=== PATIENT | female | born 1945 | race Caucasian/White ===

== ENCOUNTER → 2017-06-08 11:21 | Outpatient (CLI) | payer MEDICARE, SELFPAY ==
[2017-06-08 13:48] LABS: Absolute Lymphocyte Count 2.65 X10^3/ul (0.83-4.51); Absolute Neutrophil Count 6.8 X10^3/uL (2.0-7.7); Basophil# 0.02 X10^3/uL; Basophil% 0.2 % (0-1); Eosinophil# 0.34 X10^3/uL; Eosinophils% 3.1 % (0-5); Hemoglobin 14.4 g/dl (12.0-15.0); Lymphocyte # 2.65 X10^3/ul (4.0); Lymphocyte % 24.4 % (19-41); Mean Corpuscular Hgb 30.4 pg (27.0-32.0); Mean Corpuscular Volume 95.1 fL (81-99); Mean Platelet Vol. 9.1 fl (6.2-12.0); Monocyte# 0.99 X10^3/uL; Monocyte% 9.1 % (0-10); Neutrophil # 6.84 X10^3/uL (2.7-7.7); POSITIVE COUNT NO; POSITIVE DIFFERENTIAL NO; POSITIVE MORPHOLOGY NO; Platelet Count 232 K/mm3 (150-450); RBC Distribution Width CV 14.7 % (11.6-14.6); Red Blood Count 4.73 M/mm3 (4.2-5.4); White Blood Count 10.9 K/mm3 (4.4-11.0)
[2017-06-08 14:19] LABS: ALB/GLOB Ratio 0.8 RATIO (0.9-2.4); AST(SGOT) 22 U/L (15-37); Alanine Aminotransfer ALT/SGPT 34 U/L (13-56); Albumin, Serum 3.1 g/dL (3.2-5.0); Alkaline Phosphatase 161 U/L (45-117); Anion Gap 10 (5-15); BUN 18 mg/dL (7-18); BUN/Creat Ratio 24.1 RATIO (10-20); Calcium,Total 9.3 mg/dL (8.5-10.1); Chloride 104 mmol/L (98-107); Creatinine, Serum 0.75 mg/dL (0.55-1.02); EST Glomerular Filtration Rate 81 mL/min (>60); Est Glom Filt Rate - Afr Amer 98 mL/min (>60); Glucose 197 mg/dL (74-106); Potassium 4.1 mmol/L (3.5-5.1); Protein, Total 7.1 g/dL (6.4-8.2); Sodium Level 137 mmol/L (136-145)
== END ==
PROVIDERS: Family Provider Family Medicine; PCP Family Medicine; Visit Provider Internal Medicine Rheumatology
DX: M05.79 Rheumatoid arthritis with rheumatoid factor of multiple sites without organ or systems involvement (principal); Z79.899 Other long term (current) drug therapy; M79.7 Fibromyalgia; M25.511 Pain in right shoulder; M15.9 Polyosteoarthritis, unspecified; K76.0 Fatty (change of) liver, not elsewhere classified; M17.0 Bilateral primary osteoarthritis of knee; E03.9 Hypothyroidism, unspecified; E11.9 Type 2 diabetes mellitus without complications; G47.33 Obstructive sleep apnea (adult) (pediatric); I27.20 Pulmonary hypertension, unspecified
CPT/HCPCS: 36415; 80053; 85025

== ENCOUNTER → 2017-07-04 14:21 | Outpatient (CLI) | payer MEDICARE, SELFPAY ==
[2017-07-04 16:18] LABS: Absolute Lymphocyte Count 3.41 X10^3/ul (0.83-4.51); Absolute Neutrophil Count 7.2 X10^3/uL (2.0-7.7); Basophil# 0.03 X10^3/uL; Basophil% 0.3 % (0-1); Eosinophil# 0.23 X10^3/uL; Eosinophils% 1.9 % (0-5); Hematocrit 48.5 % (37-47); Hemoglobin 15.6 g/dl (12.0-15.0); Lymphocyte # 3.41 X10^3/ul (4.0); Lymphocyte % 28.7 % (19-41); Mean Corp Hgb Conc 32.2 g/gl (32-36); Mean Corpuscular Hgb 30.7 pg (27.0-32.0); Mean Corpuscular Volume 95.5 fL (81-99); Mean Platelet Vol. 9.5 fl (6.2-12.0); Monocyte% 8.4 % (0-10); Neutrophil % 60.5 % (47-70); Platelet Count 270 K/mm3 (150-450); RBC Distribution Width CV 14.8 % (11.6-14.6); RBC Distribution Width SD 50.8 fl (35.1-43.9); Red Blood Count 5.08 M/mm3 (4.2-5.4); White Blood Count 11.9 K/mm3 (4.4-11.0)
[2017-07-04 16:19] LABS: POSITIVE COUNT NO; POSITIVE DIFFERENTIAL NO; POSITIVE MORPHOLOGY NO
[2017-07-04 16:39] LABS: ALB/GLOB Ratio 0.8 RATIO (0.9-2.4); AST(SGOT) 39 U/L (15-37); Alanine Aminotransfer ALT/SGPT 51 U/L (13-56); Albumin, Serum 3.3 g/dL (3.2-5.0); Alkaline Phosphatase 186 U/L (45-117); Anion Gap 9 (5-15); BUN 18 mg/dL (7-18); BUN/Creat Ratio 22.7 RATIO (10-20); Calcium,Total 9.6 mg/dL (8.5-10.1); Chloride 107 mmol/L (98-107); Creatinine, Serum 0.79 mg/dL (0.55-1.02); EST Glomerular Filtration Rate 75 mL/min (>60); Est Glom Filt Rate - Afr Amer 91 mL/min (>60); Globulin 4.1 g/dL (2.2-4.2); Glucose 116 mg/dL (74-106); Potassium 4.1 mmol/L (3.5-5.1); Protein, Total 7.4 g/dL (6.4-8.2); Sodium Level 142 mmol/L (136-145)
== END ==
PROVIDERS: Family Provider Family Medicine; PCP Family Medicine; Visit Provider Internal Medicine Rheumatology
DX: M05.79 Rheumatoid arthritis with rheumatoid factor of multiple sites without organ or systems involvement (principal); Z79.899 Other long term (current) drug therapy; M79.7 Fibromyalgia; M15.9 Polyosteoarthritis, unspecified; K76.0 Fatty (change of) liver, not elsewhere classified; M17.0 Bilateral primary osteoarthritis of knee; E03.9 Hypothyroidism, unspecified; E11.9 Type 2 diabetes mellitus without complications; G47.33 Obstructive sleep apnea (adult) (pediatric); I27.20 Pulmonary hypertension, unspecified
CPT/HCPCS: 36415; 80053; 85025

== ENCOUNTER → 2017-07-18 11:11 | Outpatient (CLI) | payer MEDICARE, SELFPAY ==
--- NOTE | 2017-07-18 11:23 | RAD_ITS ---
STUDY: X-RAY - LUMBAR SPINE REASON FOR EXAM: Female, 71 years old. Continued back pain weeks after fall in bathtub TECHNIQUE: 4 view(s) of the lumbar spine were obtained. COMPARISON: None FINDINGS: Normal lumbar lordosis. There is a 19 degree dextroscoliosis centered at L3-4. There is borderline to mild retrolisthesis of L1 on L2 and L3 on L4. Grade 1 spondylolisthesis of L5 on S1. There is multilevel endplate spondylosis of the lumbar vertebrae. There is multi-level degenerative disc disease with multi-level disc space narrowing. There is moderate anterior wedging compression deformity of the T12 vertebra. Incidental note of hypoplastic T12 ribs. There are multilevel degenerative arthroses of the lumbar facet articulations. There is atherosclerotic calcification of the abdominal aorta without a demonstrated aneurysm. Surgical clips of prior cholecystectomy project in the right upper quadrant of the abdomen. RAD/L/S Spine Min 4 Views IMPRESSION: 1. Moderate anterior wedging compression deformity of the T12 vertebra. 2. Degenerative changes of the spine, as detailed above. Electronically Signed: Ge Ayon MD at 16:33 EDT , Service support ,
== END ==
PROVIDERS: Family Provider Family Medicine; PCP Family Medicine; Visit Provider Family Medicine
DX: M54.16 Radiculopathy, lumbar region (principal)
CPT/HCPCS: 72110

== ENCOUNTER → 2017-08-14 10:53 | Outpatient (CLI) | payer MEDICARE, SELFPAY | PROVIDERS: Family Provider Family Medicine; PCP Family Medicine; Visit Provider Internal Medicine Rheumatology | DX: M05.79 Rheumatoid arthritis with rheumatoid factor of multiple sites without organ or systems involvement (principal); Z79.899 Other long term (current) drug therapy; M79.7 Fibromyalgia; M15.9 Polyosteoarthritis, unspecified | CPT/HCPCS: 36415 ==

== ENCOUNTER → 2017-10-30 10:11 | Outpatient (CLI) | payer MEDICARE, SELFPAY ==
[2017-10-30 12:04] LABS: Absolute Lymphocyte Count 3.35 X10^3/ul (0.83-4.51); Absolute Neutrophil Count 6.1 X10^3/uL (2.0-7.7); Basophil# 0.03 X10^3/uL; Basophil% 0.3 % (0-1); Eosinophil# 0.34 X10^3/uL; Eosinophils% 3.1 % (0-5); Lymphocyte # 3.35 X10^3/ul (4.0); Mean Corp Hgb Conc 31.3 g/gl (32-36); Mean Corpuscular Hgb 30.6 pg (27.0-32.0); Mean Platelet Vol. 8.8 fl (6.2-12.0); Monocyte% 9.3 % (0-10); Neutrophil # 6.08 X10^3/uL (2.7-7.7); Neutrophil % 56.2 % (47-70); Platelet Count 301 K/mm3 (150-450); RBC Distribution Width CV 15.5 % (11.6-14.6); RBC Distribution Width SD 54.8 fl (35.1-43.9); White Blood Count 10.8 K/mm3 (4.4-11.0)
[2017-10-30 12:22] LABS: POSITIVE COUNT NO; POSITIVE DIFFERENTIAL NO; POSITIVE MORPHOLOGY NO
[2017-10-30 12:24] LABS: ALB/GLOB Ratio 0.8 RATIO (0.9-2.4); AST(SGOT) 25 U/L (15-37); Alanine Aminotransfer ALT/SGPT 31 U/L (13-56); Albumin, Serum 3.1 g/dL (3.2-5.0); Alkaline Phosphatase 160 U/L (45-117); Anion Gap 9 (5-15); BUN 17 mg/dL (7-18); BUN/Creat Ratio 18.7 RATIO (10-20); Calcium,Total 9.2 mg/dL (8.5-10.1); Chloride 106 mmol/L (98-107); Creatinine, Serum 0.91 mg/dL (0.55-1.02); EST Glomerular Filtration Rate 64 mL/min (>60); Est Glom Filt Rate - Afr Amer 78 mL/min (>60); Globulin 4.1 g/dL (2.2-4.2); Glucose 179 mg/dL (74-106); Potassium 4.4 mmol/L (3.5-5.1); Protein, Total 7.2 g/dL (6.4-8.2); Sodium Level 143 mmol/L (136-145)
== END ==
PROVIDERS: Family Provider Family Medicine; PCP Family Medicine; Visit Provider Internal Medicine Rheumatology
DX: M05.79 Rheumatoid arthritis with rheumatoid factor of multiple sites without organ or systems involvement (principal); Z79.899 Other long term (current) drug therapy; M79.7 Fibromyalgia; M15.9 Polyosteoarthritis, unspecified; K76.0 Fatty (change of) liver, not elsewhere classified; M17.0 Bilateral primary osteoarthritis of knee; E03.9 Hypothyroidism, unspecified; E11.9 Type 2 diabetes mellitus without complications; G47.33 Obstructive sleep apnea (adult) (pediatric); I27.20 Pulmonary hypertension, unspecified
CPT/HCPCS: 36415; 80053; 85025

== ENCOUNTER → 2017-11-15 16:15 | Outpatient (CLI) | payer MEDICARE, SELFPAY ==
[2017-11-15 17:57] LABS: Absolute Lymphocyte Count 3.04 X10^3/ul (0.83-4.51); Absolute Neutrophil Count 5.7 X10^3/uL (2.0-7.7); Basophil# 0.01 X10^3/uL; Basophil% 0.1 % (0-1); Eosinophil# 0.33 X10^3/uL; Eosinophils% 3.3 % (0-5); Hematocrit 49.2 % (37-47); Hemoglobin 15.8 g/dl (12.0-15.0); Lymphocyte # 3.04 X10^3/ul (4.0); Lymphocyte % 30.5 % (19-41); Mean Corp Hgb Conc 32.1 g/gl (32-36); Mean Corpuscular Hgb 31.2 pg (27.0-32.0); Mean Corpuscular Volume 97.2 fL (81-99); Mean Platelet Vol. 9.5 fl (6.2-12.0); Monocyte# 0.87 X10^3/uL; Monocyte% 8.7 % (0-10); Neutrophil # 5.71 X10^3/uL (2.7-7.7); Neutrophil % 57.4 % (47-70); Platelet Count 203 K/mm3 (150-450); RBC Distribution Width CV 15.1 % (11.6-14.6); RBC Distribution Width SD 53.3 fl (35.1-43.9); Red Blood Count 5.06 M/mm3 (4.2-5.4)
[2017-11-15 17:58] LABS: POSITIVE COUNT NO; POSITIVE DIFFERENTIAL NO; POSITIVE MORPHOLOGY NO
[2017-11-15 18:25] LABS: ALB/GLOB Ratio 0.8 RATIO (0.9-2.4); AST(SGOT) 22 U/L (15-37); Alanine Aminotransfer ALT/SGPT 36 U/L (13-56); Albumin, Serum 3.4 g/dL (3.2-5.0); Alkaline Phosphatase 186 U/L (45-117); Anion Gap 9 (5-15); BUN 14 mg/dL (7-18); BUN/Creat Ratio 17.2 RATIO (10-20); CRP 4.03 mg/L (0.0-3.0); Calcium,Total 9.3 mg/dL (8.5-10.1); Chloride 108 mmol/L (98-107); Creatinine, Serum 0.82 mg/dL (0.55-1.02); EST Glomerular Filtration Rate 73 mL/min (>60); Est Glom Filt Rate - Afr Amer 88 mL/min (>60); Glucose 122 mg/dL (74-106); Lipase 140 U/L (73-393); Potassium 3.8 mmol/L (3.5-5.1); Protein, Total 7.4 g/dL (6.4-8.2); Sodium Level 144 mmol/L (136-145)
== END ==
PROVIDERS: Family Provider Family Medicine; PCP Family Medicine; Visit Provider Family Medicine
DX: E11.42 Type 2 diabetes mellitus with diabetic polyneuropathy (principal); R10.13 Epigastric pain; R11.2 Nausea with vomiting, unspecified
CPT/HCPCS: 36415; 80053; 83690; 85025; 86140

== ENCOUNTER → 2017-12-03 17:38 | Outpatient (CLI) | payer MEDICARE, SELFPAY ==
--- NOTE | 2017-12-03 17:43 | CT_ITS ---
STUDY: CT ABDOMEN AND PELVIS WITH CONTRAST REASON FOR EXAM: Female, 72 years old. Abdominal pain, weight loss, nausea RADIATION DOSAGE (If Supplied By Facility): CTDIvol = ( 23.67 ) mGy, DLP = ( 1778.56 ) mGycm TECHNIQUE: Transaxial 3.75 mm images were obtained from the dome of the diaphragm to the symphysis pubis with oral contrast. 100 ml of Isovue 300 contrast was administered. Sagittal and coronal images were reconstructed. There is obesity, the entirety of soft tissue is not imaged. Individualized dose optimization techniques were used for this CT. COMPARISON: None. FINDINGS: Linear changes in the left greater than right base, atelectatic changes and nonspecific compression of parenchyma. There is mitral valve calcification. There is decreased attenuation of the enlarged liver consistent with steatosis. There are surgical clips in the gallbladder fossa consistent with a prior cholecystectomy. Normal spleen. Normal pancreas. Normal bilateral adrenal glands. Normal right kidney. Normal left kidney. There is no obstructive uropathy, obstructive renal or ureteral calculi. Normal visualized stomach. Normal small intestine. Normal colon. There is non-visualization of the appendix. There is atherosclerosis of the abdominal aorta, greater branches and pelvic arteries without aneurysm or leak. Normal inferior vena cava. Normal retroperitoneum. Normal urinary bladder. There is absence of the uterus consistent with a prior hysterectomy. Right adnexal low-attenuation 1.5 x 1.4 x 1.6 cm measuring water density most consistent with a small cyst. Bilateral continue present subcutaneous skin thickening with fat infiltration, partial calcification right greater than left possible related to injections.. There are diffuse degenerative changes of the visualized lumbar spine. Grade 1 anterolisthesis L5 on S1. Depression of the inferior endplate T12. No acute cortical disruption. CT/Abdomen/Pelvis WITH Contrast IMPRESSION: There is no acute abdomen and pelvic pathology. No evidence of masses or lymphadenopathy. Hepatic steatosis, hepatomegaly, arteriosclerosis, cholecystectomy, hysterectomy, right ovarian cyst and degenerative changes. Continues and subcutaneous anterior abdominal wall fat infiltration possibly related to injections. Electronically Signed: Aminata Mas MD at 6:36 EDT , Service support ,
== END ==
PROVIDERS: Family Provider Family Medicine; PCP Family Medicine; Visit Provider Family Medicine
DX: R10.9 Unspecified abdominal pain (principal); R63.4 Abnormal weight loss; R11.10 Vomiting, unspecified
CPT/HCPCS: 74177; Q9967

== ENCOUNTER → 2017-12-06 09:45 | Outpatient (CLI) | payer MEDICARE, SELFPAY ==
--- NOTE | 2017-12-06 09:47 | NM_ITS ---
CLINICAL: 72-year-old diabetic female with history of chronic nausea. SEMI-SOLID PHASE 99m Tc SULFUR COLLOID GASTRIC EMPTYING STUDY COMPARISON: CT of the abdomen and pelvis report 12/03/2017 FINDINGS: The patient was administered 1.0 mCi of 99m Tc sulfur colloid mixed with oatmeal and consumed per os. Image acquisitions in the anterior-posterior projections for a total of 60 minutes. There is prompt visualization of the stomach. There is no gastroesophageal reflux identified. The T1/2 linear fit was calculated to be 25.97 minutes, (Normal: 12-56 minutes). NM/Gastric Emptying Study IMPRESSION: 1. NORMAL 99m Tc sulfur colloid semi-solid phase (oatmeal) gastric emptying imaging examination. A. There is normal and preserved semi-solid phase gastric emptying compared to normal controls with maintained first order kinetics throughout all components of the examination. (Leslie et al, J Nucl Med Tech 38: 186, 2010). Electronically Signed: Ravi Qureshi DO at 23:03 EDT Tel , Service support ,
== END ==
PROVIDERS: Family Provider Family Medicine; PCP Family Medicine; Visit Provider Internal Medicine Gastroenterology
DX: R11.0 Nausea (principal)
CPT/HCPCS: 78264; 88305; A9541

== ENCOUNTER → 2017-12-07 11:50 | Outpatient (CLI) | payer MEDICARE, SELFPAY | PROVIDERS: Family Provider Family Medicine; PCP Family Medicine; Visit Provider Internal Medicine Gastroenterology | DX: K21.9 Gastro-esophageal reflux disease without esophagitis (principal); R11.0 Nausea ==

== ENCOUNTER → 2017-12-07 12:57 | Outpatient (CLI) | payer MEDICARE, SELFPAY ==
--- NOTE | 2017-12-07 | IMM_PTH ---
PATIENT: CAMRON SNOW LOC: [facility] U#:[id number] AGE/SX: 79/F ROOM: RE12/07/[address]: Dr. Gio Cordero MD : 1945 BED: DIS: SPEC #: [id number] RECD: 12/11/17 10:41 STATUS: JEANA REQ #: [id number] ROSAURA: 12/07/17 00:[address]: Gio Cordero DEPT: IMMUNOHISTOCHEMISTRY RECD BY: Samara Thurston ENTERED: 12/11/17 10:41 SP TYPE: IMMUNO OTHR DR: Dr. Diallo Dejesus DO Tissues: Stomach, NOS Procedures: H Pylori (initial) PHYSICIAN & INSTITUTION [place] [id number] SPECIMEN INFORMATION: Tissue Source: Gastric antrum/body, biopsy Clinical Info: Nausea, GERD Specimen Number: [id number] CPT code: 07186 METHODOLOGY: Deparaffinized sections of prefer/formalin-fixed tissue or PAP/DQ stained slides are incubated with monoclonal/polyclonal antibodies/oligonucleotide probes. Localization is made via biotin free immunoperoxidase method. Appropriate controls are performed and reacted as expected. Results on target cell population are indicated in the following table: RESULTS: ANTIBODY / CLONE RESULT H Pylori (polyclonal) negative These tests were developed and their performance characteristics determined by [facility]. They may not have been cleared or approved by the U.S. Food and Drug Administration. The FDA has determined that such clearance or approval is not necessary. INTERPRETATION: Gastric antrum/body, biopsy: Negative for Helicobacter pylori organisms. AM:az 12/12/17
--- NOTE | 2017-12-07 10:08 | GASB_PTH ---
PATIENT: CAMRON SNOW LOC: [facility] U#:[id number] AGE/SX: 79/F ROOM: RE12/07/[address]: Dr. Gio Cordero MD : 1945 BED: DIS: SPEC #: [id number] RECD: 12/07/17 15:31 STATUS: JEANA REQ #: [id number] ROSAURA: 12/07/17 10:[address]: Gio Cordero DEPT: SURGICAL PATHOLOGY RECD BY: Regis Jung ENTERED: 12/10/17 08:52 SP TYPE: Gastric Bx OTHR DR: Dr. Diallo Dejesus, [facility] Tissues: Gastric mucous membrane Procedures: Surgery Specimen Level IV Comments: @ Originally on account #[id number] Req #[id number] HEADER OPERATION: EGD with biopsy PRE-OP DIAGNOSIS: Nausea, GERD TISSUE SUBMITTED: Biopsy gastric antrum/body, rule out gastritis MICROSCOPIC DIAGNOSIS Gastric antrum/body, biopsy: Chronic gastritis. AM:az 12/11/17 COMMENT The results of immunohistochemistry for Helicobacter pylori will be reported separately ([id number]). MICROSCOPIC DESCRIPTION Slides are reviewed. GROSS DESCRIPTION Received in fixative is one container labeled with the patient's name and designated biopsy gastric antrum/body. The specimen consists of multiple irregular fragments of light man soft tissue that in aggregate measure 0.8 x 0.3 x 0.1 cm. The specimen is totally submitted in one cassette. / SJ:az 12/10/17 TC:3 CPT: 43088
== END ==
PROVIDERS: Family Provider Family Medicine; PCP Family Medicine; Visit Provider Internal Medicine Gastroenterology
DX: K29.50 Unspecified chronic gastritis without bleeding (principal); K21.9 Gastro-esophageal reflux disease without esophagitis
CPT/HCPCS: 88305; 88342

== ENCOUNTER 2017-12-21 15:00 | Outpatient (RCR) | payer MEDICARE, SELFPAY ==
--- NOTE | 2017-07-17 18:45 | HP.PTEVAL_ITS ---
Patient's Visit Information CAMRON SNOW is a 71 year old F referred to Physical Therapy by Clarke Parada MD with a diagnosis of R TSA 02/02 and LBP. Date of Evaluation: 07/17/17 Physical Therapist: Pio Ogden DPT, OC - Visit Plan Frequency: 3x /Week Duration: 4-6 Weeks Plan: 3x/week for 3-6. Pt needs TLC and likes to talk, keep her working. Gentle LB ROM progress to HEP. Core postural and LE strength and progress to HEp. R shoulder strength and progress to HEp. Gradual walking progression and balance - Subjective Subjective: 01/22/2017 had reverse TSA. This was after difficulty with lots of pain and difficulty moving it. Shoulder is soooo much better. Woke up in hospital without much pain. Went into rehab after surgery for 5 weeks. Then had home health 3x/week. Was doing great. Got stress fracture in late March and was in sling for another month and started therapy over again pt thinks due to overaggressive home PT. Saw doctor 2 weeks ago and is doing well but is very weak. Could not cut an onion the other night. Needs TSA on L shoulder first btu will take a year for R shoulder to heal. Not to agitate L shoulder in the meantime. Can't do much with left due to pain. R one is painfree but weak. Is right handed No regular exercises since home health. Sleep is OK with shoulder and is able to lie on right shoulder again. Has h/o bad OA. Retired from [employer]. Activities: read books and watch TV(doctor's orders.). Would like to garden. Would love to walk but Dr. Hansen her foot doctor says she cannot. Uses cane to walk as she feels unstable. Fell 3-4 weeks ago as she was walking to bathroom and turning to close door. Hurt back. Could not get up. Back has been painful since. Laid there 12 hours. Squad helped her up. Has had R butt adn leg pain at first and now left leg hurts too. Put heat on back that night. and was having a hard time sleeping. Was hard to stand more than 5 minutes then needs to sit and got very weak. Has [address] apartment and needs to wear brace on L leg. Son lives downstairs. Pain now right across bottom of back. Has h/o L23 HNP and other bulges from MRI 15 years ago. Biggest problem now is back pain:Will have x rays tomorrow. Feels weak due to pain. Son cleans house and she cannot cook, can't do laundry. - Pain LBP Pain Intensity (Out of 10): 6 Pain Intensity Range: 6 Comment: ache consatantly - Objective Wh walker: Better posture and step length, more confidence and safer. She will get a script from family doctor and get wh walker. Steps are needing rail and up with left only, right hurts too much and is weak functionally. cane: Mod i but short B step length and especially L, veery tired and limited distance by back pain 250 feet. unable without AD fucntionally. Trasnfer to and frfo chair I with UE. R shoulder AROM 145 flexion and abd. 70 ext rotation and PSIS IR. L shoulder is more limited and painful as she needs a TSA on that side also. Shoulder strength is 3+/5 in rotations on R and flexion/ abduction, L shoulder hurts to test. C/S aROM WFL. L/S AROM mod limited in ext and slow but tolerable flexion more due to feeling unsteady then complaints of pain. LE Strength 3+/5 without myotomal abnormalities. Sensation wNL to severino slight touch in LE. Pt shows hunched over posture and forward head. Overall she is very weak and depressed about her condition. She persevorates on her medical problems but seems willing to work her way out of them with approp education. - Balance Scores Functional Gait Assessment Score: 14 % Disability: 53.3400 CATSIB Score (Max score 120 seconds): 60 - Goals Goal 1:: Walk with good step length one lap at [facility] without need for AD or LBP Goal Time Frame: 4-6 Weeks Goal 2:: LBP diminished to 0-2/10 at all times and manageable with ex. Goal Time Frame: 4-6 Weeks Goal 3:: I approp Home general and shoulder strength without increased pain. Goal 4:: Up and down one flight of steps with one rail without complaints of fatigue or LBP Goal Time Frame: 4-6 Weeks - Rehabilitation Potential Physical Therapy Diagnosis: Limited mobility due to recent fall and LBP Rehabilitation Potential: Fair - Anticipated Interventions Patient/Client Instruction: Educate patient on: Condition, Risk Factors For the Purpose of:: To decrease pain, To improve muscle performance and motor function Therapeutic Exercise to Include: Strength training, Endurance training, Flexibilty training, Gait and locomotor training For the Purpose of:: To decrease pain, To increase ROM, To improve muscle performance and motor function, To increase tolerance to activity/condition/ position, To improve gait and locomotor functions Thank you for the opportunity to evaluate your patient. For Medicare and Medicare HMO plans, please review the plan of care and approve it. It will need to be FAXED BACK to us at [phone] for Medicare purposes. Please let me know if there are questions or concerns regarding this plan of care. Physician Signature: Date:
--- NOTE | 2017-09-03 13:33 | HP.PTREVAL_ITS ---
Clarke Parada MD, It has been my pleasure to treat CAMRON SNOW over the last 10 visits for R TSA 02/02 and LBP. Please see the progress note below for an update on the physical therapy plan of care! Subjective: Not feeling better. Getting frustrated. Dr. Mason changed meds from Humira to soemthing else. Has taken that 2x(weekly) and saw some improvement starting a few days ago. Pain is none in R shoulder, L shoulder occasional pain. Most pain is in knees and legs and L ankle which were swollen and hurt alot. 2/10 on good days and worse wehn transferring. Found a sleeping pill that works. Not doing anything becasue it is no fun when you can't get around well. Can't cook or enjoy garden b/c is hard to get around. Objective/Function: Pt ambulates with wh walker I into PT. Pt ambulates one full lap with one rest without AD with short R step length slowly but steady. Trasnferred out of chair without UE well but not believe that she could do it prior to today. Many complaints of pain but not bad today. Says her son thinks she is depressed and will talk with Dr. Lozano about that this week. She does sound to be down in the dumps about her pain. Has had some improvements over the last few weeks with her med change from Dr. Santillan. Overall, neexs to be more consistent with PT. still refuses water therapy. Goals still approp, questionable prognosis. Plan Plan: 2-3x/week for 10 visits to work on a more functional ex program. Walk without walker, steps, static and dynamic balance ex. May do some chair ex but progress these to HEP. Hope that new meds continue to improve pain and patient should consider talking with vivien about anti depressant as she is more down than I have seen in 12 years af treating this patient. Goals Goal 1:: Walk with good step length one [facility] at [facility] without need for AD or LBP Goal Time Frame: 4-6 Weeks Goal Progress: one rest. very tired. Goal 2:: LBP diminished to 0-2/10 at all times and manageable with ex. Goal Time Frame: 4-6 Weeks Goal Progress: will see Ricci Goal 3:: I approp Home general and shoulder strength without increased pain. Goal Progress: Not Progressing Goal 4:: Up and down one flight of steps with one rail without complaints of fatigue or LBP Goal Time Frame: 4-6 Weeks Goal Progress: not tested. Anticipated Interventions Patient/Client Instruction: Educate patient on: Condition, Risk Factors For the Purpose of:: To decrease pain, To improve muscle performance and motor function Therapeutic Exercise to Include: Strength training, Endurance training, Flexibilty training, Gait and locomotor training For the Purpose of:: To decrease pain, To increase ROM, To improve muscle performance and motor function, To increase tolerance to activity/condition/ position, To improve gait and locomotor functions Please do not hesitate to contact me at [phone] by phone or Fax: if you have questions or concerns regarding this new plan of care! Sincerely, DENNY SageT, OC
--- NOTE | 2017-10-15 15:08 | HP.PTREVAL_ITS ---
Clarke Parada MD, It has been my pleasure to treat CAMRON SNOW over the last 18 visits for R TSA 02/02 and LBP. Please see the progress note below for an update on the physical therapy plan of care! Subjective: Weekend was not bad. It stayed pretty good Sunday and went to a movie with a friend Sunday and tried to minimize work activitiy. A Little worse yesterday but sugar was doing crazy things as she didnt' eat as much as she should. Pain was not as bad over the weekend. r shoulder tweaked a little this am, but not bad. L shoulder not bad. Did a ltitle pulling ex at home but taking it slow. Objective/Function: Tolerating ex well today. L/S AROM is not painful today adn decent. R shoulder aROM full and without pain except IR to PSIS. Strength at 4-/5 without pain. L shouldr not tested. Pt has had 3 good days after ES Sunday and educating her on not overdoing things at home. Changed G- coding to LEFS today as shoulders have been doing well and we are working more on LB pain and legs ability to get her around. Plan Plan: Finish out this plan of care(3 more visits then full recheck and plan of care update. Goals Goal 1:: Walk with good step length one lap at [facility] without need for AD or LBP Goal Time Frame: 4-6 Weeks Goal Progress: Progressing Goal 2:: LBP diminished to 0-2/10 at all times and manageable with ex. Goal Time Frame: 4-6 Weeks Goal Progress: SLOW PROGRESSION Goal 3:: I approp Home general and shoulder strength without increased pain. Goal Progress: Not Progressing Goal 4:: Up and down one flight of steps with one rail without complaints of fatigue or LBP Goal Time Frame: 4-6 Weeks Goal Progress: not tested. Anticipated Interventions Patient/Client Instruction: Educate patient on: Condition, Risk Factors For the Purpose of:: To decrease pain, To improve muscle performance and motor function Therapeutic Exercise to Include: Strength training, Endurance training, Flexibilty training, Gait and locomotor training Comment: flexion bias ex adn NS positioning. For the Purpose of:: To decrease pain, To increase ROM, To improve muscle performance and motor function, To increase tolerance to activity/condition/ position, To improve gait and locomotor functions TENS: Yes IF ES: Yes Thermo therapy (hot pack): Yes For the Purpose of:: To decrease pain Please do not hesitate to contact me at [phone] by phone or Fax: if you have questions or concerns regarding this new plan of care! Sincerely, Pio Ogden, DENNYT, OC
--- NOTE | 2017-10-31 14:53 | HP.PTREVAL ---
Clarke Parada MD, It has been my pleasure to treat CAMRON SNOW over the last 21 visits for R TSA 02/02 and LBP. Please see the progress note below for an update on the physical therapy plan of care! Subjective: Walking with cane a little more but L ankle is worse. No obvious injury. No real back pain in a while. Shoulders have felt OK, doesn;t move R one much. Very tired. Sleeping OK as she can. Bored and miserable but not painful. activity [place] she is doing well but can't work outside in flower bed. Objective/Function: Walks with L antalgia despite brace on L ankle, No AD used today in PT. Shoulder L AROM WFL and without pain, strength rotations at 4/5 adn elevation at 4/5 without pain. LB AROM min limited in ext and SB with no pain. Strength in LE 4-/5 but functionally R LE on steps much weaker than L and needs two hands to ascend with R. OVERALL SHOULDER DOING WELL AND D/C. l ANKLE HURTS TODAY AND RECOMMENDED SHE GET IT CHECKED WITH HER FOOT DR Peraza. bACK MUCH BETTER FOR LAST TWO WEEKS INEXPLICABLY. WEHAVE ASKED HER TO REST AND SHE HAS BEEN DOING EX INTERMITTENTLY AND SHE THINKS ES HAS REALLY HELPED. Changed to [facility] today based on newer script adn d/c of shoulder chart. Plan Plan: 1X/WEEK FOR 4 WEEKS TO PROGRESS LE STRENGTH TO WB AND GET MORE AGGRESSIVE WITH HEP BODY TOLERATES. MAY CONTINUE ESAS NEEDED(PT HAS HER OWN UNIT AND WILL BRING IT TO USE AND EDUCATE HER INSTEAD OF OURS) Goals Goal 1:: Walk with good step length [facility] without need for AD or LBP Goal Time Frame: 4-6 Weeks Goal Progress: needs cane. Goal 2:: LBP diminished to 0-2/10 at all times and manageable with ex. Goal Time Frame: 4-6 Weeks Goal Progress: Goal Met Goal 3:: I approp Home general and shoulder strength without increased pain. Goal Progress: Goal Met Goal 4:: Up and down one flight of steps with one rail without complaints of fatigue or LBP Goal Time Frame: 4-6 Weeks Goal Progress: L not R Goal 5:: I approp standing ex for strength and balance to minimize future problems without increasing back pain. Goal Time Frame: 2-4 Weeks Goal Progress: NEW GOAL Anticipated Interventions Patient/Client Instruction: Educate patient on: Condition, Risk Factors For the Purpose of:: To decrease pain, To improve muscle performance and motor function Therapeutic Exercise to Include: Strength training, Endurance training, Flexibilty training, Gait and locomotor training Comment: flexion bias ex adn NS positioning. For the Purpose of:: To decrease pain, To increase ROM, To improve muscle performance and motor function, To increase tolerance to activity/condition/position, To improve gait and locomotor functions TENS: Yes IF ES: Yes Thermo therapy (hot pack): Yes For the Purpose of:: To decrease pain Please do not hesitate to contact me at [phone] by phone or if you have questions or concerns regarding this new plan of care! Sincerely, Pio Ogden, DENNYT, OC
--- NOTE | 2017-11-30 16:14 | HP.PTREVAL_ITS ---
Diallo Dejesus, DO, It has been my pleasure to treat CAMRON SNOW over the last 24 visits for R TSA 02/02 and LBP. Please see the progress note below for an update on the physical therapy plan of care! Subjective: Thought she was progressing well. 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 Today R shoulder hurts and foot hurts . R shoulder has hurt a little from cutting corn 2 weeks ago. Back is doing really well. Controlled well with intermittent TENS. L shoulder has been pretty good. Objective/Function: L shoulder ROM elevation 90 and this is normal for patient. R shoulder ROM is full in elevation but slow and painful OH. External rotation is full and painfree and IR is to PSIS adn painful. Tender to touch over acromion and supraspinatus. Strength is 3+ EX rot and pain and 4- IR adn 4 - elevation with pain. LB AROM is full and painfree today. Walks without AD 1/ 2 lap I on firm surface but L antalgia and very little ankle movment L. OVERALL DOING WELL WITH LB. r SHOULDER HAS HAD A RELAPSE DUE TO CUTTING CORN AND KITCHEN PREP LAST COUPLE DAYS. FOOT l IS BIGGEST PROBLEM. Plan Plan: F/U 2-3 WEEKS TO CHECK r SHOULLDER AND BACK AND LIKELY D/C. RECOMMENDED SHE RETURN TO FOOT DOCTOR FOR NEXT STEP OR PT PRESCRIPTION ON FOOT. Goals Goal 1:: Walk with good step length one lap at [facility] without need for AD or LBP Goal Time Frame: 4-6 Weeks Goal Progress: Progressing Goal 2:: LBP diminished to 0-2/10 at all times and manageable with ex. Goal Time Frame: 4-6 Weeks Goal Progress: Goal Met Goal 3:: I approp Home general and shoulder strength without increased pain. Goal Progress: Goal Met Goal 4:: Up and down one flight of steps with one rail without complaints of fatigue or LBP Goal Time Frame: 4-6 Weeks Goal Progress: Not Progressing Goal 5:: I approp standing ex for strength and balance to minimize future problems without increasing back pain. Goal Time Frame: 2-4 Weeks Goal Progress: Goal Met Goal 6:: maintain no LBP and progress back to no R s[place]oulder pain with home management. Goal Time Frame: 4-6 Weeks Goal Progress: NEW GOAL Anticipated Interventions Patient/Client Instruction: Educate patient on: Condition, Risk Factors For the Purpose of:: To decrease pain, To improve muscle performance and motor function Therapeutic Exercise to Include: Strength training, Endurance training, Flexibilty training, Gait and locomotor training Comment: flexion bias ex adn NS positioning. For the Purpose of:: To decrease pain, To increase ROM, To improve muscle performance and motor function, To increase tolerance to activity/condition/ position, To improve gait and locomotor functions TENS: Yes IF ES: Yes Thermo therapy (hot pack): Yes For the Purpose of:: To decrease pain Please do not hesitate to contact me at [phone] by phone or Fax: if you have questions or concerns regarding this new plan of care! Sincerely, Pio Ogden DPT, OC
--- NOTE | 2017-12-21 16:28 | HP.PTDCSUM ---
HP - PT D/C Summary It has been my pleasure to treat CAMRON SNOW under orders from Diallo Dejesus DO, for the diagnosis of R TSA 02/02 and LBP for a total of 25 visit(s). Discharge Date: 12/21/17 Please see the following information for a summary of their discharge status. - Subjective Subjective: Saw Anjelica since she has had many tests. Found nothing on these tests. NO MORE TESTS. No changes in the last three weeks. Tried resetting sleep schedule as she is not sleeping well but that did not help. R shoulder is painful at night lying flat and moving it. Comfortable at rest. Settled back down. Will see Dr. Parada. L shoulder is not healthy. Pain on daily basis is 2/10 but activity is limited. LBP: Not too bad, daily pain 0-3/10. Using TENS at home a couple times. Back is generally weak and walking makes it worse. Needs to be stronger, doing exercises at home. - Pain LBP Pain Intensity (Out of 10): 0 Right Shoulder Pain Intensity (Out of 10): 2 Left Shoulder Pain Intensity (Out of 10): 2 BILAT KNEES Pain Intensity (Out of 10): 0 R quad Pain Intensity (Out of 10): 0 L ankle Pain Intensity (Out of 10): 2 - Overall Improvement % Improvement: 50 - Objective Objective/Function: Good back ROM without pain today. Walks with cane I and safe but slow. Not painful. R foot is collapsing into pronation but does not wish to wear brace. L shoulder ROM elevation is to 80 degrees adn painful with elevation. R shoulder AROM is WFL adn slightly achy 3/10. OVERALL PATIENT IS GETTING AROUND GOOD I HAVE SEEN HER IN THE LAST NUMBER OF MONTHS, LACHELLE COMPLAINTS AND NOW WANTS TO WALK BETTER ADN LESS PAINFUL DESPITE NOT WANTING TO GET IN WATER FOR THERAPY, HAVE INJECTIONS, SURGERY, PAIN MEDS. SHE IS WORN OTU FROM SLEEP CHANGES NOW AND I RECOMMENDED SHE GET THAT TAKEN CARE OF BEFORE WE TAKE THE NEXT STEP OF RE-ATTEMPTING GYM EX TO TOLERANCE. - Goals Goal 1:: Walk with good step length one lap at [facility] without need for AD or LBP Goal Progress: Goal Met Goal 2:: LBP diminished to 0-2/10 at all times and manageable with ex. Goal Progress: 0-3/10 Goal 3:: I approp Home general and shoulder strength without increased pain. Goal Progress: initial ex. Goal 4:: Up and down one flight of steps with one rail without complaints of fatigue or LBP Goal Progress: Not Progressing Goal 5:: I approp standing ex for strength and balance to minimize future problems without increasing back pain. Goal Progress: initial program Goal 6:: maintain no LBP and progress back to no R sjhoulder pain with home management. Goal Progress: back to doing well - Plan Plan: D/C CURRENT CHART FOR SHOULDER, WILL RE-EVAL BACK PER NEW ANJELICA ORDER AT NEXT F/U IN TWO WEEKS. PT TOP BRING TENS TO TEACH SET UP. - D/C Information Discharge Comments: pT DOING WELL AND WILL dc SHOULDER CHARTS. hAS NEW SCRIPT FOR RADICULOPATHY WHICH WE WILL RE-EVALUATE at next session per new script. If there are questions or concerns regarding this patient's physical therapy, please feel free to call me at [phone]. Thank you for the referral of this patient. Sincerely, Pio Ogden, DPT, OC
== END 2017-12-21 19:00 | disposition home or self-care (01) ==
LOC: PT 15:00
PROVIDERS: Family Provider Family Medicine; PCP Family Medicine; Visit Provider Family Medicine
DX: Z96.619 Presence of unspecified artificial shoulder joint (principal)
CPT/HCPCS: 97014; 97110; 97116; 97163; 97164; 97530; G0283

== ENCOUNTER 2018-04-03 15:00 | Outpatient (RCR) | payer MEDICARE, SELFPAY ==
--- NOTE | 2018-01-04 15:23 | HP.PTEVAL_ITS ---
Patient's Visit Information CAMRON SNOW is a 72 year old F referred to Physical Therapy by Diallo Dejesus DO with a diagnosis of LB radiculopathy.. Date of Evaluation: 01/04/18 Physical Therapist: Pio Ogden DPT, OC - Visit Plan Frequency: 2x /Week Duration: 4-6 Weeks Plan: 2x/week for 4-6 weeks. Teach and progress adn monitor tolerance to gym based strength program for LE, core, R UE)adn L to tolerance). Progress to I as able with list when assured tolerance. - Subjective Subjective: Patient has long history of chronic pain and comorbidities detailed in her last chart for her R shoulder surgery discharged a couple weeks ago. She has a R rev TSA, L arthritic shoulder, L foot and ankle problem in her history and chronic LBP. We have been treating her for her LBP and shoulder recently. The shoulder has progressed nicely buit the LBP has been limiting and intermittently up and down. she has been doctoring for a number of different comorbidities lately including with a psychologist and other doctors but has continued with a shoulder HEP adn gentle L/S strengthening adn ROM program at home. She wishes to get more aggressive if possible. She did not tolerate gym based strength in the past but is feeling much better recently. She does not wish to get in the pool which has been recommended many times for her. L ankle hurts all the time. Doesn't want to wear brace but has strapped brace. Not sure if she walked too much one day. L shoulder hurts not much at all but cannot lift it and knows this.. R shouldr is fine, sometimes acromion hurts 1- 2/10 with movement lifting blankets at night. LB is pretty good lately, 1-2/10 every day and hurts much of time if stands too long. Sleep is not great due to nightmares. Also not a good sleeper 5 nights a week. Gave up on walks and ga rdening due to foot and back pain. Hard to bend over. Lost balance bending over last year. - Pain LBP Pain Intensity (Out of 10): 1 Pain Intensity Range: 0, 4 - Objective Walks with cane in R UE mod I. Trasnfers with great effort and using UE I. Getting on and off machines is challenging due to core weakness adn poor control of trunk position. L/S AAROM ext mod limted and feels like falling BW, SB B mod limited, flexion min limited. reflexes 1/3 patella and achilles B. Sensation LE WNL to gross light touch. Strength trunk is poor at 2+. Strength LE ankles L not tested due to pain, R 3+, knees ext 3+ and flexion 3+ B, some pain in L knee. Hips 3/5 without pain except some LB discomfort with L hip flexion. Overall seems happy and motivated to try some exercises although tolerance will be questionable. - Balance Scores Functional Gait Assessment Score: 20 % Disability: 33.3400 - Goals Goal 1:: Pt I in appropriate HEP of machine based LE adn core adn R UE(L to tolerance ) strength on machines and CV on Nustep . Goal Time Frame: 4-6 Weeks Goal 2:: Pain in LB remain at 0-2/10 at all times without increasing other sympt oms. Goal Time Frame: 4-6 Weeks Goal 3:: Patient able to stand at counter and cook for 30 minutes without increased pain in LB. Goal Time Frame: 4-6 Weeks - Rehabilitation Potential Physical Therapy Diagnosis: LBP radiculopathy at times. Rehabilitation Potential: Questionable - Anticipated Interventions Patient/Client Instruction: Educate patient on: Condition For the Purpose of:: To decrease pain, To improve muscle performance and motor function Therapeutic Exercise to Include: Strength training, Active ROM For the Purpose of:: To decrease pain, To improve muscle performance and motor function, To increase tolerance to activity/condition/position TENS: Yes Thermo therapy (hot pack): Yes For the Purpose of:: To decrease pain Thank you for the opportunity to evaluate your patient. For Medicare and Medicare HMO plans, please review the plan of care and approve it. It will need to be FAXED BACK to us at [phone] for Medicare purposes. Please let me know if there are questions or concerns regarding this plan of care. Physician Signature: Date:
--- NOTE | 2018-02-06 17:21 | HP.PTREVAL_ITS ---
Diallo Dejesus, DO, It has been my pleasure to treat CAMRON SNOW over the last 9 visits for LB radiculopathy.. Please see the progress note below for an update on the physical therapy plan of care! Subjective: Feeling pretty good. Down in the dumps b/c I am home alone alld ay. Doing well with exercises adn more machines. Sees Filipe Feb 21. Back has been good. One less pain pill per day lately. Objective/Function: Walks without much weight through L ankle as it hurts, squats avoiding weight L ankle. Back pain and shoulders significantly better. Balance is good with ambulating except for gait deviations. PT DOING MUCH BETTER THAN MONTHS AGO. BETTER SPIRITS AND LESS PAIN, L ANKLE IS STILL LIMITING FACTOR. MIGHT BENEFIT FROM PT IF DR. MCCABE ORDERS AFTER CONSULT. L ankle has decent ROM except for pulling in gastroc with PROM DF. Strength is 4-/5, pain is mostly with WB vs. ROM or use of ankle. Back ROM WFL. R shoulder movess wella dn L shoulder is limited as is normal. 130 AROM R shoulder elevation. IR still mildly expectedly limited. Plan Plan: Recommend 1x/week for 3 visits to learn exs for HEP(heel raises if able, ball squeeze, chair squat, band abduction, sink march, sink abd, continue rows) Please ensure safety and give pics. Pt then to do those 3x/week I at home for a month and will f/u with EG at that time. Goals Goal 1:: Pt I in appropriate HEP of machine based LE adn core adn R UE(L to galileo erance ) strength on machines and CV on Nustep . Goal Time Frame: 4-6 Weeks Goal Progress: wants home now Goal 2:: Pain in LB remain at 0-2/10 at all times without increasing other symptoms. Goal Time Frame: 4-6 Weeks Goal Progress: Goal Met Goal 3:: Patient able to stand at counter and cook for 30 minutes without increased pain in LB. Goal Time Frame: 4-6 Weeks Goal Progress: Progressing Goal 4:: Patient I in appropriate HEP for gneeral ex adn LB /shoulder fitness and do 3x/week for 4 weeks I Goal Time Frame: 4-6 Weeks Goal Progress: NEW GOAL Anticipated Interventions Patient/Client Instruction: Educate patient on: Condition For the Purpose of:: To decrease pain, To improve muscle performance and motor function Therapeutic Exercise to Include: Strength training, Active ROM For the Purpose of:: To decrease pain, To improve muscle performance and motor function, To increase tolerance to activity/condition/position TENS: Yes Thermo therapy (hot pack): Yes For the Purpose of:: To decrease pain Please do not hesitate to contact me at [phone] by phone or if you have questions or concerns regarding this new plan of care! Sincerely, Pio Ogden, DPT, OC
--- NOTE | 2018-04-03 15:50 | HP.PTDCSUM ---
HP - PT D/C Summary It has been my pleasure to treat CAMRON SNOW under orders from Diallo Dejesus DO, for the diagnosis of LB radiculopathy. for a total of 13 visit(s). Discharge Date: 04/03/18 Please see the following information for a summary of their discharge status. - Subjective Subjective: Not happy with foot and doctoring with Filipe. Saw dr. Parada for f/u and released from shoulder. Said shoulder looks good. No more pain in shoulder. Happy with movement. L shoulder still hurts but doesn't want it done now. Low back is pretty good. Has used TENS and it helps. HEP going well, doing legs stadning at sink and sitting. Has nightmares. Might be from medications. Psychiatrist knows. - Pain LBP Pain Intensity (Out of 10): 0 right shouler Pain Intensity (Out of 10): 0 LEFT ANKLE Pain Intensity (Out of 10): 3 - Objective Objective/Function: LB AROM WFL, mod limited in extension but painfree in all directions today. R shoulder AROM is full and painfree to 140 flexion and abd and 65 ext rotation without pain. Walking is with cane and slow but I, L ankle discomfort and instability are the main problem and make her apinful and unsteady feeling. I with gait on firm flat surface and climbs steps preferring R and needing rails mod I. - Goals Goal 1:: Pt I in appropriate HEP of machine based LE adn core adn R UE(L to tolerance ) strength on machines and CV on Nustep . Goal Progress: N/A anymore. Goal 2:: Pain in LB remain at 0-2/10 at all times without increasing other symptoms. Goal Progress: Goal Met Goal 3:: Patient able to stand at counter and cook for 30 minutes without increased pain in LB. Goal Progress: Progressing Goal 4:: Patient I in appropriate HEP for gneeral ex adn LB /shoulder fitness and do 3x/week for 4 weeks I Goal Progress: Goal Met - Plan Plan: D/c back and shoulder therapy to HEP. Will schedule ankle EVAL per script from Dr. Dent. - D/C Information Discharge Comments: Pt to [place] via HEP and contact doctor if problems. If there are questions or concerns regarding this patient's physical therapy, please feel free to call me at [phone]. Thank you for the referral of this patient. Sincerely, Pio Ogden, DPT, OCS, CSCS
== END 2018-04-03 19:00 | disposition home or self-care (01) ==
LOC: PT 15:00
PROVIDERS: Family Provider Family Medicine; PCP Family Medicine; Referring Provider Family Medicine; Visit Provider Family Medicine
DX: M54.16 Radiculopathy, lumbar region (principal); R29.898 Other symptoms and signs involving the musculoskeletal system
CPT/HCPCS: 97110; 97164; 97530

== ENCOUNTER → 2018-05-16 11:41 | Outpatient (CLI) | payer MEDICARE, SELFPAY ==
--- NOTE | 2018-05-16 11:44 | BI_ITS ---
MAMMOGRAPHY - BILATERAL SCREENING REASON FOR EXAM: Female, 72 years old. Routine annual screening examination. PERTINENT HISTORY: Aunt with breast cancer. TECHNIQUE: Digital bilateral breast arturo (3D mammographic acquisition) in the CC and MLO projections. 2-D mediolateral oblique (MLO) and craniocaudad (CC) views of both breasts were obtained. CAD: Full Field Digital Mammography with Computer Added Detection was performed. COMPARISON: Comparison is made with prior examination dated March 24, 2014. FINDINGS: Breast Composition: The breasts are almost entirely fatty. There are no dominant masses or suspicious calcifications. No other significant abnormalities are identified. There has been no significant change since the prior study. BI/SCREENING MAMM (CAD), BILAT IMPRESSION: Stable bilateral screening mammogram. Yearly follow-up mammogram recommended. (A) ASSESSMENT CATEGORY: BIRADS Category 1: Negative. A letter regarding these results will be sent to the patient by the facility within 30 days. Approximately 10% of breast cancers are not detected by mammography. A normal mammogram should not delay biopsy of a clinically suspicious abnormality. [id number] Electronically Signed: Larry Godinez, at 14:39 EST , Service support ,
== END ==
PROVIDERS: Family Provider Family Medicine; PCP Family Medicine; Referring Provider Family Medicine; Visit Provider Family Medicine
DX: Z12.31 Encounter for screening mammogram for malignant neoplasm of breast (principal)
CPT/HCPCS: 77063; 77067

== ENCOUNTER → 2018-05-20 11:11 | Outpatient (CLI) | payer MEDICARE, SELFPAY ==
[2018-05-20 12:32] LABS: Absolute Neutrophil Count 5.7 X10^3/uL (2.0-7.7); Basophil# 0.03 X10^3/uL; Basophil% 0.3 % (0-1); Eosinophil# 0.26 X10^3/uL; Eosinophils% 2.2 % (0-5); Hematocrit 51.7 % (37-47); Hemoglobin 16.5 g/dl (12.0-15.0); Lymphocyte % 38.9 % (19-41); Mean Corp Hgb Conc 31.9 g/gl (32-36); Mean Corpuscular Hgb 31.5 pg (27.0-32.0); Mean Corpuscular Volume 98.9 fL (81-99); Mean Platelet Vol. 9.3 fl (6.2-12.0); Monocyte# 1.16 X10^3/uL; Monocyte% 9.8 % (0-10); Neutrophil # 5.74 X10^3/uL (2.7-7.7); Neutrophil % 48.5 % (47-70); Platelet Count 250 K/mm3 (150-450); RBC Distribution Width CV 14.6 % (11.6-14.6); RBC Distribution Width SD 52.4 fl (35.1-43.9); Red Blood Count 5.23 M/mm3 (4.2-5.4); White Blood Count 11.8 K/mm3 (4.4-11.0)
[2018-05-20 12:39] LABS: POSITIVE COUNT NO; POSITIVE DIFFERENTIAL NO; POSITIVE MORPHOLOGY NO
[2018-05-20 13:00] LABS: ALB/GLOB Ratio 0.8 RATIO (0.9-2.4); AST(SGOT) 23 U/L (15-37); Alanine Aminotransfer ALT/SGPT 31 U/L (13-56); Albumin, Serum 3.4 g/dL (3.2-5.0); Alkaline Phosphatase 159 U/L (45-117); Anion Gap 5 (5-15); BUN 26 mg/dL (7-18); BUN/Creat Ratio 25.7 RATIO (10-20); Calcium,Total 9.7 mg/dL (8.5-10.1); Chloride 106 mmol/L (98-107); Creatinine, Serum 1.01 mg/dL (0.55-1.02); EST Glomerular Filtration Rate 57 mL/min (>60); Est Glom Filt Rate - Afr Amer 69 mL/min (>60); Globulin 4.1 g/dL (2.2-4.2); Glucose 69 mg/dL (74-106); Potassium 4.7 mmol/L (3.5-5.1); Protein, Total 7.5 g/dL (6.4-8.2); Sodium Level 142 mmol/L (136-145)
== END ==
PROVIDERS: Family Provider Family Medicine; PCP Family Medicine; Referring Provider Internal Medicine Rheumatology; Visit Provider Internal Medicine Rheumatology
DX: M05.70 Rheumatoid arthritis with rheumatoid factor of unspecified site without organ or systems involvement (principal); M79.7 Fibromyalgia; K76.0 Fatty (change of) liver, not elsewhere classified; M17.0 Bilateral primary osteoarthritis of knee; Z79.899 Other long term (current) drug therapy
CPT/HCPCS: 36415; 80053; 85025

== ENCOUNTER 2018-06-10 14:00 | Outpatient (RCR) | payer MEDICARE, SELFPAY ==
--- NOTE | 2018-04-10 17:08 | HP.PTEVAL_ITS ---
Patient's Visit Information CAMRON SNOW is a 72 year old F referred to Physical Therapy by Thong Dent DPM with a diagnosis of L ankle OA/instability.. Date of Evaluation: 04/10/18 Physical Therapist: Pio Ogden DPT, OCS, CSCS - Visit Plan Frequency: 1-2x /Week Duration: 4 Weeks Plan: 1-2x/week for 4 weeks for ... 1. ROM progressing to gastroc and soleus stretching and PF with OP of L ankle, ankle traction and mobs. 2. strength TB to patients abilities with L ankle. 3. Gait training as pain allows. 4. ES and MH and teach home TENS to ankle. Pt needs more ROM to ankle as the brace has limited her for so long. - Subjective Findings: L ankle has hurt for long time. Has had multiple doctors and recently sought the services of Dr. Dent. He is making her a new brace. She has OA in foot adn a collapsing arch and unstable. Hurts to walk > 300 feet. Uses cane all the time due to unsteady. Pain is in the outside inside 2-5/10. Has TENS unit but has not tried it on ankle. Lives in [address] story place with multiple steps adn does not leave that often. Son lives downstairs and shops for her. Ankle does not affect sleep. If ankle was good she woudl be out adn about more, it really holds her back. Can't be out in yard. Has had a collection of braces whcih did not help or she could not keep them on. Takes gabapentin daily for ankle.(Anjelica) - Pain L ankle pain Pain Intensity (Out of 10): 5 Pain Intensity Range: 2, 5 - Objective Walks with cane I with a L antalgia and minmal L ankle ROM, has brace on L ankle that she needs help donning adn doffing when she is not on her own couch.Has collapsed L arch and laeral structures appear compressed. Metatarsals are m oving well as is big toe. Ankle AROM is 0 DF, 34 PF with pain at end, 20 inv adn 10 eversiona gain with pain at these end ranges. Pt tends to shortcut ROM actively and it is painful to push passively past these limited motions.. Strength is 3/5 L ankle with pain in all directions. 4/5 R ankle. Patient is tender to palpation adn general grabbing of the entire L foot most particularly with stretching gastroc which is max tight adn hands to L heel. Stand without AD I but tends to point L hip and toe out laterally. Sensation seems slightly diminishe in B ankles and feet possibly DN. - Goals Goal 1:: Full ankle AROM and PROM without increasing pain or tenderness. Goal Time Frame: 4-6 Weeks Goal 2:: I approp HEP for strength of ankle and stretching Goal Time Frame: 4-6 Weeks Goal 3:: Pt feel ankle is 75% improved between her therapy and brace. Goal Time Frame: 4-6 Weeks Goal 4:: Pt able to get out of house daily and walk Goal Time Frame: 4-6 Weeks - Rehabilitation Potential Physical Therapy Diagnosis: L ankle instability Rehabilitation Potential: Fair - Anticipated Interventions Patient/Client Instruction: Educate patient on: Condition, Plan of Care For the Purpose of:: To decrease pain, To increase ROM, To improve ability of physical actions for home/community/work/leisure Therapeutic Exercise to Include: Strength training, Flexibilty training, Passive ROM, Active ROM For the Purpose of:: To decrease pain, To increase ROM, To improve muscle performance and motor function, To improve ability of physical actions for home/community/work/leisure Manual Therapy Techniques to Include: Mobilization, Passive ROM For the Purpose of:: To increase ROM TENS: Yes IF ES: Yes Thermo therapy (hot pack): Yes For the Purpose of:: To decrease pain, To increase ROM Thank you for the opportunity to evaluate your patient. For Medicare and Medicare HMO plans, please review the plan of care and approve it. It will need to be FAXED BACK to us at [phone] for Medicare purposes. For Medicare only, by signing this I certify the plan of care. Please let me know if there are questions or concerns regarding this plan of care. Physician Signature: _Date:
--- NOTE | 2018-05-10 15:28 | HP.PTREVAL ---
Thong Dent, ALLEN, It has been my pleasure to treat CAMRON SNOW over the last 3 visits for L ankle OA/instability.. Please see the progress note below for an update on the physical therapy plan of care! Subjective: hURT AFTER LAST SESSION BUT FELT GOOD WALKING OUT. GOT NEW BRACE but cannot get shoe on with it. Doctor wanted her to get other shoes but she has not yet. Objective/Function: New brace is aFO like with padding and good arch support and upper straps. Hard for her with many comorbidities to get on and needs bigger shoe with more lucid opening to get on I. Goals still approp but patient not confident in brace or shoe or exercises. still does nto want water therapy, hesitant to commit to brace, understands she needs surgery but does nto want it. questionable prognosis but appropriate to continue toward goals/ex Plan Plan: f/u two weeks as patient has not worn brace yet. She is to wear it and report back on benefits, then decide on future of therapy. Goals Goal 1:: Full ankle AROM and PROM without increasing pain or tenderness. Goal Time Frame: 4-6 Weeks Goal Progress: Progressing Goal 2:: I approp HEP for strength of ankle and stretching Goal Time Frame: 4-6 Weeks Goal Progress: not yet.approp Goal 3:: Pt feel ankle is 75% improved between her therapy and brace. Goal Time Frame: 4-6 Weeks Goal Progress: Not Progressing Goal 4:: Pt able to get out of house daily and walk Goal Time Frame: 4-6 Weeks Goal Progress: Not Progressing Anticipated Interventions Patient/Client Instruction: Educate patient on: Condition, Plan of Care For the Purpose of:: To decrease pain, To increase ROM, To improve ability of physical actions for home/community/work/leisure Therapeutic Exercise to Include: Strength training, Flexibilty training, Passive ROM, Active ROM For the Purpose of:: To decrease pain, To increase ROM, To improve muscle performance and motor function, To improve ability of physical actions for home/community/work/leisure Manual Therapy Techniques to Include: Mobilization, Passive ROM For the Purpose of:: To increase ROM TENS: Yes IF ES: Yes Thermo therapy (hot pack): Yes For the Purpose of:: To decrease pain, To increase ROM Please do not hesitate to contact me at [phone] by phone or if you have questions or concerns regarding this new plan of care! Sincerely, Pio Ogden, DPT, OCS, CSCS
--- NOTE | 2018-05-24 14:28 | HP.PTREVAL ---
Thong Dent, ALLEN, It has been my pleasure to treat CAMRON SNOW over the last 4 visits for L ankle OA/instability.. Please see the progress note below for an update on the physical therapy plan of care! Subjective: Hurt more than usual 3/10 every step. Got shoes to wear with brace. Wearing 3 hours a day now and has been weaning. Not helping. Doesn't feel stable in brace. Feels pitched FW with this brace adn needs cane(could walk without it prior). Back hurts a little more. Objective/Function: Brace fits well adn easy on and off. Does keep her in some DF which pitches her forward with weight through foot which is odd for her and puts some lordosis in her back. She should get used to this as she weans onto brace. Walks up tall and toes forward but no right step, only steps with L and uses cane. NOT MUCH PROGRESS WITH BRACE BUT ONLY ABLE TO USE IT FREQUENTLY FOR THE LAST WEEK DUE TO JUST GETTING SHOES. Plan Plan: 3x/week for 2-4 weeks. Please do PROM and mobs to ankle and foot adn STM each visit, get back to tB strength each session and finsih with IF ES adn MH. Goals still appropriate with questionable to poor prognosis but themore frequent PT may be helpful Goals Goal 1:: Full ankle AROM and PROM without increasing pain or tenderness. Goal Time Frame: 4-6 Weeks Goal Progress: Progressing Goal 2:: I approp HEP for strength of ankle and stretching Goal Time Frame: 4-6 Weeks Goal Progress: Not Progressing Goal 3:: Pt feel ankle is 75% improved between her therapy and brace. Goal Time Frame: 4-6 Weeks Goal Progress: Not Progressing Goal 4:: Pt able to get out of house daily and walk Goal Time Frame: 4-6 Weeks Goal Progress: Not Progressing Anticipated Interventions Patient/Client Instruction: Educate patient on: Condition, Plan of Care For the Purpose of:: To decrease pain, To increase ROM, To improve ability of physical actions for home/community/work/leisure Therapeutic Exercise to Include: Strength training, Flexibilty training, Passive ROM, Active ROM For the Purpose of:: To decrease pain, To increase ROM, To improve muscle performance and motor function, To improve ability of physical actions for home/community/work/leisure Manual Therapy Techniques to Include: Mobilization, Passive ROM For the Purpose of:: To increase ROM TENS: Yes IF ES: Yes Thermo therapy (hot pack): Yes For the Purpose of:: To decrease pain, To increase ROM Please do not hesitate to contact me at [phone] by phone or if you have questions or concerns regarding this new plan of care! Sincerely, Pio Ogden, DPT, OCS, CSCS
--- NOTE | 2018-06-10 14:51 | HP.PTDCSUM_ITS ---
HP - PT D/C Summary It has been my pleasure to treat CAMRON SNOW under orders from Thong Dent DPM, for the diagnosis of L ankle OA/instability. for a total of 8 visit(s). Discharge Date: 06/10/18 Please see the following information for a summary of their discharge status. - Subjective Subjective: Sunday was better in the evening 1-2. Sunday was not bad without brace on, (didn't wear it). Sunday wore brace a little bit and it sarted hurting so she took it off. Today bad pain 6/10 since putting on brace at home. Walked prior to brace this morning without much pain. Frustrated today and talking about quitting PT. Pt adamant upon arrival that this is not helping, the brace makes her worse adn relief from PT is temporary. Will be contacting doctor regarding her bill, her brace, and other steps. - Pain L ankle pain Pain Intensity (Out of 10): 0 - Overall Improvement % Improvement: 0 - Objective Objective/Function: Pt ambulates with no L step today, 5/10 pain with brace on and 2/10 without brace. No major changes other than comfort in her gait pattern. R ankle DF 6 degrees DF, 24 PF with pain laterally, 18 inversion and 8 eversion with pain with OP. Strength is 3+ L ankle and pain with overcontraction, isometrics are comfortable in neutral position. - Goals Goal 1:: Full ankle AROM and PROM without increasing pain or tenderness. Goal Progress: Not Progressing Goal 2:: I approp HEP for strength of ankle and stretching Goal Progress: Not Progressing Goal 3:: Pt feel ankle is 75% improved between her therapy and brace. Goal Progress: Not Progressing Goal 4:: Pt able to get out of house daily and walk Goal Progress: Not Progressing - Plan Plan: Pt wishes to contact doctor regarding brace and other options. I have informed her of my conversation with doctor office regarding limited options outside of surgery. She has billing questions and brace questions and would co nsider injection if offered. Adamant that current route of brace and therapy not helpful. - D/C Information Discharge Comments: Pt opting for D/C and will contact doctor regarding lack of progress adn any further options. If there are questions or concerns regarding this patient's physical therapy, please feel free to call me at [phone]. Thank you for the referral of this patient. Sincerely, Pio Ogden, DPT, OCS, CSCS
== END 2018-06-10 19:00 | disposition home or self-care (01) ==
LOC: PT 14:00
PROVIDERS: Family Provider Family Medicine; PCP Family Medicine; Referring Provider Podiatrist; Visit Provider Podiatrist
DX: M19.172 Post-traumatic osteoarthritis, left ankle and foot (principal); M25.372 Other instability, left ankle
CPT/HCPCS: 97110; 97140; 97162; 97530

== ENCOUNTER → 2018-08-16 | Outpatient (CLI) | payer MEDICARE, SELFPAY ==
[2018-08-16 16:02] LABS: Absolute Lymphocyte Count 2.59 X10^3/ul (0.83-4.51); Absolute Neutrophil Count 3.9 X10^3/uL (2.0-7.7); Basophil# 0.03 X10^3/uL; Basophil% 0.4 % (0-1); Eosinophil# 0.35 X10^3/uL; Eosinophils% 4.6 % (0-5); Hematocrit 49.9 % (37-47); Hemoglobin 15.9 g/dl (12.0-15.0); Lymphocyte # 2.59 X10^3/ul (4.0); Lymphocyte % 34.4 % (19-41); Mean Corp Hgb Conc 31.9 g/gl (32-36); Mean Corpuscular Hgb 31.5 pg (27.0-32.0); Mean Corpuscular Volume 98.8 fL (81-99); Mean Platelet Vol. 9.3 fl (6.2-12.0); Monocyte# 0.61 X10^3/uL; Monocyte% 8.1 % (0-10); Neutrophil # 3.94 X10^3/uL (2.7-7.7); Neutrophil % 52.4 % (47-70); Platelet Count 157 K/mm3 (150-450); RBC Distribution Width CV 15.2 % (11.6-14.6); RBC Distribution Width SD 54.5 fl (35.1-43.9); Red Blood Count 5.05 M/mm3 (4.2-5.4); White Blood Count 7.5 K/mm3 (4.4-11.0)
[2018-08-16 16:10] LABS: POSITIVE COUNT NO; POSITIVE DIFFERENTIAL NO; POSITIVE MORPHOLOGY NO
[2018-08-16 16:26] LABS: AST(SGOT) 26 U/L (15-37); Alanine Aminotransfer ALT/SGPT 46 U/L (13-56); Albumin, Serum 3.2 g/dL (3.2-5.0); Alkaline Phosphatase 150 U/L (45-117); Anion Gap 6 (5-15); BUN 20 mg/dL (7-18); BUN/Creat Ratio 24.2 RATIO (10-20); Chloride 108 mmol/L (98-107); Creatinine, Serum 0.83 mg/dL (0.55-1.02); EST Glomerular Filtration Rate 72 mL/min (>60); Est Glom Filt Rate - Afr Amer 87 mL/min (>60); Globulin 3.3 g/dL (2.2-4.2); Glucose 196 mg/dL (74-106); Potassium 4.3 mmol/L (3.5-5.1); Protein, Total 6.5 g/dL (6.4-8.2); Sodium Level 144 mmol/L (136-145)
== END | disposition home or self-care (01) ==
PROVIDERS: Family Provider Family Medicine; PCP Family Medicine; Referring Provider Internal Medicine Rheumatology; Visit Provider Internal Medicine Rheumatology
DX: M05.70 Rheumatoid arthritis with rheumatoid factor of unspecified site without organ or systems involvement (principal); Z79.899 Other long term (current) drug therapy; M79.7 Fibromyalgia; M15.9 Polyosteoarthritis, unspecified; K76.0 Fatty (change of) liver, not elsewhere classified; M17.0 Bilateral primary osteoarthritis of knee; E03.9 Hypothyroidism, unspecified; E11.9 Type 2 diabetes mellitus without complications; G47.33 Obstructive sleep apnea (adult) (pediatric); I27.29 Other secondary pulmonary hypertension
CPT/HCPCS: 36415; 80053; 85025

== ENCOUNTER → 2018-10-08 | Outpatient (CLI) | payer MEDICARE, SELFPAY ==
--- NOTE | 2018-10-08 15:03 | RAD_ITS ---
STUDY: X-RAY CHEST REASON FOR EXAM: Female, 73 years old. Chronic cough TECHNIQUE: PA and lateral views of the chest. COMPARISON: 01/31/2017 FINDINGS: There are interstitial fibrotic changes of the lungs. There is no demonstrated pleural abnormality. Normal size heart. Normal mediastinum and iza. Normal visualized pulmonary arteries. There is atherosclerotic calcification of the aortic arch with tortuosity. There are diffuse degenerative changes of the visualized thoracic spine. Replaced right glenohumeral joint free of complication. There is no demonstrated abnormality of the visualized soft tissue structures of the upper abdomen. RAD/Chest PA and Lateral IMPRESSION: No acute pulmonary process Electronically Signed: Ge Del Cid MD at 15:20 EDT , Service support ,
[2018-10-08 18:19] LABS: Cholesterol 198 mg/dL (200); High Density Lipoprotein 50 mg/dL; T4 Free Direct 1.05 ng/dL (0.76-1.46); Thyroid Stim Hormone (TSH) 1.68 uIU/mL (0.358-3.74); Triglycerides 237 mg/dL; Very Low Density Lipoprotein 47 mg/dL (5-40)
== END | disposition home or self-care (01) ==
PROVIDERS: Family Provider Family Medicine; PCP Family Medicine; Referring Provider Family Medicine; Visit Provider Family Medicine
DX: R05 Cough (principal); E11.42 Type 2 diabetes mellitus with diabetic polyneuropathy; E03.9 Hypothyroidism, unspecified
CPT/HCPCS: 36415; 71046; 80061; 84439; 84443

== ENCOUNTER → 2018-10-09 | Outpatient (CLI) | payer MEDICARE, SELFPAY ==
[2018-10-09 13:24] LABS: Microalbumin,Random Urine 40.9 mg/L (NO RANGE EST.); Microalbumin:Creatinine Ratio 27.6 mg/g CRE (<30 mg/g CRE)
== END | disposition home or self-care (01) ==
LOC: LAB.FUTURE 11:39
PROVIDERS: Family Provider Family Medicine; PCP Family Medicine; Visit Provider Family Medicine
DX: E11.42 Type 2 diabetes mellitus with diabetic polyneuropathy (principal); E03.9 Hypothyroidism, unspecified
CPT/HCPCS: 82043; 82570

== ENCOUNTER 2018-11-14 11:00 | Outpatient (RCR) | payer MEDICARE, SELFPAY ==
--- NOTE | 2018-08-29 17:29 | HP.PTEVAL_ITS ---
Patient's Visit Information CAMRON SNOW is a 72 year old F referred to Physical Therapy by Thong Dent DPM with a diagnosis of weakness.. Date of Evaluation: 08/29/18 Physical Therapist: Pio Ogden DPT, OCS, CSCS - Visit Plan Frequency: 2x /Week Duration: 4-6 Weeks Plan: 2x/week for 4-6 weeks for. 1. LE, postural machine based exercises toward I with membership as able. 2. Gait with wh walker increasing distances. 3. steps for safety and conditioning. - Subjective Findings: Getting weaker and weaker adn walking less and less. When I go to do something somewhere I wear out too quick. Went to library with someone the other night and it was hard to get down steps to her car without extreme fatigue. Then hard to walk into library and down the prasad way. Limited by fatigue adn SOB. Got scared of falling. Pain is minimal and not bothering her. The lack of strength is her issue. Fell one time in bathroom and doinked head a couple weeks ago. It was at night in the bathroom, not sure why she fell. Had to call squad to get up again. Spends day alone at home most of day. No exercises. - Objective Patient ambulates into PT with cane, abored, slow and no right step length, brace on L foot/ankle. No pain c/o and this is the first time in PT where pain is not a major issue lately. L ankle strength 3+/5, R ankle 4-, hips 3+ and knees 4-/5, slight pain with DF L ankle. Pt ambulates labored 200 feet to table, Walks with wh walker much better step lengths, faster adn safer with more confidence. Trasnfer to and fro chair Mod I with UE. Sensation LE WNL to gross light touch. UE AROM WFL to 135 degrees B. strength UE 3+/5. Pt SOB after cane walk but not 200 foot wh walker ambulation. - Goals Goal 1:: I approp gym based strength to tolerance for LE, core adn posture and increased walking disstance and work to I with membership. Goal Time Frame: 4-6 Weeks Goal 2:: Pt feel 50% better activitiy level without increased pain. Goal Time Frame: 4-6 Weeks Goal 3:: Trip to [facility] without feeling worn out. Goal Time Frame: 4-6 Weeks - Rehabilitation Potential Physical Therapy Diagnosis: Pt weak and inactive and poorly managed activity Rehabilitation Potential: Fair - Anticipated Interventions Patient/Client Instruction: Educate patient on: Condition, Plan of Care For the Purpose of:: To increase tolerance to activity/condition/position, To improve safety Therapeutic Exercise to Include: Strength training, Balance training, Gait and locomotor training For the Purpose of:: To increase tolerance to activity/condition/position, To improve ability of physical actions for home/community/work/leisure Thank you for the opportunity to evaluate your patient. For Medicare and Medicare HMO plans, please review the plan of care and approve it. It will need to be FAXED BACK to us at [phone] for Medicare purposes. For Medicare only, by signing this I certify the plan of care. Please let me know if there are questions or concerns regarding this plan of care. Physician Signature: Date:
--- NOTE | 2018-11-05 11:59 | HP.PTEVAL2 ---
Patient's Visit Information CAMRON SNOW is a 73 year old F referred to Physical Therapy by Thong Dent DPM with a diagnosis of Intervertebral disc degeneration. Date of Evaluation: 11/05/18 Physical Therapist: Pio Ogden DPT, OCS, CSCS - Visit Plan Frequency: 2x /Week Duration: 4-6 Weeks Plan: 2-3x/week for 4-6 weeks as helpful. Pt to cancel until after MRI results and next step if treatment not helping. Treat with IF ES and MH to LB in sitting, gentle joint mobs grade 1 to lumbar, gradual ROM to LB progressing to core strength as tolerated. Will progress when tolerated to I gym program as planned in previous chart from Dr. Dent as able. - Subjective Findings: Still looking into stair lift at home. Talking with son about it as it is not as expensive as she thought. Shortly after third fall around 10/02, she started getting more painful a couple weeks later. Pain was and is LBP at base of spine and it hurts. She blames this on her third fall(after cooking for friends over two days and was just very tired after an event standing in iving room under ceiling fan and reaching up and legs gave out)(did not have walker at that time). She landed face down on floor in front of her. Was able to crawl to chair. Was in bed for a number of days with pain. Has hurt ever since. R butt cheek hurts also now for the last 5 days. Is improving over first ten days but not great. Taking pain pills. Has been walking a little lately but activitiy is minimal. 1-09/25 and worse with walking and mvomement. Getting to Lying in bed hurts big time. Lying is OK. Sitting is most comfortable. Did not shower for 2-3 days as hard to climb in tub, can do that now carefully. Sleeping OK but getting up hurts. Dressing self, going to bathroom I. Using TENS unit but it does not help. Using walker all the time to get around as it feels better. x ray at doctors office showed a lot of old damage. No spacing in between. Spine is not straight. Doctor told her she needs to go through process to treat this. Has seen Dr. Wynne for pain management shots in the past. The process would include pain managemnt which she has already had. PT is part of that process. After that may need to see a back surgeon. Will see [facility] Dr. Toan huizar if this does not help. Will need an MRI. Did not prescribe anything for pain. MRI scheduled for this Sunday. F/u with [facility] next week. - Objective Objective: Walks with wh walker slowly with short steps but equal B, brace on L ankle. C/O LBP4/10 with ambulation. Trasnfers out of chair and into chair I with UE. No tenderness in soft tissue in LB but shear force seems to be problematic to lower L/S. AROM L/S ext mild pain, flexion mild limted and up from flexion very painful. B SB min painful and min limited.. 1/3 patella and achilles reflexes. No sensation deficits in LE to gross light touch. Strength LE 4-/5 without myotomal abnormalities. + Lumbar compression. subjectively painful to lie down adn ist up but can do it. - Goals Goal 1:: Patient feel LBP 2/10 at worst and 75% improved. Goal Time Frame: 4-6 Weeks Goal 2:: patient able to lie down adn sit up without severe back pain Goal Time Frame: 4-6 Weeks Goal 3:: pt I in appropriate HEP to minimize future problems. Goal Time Frame: 4-6 Weeks - Rehabilitation Potential Physical Therapy Diagnosis: LB degeneration and acute flare up. Rehabilitation Potential: Fair - Anticipated Interventions Patient/Client Instruction: Educate patient on: Condition, Plan of Care For the Purpose of:: To decrease pain, To increase tolerance to activity/condition/position Therapeutic Exercise to Include: Strength training, Flexibilty training, Passive ROM, Active ROM, Dynamic Lumbar Stabilization For the Purpose of:: To decrease pain, To improve muscle performance and motor function, To increase tolerance to activity/condition/position Manual Therapy Techniques to Include: Mobilization Comment: grade 1 lumbar For the Purpose of:: To decrease pain, To increase ROM IF ES: Yes Thermo therapy (hot pack): Yes For the Purpose of:: To decrease pain Thank you for the opportunity to evaluate your patient. For Medicare and Medicare HMO plans, please review the plan of care and approve it. It will need to be FAXED BACK to us at [phone] for Medicare purposes. For Medicare only, by signing this I certify the plan of care. Please let me know if there are questions or concerns regarding this plan of care. Physician Signature: Date:
--- NOTE | 2018-11-05 12:29 | HP.PTDCSUM_ITS ---
HP - PT D/C Summary It has been my pleasure to treat CAMRON SNOW under orders from Tohng Dent DPM, for the diagnosis of weakness. for a total of 8 visit(s). Discharge Date: 11/05/18 Please see the following information for a summary of their discharge status. - Subjective Subjective: pT IN FOR BACK PAIN unable to continue with foot therapy due to LBP. - Pain L shoulder Pain Intensity (Out of 10): 6 left ankle Pain Intensity (Out of 10): 2 knee pain Pain Intensity (Out of 10): 5 lbp Pain Intensity (Out of 10): 1 - Overall Improvement % Improvement: 10 - Objective Objective/Function: L step still short and unwilling to put it out front even for balance due to pain and feelign unstable. She is using cane and getting around fairly quickly today but only R step. Pt is down today due to GI issues and doesn't want to go to more doctors. Ankle strength and ROM is no different than evaluation. Trasnfers out of and into chair easily with UE usage. Pt not ready and not confident to do machines on her own but still seems motivated and sees benefits. Appropriate to cotninue to work toward a gym based chcf ex program for strength that pt can be I with. Fair prognosis on this but motivation waxes and wanes as this has been a goa for a long time. - Goals Goal 1:: I approp gym based strength to tolerance for LE, core adn posture and increased walking disstance and work to I with membership. Goal Progress: not yet, appropriate Goal 2:: Pt feel 50% better activitiy level without increased pain. Goal Progress: slow Goal 3:: Trip to library without feeling worn out. Goal Progress: Not Progressing - Plan Plan: Will discharge this current chart in favor of her LBP chart from other doctor . Once LBP doing better, we will cotninue toward the main goals int his chart of getting more active adn on an I gym based workout as appropriate. - D/C Information Discharge Comments: Pt unable to cotninue with this current therapy due to LBP flare up. Will discharge this chart but cotninue toward these goals under LBP chart. If there are questions or concerns regarding this patient's physical therapy, please feel free to call me at [phone]. Thank you for the referral of this patient. Sincerely, Pio Ogden, DPT, OCS, CSCS
--- NOTE | 2018-11-14 11:18 | HP.PTRE(2) ---
Thong Dent, ALLEN, It has been my pleasure to treat CAMRON SNOW over the last 4 visits for Intervertebral disc degeneration. Please see the progress note below for an update on the physical therapy plan of care! Subjective: Pt did nto tolerate last treatment well. Sore an hour aftewards adn since 6/10 LB. Frustrated and not improving with PT Objective/Function/Assessment: Walks with walker slowly but consistently with other sessions. pulls weight for row without back complaints but worried about shoulder. OVERALL PT IS INCONSISTENT WITH PAIN AND NOT IMPROVING TO HER SATISFACTION. Plan Plan: Pt frustrated and will hav eMRI tomorrow and f/u doctor next week. Hold therapy due to inconsistent nature of outcome and she is to call after that doctor visit. Water therapy most appropriate but patient has been fighting this with me for years. Goals - Goals Goal 1:: Patient feel LBP 2/10 at worst and 75% improved. Goal Time Frame: 4-6 Weeks Goal 2:: patient able to lie down adn sit up without severe back pain Goal Time Frame: 4-6 Weeks Goal 3:: pt I in appropriate HEP to minimize future problems. Goal Time Frame: 4-6 Weeks Anticipated Interventions Patient/Client Instruction: Educate patient on: Condition, Plan of Care For the Purpose of:: To decrease pain, To increase tolerance to activity/condition/position Therapeutic Exercise to Include: Strength training, Flexibilty training, Passive ROM, Active ROM, Dynamic Lumbar Stabilization For the Purpose of:: To decrease pain, To improve muscle performance and motor function, To increase tolerance to activity/condition/position Manual Therapy Techniques to Include: Mobilization Comment: grade 1 lumbar For the Purpose of:: To decrease pain, To increase ROM IF ES: Yes Thermo therapy (hot pack): Yes For the Purpose of:: To decrease pain Please do not hesitate to contact me at [phone] by phone or if you have questions or concerns regarding this new plan of care! Sincerely, Pio Ogden, DPT, OCS, CSCS
== END 2018-11-14 19:00 | disposition home or self-care (01) ==
LOC: PT 11:00
PROVIDERS: Family Provider Family Medicine; PCP Family Medicine; Referring Provider Podiatrist; Visit Provider Podiatrist
DX: R29.898 Other symptoms and signs involving the musculoskeletal system (principal)
CPT/HCPCS: 97110; 97162; 97530

== ENCOUNTER → 2018-11-14 | Outpatient (CLI) | payer MEDICARE, SELFPAY ==
[2018-11-14 14:09] LABS: Absolute Lymphocyte Count 2.78 X10^3/uL (0.83-4.51); Absolute Neutrophil Count 3.9 X10^3/uL (2.0-7.7); Basophil# 0.03 X10^3/uL; Basophil% 0.4 % (0-1); Eosinophil# 0.31 X10^3/uL; Hemoglobin 16.6 g/dL (12.0-15.0); Lymphocyte # 2.78 X10^3/ul (4.0); Lymphocyte % 36.2 % (19-41); Mean Corp Hgb Conc 32.5 g/dL (32-36); Mean Corpuscular Hgb 32.6 pg (27.0-32.0); Mean Corpuscular Volume 100.2 fL (81-99); Mean Platelet Vol. 8.9 fl (6.2-12.0); Monocyte# 0.69 X10^3/uL; NRBC Flagged by Analyzer 0 % (0-5); Neutrophil # 3.85 X10^3/uL (2.7-7.7); Platelet Count 152 K/mm3 (150-450); RBC Distribution Width CV 13.8 % (11.6-14.6); RBC Distribution Width SD 51.1 fl (35.1-43.9); Red Blood Count 5.09 M/mm3 (4.2-5.4); White Blood Count 7.7 K/mm3 (4.4-11.0)
[2018-11-14 14:29] LABS: ALB/GLOB Ratio 1.1 RATIO (0.9-2.4); AST(SGOT) 25 U/L (15-37); Alanine Aminotransfer ALT/SGPT 37 U/L (13-56); Albumin, Serum 3.5 g/dL (3.2-5.0); Alkaline Phosphatase 160 U/L (45-117); Anion Gap 7 (5-15); BUN 12 mg/dL (7-18); BUN/Creat Ratio 14.2 RATIO (10-20); Calcium,Total 9.1 mg/dL (8.5-10.1); Chloride 108 mmol/L (98-107); Creatinine, Serum 0.85 mg/dL (0.55-1.02); EST Glomerular Filtration Rate 70 mL/min (>60); Est Glom Filt Rate - Afr Amer 84 mL/min (>60); Globulin 3.2 g/dL (2.2-4.2); Glucose 101 mg/dL (74-106); Potassium 4.4 mmol/L (3.5-5.1); Protein, Total 6.7 g/dL (6.4-8.2); Sodium Level 145 mmol/L (136-145)
== END | disposition home or self-care (01) ==
PROVIDERS: Family Provider Family Medicine; PCP Family Medicine; Referring Provider Internal Medicine Rheumatology; Visit Provider Internal Medicine Rheumatology
DX: M05.70 Rheumatoid arthritis with rheumatoid factor of unspecified site without organ or systems involvement (principal); Z79.899 Other long term (current) drug therapy; M79.7 Fibromyalgia; M15.9 Polyosteoarthritis, unspecified; M17.0 Bilateral primary osteoarthritis of knee; K76.0 Fatty (change of) liver, not elsewhere classified; E03.9 Hypothyroidism, unspecified; E11.9 Type 2 diabetes mellitus without complications; G47.33 Obstructive sleep apnea (adult) (pediatric); I27.29 Other secondary pulmonary hypertension
CPT/HCPCS: 36415; 80053; 85025

== ENCOUNTER → 2019-03-17 12:49 | Outpatient (CLI) | payer MEDICARE, SELFPAY ==
[2019-03-17 13:56] LABS: Absolute Lymphocyte Count 2.79 X10^3/uL (0.83-4.51); Absolute Neutrophil Count 3.8 X10^3/uL (2.0-7.7); Basophil# 0.04 X10^3/uL; Basophil% 0.5 % (0-1); Eosinophil# 0.28 X10^3/uL; Eosinophils% 3.7 % (0-5); Hemoglobin 15.5 g/dL (12.0-15.0); Lymphocyte # 2.79 X10^3/ul (4.0); Lymphocyte % 36.6 % (19-41); Mean Corp Hgb Conc 31.6 g/dL (32-36); Mean Corpuscular Hgb 30.9 pg (27.0-32.0); Mean Corpuscular Volume 97.8 fL (81-99); Mean Platelet Vol. 8.9 fl (6.2-12.0); Monocyte# 0.69 X10^3/uL; NRBC Flagged by Analyzer 0 % (0-5); Neutrophil # 3.81 X10^3/uL (2.7-7.7); Neutrophil % 49.9 % (47-70); Platelet Count 184 K/mm3 (150-450); RBC Distribution Width CV 13.7 % (11.6-14.6); RBC Distribution Width SD 49.4 fl (35.1-43.9); Red Blood Count 5.01 M/mm3 (4.2-5.4); White Blood Count 7.6 K/mm3 (4.4-11.0)
[2019-03-17 14:44] LABS: ALB/GLOB Ratio 1.1 RATIO (0.9-2.4); AST(SGOT) 45 U/L (15-37); Alanine Aminotransfer ALT/SGPT 76 U/L (13-56); Albumin, Serum 3.3 g/dL (3.2-5.0); Alkaline Phosphatase 238 U/L (45-117); Anion Gap 4 (5-15); BUN 19 mg/dL (7-18); BUN/Creat Ratio 23.2 RATIO (10-20); Calcium,Total 9.1 mg/dL (8.5-10.1); Chloride 108 mmol/L (98-107); Creatinine, Serum 0.82 mg/dL (0.55-1.02); EST Glomerular Filtration Rate 72 mL/min (>60); Est Glom Filt Rate - Afr Amer 87 mL/min (>60); Glucose 86 mg/dL (74-106); Potassium 4.4 mmol/L (3.5-5.1); Protein, Total 6.3 g/dL (6.4-8.2); Sodium Level 143 mmol/L (136-145)
== END ==
PROVIDERS: Family Provider Family Medicine; PCP Family Medicine; Referring Provider Internal Medicine Rheumatology; Visit Provider Internal Medicine Rheumatology
DX: M05.70 Rheumatoid arthritis with rheumatoid factor of unspecified site without organ or systems involvement (principal); Z79.899 Other long term (current) drug therapy; M79.7 Fibromyalgia; K76.0 Fatty (change of) liver, not elsewhere classified; M17.0 Bilateral primary osteoarthritis of knee; E03.9 Hypothyroidism, unspecified; E11.9 Type 2 diabetes mellitus without complications; G47.33 Obstructive sleep apnea (adult) (pediatric); I27.29 Other secondary pulmonary hypertension
CPT/HCPCS: 36415; 80053; 85025

== ENCOUNTER → 2019-05-01 15:34 | Outpatient (CLI) | payer MEDICARE, SELFPAY ==
[2019-03-20 13:57] VITALS: BMI 41.1
--- NOTE | 2019-05-01 15:43 | BD_ITS ---
STUDY: DUAL ENERGY X-RAY ABSORPTIOMETRY / DXA REASON FOR EXAM: Female, 73 years old. Age of emanuel- 32. Pat is 252.3# and 64 and amp; quot; a loss of 4 and amp; quot; per patient. Type II diabetic takes Metformin and Humi davina R. Takes levothyroxin and Basix. Takes 600mg of calcium and a multi-vit. Hx of a left foot and left ankle fx and fx'' s in back per patient. Does not exercise. TECHNIQUE: Bone Mineral Density (BMD) measurements of lumbar spine and bilateral hips were obtained. COMPARISON: Comparison is made with prior study dated September 21, 2016. FINDINGS: Lumbar Spine (L1-L4): g/cm2 (1.372) / T-score (1.7) / Z-score (3.5) Findings are suggestive of normal bone density with a low fracture risk. Left Femur Total: g/cm2 (0.909) / T-score (-0.8) / Z-score (1.0) Left Femoral Neck: g/cm2 (0.828) / T-score (-1.5) / Z-score (0.4) Right Femur Total: g/cm2 (0.946) / T-score (-0.5) / Z-score (1.3) Right Femoral Neck: g/cm2 (0.813) / T-score (-1.6) / Z-score (0.3) The T-Scores on the most recent prior examination were: Lumbar Spine (L1-L4): There has been worsening of bone density since the previous examination. Left Femur Total: which represents a worsening of 6.9%. Right Femur Total: which represents a worsening of 2.6%. BD/Dexa Bone Density Study IMPRESSION: The patient is considered osteopenic as outlined below according to World [place] Organization (WHO) criteria with a moderate fracture risk. There has been worsening of bone density since the previous examination. Reference Information: The T-score is the number of standard deviations above or below the standard which is normal for young adults at their peak bone mineral density. The World Health Organization (WHO) interprets the T-scores as follows: Above -1 Normal bone density Between -1 and -2.5 Osteopenia Equal to / or below -2.5 Osteoporosis As a practical clinical guideline, osteopenia may be graded as follows: Mild -1 through -1.5 Moderate -1.6 through -2.0 Severe -2.1 through -2.4 The Z-score is the number of standard deviations above or below age-matched controls. A Z-score of less than -1.5 would be considered abnormal. References: 1. NIH Osteoporosis and Related Bone Diseases http://www.osteo.org 2. International Society for Clinical Densitometry http://www.iscd.org 3. National Osteoporosis Foundation http://www.nof.org Electronically Signed: Larry Godinez, at 9:22 EST , Service support ,
== END ==
PROVIDERS: PCP Family Medicine; Referring Provider Family Medicine; Visit Provider Family Medicine
DX: M81.0 Age-related osteoporosis without current pathological fracture (principal)
CPT/HCPCS: 77080

== ENCOUNTER → 2019-06-04 14:12 | Outpatient (CLI) | payer MEDICARE, SELFPAY ==
[2019-03-20 13:57] VITALS: BMI 41.1
[2019-06-04 15:46] LABS: Absolute Lymphocyte Count 2.09 X10^3/uL (0.83-4.51); Basophil# 0.03 X10^3/uL; Basophil% 0.3 % (0-1); Eosinophil# 0.28 X10^3/uL; Hematocrit 47.5 % (37-47); Hemoglobin 15.3 g/dL (12.0-15.0); Lymphocyte # 2.09 X10^3/ul (4.0); Lymphocyte % 22.6 % (19-41); Mean Corp Hgb Conc 32.2 g/dL (32-36); Mean Corpuscular Hgb 31.1 pg (27.0-32.0); Mean Corpuscular Volume 96.5 fL (81-99); Mean Platelet Vol. 8.6 fl (6.2-12.0); Monocyte# 0.76 X10^3/uL; Monocyte% 8.2 % (0-10); NRBC Flagged by Analyzer 0 % (0-5); Neutrophil # 6.04 X10^3/uL (2.7-7.7); Neutrophil % 65.4 % (47-70); Platelet Count 211 K/mm3 (150-450); RBC Distribution Width CV 13.3 % (11.6-14.6); RBC Distribution Width SD 47.1 fl (35.1-43.9); Red Blood Count 4.92 M/mm3 (4.2-5.4); White Blood Count 9.3 K/mm3 (4.4-11.0)
[2019-06-04 16:57] LABS: ALB/GLOB Ratio 0.7 RATIO (0.9-2.4); AST(SGOT) 15 U/L (15-37); Alanine Aminotransfer ALT/SGPT 24 U/L (13-56); Albumin, Serum 2.8 g/dL (3.2-5.0); Alkaline Phosphatase 220 U/L (45-117); Anion Gap 6 (5-15); BUN 16 mg/dL (7-18); BUN/Creat Ratio 20.5 RATIO (10-20); Calcium,Total 8.8 mg/dL (8.5-10.1); Chloride 107 mmol/L (98-107); Creatinine, Serum 0.78 mg/dL (0.55-1.02); EST Glomerular Filtration Rate 76 mL/min (>60); Est Glom Filt Rate - Afr Amer 92 mL/min (>60); Globulin 4.1 g/dL (2.2-4.2); Glucose 149 mg/dL (74-106); Potassium 4.1 mmol/L (3.5-5.1); Protein, Total 6.9 g/dL (6.4-8.2); Sodium Level 141 mmol/L (136-145); Uric Acid 6.2 mg/dL (2.6-6.0)
== END ==
PROVIDERS: PCP Family Medicine; Referring Provider Internal Medicine Rheumatology; Visit Provider Internal Medicine Rheumatology
DX: M05.70 Rheumatoid arthritis with rheumatoid factor of unspecified site without organ or systems involvement (principal); Z79.899 Other long term (current) drug therapy; M79.7 Fibromyalgia; M15.9 Polyosteoarthritis, unspecified; K76.0 Fatty (change of) liver, not elsewhere classified; M17.0 Bilateral primary osteoarthritis of knee; E03.9 Hypothyroidism, unspecified; E11.9 Type 2 diabetes mellitus without complications; G47.33 Obstructive sleep apnea (adult) (pediatric); I27.29 Other secondary pulmonary hypertension
CPT/HCPCS: 36415; 80053; 84550; 85025

== ENCOUNTER → 2019-09-02 14:56 | Outpatient (CLI) | payer MEDICARE, SELFPAY ==
[2019-03-20 13:57] VITALS: BMI 41.1
[2019-09-02 17:45] LABS: Absolute Lymphocyte Count 1.25 X10^3/uL (0.83-4.51); Absolute Neutrophil Count 9.8 X10^3/uL (2.0-7.7); Basophil# 0.02 X10^3/uL; Basophil% 0.2 % (0-1); Eosinophil# 0.05 X10^3/uL; Eosinophils% 0.4 % (0-5); Hematocrit 50.6 % (37-47); Hemoglobin 15.9 g/dL (12.0-15.0); Lymphocyte # 1.25 X10^3/ul (4.0); Lymphocyte % 10.9 % (19-41); Mean Corp Hgb Conc 31.4 g/dL (32-36); Mean Corpuscular Hgb 30.3 pg (27.0-32.0); Mean Corpuscular Volume 96.4 fL (81-99); Mean Platelet Vol. 9.1 fl (6.2-12.0); Monocyte# 0.39 X10^3/uL; Monocyte% 3.4 % (0-10); NRBC Flagged by Analyzer 0 % (0-5); Neutrophil # 9.75 X10^3/uL (2.7-7.7); Neutrophil % 84.6 % (47-70); Platelet Count 214 K/mm3 (150-450); RBC Distribution Width CV 14.8 % (11.6-14.6); RBC Distribution Width SD 52.7 fl (35.1-43.9); Red Blood Count 5.25 M/mm3 (4.2-5.4); White Blood Count 11.5 K/mm3 (4.4-11.0)
[2019-09-02 18:05] LABS: ALB/GLOB Ratio 0.8 RATIO (0.9-2.4); AST(SGOT) 20 U/L (15-37); Alanine Aminotransfer ALT/SGPT 56 U/L (13-56); Alkaline Phosphatase 221 U/L (45-117); Anion Gap 6 (5-15); BUN 19 mg/dL (7-18); BUN/Creat Ratio 19.7 RATIO (10-20); Calcium,Total 8.9 mg/dL (8.5-10.1); Chloride 105 mmol/L (98-107); Creatinine, Serum 0.97 mg/dL (0.55-1.02); EST Glomerular Filtration Rate 60 mL/min (>60); Est Glom Filt Rate - Afr Amer 72 mL/min (>60); Globulin 3.6 g/dL (2.2-4.2); Glucose 175 mg/dL (74-106); Potassium 4.2 mmol/L (3.5-5.1); Protein, Total 6.6 g/dL (6.4-8.2); Sodium Level 141 mmol/L (136-145); Uric Acid 6.9 mg/dL (2.6-6.0)
== END ==
PROVIDERS: PCP Family Medicine; Referring Provider Internal Medicine Rheumatology; Visit Provider Internal Medicine Rheumatology
DX: M05.70 Rheumatoid arthritis with rheumatoid factor of unspecified site without organ or systems involvement (principal); Z79.899 Other long term (current) drug therapy; M79.7 Fibromyalgia; M15.9 Polyosteoarthritis, unspecified; K76.0 Fatty (change of) liver, not elsewhere classified; M17.0 Bilateral primary osteoarthritis of knee; E03.9 Hypothyroidism, unspecified; E11.9 Type 2 diabetes mellitus without complications; G47.33 Obstructive sleep apnea (adult) (pediatric); I27.29 Other secondary pulmonary hypertension
CPT/HCPCS: 36415; 80053; 84550; 85025

== ENCOUNTER 2020-01-04 18:52 | Observation (INO) | payer MEDICARE, SELFPAY ==
[2019-03-20 13:57] VITALS: BMI 41.1
[2020-01-04 18:53] VITALS: BP 157/83; PULSE 92; RESP 18; TEMP 37.1; O2SAT 94; BMI 39.8
--- NOTE | 2020-01-04 19:44 | ED.VIS.GEN ---
History of Present Illness Chief Complaint: Back Narrative: This patient is a 74-year-old female who presents with lower back pain. She has a history of chronic lower back pain. She had a compression fracture couple of years ago. She is on hydrocodone and tramadol. Her pain has been progressive and is now uncontrolled. She has been referred for an outpatient MRI but this has not yet been performed. She has a progressed to the point where since yesterday she is unable to ambulate. She is unable to get to the bathroom or prepare meals. Patient and family are concerned because the son is not always available because he needs to work. Her primary care physician saw her today and also had the same concerns about her ability to care for self at home. No urinary retention. No fecal incontinence. No fevers. No abdominal pain. She does have some radiation of pain into the thighs. No weakness. Past Medical History - Allergies and Home Meds Allergies/Adverse Reactions: Allergies cyclobenzaprine Allergy (Verified 01/04/20 18:58) Unknown doxepin Allergy (Verified 01/04/20 18:58) Unknown hydromorphone HCl [From Dilaudid] Allergy (Verified 01/04/20 18:58) Unknown prednisone Allergy (Verified 01/04/20 18:58) Unknown pregabalin [From Lyrica] Allergy (Verified 01/04/20 18:58) Unknown acetaminophen [From Percocet] Adverse Reaction (Verified 01/04/20 18:58) HALLUCINATION hydrocodone bitartrate [From Vicodin] Adverse Reaction (Verified 01/04/20 18:58) HALLUCINATIONS oxycodone HCl [From Percocet] Adverse Reaction (Verified 01/04/20 18:58) HALLUCINATION Primary Care Physician: Diallo Dejesus DO [Primary Care Provider] - Past Medical History: - - Diabetes, hypertension, hyperlipidemia Surgical History: hysterectomy, total knee arthroplasty - Bilateral., - - Right ankle surgery, Left leg ORIF, carpal tunnel surgery, trigger finger. Smoking Status: Smoker, status unknown - Family History Maternal Family History: Reports: No pertinent history Paternal Family History: Reports: No pertinent history Review of Systems All systems negative except as indicated General: Denies: Fever Cardiovascular: Denies: Chest pain Respiratory: Denies: Dyspnea Gastrointestinal: Denies: Abdominal pain, Vomiting, Diarrhea Musculoskeletal: Reports: Back pain, Extremity Pain Skin: Denies: Rash Neurological: Denies: Headache Physical Exam Vital Signs/Narrative: Vital Signs Temp Pulse Resp BP Pulse Ox 01/04/20 18:53 98.7 F 92 18 157/83 H 94 Inital Vital Signs reviewed: Yes General: Well nourished Head: Normocephalic Eyes: EOMI ENT: Moist mucous membranes Neck: Supple Cardiovascular: Regular rate Respiratory: No distress Abdomen: Soft, Nontender Extremities: - - Normal strength with plantarflexion, dorsiflexion, EHL, negative straight leg raise Skin: Normal color Neurological: Alert Psychological: Normal affect Diagnostic/Tx/Re-eval 01/04/20 22:50 Chest 1 View (Portable) [RAD] Stat Laboratory Results 01/04/20 01/04/20 01/04/20 20:05 20:05 22:30 WBC 15.8 H RBC 4.83 Hgb 15.4 H Hct 48.1 H MCV 99.6 H MCH 31.9 MCHC 32.0 RDW Std Deviation 51.5 H RDW Coeff of Susi 13.9 Plt Count 278 MPV 8.3 Immature Gran % (Auto) 0.400 Neut % (Auto) 52.9 Lymph % (Auto) 36.2 [place] % (Auto) 9.0 Eos % (Auto) 1.1 Baso % (Auto) 0.4 Absolute Neuts (auto) 8.3 H Absolute Lymphs (auto) 5.71 H Nucleated RBC % 0 Differential Comment SCANNED Reactive Lymphocytes 1+ Platelet Estimate ADEQUATE RBC Morphology NORM C+C Sodium 139 Potassium 3.4 L Chloride 101 Carbon Dioxide 34.0 H Anion Gap 4 L BUN 11 Creatinine 0.70 Estim Creat Clear Calc 46.54 Est GFR (MDRD) Af Amer 105 Est GFR (MDRD) Non-Af 86 BUN/Creatinine Ratio 15.7 Glucose 52 L Calcium 9.2 Urine Color Yellow Urine Clarity Sl. Cloudy Urine pH 7.0 Ur Specific [place] 1.005 Urine Protein 15 H Urine Glucose (UA) Normal Urine Ketones Negative Urine Occult Blood Negative Urine Nitrite Positive H Urine Bilirubin Negative Urine Urobilinogen 1 H Ur Leukocyte Esterase 25 H Urine RBC 0 SEEN Urine WBC 0-5 SEEN Ur Squamous Epith Cells 0-5 SEEN Amorphous Sediment 1+ PHOS Urine Bacteria 3+ Urine Mucus 0 SEEN - Medical Decision Making Patient and family's main concern is their ability to care for self at home. She will be agreeable to nursing facility placement or higher level of care if this was needed versus additional home resources such as home health. Screening laboratory studies were obtained which were notable for white count of 15.8. Therefore we did add on a urinalysis. This is nitrite positive but does not show pyuria. We will just add on a culture. When patient fell asleep she desaturated down to 88%. This could be related to sleep apnea she is not short of breath. I did add on a chest x-ray which on my review shows no acute process. Patient will be discussed with the hospitalist and admitted. She will likely need PT/OT/case management and possibly further imaging such as MRI. ED Disposition - Plan for ED Patient: Disposition: Acute Care Hospital [facility] Diagnosis: Back pain, Decreased ambulation status Referrals: Diallo Dejesus DO [Primary Care Provider] -
[2020-01-04] MEDS: traMADol 50 MG Tablet PO (20:20)
[2020-01-04 20:22] LABS: Absolute Lymphocyte Count 5.71 X10^3/uL (0.83-4.51); Absolute Neutrophil Count 8.3 X10^3/uL (2.0-7.7); Basophil# 0.06 X10^3/uL; Basophil% 0.4 % (0-1); Eosinophil# 0.18 X10^3/uL; Eosinophils% 1.1 % (0-5); Hematocrit 48.1 % (37-47); Hemoglobin 15.4 g/dL (12.0-15.0); Lymphocyte # 5.71 X10^3/ul (4.0); Lymphocyte % 36.2 % (19-41); Mean Corpuscular Hgb 31.9 pg (27.0-32.0); Mean Corpuscular Volume 99.6 fL (81-99); Mean Platelet Vol. 8.3 fl (6.2-12.0); Monocyte# 1.42 X10^3/uL; NRBC Flagged by Analyzer 0 % (0-5); Neutrophil # 8.33 X10^3/uL (2.7-7.7); Neutrophil % 52.9 % (47-70); POSITIVE DIFFERENTIAL YES; Platelet Count 278 K/mm3 (150-450); RBC Distribution Width CV 13.9 % (11.6-14.6); RBC Distribution Width SD 51.5 fl (35.1-43.9); Red Blood Count 4.83 M/mm3 (4.2-5.4); White Blood Count 15.8 K/mm3 (4.4-11.0)
[2020-01-04 20:26] LABS: Differential Indicated SCAN CRITERIA MET
[2020-01-04 20:33] LABS: Anion Gap 4 (5-15); BUN 11 mg/dL (7-18); BUN/Creat Ratio 15.7 RATIO (10-20); Calcium,Total 9.2 mg/dL (8.5-10.1); Chloride 101 mmol/L (98-107); EST Glomerular Filtration Rate 86 mL/min (>60); Est Glom Filt Rate - Afr Amer 105 mL/min (>60); Estimated Creatinine Clearance 46.54 ml/min; Glucose 52 mg/dL (74-106); Potassium 3.4 mmol/L (3.5-5.1); Sodium Level 139 mmol/L (136-145)
[2020-01-04 21:48] LABS: Differential Comment SCANNED; Platelet Estimate ADEQUATE (ADEQ); Reactive Lymphocyte 1+; Red Cell Morphology NORM C+C NORMAL (NORM C&C)
[2020-01-04 22:15] VITALS: BP 120/63; PULSE 94; RESP 16; TEMP 37.1; O2SAT 95
--- NOTE | 2020-01-04 22:29 | EKG12_ITS ---
Test Reason : BACK Blood Pressure : / mmHG Vent. Rate : 084 BPM Atrial Rate : 084 BPM P-R Int : 132 ms QRS Dur : 094 ms QT Int : 372 ms P-R-T Axes : 047 -35 039 degrees QTc Int : 439 ms Normal sinus rhythm Left axis deviation Incomplete right bundle branch block Abnormal ECG Confirmed by KARINA HAN, STEVO ([id number]), multimedia editor SOLO ROQUE ([id number]) on 01/15/2020 9:36:06 A M Referred By: SOFIA Confirmed By:CARLOS COLLINS MD
[2020-01-04 22:39] LABS: Mucous, Urine 0 SEEN /hpf (<or=2+); Red Blood Cells-Urine 0 SEEN /hpf (0-5)
[2020-01-04 22:41] LABS: Color, Urine Yellow (Yellow); Glucose, Dipstick Normal (Normal); Ketone-Dipstick Negative (Negative); Leukocyte Esterase-Dipstick 25 /ul (Negative); Nitrite-Dipstick Positive (Negative); Occult Blood-Urine Negative /ul (Negative); Protein-Dipstick 15 mg/dl (Negative); Specific Gravity, Urine 1.005 (1.002-1.030); Urine Bilirubin Dipstick Negative (Negative); Urine Clarity Sl. Cloudy (Clear); Urine Urobilinogen 1 mg/dl (Normal)
--- NOTE | 2020-01-04 22:50 | RAD_ITS ---
STUDY: X-RAY CHEST REASON FOR EXAM: Female, 74 years old. BACK PAIN GETTING WORSE SINCE SUNDAY, RADIATING BOTH LEGS -- HX OF BACK FX x2 YRS AGO, HX OF HTN TECHNIQUE: Single AP portable view of the chest. COMPARISON: October 08, 2018 chest x-ray FINDINGS: There is chronic appearing atelectasis and/or scarring in the left lung base. Overall the lungs appear fairly stable. There is no demonstrated pleural abnormality. There is borderline cardiomegaly. Normal mediastinum and iza. Normal visualized pulmonary arteries. Normal visualized aortic arch and descending thoracic aorta. There are diffuse degenerative changes of the visualized thoracic spine. There is a right shoulder arthroplasty. There is no demonstrated abnormality of the visualized soft tissue structures of the upper abdomen. RAD/Chest 1 View (Portable) IMPRESSION: Stable chest. Right shoulder arthroplasty. Stable left lower lobe atelectasis and/or scarring. Borderline cardiac enlargement. No visualized acute focal infiltrate. Electronically Signed: Crystal Hernández MD at 23:30 EDT Tel , Service support ,
[2020-01-04 22:52] LABS: Amorphous Sediment 1+ PHOS; Bacteria 3+ /hpf (None Seen); Squamous Epithelial Cells - UA 0-5 SEEN /hpf (5-10); White Blood Cells 0-5 SEEN /hpf (0-5)
--- NOTE | 2020-01-04 22:53 | ED.RN ---
pt placed on 2lnc, on room air once asleep her pulse ox drops into the mid 80S
--- NOTE | 2020-01-04 23:52 | PCM.HP.STD ---
Problem List (1) Back pain Status: Chronic Qualifiers: Back pain location: low back pain Chronicity: chronic Back pain laterality: bilateral (2) Decreased ambulation status Status: Acute (3) Neuropathic pain Status: Chronic (4) Edema Status: Chronic (5) Vitamin B12 deficiency Status: Chronic (6) Sjogrens syndrome Status: Chronic (7) Gout Status: Chronic (8) Hyperlipidemia Status: Chronic (9) Hypertension Status: Chronic (10) Diabetes mellitus Status: Chronic Qualifiers: Diabetes mellitus type: type 2 Diabetes mellitus manager intermediate insulin use: with assisted use Diabetes mellitus complication status: with neurologic complications Diabetes mellitus complication detail: with polyneuropathy Qualified Code(s): E11.42 - Type 2 diabetes mellitus with diabetic polyneuropathy; Z79.4 - intermodal truck driver (current) use of insulin (11) Sleep apnea Status: Chronic (12) Insomnia Status: Chronic (13) Restless legs syndrome Status: Chronic (14) Hypokalemia Status: Chronic (15) GERD (gastroesophageal reflux disease) Status: Chronic (16) Hypothyroidism Status: Chronic (17) Osteoarthritis, shoulder Status: Chronic History of Present Illness Date of Admission: 01/04/20 Chief Complaint: weakness and back pain The patient is a 74 year old F presents with progressive weakness. Patient has had a chronic issue with back pain. She states the back pain is across her back and occasionally goes down to her legs down to her knees. Patient states at home, she lives in apartments, and has to go up 26 steps. When she goes up those stairs, for a day or 2 afterwards, she is wiped out and confined to her bed. Situation is she found herself in today or just was just too weak and too much pain to be able to be functional at home. Patient's son was concerned and brought the patient into the hospital. Work-up in the emergency room was unremarkable. Patient does not feel that she can be cared for at home and her son does not feel that he can care for her. Patient expresses apprehension about going to a penitentiary facility because of COVID. [] Past Medical History Past Medical History (Chronic Problems): Chronic Problems (Last Reviewed 03/21/19 @ 07:[address] Singh Floyd MD) Back pain (Chronic) Neuropathic pain (Chronic) Edema (Chronic) Vitamin B12 deficiency (Chronic) Sjogrens syndrome (Chronic) Gout (Chronic) Hyperlipidemia (Chronic) Hypertension (Chronic) Diabetes mellitus (Chronic) Sleep apnea (Chronic) Insomnia (Chronic) Restless legs syndrome (Chronic) Hypokalemia (Chronic) GERD (gastroesophageal reflux disease) (Chronic) Hypothyroidism (Chronic) Osteoarthritis, shoulder (Chronic) Medical History: Medical History (Last Reviewed 01/04/20 @ 23:[address] Pio York, DO) Acquired hypothyroidism E03.9 Anemia D64.9 Benign essential hypertension I10 Depression F32.9 Diabetes mellitus with diabetic polyneuropathy, with long-term current use of insulin E11.42, Z79.4 Fibromyalgia M79.7 IBS (irritable bowel syndrome) K58.9 Rheumatoid arthritis M06.9 Allergies cyclobenzaprine Allergy (Verified 01/04/20 18:58) Unknown doxepin Allergy (Verified 01/04/20 18:58) Unknown hydromorphone HCl [From Dilaudid] Allergy (Verified 01/04/20 18:58) Unknown prednisone Allergy (Verified 01/04/20 18:58) Unknown pregabalin [From Lyrica] Allergy (Verified 01/04/20 18:58) Unknown acetaminophen [From Percocet] Adverse Reaction (Verified 01/04/20 18:58) HALLUCINATION hydrocodone bitartrate [From Vicodin] Adverse Reaction (Verified 01/04/20 18:58) HALLUCINATIONS oxycodone HCl [From Percocet] Adverse Reaction (Verified 01/04/20 18:58) HALLUCINATION Home Medications: Ambulatory Orders Medication Instructions Recorded Ascorbic Acid [Vitamin C] 500 mg PO DAILY@0800 11/20/14 Atorvastatin Calcium [Lipitor] 40 mg PO DAILY 11/20/14 Calcium Carbonate [Calcium] 600 mg PO DAILY 11/20/14 Cyanocobalamin (Vitamin B-12) 1,000 mcg SC QMONTH 11/20/14 Gabapentin [Neurontin] 600 mg PO TID 11/20/14 Irbesartan [Avapro] 150 mg PO QHS 11/20/14 Levothyroxine [Synthroid] 100 mcg PO DAILY 11/20/14 Metformin HCl [Glucophage Xr] 750 mg PO DAILY 11/20/14 Multivit-Min/FA/Lycopen/Lutein 1 each PO DAILY 11/20/14 [Centrum Silver Tablet] Omeprazole [Prilosec] 20 mg PO QHS 11/20/14 Vitamin D3 50,000 mcg PO MO 11/20/14 Vitamin E Acid Succinate [Vitamin 400 unit PO DAILY 11/20/14 E] traMADol [Ultram] 50 mg PO Q6H PRN PRN 11/20/14 Ergocalciferol [Vitamin D] 50,000 unit PO Q7D capsule 02/15/17 Furosemide [Lasix] 20 mg PO DAILY #30 02/15/17 Vitamin E 400 units PO DAILY@1200 capsule 02/15/17 Calcium Carbonate [Calcium] 500 mg PO 01/04/20 Diphenoxylate HCl/Atropine 1 ea PO 01/04/20 [Diphenoxylate-Atrop 2.5-0.025] Hydrocodone/Acetaminophen 1 tab PO 4X/DAY PRN PRN 01/04/20 [Hydrocodone-Acetamin 10-325 mg] Insulin Regular, Human [Humulin R] 100 unit 01/04/20 Ketorolac Tromethamine [Acular LS] 1 drp RIGHT EYE 4X/DAY 01/04/20 Melatonin 1 mg PO QHS 01/04/20 Potassium Chloride [K-Dur] 10 meq PO DAILY 01/04/20 Potassium Gluconate 595 mg PO DAILY 01/04/20 Ropinirole HCl 2 mg PO QHS 01/04/20 Sarilumab [Kevzara] 200 mg SQ 01/04/20 Turmeric Root Extract [Turmeric] 500 mg PO 01/04/20 Vit C/E/Zn/Coppr/Lutein/Zeaxan 1 ea PO BID 01/04/20 [Preservision Areds 2 Softgel] Zolpidem Tartrate [Zolpidem 12.5 mg PO QHS 01/04/20 Tartrate ER] Surgical History: Surgical History (Last Reviewed 01/04/20 @ 23:[address] Pio York, DO) History of ankle surgery Z98.890 History of bilateral knee replacement Z96.653 History of carpal tunnel surgery Z98.890 History of cystoscopy Z98.890 History of total hysterectomy Z90.710 Surgical History: hysterectomy, total knee arthroplasty - Bilateral., - - Right ankle surgery, Left leg ORIF, carpal tunnel surgery, trigger finger. Psychiatric History: Depression EPIC APPLICATION COORDINATOR History: No pertinent EPIC APPLICATION COORDINATOR history Smoking Status: Smoker, status unknown - *Family History Maternal History Items: No pertinent history Paternal History Items: No pertinent history Review of Systems Constitutional: Denies: Anorexia, Chills, Fever, Night Sweats Eyes: Denies: Blurred vision, Double vision HEENT: Denies: Head Aches, Sinus Congestion, Sinus Drainage Cardiovascular: Denies: Chest Pain, Palpitations Respiratory: Denies: Cough, Shortness of breath at rest, Sputum production Gastrointestinal: Denies: Abdominal Pain, Nausea, Vomiting Genitourinary: Denies: Dysuria Musculoskeletal: Reports: Back Pain Skin: Denies: Rash, Wounds Neurological: Denies: Numbness, Tingling, Focal weakness Psychiatric: Denies: Anxiety, Depression Hematologic/ Lymphatic: Denies: Easy Bruising, Easy Bleeding, Hx of blood clot Comment: All review of systems were negative except as mentioned above in the history of present illness and the other review of systems. VTE Information - Inpt Only VTE Present on Admission: No VTE Mechan Device Prophylaxis: None VTE Pharm Prophylaxis ordered?: No Reason prophylaxis not ordered:: Treatment Not Indicated Patient Problems: Active and Suspected Problems (Last Reviewed 03/21/19 @ 07:[address] Singh Floyd MD) Decreased ambulation status (Acute) - Physical Exam Vitals/I&O's: Vital Signs Temp Pulse Resp BP Pulse Ox 37.1 C 94 16 120/63 95 01/04/20 22:15 01/04/20 22:15 01/04/20 22:15 01/04/20 22:15 01/04/20 22:15 Oxygen Delivery Method Room Air Weight: 115.4 kg Body Mass Index (BMI) 39.8 General: Alert, No apparent distress HEENT: Atraumatic, Normocephalic Oral: Moist Mucosa, No Gingival or Mucosal Lesions/ Ulcerations Neck: No Nodes, Thyroid Normal Size and Texture Lungs: Clear to auscultation, Normal air movement, No rhonchi, No wheeze Cardiovascular: Regular rate, Regular Rhythm, Normal S1, Normal S2, No murmurs Abdomen: Bowel Sounds Present, Soft, Non Tender, Non-Distended, No Hepato-splenomegaly, Obese Extremities: No edema, No Calf Tenderness Skin: No rashes, No breakdown Neurological: - - Muscle strength 5-5 in the lower extremities. No clonus. Psych/Mental Status: Normal Affect, Appropriate Laboratory Results 01/04/20 20:05: WBC 15.8 H, RBC 4.83, Hgb 15.4 H, Hct 48.1 H, MCV 99.6 H, MCH 31.9, MCHC 32.0, RDW Std Deviation 51.5 H, RDW Coeff of Susi 13.9, Plt Count 278, MPV 8.3, Immature Gran % (Auto) 0.400, Neut % (Auto) 52.9, Lymph % (Auto) 36.2, [place] % (Auto) 9.0, Eos % (Auto) 1.1, Baso % (Auto) 0.4, Absolute Neuts (auto) 8.3 H, Absolute Lymphs (auto) 5.71 H, Nucleated RBC % 0, Differential Comment SCANNED, Reactive Lymphocytes 1+, Platelet Estimate ADEQUATE, RBC Morphology NORM C+C 01/04/20 20:05: Sodium 139, Potassium 3.4 L, Chloride 101, Carbon Dioxide 34.0 H, Anion Gap 4 L, BUN 11, Creatinine 0.70, Estim Creat Clear Calc 46.54, Est GFR (MDRD) Af Amer 105, Est GFR (MDRD) Non-Af 86, BUN/Creatinine Ratio 15.7, Glucose 52 L, Calcium 9.2 01/04/20 22:30: Urine Color Yellow, Urine Clarity Sl. Cloudy, Urine pH 7.0, Ur Specific [place] 1.005, Urine Protein 15 H, Urine Glucose (UA) Normal, Urine Ketones Negative, Urine Occult Blood Negative, Urine Nitrite Positive H, Urine Bilirubin Negative, Urine Urobilinogen 1 H, Ur Leukocyte Esterase 25 H, Urine RBC 0 SEEN, Urine WBC 0-5 SEEN, Ur Squamous Epith Cells 0-5 SEEN, Amorphous Sediment 1+ PHOS, Urine Bacteria 3+, Urine Mucus 0 SEEN Assessment/Plan All Active Problems (Last Reviewed 03/21/19 @ 07:[address] Singh Floyd MD) Decreased ambulation status (Acute) 1. Debility: Patient states that she is unable to care for herself and is essentially been bedbound for the past day or 2. She states that this is due to her chronic back pain. Will have physical and occupational therapy evaluate her and have case management assess for potential penitentiary facility placement. 2. Back pain: Chronic. No strength loss and her strength appears to be very well intact. Patient states that she was to call for an appointment on Sunday for a MRI. Being that her symptoms have been unchanged over extensive period of time, I told her that we would not be doing an MRI and the MRI would need to be done as outpatient since she does not have any red flag findings. Supportive management 3. Diabetes mellitus type 2: Continue with metformin. Sliding scale insulin. 4. Hypokalemia: Replace 5. VTE prophylaxis: Not indicated as patient is observation status at this time. Patient expressed concern about going to penitentiary facility because of COVID-19. Patient seen and examined independently. Data reviewed. I agree with the above note by the physician personal injury legal assistant. Informed patient that she is coming to the hospital that is actually caring for COVID-19 patient's and that some of the providers, including myself, have dealt with a COVID-19 just today. I told her that we are taking all necessary precautions to mitigate the spread of COVID-19 and that she would be going to floor where there is no COVID-19. OBSV E&M: 88124 Initial observation care L2
[2020-01-05 00:34] VITALS: BMI 46.7
[2020-01-05 00:38] VITALS: BP 161/84; PULSE 82; RESP 18; TEMP 36.9; O2SAT 97
[2020-01-05 00:50] VITALS: BMI 46.8
[2020-01-05 01:51] LABS: Bedside Glucose 139 mg/dL (70-110)
[2020-01-05] MEDS: Pramipexole Di-HCl 1 MG Tablet PO (01:54)
[2020-01-05] MEDS: Levothyroxine 100 MCG Tablet PO (05:00)
[2020-01-05] MEDS: HYDROcodone Bitartrate/Apap 5/325 Tablet PO ×2 (05:00→10:48)
[2020-01-05] MEDS: Gabapentin 600 MG Tablet PO ×3 (05:01→20:33)
[2020-01-05 06:34] VITALS: BP 160/79; PULSE 105; RESP 18; TEMP 36.9; O2SAT 94
[2020-01-05 07:50] LABS: Bedside Glucose 135 mg/dL (70-110)
[2020-01-05] MEDS: Diphenoxylate/Atrop 1 Tablet PO ×2 (08:29→20:31)
[2020-01-05] MEDS: Ascorbic Acid 500 MG Tablet PO (08:30)
[2020-01-05] MEDS: Multivitamins,Ther W-Minerals Tablet 1 TABLET PO (08:30)
[2020-01-05] MEDS: Calcium (Elemental) 500 MG Tablet PO (08:31)
[2020-01-05 09:00] VITALS: BP 156/77; PULSE 88; RESP 18; TEMP 36.8; O2SAT 96
[2020-01-05] MEDS: FLUoxetine 20 MG Capsule PO (10:12)
[2020-01-05] MEDS: KETOROLAC TROMETHAMINE 5 ML DROPS 1 ML RIGHT EYE ×4 (10:12→20:36)
[2020-01-05 12:05] LABS: Bedside Glucose 228 mg/dL (70-110)
--- NOTE | 2020-01-05 12:08 | NURSING ---
Reports feeling nauseaus. States she thinks it was from her pain pill. Assisted to bathroom to urinate. Lunch at bedside and encouraged to eat to get food in her stomach. Blood sugar taken prior to eating lunch.
[2020-01-05] MEDS: Insulin Lispro 100 UNIT/ML INSULN.PEN SC ×2 (12:13→17:07)
--- NOTE | 2020-01-05 13:29 | PCM.PN.HOSP ---
Patient Problems: Active and Suspected Problems (Last Reviewed 01/04/20 @ 23:[address] Pio York, DO) Decreased ambulation status (Acute) Reason for Visit: Follow-up for back pain Objective: She is admitted with acute on chronic back pain. Her back pain started about 3 years ago. She has chronic lumbar spinal stenosis. She describes her pain as severe, number pain radiating to bilateral lower extremity short left knee. Denies any neurological symptoms of bladder or bowel incontinence or numbness or tingling. She states when she is laying down, her pain is much controlled but gets worse on standing or walking. Physical exam General: Alert, Oriented x3, Cooperative HEENT: Atraumatic, PERRLA, EOMI, Normocephalic Oral: No Gingival or Mucosal Lesions/ Ulcerations Neck: Supple, No JVD, Negative Carotid Bruits Lungs: Air entry diminished in bilateral lung bases. No crepitation/rhonchi Cardiovascular: Regular rate, Regular Rhythm, Normal S1, Normal S2, No murmurs Abdomen: Bowel Sounds Present, Soft, Non Tender, Non-Distended : No renal angle tenderness. No suprapubic tenderness. Extremities: No edema, Capillary Refill Less than 3 Seconds Skin: No rashes, No breakdown Musculoskeletal: Mild tenderness in the lumbar spine paraspinal muscles. Bilateral TKR. Straight leg test bilaterally negative. Neurological: Cranial nerves II-XII grossly intact, Deep Tendon Reflexes 2+/4 and Symmetrical, Neuro grossly intact mild weakness, left more than right probably musculoskeletal from arthritis Psych/Mental Status: Normal Affect, Appropriate. Vitals/I&O's: Vital Signs Temp Pulse Resp BP Pulse Ox 98.2 F 88 18 156/77 H 96 01/05/20 09:00 01/05/20 09:00 01/05/20 09:00 01/05/20 09:00 01/05/20 09:00 Oxygen Flow Rate (L/min) 3 Oxygen Delivery Method Room Air Weight: 289 lb 14.526 oz Body Mass Index (BMI) 46.7 Laboratory Results 01/04/20 20:05: WBC 15.8 H, RBC 4.83, Hgb 15.4 H, Hct 48.1 H, MCV 99.6 H, MCH 31.9, MCHC 32.0, RDW Std Deviation 51.5 H, RDW Coeff of Susi 13.9, Plt Count 278, MPV 8.3, Immature Gran % (Auto) 0.400, Neut % (Auto) 52.9, Lymph % (Auto) 36.2, [place] % (Auto) 9.0, Eos % (Auto) 1.1, Baso % (Auto) 0.4, Absolute Neuts (auto) 8.3 H, Absolute Lymphs (auto) 5.71 H, Nucleated RBC % 0, Differential Comment SCANNED, Reactive Lymphocytes 1+, Platelet Estimate ADEQUATE, RBC Morphology NORM C+C 01/04/20 20:05: Sodium 139, Potassium 3.4 L, Chloride 101, Carbon Dioxide 34.0 H, Anion Gap 4 L, BUN 11, Creatinine 0.70, Estim Creat Clear Calc 46.54, Est GFR (MDRD) Af Amer 105, Est GFR (MDRD) Non-Af 86, BUN/Creatinine Ratio 15.7, Glucose 52 L, Calcium 9.2 01/04/20 22:30: Urine Color Yellow, Urine Clarity Sl. Cloudy, Urine pH 7.0, Ur Specific [place] 1.005, Urine Protein 15 H, Urine Glucose (UA) Normal, Urine Ketones Negative, Urine Occult Blood Negative, Urine Nitrite Positive H, Urine Bilirubin Negative, Urine Urobilinogen 1 H, Ur Leukocyte Esterase 25 H, Urine RBC 0 SEEN, Urine WBC 0-5 SEEN, Ur Squamous Epith Cells 0-5 SEEN, Amorphous Sediment 1+ PHOS, Urine Bacteria 3+, Urine Mucus 0 SEEN 01/05/20 01:36: POC Glucose 139 H 01/05/20 07:46: POC Glucose 135 H 01/05/20 11:57: POC Glucose 228 H Current Medications Hydrocodone Bitart/Acetaminophen (Hydrocodone Bitartrate/Apap 5/325 Tablet) 2 tablet PO 4X/DAY PRN PRN PRN Reason: pain (-12/26) Last Admin: 01/05/20 10:48 Dose: 2 tablet Documented by: Ascorbic Acid (Ascorbic Acid 500 Mg Tablet) 500 mg PO DAILY@0800 [facility] Last Admin: 01/05/20 08:30 Dose: 500 mg Documented by: Atorvastatin Calcium (Atorvastatin Calcium 40 Mg Tablet) 40 mg PO DAILY@2200 [facility] Calcium Carbonate (Calcium (Elemental) 500 Mg Tablet) [facility] Last Admin: 01/05/20 08:31 Dose: 500 mg Documented by: Cyanocobalamin (Cyanocobalamin (B12) 1,000 Mcg/Ml Vial) 1,000 mcg SC QMONTH [facility] Dextrose (Dextrose 50%-Water 25 Gm/50 Ml Disp.Syrin) 0 gm IV X1 PRN; Protocol PRN Reason: Hypoglycemia Diphenoxylate HCl/Atropine (Diphenoxylate/Atrop 1 Tablet) 1 - 2 tablet PO Q6H PRN PRN PRN Reason: Diarrhea Last Admin: 01/05/20 08:29 Dose: 2 tablet Documented by: Fluoxetine HCl (Fluoxetine 20 Mg Capsule) 20 mg PO DAILY [facility] Last Admin: 01/05/20 10:12 Dose: 20 mg Documented by: Gabapentin (Gabapentin 600 Mg Tablet) 600 mg PO TID [facility] Last Admin: 01/05/20 13:25 Dose: 600 mg Documented by: Glucagon (Glucagon 1 Mg/Ml Syringe) 1 mg IM .X1 PRN PRN Reason: Hypoglycemia Insulin Human Lispro (Insulin Lispro 100 Unit/Ml Insuln.Pen) 0 unit SC TIDAC [facility]; Protocol Last Admin: 01/05/20 12:13 Dose: 2 units Documented by: Ketorolac Tromethamine (Ketorolac Tromethamine 5 Ml Drops) 1 ml RIGHT EYE 4X/DAY [facility] Last Admin: 01/05/20 13:24 Dose: 1 ml Documented by: Levothyroxine Sodium (Levothyroxine 100 Mcg Tablet) 100 mcg PO DAILY@0600 [facility] Last Admin: 01/05/20 05:00 Dose: 100 mcg Documented by: Losartan Potassium (Losartan Potassium 50 Mg Tablet) 50 mg PO QHS [facility] Melatonin (Melatonin 3 Mg Tablet) 1.5 mg PO 2000 [facility] Metformin HCl (Metformin Hcl 750 Mg Tab.Er.24h) [facility] Last Admin: 01/05/20 10:10 Dose: Not Given Documented by: Multivitamins/Minerals (Multivitamins,Ther W-Minerals Tablet) [facility] Last Admin: 01/05/20 08:30 Dose: 1 tablet Documented by: Non-Formulary Medication (Non-Formulary) [facility] Last Admin: 01/05/20 10:11 Dose: 1 Documented by: Ondansetron HCl (Ondansetron 4 Mg/2 Ml Vial) 4 mg IV Q8H PRN PRN PRN Reason: NAUSEA/VOMITING Pantoprazole Sodium (Pantoprazole Sodium 20 Mg Tablet) 20 mg PO QHS [facility] Potassium Chloride (Potassium Chloride 20 Meq Tablet) 40 meq PO DAILYCM [facility] Ropinirole HCl (Ropinirole Hcl 0.5 Mg Tablet) 2 mg PO QHS [facility] Sodium Chloride (0.9% Saline Lock 10 Ml Syringe) 10 - 40 ml IV UD PRN PRN Reason: SALINE FLUSH Zolpidem Tartrate (Zolpidem Tartrate 5 Mg Tablet) 5 mg PO QHS [facility] Medical Necessity - Tobacco Use Smoking Status: Never smoker Assessment/Plan All Active Problems (Last Reviewed 01/04/20 @ 23:[address] Pio York, DO) Decreased ambulation status (Acute) 1. Debility from acute on chronic lumbar back pain from chronic lumbar spinal stenosis: Patient admitted Med[facility] floor. PT note reviewed associated therapy recommended. Continue PT and OT. Case care consult. 2. Back pain: Chronic. Patient does not have acute neurological symptoms including loss of bowel or bladder continence. No acute loss of muscle strength or numbness or tingling. DTR 2+. Bilateral L5 nerve is intact as she can have good extension of extensor hallucis longus. Pain management consult with Dr. Wynne. MRI has not followed patient.. Pain control 3. Diabetes mellitus type 2: Continue with metformin. Sliding scale insulin. 4. Hypokalemia: Replace 5. VTE prophylaxis: Not indicated as patient is observation status at this time. Patient expressed her concern regarding going to SNF. She prefers going home. Inpatient E&M: 24739 Subs Hosp L2
--- NOTE | 2020-01-05 14:30 | CASEMGMT ---
ESTEFANIA SWANN Face to Face with patient for initial transition planning/care coordination assessment. RN SHREE introduced self and role at [facility]. Patient lying in bed, alert and oriented. Patient willing to participate in assessment and is able to answer all questions appropriately. Care providers, pharmacy, and demographics verified. Patient wishes to discharge home but not sure if she will be able to go home safely. RN SHREE discussed options of HHC and SNF and provided list of in-network facilities. Patient states she has no further needs or concerns at this time. CM to follow for discharge planning needs that may arise. PCP: Anjelica Specialists: terry Scherer Pharmacy: [facility] Insurance: [employer] Prescription Benefit: yes Living Will/HPOA: yes, son Ok Adrian LNOK: son Living Arrangements: Patient lives in 2nd story apt with 26 steps to enter. Son lives in down stairs apartment. Patient states she has been having more difficultly with ADLs at home. Transportation: son DME/HHC: Patient states she has shower chair, raised toilet, cane, walker at home. Patient denies previous HHC or SNF. Patient to review list of HHC and SNF and discuss with son. CM will follow-up in the am. Disposition Plan: TBD Nishi NAILS, RN, CM
[2020-01-05 16:16] LABS: Bedside Glucose 213 mg/dL (70-110)
[2020-01-05 16:37] VITALS: BP 156/58; PULSE 80; RESP 18; TEMP 37; O2SAT 96
[2020-01-05] MEDS: NON-FORMULARY 1 PO (17:09)
[2020-01-05] MEDS: Atorvastatin Calcium 40 MG Tablet PO (20:32)
[2020-01-05] MEDS: Losartan Potassium 50 MG Tablet PO (20:32)
[2020-01-05] MEDS: Zolpidem Tartrate 5 MG Tablet PO (20:39)
[2020-01-05] MEDS: MELATONIN 10 MG TABLET PO (20:40)
[2020-01-05] MEDS: Pantoprazole Sodium 20 MG Tablet PO (20:40)
[2020-01-05 20:50] LABS: Bedside Glucose 229 mg/dL (70-110)
[2020-01-05 23:00] VITALS: BP 140/61; PULSE 92; RESP 16; TEMP 37.3; O2SAT 96
[2020-01-06] MEDS: traMADol 50 MG Tablet PO ×2 (01:25→07:18)
[2020-01-06 05:00] VITALS: BP 151/83; PULSE 106; RESP 18; TEMP 36.8; O2SAT 94
[2020-01-06] MEDS: Levothyroxine 100 MCG Tablet PO (06:40)
[2020-01-06] MEDS: Gabapentin 600 MG Tablet PO ×2 (06:40→15:15)
[2020-01-06] MEDS: Diphenoxylate/Atrop 1 Tablet PO (06:40)
[2020-01-06 06:41] LABS: Bedside Glucose 170 mg/dL (70-110)
[2020-01-06] MEDS: Insulin Lispro 100 UNIT/ML INSULN.PEN SC ×2 (06:41→11:37)
[2020-01-06] MEDS: METFORMIN HCL 750 MG TAB.ER.24H PO (09:15)
[2020-01-06] MEDS: Multivitamins,Ther W-Minerals Tablet 1 TABLET PO (09:17)
[2020-01-06] MEDS: Calcium (Elemental) 500 MG Tablet PO (09:18)
[2020-01-06] MEDS: NON-FORMULARY 1 PO (09:18)
[2020-01-06] MEDS: Ascorbic Acid 500 MG Tablet PO (09:19)
[2020-01-06] MEDS: KETOROLAC TROMETHAMINE 5 ML DROPS 1 ML RIGHT EYE ×2 (09:20→15:14)
[2020-01-06] MEDS: FLUoxetine 20 MG Capsule PO (09:20)
[2020-01-06 09:23] VITALS: BP 110/60; PULSE 98; RESP 16; TEMP 37.1; O2SAT 94
[2020-01-06 11:51] LABS: Bedside Glucose 219 mg/dL (70-110)
--- NOTE | 2020-01-06 12:20 | CASEMGMT ---
ESTEFANIA SWANN in to discuss HICKEY form with patient. ESTEFANIA SWANN explained HICKEY form to patient, patient voiced understanding. Patient signed HICKEY form and original filed in chart. Patient provided with copy of signed form. Patient had no further questions or concerns at this time.
--- NOTE | 2020-01-06 13:34 | PN_ITS ---
Patient Problems: Active and Suspected Problems (Last Reviewed 01/04/20 @ 23:[address] Pio York, DO) Decreased ambulation status (Acute) Reason for Visit: Acute on chronic back pain. Back pain aggravates on standing or walking. Objective: Patient denies dysuria, retention or new change but urine culture positive of E. coli more than 100,000 colonies. Started on IV ceftriaxone. No fever T-max 99.2 Fahrenheit. Patient had leukocytosis at time of admission. Physical exam General: Alert, Oriented x3, Cooperative HEENT: Atraumatic, PERRLA, EOMI, Normocephalic Oral: No Gingival or Mucosal Lesions/ Ulcerations Neck: Supple, No JVD, Negative Carotid Bruits Lungs: Air entry diminished in bilateral lung bases. No crepitation/rhonchi Cardiovascular: Regular rate, Regular Rhythm, Normal S1, Normal S2, No murmurs Abdomen: Bowel Sounds Present, Soft, Non Tender, Non-Distended : No renal angle tenderness. No suprapubic tenderness. Extremities: No edema, Capillary Refill Less than 3 Seconds Skin: No rashes, No breakdown Musculoskeletal:Mild tenderness in the lumbar spine paraspinal muscles. Bilateral TKR. Straight leg test bilaterally negative. Neurological: Cranial nerves II-XII grossly intact, Deep Tendon Reflexes 2+/4 and Symmetrical, Neuro grossly intact Psych/Mental Status: Normal Affect, Appropriate. Vitals/I&O's: Vital Signs Temp Pulse Resp BP Pulse Ox 98.8 F 98 16 110/60 94 01/06/20 09:23 01/06/20 09:23 01/06/20 09:23 01/06/20 09:23 01/06/20 09:23 Oxygen Flow Rate (L/min) 1 Oxygen Delivery Method Nasal Cannula Weight: 289 lb 14.526 oz Body Mass Index (BMI) 46.7 Intake and Output for Last 24 Hours 01/04/20 01/05/20 01/06/20 23:59 23:59 23:59 Intake Total 1750 / 2450 1000 / 1000 Balance 1750 / 2450 1000 / 1000 Microbiology Past 72 Hours 01/04/20 22:20 Urine, Catheterized Urine Culture - Preliminary Presumptive E. coli Laboratory Results 01/05/20 16:11: POC Glucose 213 H 01/05/20 20:47: POC Glucose 229 H 01/06/20 06:35: POC Glucose 170 H 01/06/20 11:35: POC Glucose 219 H 01/06/20 11:40: COVID-19 (DARREL) Pending Current Medications Ascorbic Acid (Ascorbic Acid 500 Mg Tablet) 500 mg PO DAILY@0800 [facility] Last Admin: 01/06/20 09:19 Dose: 500 mg Documented by: Atorvastatin Calcium (Atorvastatin Calcium 40 Mg Tablet) 40 mg PO DAILY@2200 [facility] Last Admin: 01/05/20 20:32 Dose: 40 mg Documented by: Calcium Carbonate (Calcium (Elemental) 500 Mg Tablet) 500 mg PO DAILYCM [facility] Last Admin: 01/06/20 09:18 Dose: 500 mg Documented by: Cyanocobalamin (Cyanocobalamin (B12) 1,000 Mcg/Ml Vial) 1,000 mcg SC QMONTH [facility] Dextrose (Dextrose 50%-Water 25 Gm/50 Ml Disp.Syrin) 0 gm IV X1 PRN; Protocol PRN Reason: Hypoglycemia Diphenoxylate HCl/Atropine (Diphenoxylate/Atrop 1 Tablet) 1 - 2 tablet PO Q6H PRN PRN PRN Reason: Diarrhea Last Admin: 01/06/20 06:40 Dose: 2 tablet Documented by: Fluoxetine HCl (Fluoxetine 20 Mg Capsule) 20 mg PO DAILY [facility] Last Admin: 01/06/20 09:20 Dose: 20 mg Documented by: Gabapentin (Gabapentin 600 Mg Tablet) 600 mg PO TID [facility] Last Admin: 01/06/20 06:40 Dose: 600 mg Documented by: Glucagon (Glucagon 1 Mg/Ml Syringe) 1 mg IM .X1 PRN PRN Reason: Hypoglycemia Ceftriaxone Sodium (Rocephin) 1 gm in 50 mls @ 100 mls/hr IV X1 ONE Stop: 01/06/20 14:00 Ceftriaxone Sodium (Rocephin) 1 gm in 50 mls @ 100 mls/hr IV Q24 [facility] Insulin Human Lispro (Insulin Lispro 100 Unit/Ml Insuln.Pen) 0 unit SC TIDAC [facility]; Protocol Last Admin: 01/06/20 11:37 Dose: 2 units Documented by: Ketorolac Tromethamine (Ketorolac Tromethamine 5 Ml Drops) 1 ml RIGHT EYE 4X/DAY [facility] Last Admin: 01/06/20 09:20 Dose: 1 ml Documented by: Levothyroxine Sodium (Levothyroxine 100 Mcg Tablet) 100 mcg PO DAILY@0600 [facility] Last Admin: 01/06/20 06:40 Dose: 100 mcg Documented by: Losartan Potassium (Losartan Potassium 50 Mg Tablet) [facility] Last Admin: 01/05/20 20:32 Dose: 50 mg Documented by: Melatonin (Melatonin 10 Mg Tablet) 10 mg PO 1999 [facility] Last Admin: 01/05/20 20:40 Dose: 10 mg Documented by: Metformin HCl (Metformin Hcl 750 Mg Tab.Er.24h) [facility] Last Admin: 01/06/20 09:15 Dose: 750 mg Documented by: Multivitamins/Minerals (Multivitamins,Ther W-Minerals Tablet) [facility] Last Admin: 01/06/20 09:17 Dose: 1 tablet Documented by: Non-Formulary Medication ([facility]-Formulary) [facility] Last Admin: 01/06/20 09:18 Dose: 1 Documented by: Ondansetron HCl (Ondansetron 4 Mg/2 Ml Vial) 4 mg IV Q8H PRN PRN PRN Reason: NAUSEA/VOMITING Pantoprazole Sodium (Pantoprazole Sodium 20 Mg Tablet) [facility] Last Admin: 01/05/20 20:40 Dose: 20 mg Documented by: Potassium Chloride (Potassium Chloride 20 Meq Tablet) [facility] Last Admin: 01/06/20 09:17 Dose: 40 meq Documented by: Ropinirole HCl (Ropinirole Hcl 0.5 Mg Tablet) 2 [facility] Last Admin: 01/05/20 20:35 Dose: 2 mg Documented by: Sodium Chloride (0.9% Saline Lock 10 Ml Syringe) 10 - 40 ml IV UD PRN PRN Reason: SALINE FLUSH Tramadol HCl (Tramadol 50 Mg Tablet) 50 mg PO Q6H PRN PRN PRN Reason: Pain Score 4-10 Last Admin: 01/06/20 07:18 Dose: 50 mg Documented by: Zolpidem Tartrate (Zolpidem Tartrate 5 Mg Tablet) 5 [facility] Last Admin: 01/05/20 20:39 Dose: 5 mg Documented by: Medical Necessity - Tobacco Use Smoking Status: Never smoker Assessment/Plan All Active Problems (Last Reviewed 01/04/20 @ 23:[address] Pio York, DO) Decreased ambulation status (Acute) 1. Debility from acute on chronic lumbar back pain from chronic lumbar spinal stenosis: Patient admitted [facility] floor. PT note reviewed associated therapy recommended. Continue PT and OT. Case care consult. 2. Back pain: Chronic. Patient does not have acute neurological symptoms including loss of bowel or bladder continence. No acute loss of muscle strength or numbness or tingling. DTR 2+. Bilateral L5 nerve is intact as she can have good extension of extensor hallucis longus. Pain management Dr. Wynne was consulted but he wants to see patient earliest on . No red flag to require MRI order. Pain control. PT and OT. 01/05: Discussed with the behavioral health case manager. Patient agreed for rehab, TCU. COVID- 19 PCR sent. 3. E. coli UTI: Patient nitrite is positive. Urine culture shows more than 100,000 colonies. Started empirically on IV ceftriaxone. Patient does not have dysuria burning micturition. 4. Diabetes mellitus type 2: Continue with metformin. Sliding scale insulin. 5. Hypokalemia: Replace VTE prophylaxis: Not indicated as patient is observation status at this time. Patient expressed her concern regarding going to SNF. She prefers going home. Inpatient E&M: 77089 Subs Hosp L2
[2020-01-06 14:13] LABS: Basophil# 0.04 X10^3/uL; Basophil% 0.4 % (0-1); Eosinophil# 0.15 X10^3/uL; Eosinophils% 1.4 % (0-5); Hematocrit 50.1 % (37-47); Hemoglobin 15.7 g/dL (12.0-15.0); Mean Corp Hgb Conc 31.3 g/dL (32-36); Mean Corpuscular Volume 102.2 fL (81-99); Mean Platelet Vol. 8.4 fl (6.2-12.0); Monocyte# 0.99 X10^3/uL; Monocyte% 9.5 % (0-10); NRBC Flagged by Analyzer 0 % (0-5); Neutrophil # 7.04 X10^3/uL (2.7-7.7); Neutrophil % 67.2 % (47-70); Platelet Count 243 K/mm3 (150-450); RBC Distribution Width SD 52.8 fl (35.1-43.9); White Blood Count 10.5 K/mm3 (4.4-11.0)
--- NOTE | 2020-01-06 14:31 | DS.PCM_ITS ---
Discharge Date and Diagnosis - Problem List Patient Problems: Active and Suspected Problems (Last Reviewed 01/04/20 @ 23:[address] Pio York DO) Decreased ambulation status (Acute) Date of Admission: 01/04/20 - Primary Discharge Diagnosis Acute Problems: Active Problems (Last Reviewed 01/04/20 @ 23:[address] Pio York DO) Decreased ambulation status (Acute) - Secondary Discharge Diagnosis Chronic Problems: Chronic Problems (Last Reviewed 01/04/20 @ 23:[address] Pio York DO) Back pain (Chronic) Neuropathic pain (Chronic) Edema (Chronic) Vitamin B12 deficiency (Chronic) Sjogrens syndrome (Chronic) Gout (Chronic) Hyperlipidemia (Chronic) Hypertension (Chronic) Diabetes mellitus (Chronic) Sleep apnea (Chronic) Insomnia (Chronic) Restless legs syndrome (Chronic) Hypokalemia (Chronic) GERD (gastroesophageal reflux disease) (Chronic) Hypothyroidism (Chronic) Osteoarthritis, shoulder (Chronic) Hospital Course and Treatment Operations: None Summary of Care Provided: The patient is a 74 year old F was admitted with acute on chronic back pain. Her back pain started about 3 years ago. She has chronic lumbar spinal stenosis. She described her pain as severe, number pain radiating to bilateral lower extremity short left knee. Denies any neurological symptoms of bladder or bowel incontinence or numbness or tingling. She states when she is laying down, her pain is much controlled but gets worse on standing or walking. 1. acute Debility from acute on chronic lumbar back pain from chronic lumbar spinal stenosis: Patient was admitted [facility]. PT note reviewed associated therapy recommended. Continue PT and OT. Pt is discharged to TCU. 2. Back pain: Chronic. Patient does not have acute neurological symptoms including loss of bowel or bladder continence. No acute loss of muscle strength or numbness or tingling. DTR 2+. Bilateral L5 nerve is intact as she can have good extension of extensor hallucis longus. Pain management Dr. Wynne was consulted but he wants to see patient earliest on . No red flag to require MRI order. Pain control. PT and OT. 01/05: Discussed with the case resolution specialist. Patient agreed for rehab, TCU. COVID- 19 PCR NEGATIVE 3. E. coli UTI: Patient nitrite is positive. Urine culture shows more than 100,000 colonies. Started empirically on IV ceftriaxone. Patient does not have dysuria burning micturition. Discharged on Cefadroxil 500 mg bid for 4 more days. Follow C&S 4. Diabetes mellitus type 2: Continue with metformin. Sliding scale insulin. 5. Hypokalemia: Replace VTE prophylaxis: Not indicated as patient is observation status at this time. [] Discharge medication reconciliation done. Discharge follow-up instructions completed. Discharge process discussed with the patient and all questions were answered to patient's satisfaction. Patient prescription sent to retail pharmacy. Total time spent, exact 35 minutes on discharge meds reconciliation, examination, coordination of care with nurses and ancillary staff, review of imaging and blood test and discussion with the patient on follow-up instructions Patient Problems: Active and Suspected Problems (Last Reviewed 01/04/20 @ 23:[address] Pio York, DO) Decreased ambulation status (Acute) Objective: Please, see the progress note of same day for physical exam - Physical Exam Vitals/I&O's: Vital Signs Temp Pulse Resp BP Pulse Ox 98.8 F 98 16 110/60 94 01/06/20 09:23 01/06/20 09:23 01/06/20 09:23 01/06/20 09:23 01/06/20 09:23 Oxygen Flow Rate (L/min) 1 Oxygen Delivery Method Nasal Cannula Weight: 289 lb 14.526 oz Body Mass Index (BMI) 46.7 Intake and Output for Last 24 Hours 01/04/20 01/05/20 01/06/20 23:59 23:59 23:59 Intake Total 1750 / 2450 1000 / 1000 Balance 1750 / 2450 1000 / 1000 Microbiology Past 72 Hours 01/04/20 22:20 Urine, Catheterized Urine Culture - Preliminary Presumptive E. coli Laboratory Results 01/05/20 16:11: POC Glucose 213 H 01/05/20 20:47: POC Glucose 229 H 01/06/20 06:35: POC Glucose 170 H 01/06/20 11:35: POC Glucose 219 H 01/06/20 11:40: COVID-19 (DARREL) Not Detected 01/06/20 14:00: WBC 10.5, RBC 4.90, Hgb 15.7 H, Hct 50.1 H, MCV 102.2 H, MCH 32.0, MCHC 31.3 L, RDW Std Deviation 52.8 H, RDW Coeff of Susi 14.0, Plt Count 243, MPV 8.4, Immature Gran % (Auto) 0.500, Neut % (Auto) 67.2, Lymph % (Auto) 21.0, [place] % (Auto) 9.5, Eos % (Auto) 1.4, Baso % (Auto) 0.4, Absolute Neuts (auto) 7.0, Absolute Lymphs (auto) 2.20, Nucleated RBC % 0 01/06/20 14:00: Sodium Pending, Potassium Pending, Chloride Pending, Carbon Dioxide Pending, Anion Gap Pending, BUN Pending, Creatinine Pending, Est GFR (MDRD) Af Amer Pending, Est GFR (MDRD) Non-Af Pending, BUN/Creatinine Ratio Pending, Glucose Pending, Calcium Pending Current Medications Ascorbic Acid (Ascorbic Acid 500 Mg Tablet) 500 mg PO DAILY@0800 [facility] Last Admin: 01/06/20 09:19 Dose: 500 mg Documented by: Atorvastatin Calcium (Atorvastatin Calcium 40 Mg Tablet) 40 mg PO DAILY@2200 [facility] Last Admin: 01/05/20 20:32 Dose: 40 mg Documented by: Calcium Carbonate (Calcium (Elemental) 500 Mg Tablet) 500 mg PO DAILYCM [facility] Last Admin: 01/06/20 09:18 Dose: 500 mg Documented by: Cyanocobalamin (Cyanocobalamin (B12) 1,000 Mcg/Ml Vial) 1,000 mcg SC QMONTH [facility] Dextrose (Dextrose 50%-Water 25 Gm/50 Ml Disp.Syrin) 0 gm IV X1 PRN; Protocol PRN Reason: Hypoglycemia Diphenoxylate HCl/Atropine (Diphenoxylate/Atrop 1 Tablet) 1 - 2 tablet PO Q6H PRN PRN PRN Reason: Diarrhea Last Admin: 01/06/20 06:40 Dose: 2 tablet Documented by: Fluoxetine HCl (Fluoxetine 20 Mg Capsule) 20 mg PO DAILY [facility] Last Admin: 01/06/20 09:20 Dose: 20 mg Documented by: Gabapentin (Gabapentin 600 Mg Tablet) 600 mg PO TID [facility] Last Admin: 01/06/20 06:40 Dose: 600 mg Documented by: Glucagon (Glucagon 1 Mg/Ml Syringe) 1 mg IM .X1 PRN PRN Reason: Hypoglycemia Ceftriaxone Sodium (Rocephin) 1 gm in 50 mls @ 100 mls/hr IV Q24 [facility] Insulin Human Lispro (Insulin Lispro 100 Unit/Ml Insuln.Pen) 0 unit SC TIDAC [facility]; Protocol Last Admin: 01/06/20 11:37 Dose: 2 units Documented by: Ketorolac Tromethamine (Ketorolac Tromethamine 5 Ml Drops) 1 ml RIGHT EYE 4X/DAY [facility] Last Admin: 01/06/20 09:20 Dose: 1 ml Documented by: Levothyroxine Sodium (Levothyroxine 100 Mcg Tablet) 100 mcg PO DAILY@0600 [facility] Last Admin: 01/06/20 06:40 Dose: 100 mcg Documented by: Losartan Potassium (Losartan Potassium 50 Mg Tablet) 50 mg PO QHS [facility] Last Admin: 01/05/20 20:32 Dose: 50 mg Documented by: Melatonin (Melatonin 10 Mg Tablet) 10 mg PO 1999 [facility] Last Admin: 01/05/20 20:40 Dose: 10 mg Documented by: Metformin HCl (Metformin Hcl 750 Mg Tab.Er.24h) [facility] Last Admin: 01/06/20 09:15 Dose: 750 mg Documented by: Multivitamins/Minerals (Multivitamins,Ther W-Minerals Tablet) [facility] Last Admin: 01/06/20 09:17 Dose: 1 tablet Documented by: Non-Formulary Medication ([facility]-Formulary) [facility] Last Admin: 01/06/20 09:18 Dose: 1 Documented by: Ondansetron HCl (Ondansetron 4 Mg/2 Ml Vial) 4 mg IV Q8H PRN PRN PRN Reason: NAUSEA/VOMITING Pantoprazole Sodium (Pantoprazole Sodium 20 Mg Tablet) [facility] Last Admin: 01/05/20 20:40 Dose: 20 mg Documented by: Potassium Chloride (Potassium Chloride 20 Meq Tablet) [facility]q [facility] Last Admin: 01/06/20 09:17 Dose: 40 meq Documented by: Ropinirole HCl (Ropinirole Hcl 0.5 Mg Tablet) [facility] Last Admin: 01/05/20 20:35 Dose: 2 mg Documented by: Sodium Chloride (0.9% Saline Lock 10 Ml Syringe) 10 - 40 ml IV UD PRN PRN Reason: SALINE FLUSH Tramadol HCl (Tramadol 50 Mg Tablet) 50 mg PO Q6H PRN PRN PRN Reason: Pain Score 4-10 Last Admin: 01/06/20 07:18 Dose: 50 mg Documented by: Zolpidem Tartrate (Zolpidem Tartrate 5 Mg Tablet) 5 mg PO QHS [facility] Last Admin: 01/05/20 20:39 Dose: 5 mg Documented by: Home Medications: Medications to take at Discharge Ascorbic Acid [Vitamin C] 500 mg PO DAILY@0800 11/20/14 Atorvastatin Calcium [Lipitor] 40 mg PO QHS 11/20/14 Calcium Carbonate [Calcium] 600 mg PO DAILY 11/20/14 Cyanocobalamin (Vitamin B-12) 1,000 mcg SC QMONTH 11/20/14 Gabapentin [Neurontin] 600 mg PO TID 11/20/14 Irbesartan [Avapro] 150 mg PO QHS 11/20/14 Levothyroxine [Synthroid] 100 mcg PO DAILY 11/20/14 Metformin HCl [Glucophage Xr] 750 mg PO DAILY 11/20/14 Multivit-Min/FA/Lycopen/Lutein [Centrum Silver Tablet] 1 each PO DAILY 11/20/14 Omeprazole [Prilosec] 20 mg PO DAILY 11/20/14 Vitamin E 400 units PO DAILY@1200 capsule 02/15/17 Diphenoxylate HCl/Atropine [Diphenoxylate-Atrop 2.5-0.025] 2 ea PO Q8H PRN PRN 01/04/20 Insulin Regular, Human [Humulin R] 10 unit SC TIDCM 01/04/20 Ketorolac Tromethamine [Acular LS] 1 drp RIGHT EYE 4X/DAY 01/04/20 Melatonin 10 mg PO 2000 01/04/20 Ropinirole HCl 2 mg PO QHS 01/04/20 Sarilumab [Kevzara] 200 mg SQ QWEEK 01/04/20 Turmeric Root Extract [Turmeric] 500 mg PO DAILY 01/04/20 Vit C/E/Zn/Coppr/Lutein/Zeaxan [Preservision Areds 2 Softgel] 1 ea PO BIDCM 01/04/20 Zolpidem Tartrate [Zolpidem Tartrate ER] 12.5 mg PO QHS 01/04/20 Ergocalciferol [Vitamin D] 50,000 unit PO MO 01/05/20 Fluoxetine [Prozac] 20 mg PO DAILY 01/05/20 Calcium (Elemental) [Os-Humble 500] 500 mg PO DAILYCM tab 01/06/20 Potassium Chloride [K-Dur] 20 meq PO DAILYCM tab 01/06/20 traMADol [Ultram] 50 mg PO Q6H PRN PRN 3 Days #10 tab 01/06/20 Following Prescriptions Were Given to Patient: traMADol [Ultram] 50 mg PO Q6H PRN PRN 3 Days #10 tab PRN Reason: Pain Score 6-10 Prescription Printed Primary Care Physician: Diallo Dejesus DO [Primary Care Provider] - Medical Necessity - Tobacco Use Smoking Status: Never smoker Meaningful Use Info Meaningful Use Diagnoses (Choose all that apply): None applicable Please, cancel progress note of same day Inpatient E&M: [id number] Disch Hosp
[2020-01-06 14:32] LABS: Anion Gap 5 (5-15); BUN 12 mg/dL (7-18); BUN/Creat Ratio 13.6 RATIO (10-20); Calcium,Total 9.4 mg/dL (8.5-10.1); Chloride 103 mmol/L (98-107); Creatinine, Serum 0.88 mg/dL (0.55-1.02); EST Glomerular Filtration Rate 66 mL/min (>60); Est Glom Filt Rate - Afr Amer 80 mL/min (>60); Estimated Creatinine Clearance 50.91 ml/min; Glucose 225 mg/dL (74-106); Potassium 3.9 mmol/L (3.5-5.1); Sodium Level 138 mmol/L (136-145)
--- NOTE | 2020-01-06 14:33 | PCM.TXEXTCAR ---
- Diet 01/05/20 00:34 Diet: Consistent Carb - Calorie Controlled Food consistency:: Regular Liquid Consistency:: Regular/Thin How many daily calories?: 1999 calorie - Routine Orders/Code Status Suppository Type: Dulcolax 10mg Suppository Frequency: Daily PRN - Wound(s) L. upper arm Wound Type: BG monitor device - Therapies Weight Bearing: Weight bearing as tolerated Extremity Affected:: Bilateral Lower Physical Therapy: Eval and Treat Occupational Therapy: Eval and Treat - Allergies/Procedures Done in Hospital Allergies/Adverse Reactions: Allergies cyclobenzaprine Allergy (Verified 01/04/20 18:58) Unknown doxepin Allergy (Verified 01/04/20 18:58) Unknown hydromorphone HCl [From Dilaudid] Allergy (Verified 01/04/20 18:58) Unknown prednisone Allergy (Verified 01/04/20 18:58) Unknown pregabalin [From Lyrica] Allergy (Verified 01/04/20 18:58) Unknown acetaminophen [From Percocet] Adverse Reaction (Verified 01/04/20 18:58) HALLUCINATION hydrocodone bitartrate [From Vicodin] Adverse Reaction (Verified 01/04/20 18:58) HALLUCINATIONS oxycodone HCl [From Percocet] Adverse Reaction (Verified 01/04/20 18:58) HALLUCINATION - Type of Care/Length of Stay Estimated LOS: Convalescent Care Less Than 30 days Type of Care Needed: Skilled Rehab Potential: Good Prognosis: Good - Additional Orders/Day of Discharge Day of Discharge: 01/06/20 - Dietary and Speech Recommendations Dietitian Recommendations/Changes: Will change diet to 1800 bertha Cardiac. Will provide Glucerna shake 1x/day per pt request - Follow Up Care Primary Care Physician: Diallo Dejesus DO [Primary Care Provider] - Please follow up with your Primary Care Physician in: [place] 2 weeks Please Follow Up With: Thong Scherer MD When: on 01/06/2020 for pain management
--- NOTE | 2020-01-06 14:54 | CASEMGMT ---
Social Work Note JEREMIAH updated that pt is agreeable to TCU and would like to speak with Christa in TCU. JEREMIAH placed a call to referral line and spoke with Cori and provided referral and that pt is requesting to speak to Christa. JEREMIAH received call from Cori in TCU stating pt has a Kevzara medication and it costs around $3,000. Cori states if pt is able to bring in injection from home then TCU is able to accept pt. JEREMIAH spoke with pt and introduced self and role at [facility]. Pt is alert and orientated x3. Pt states the Kevzara is mailed to her every and she will have someone available to bring in the medication from home to her while she is at TCU. Pt agreeable to TCU. JEREMIAH spoke with Cori and updated her that medication will be brought in and this SW will call [facility] and submit pre-cert. JEREMIAH placed a call to Eugenia at [facility] and provided referral. Eugenia states she approves for pt to admit to TCU. JEREMIAH updated Eugenia that pt will admit to TCU today. JEREMIAH placed a call to Cori in TCU and updated her that pre-cert has been obtained and pt is able to discharge to TCU today. JEREMIAH updated pt on approval for TCU and discharge today. Plan: TCU today Nishi Mock [employer], [employer]
[2020-01-06] MEDS: Ceftriaxone 1 GM/50 ML BAG IV (15:15)
[2020-01-06 15:33] VITALS: BP 128/83; PULSE 98; RESP 16; TEMP 37.2; O2SAT 92
== END 2020-01-06 16:30 | disposition skilled nursing facility (03) ==
LOC: ED 23:14 → MS3 23:38
PROVIDERS: Emergency Provider Emergency Medicine; PCP Family Medicine; Visit Provider Internal Medicine
DX: M48.061 Spinal stenosis, lumbar region without neurogenic claudication (principal); G89.29 Other chronic pain; G47.30 Sleep apnea, unspecified; E78.5 Hyperlipidemia, unspecified; I10 Essential (primary) hypertension; M06.9 Rheumatoid arthritis, unspecified; E03.9 Hypothyroidism, unspecified; K21.9 Gastro-esophageal reflux disease without esophagitis; E11.42 Type 2 diabetes mellitus with diabetic polyneuropathy; M35.00 Sjogren syndrome, unspecified; G25.81 Restless legs syndrome; K58.9 Irritable bowel syndrome, unspecified; M79.7 Fibromyalgia; E87.6 Hypokalemia; B96.20 Unspecified Escherichia coli [E. coli] as the cause of diseases classified elsewhere; N39.0 Urinary tract infection, site not specified; Z79.4 Long term (current) use of insulin; Z79.899 Other long term (current) drug therapy
CPT/HCPCS: 36415; 71045; 80048; 81001; 82962; 85025; 87086; 87088; 87186; 87635; 93005; 96365; 97110; 97162; 97166; 97535; 97802; 99218; 99284; A4216; G0378; U0003

== ENCOUNTER 2020-01-06 16:46 | Inpatient (IN) | payer MEDICARE, SELFPAY ==
[2020-01-05 00:34] VITALS: BMI 46.7
[2020-01-06 17:15] VITALS: BMI 40.0
[2020-01-06 17:25] VITALS: BP 142/82; PULSE 92; RESP 16; TEMP 36.8; O2SAT 92
[2020-01-06 17:43] VITALS: BMI 40.0
[2020-01-06] MEDS: traMADol 50 MG Tablet PO ×2 (17:49→23:53)
[2020-01-06] MEDS: Cefadroxil 500 MG CAPSULE PO (18:43)
[2020-01-06] MEDS: Gabapentin 600 MG Tablet PO (18:43)
--- NOTE | 2020-01-06 20:31 | HP.PCM_ITS ---
Problem List (1) Debility Status: Acute (2) Low back pain Status: Acute (3) UTI (urinary tract infection) Status: Acute (4) Neuropathic pain Status: Chronic (5) Compression fracture of lumbosacral spine Status: Chronic (6) Vitamin D deficiency Status: Chronic (7) Hyperlipidemia Status: Chronic (8) Hypertension Status: Chronic (9) Diabetes mellitus Status: Chronic Qualifiers: (10) Restless legs syndrome Status: Chronic (11) Hypokalemia Status: Chronic (12) GERD (gastroesophageal reflux disease) Status: Chronic (13) Hypothyroidism Status: Chronic History of Present Illness Date of Admission: 01/06/20 Chief Complaint: Here for rehabilitation, strengthening, prior to discharge home alone. 01/04/20 The patient is a 74 year old Female with below past medical history presented to [facility] Emergency Department with back pain. 01/04/20 Chest X-ray right shoulder arthroplasty, stable left lower lobe atelectasis and/or scarring, borderline cardiomegaly. Chronic low back pain, compression fracture lumbar spine 2 years ago. Takes hydrocodone, Tramadol at home, MRI ordered but not done yet. Pain uncontrolled, pain radiating to legs. Unable to walk. WBC 15.8, UA positive nitrite, urine culture sent. Urine culture grew > 100,000 E. Coli. 01/04/20 Admit to Hospital. PT/OT for nursing home facility. Patient concerned with COVID-19 with going to nursing home facility, patient reassured. 01/05/20 Pain management consulted, unable to see patient until 01/08/20. E. Coli urinary tract infection treated with Ceftriaxone, transitioned to Cefadroxil 500MG BID for 4 more days. 01/06/20 Admit to TCU with debility, here for rehabilitation, strengthening, prior to discharge home alone. Past Medical History Past Medical History (Chronic Problems): Chronic Problems (Last Reviewed 01/04/20 @ 23:[address] Pio York DO) Back pain (Chronic) Neuropathic pain (Chronic) Compression fracture of lumbosacral spine (Chronic) Vitamin D deficiency (Chronic) Neuropathic pain (Chronic) Edema (Chronic) Vitamin B12 deficiency (Chronic) Sjogrens syndrome (Chronic) Gout (Chronic) Hyperlipidemia (Chronic) Hypertension (Chronic) Diabetes mellitus (Chronic) Sleep apnea (Chronic) Insomnia (Chronic) Restless legs syndrome (Chronic) Hypokalemia (Chronic) GERD (gastroesophageal reflux disease) (Chronic) Hypothyroidism (Chronic) Osteoarthritis, shoulder (Chronic) Medical History: Medical History (Last Reviewed 01/04/20 @ 23:[address] Pio York, DO) Acquired hypothyroidism E03.9 Anemia D64.9 Benign essential hypertension I10 Depression F32.9 Diabetes mellitus with diabetic polyneuropathy, with long-term current use of insulin E11.42, Z79.4 Fibromyalgia M79.7 IBS (irritable bowel syndrome) K58.9 Rheumatoid arthritis M06.9 Allergies cyclobenzaprine Allergy (Verified 01/04/20 18:58) Unknown doxepin Allergy (Verified 01/04/20 18:58) Unknown hydromorphone HCl [From Dilaudid] Allergy (Verified 01/04/20 18:58) Unknown prednisone Allergy (Verified 01/04/20 18:58) Unknown pregabalin [From Lyrica] Allergy (Verified 01/04/20 18:58) Unknown acetaminophen [From Percocet] Adverse Reaction (Verified 01/04/20 18:58) HALLUCINATION hydrocodone bitartrate [From Vicodin] Adverse Reaction (Verified 01/04/20 18:58) HALLUCINATIONS oxycodone HCl [From Percocet] Adverse Reaction (Verified 01/04/20 18:58) HALLUCINATION Home Medications: Ambulatory Orders Medication Instructions Recorded Ascorbic Acid [Vitamin C] 500 mg PO DAILY@0800 11/20/14 Atorvastatin Calcium [Lipitor] 40 mg PO QHS 11/20/14 Calcium Carbonate [Calcium] 600 mg PO DAILY 11/20/14 Cyanocobalamin (Vitamin B-12) 1,000 mcg SC QMONTH 11/20/14 Gabapentin [Neurontin] 600 mg PO TID 11/20/14 Irbesartan [Avapro] 150 mg PO QHS 11/20/14 Levothyroxine [Synthroid] 100 mcg PO DAILY 11/20/14 Metformin HCl [Glucophage Xr] 750 mg PO DAILY 11/20/14 Multivit-Min/FA/Lycopen/Lutein 1 each PO DAILY 11/20/14 [Centrum Silver Tablet] Omeprazole [Prilosec] 20 mg PO DAILY 11/20/14 Diphenoxylate HCl/Atropine 2 ea PO Q8H PRN PRN 01/04/20 [Diphenoxylate-Atrop 2.5-0.025] Insulin Regular, Human [Humulin R] 10 unit SC TIDCM 01/04/20 Ketorolac Tromethamine [Acular LS] 1 drp RIGHT EYE 4X/DAY 01/04/20 Melatonin 10 mg PO 2000 01/04/20 Ropinirole HCl 2 mg PO QHS 01/04/20 Sarilumab [Kevzara] 200 mg SQ QWEEK 01/04/20 Turmeric Root Extract [Turmeric] 500 mg PO DAILY 01/04/20 Vit C/E/Zn/Coppr/Lutein/Zeaxan 1 ea PO BIDCM 01/04/20 [Preservision Areds 2 Softgel] Zolpidem Tartrate [Zolpidem 12.5 mg PO QHS 01/04/20 Tartrate ER] Ergocalciferol [Vitamin D] 50,000 unit PO MO 01/05/20 Fluoxetine [Prozac] 20 mg PO DAILY 01/05/20 Calcium (Elemental) [Os-Humble 500] 500 mg PO DAILYCM tab 01/06/20 Cefadroxil [Duricef] 500 mg PO BID 01/06/20 Potassium Chloride [K-Dur] 20 meq PO DAILYCM 01/06/20 Vitamin E 400 units PO DAILY@1200 01/06/20 traMADol [Ultram] 50 mg PO Q6H PRN PRN 3 Days #10 tab 01/06/20 Surgical History: Surgical History (Last Reviewed 01/04/20 @ 23:[address] Pio York, DO) History of ankle surgery Z98.890 History of bilateral knee replacement Z96.653 History of carpal tunnel surgery Z98.890 History of cystoscopy Z98.890 History of total hysterectomy Z90.710 Surgical History: hysterectomy, total knee arthroplasty - Bilateral., - - Right ankle surgery, Left leg ORIF, carpal tunnel surgery, trigger finger, Right shoulder arthroplasty. 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 Denies: Joint Pain, Joint Tenderness Skin: Denies: Rash, Wounds Neurological: Denies: Numbness, Tingling, Focal weakness Psychiatric: Denies: Anxiety, Depression, Homicidal Ideations, Suicidal Ideations Hematologic/ Lymphatic: Denies: Easy Bruising, Easy Bleeding VTE Information - Inpt Only VTE Present on Admission: No VTE Mechan Device Prophylaxis: Knee High TE Hose VTE Pharm Prophylaxis ordered?: No Reason prophylaxis not ordered:: Treatment Not Indicated Patient Problems: Active and Suspected Problems (Last Reviewed 01/04/20 @ 23:[address] Pio York, DO) Debility (Acute) Low back pain (Acute) UTI (urinary tract infection) (Acute) - Physical Exam Vitals/I&O's: Vital Signs Temp Pulse Resp BP Pulse Ox 98.3 F 92 16 142/82 H 92 01/06/20 17:25 01/06/20 17:25 01/06/20 17:25 01/06/20 17:25 01/06/20 17:25 Oxygen Delivery Method Room Air Weight: 112.5 kg Body Mass Index (BMI) 40.0 General: Alert, Oriented x3, Cooperative HEENT: Atraumatic, PERRLA, EOMI, Normocephalic Neck: Supple, No JVD, Negative Carotid Bruits Lungs: Clear to auscultation, Normal air movement Cardiovascular: Regular rate, No murmurs Abdomen: Bowel Sounds Present, Soft, Non Tender Extremities: No edema, Capillary Refill Less than 3 Seconds Skin: No rashes, No breakdown Musculoskeletal: No Tenderness to Palpation of Joints or Extremities Neurological: Cranial nerves II-XII grossly intact Psych/Mental Status: Normal Affect, Appropriate Laboratory Results 01/06/20 18:44: COVID-19 (DARREL) Pending Current Medications Ascorbic Acid (Ascorbic Acid 500 Mg Tablet) 500 mg PO DAILY@0800 [facility] Atorvastatin Calcium (Atorvastatin Calcium 40 Mg Tablet) 40 mg PO QHS [facility] Bisacodyl (Bisacodyl 10 Mg Suppository) 10 mg RECTAL DAILY PRN PRN Reason: Constipation Calcium Carbonate (Calcium Carbonate 500 Mg Tablet) [facility] Cefadroxil (Cefadroxil 500 Mg Capsule) 500 mg PO BID [facility] Last Admin: 01/06/20 18:43 Dose: 500 mg Documented by: Cyanocobalamin (Cyanocobalamin (B12) 1,000 Mcg/Ml Vial) 1,000 mcg SC QMONTH [facility] Diphenoxylate HCl/Atropine (Diphenoxylate/Atrop 1 Tablet) 1 - 2 tablet PO Q8H PRN PRN PRN Reason: Irritbable Bowel Syndrome Ergocalciferol (Ergocalciferol 50,000 Unit Capsule) 50,000 unit PO MO [facility] Fluoxetine HCl (Fluoxetine 20 Mg Capsule) 20 mg PO DAILY [facility] Gabapentin (Gabapentin 600 Mg Tablet) 600 mg PO TIDCM [facility] Last Admin: 01/06/20 18:43 Dose: 600 mg Documented by: Insulin Human Lispro (Insulin Lispro 100 Unit/Ml Insuln.Pen) 0 unit SC TIDAC [facility]; Protocol Ketorolac Tromethamine (Ketorolac Tromethamine 5 Ml Drops) 1 drop RIGHT EYE 4X/DAY [facility] Levothyroxine Sodium (Levothyroxine 100 Mcg Tablet) 100 mcg PO DAILY [facility] Losartan Potassium (Losartan Potassium 50 Mg Tablet) 50 mg PO QHS [facility] Melatonin (Melatonin 10 Mg Tablet) 10 mg PO 2000 [facility] Metformin HCl (Metformin Hcl 750 Mg Tab.Er.24h) 750 [facility] Multivitamins/Minerals (Multivitamins,Ther W-Minerals Tablet) 1 tablet PO DAILY@0800 [facility] Non-Formulary Medication (Sarilumab [Chiomara]) 200 mg SQ QWEEK [facility] Non-Formulary Medication (Non-Formulary) [facility] Pantoprazole Sodium (Pantoprazole Sodium 20 Mg Tablet) 20 mg PO DAILY [facility] Potassium Chloride (Potassium Chloride 20 Meq Tablet) 20 meq [facility] Ropinirole HCl (Ropinirole Hcl 0.5 Mg Tablet) 2 mg PO QHS [facility] Sodium Chloride (0.9% Saline Lock 10 Ml Syringe) 10 - 40 ml IV UD PRN PRN Reason: SALINE FLUSH Tramadol HCl (Tramadol 50 Mg Tablet) 50 mg PO Q6H PRN PRN PRN Reason: Pain Score 6-10 Last Admin: 01/06/20 17:49 Dose: 50 mg Documented by: Tuberculin PPD (Tuberculin,Purif.Prot.Deriv. 50 Tu/Ml Vial) 5 tu ID [id number] ONE Stop: 01/07/20 10:01 Tuberculin PPD (Tuberculin,Purif.Prot.Deriv. 50 Tu/Ml Vial) 5 tu ID [id number] ONE Stop: 01/14/20 10:01 Zolpidem Tartrate (Zolpidem Tartrate 5 Mg Tablet) 5 mg PO QHS [facility] Assessment/Plan All Active Problems (Last Reviewed 01/04/20 @ 23:[address] Pio York, DO) Decreased ambulation status (Acute) Debility (Acute) Low back pain (Acute) UTI (urinary tract infection) (Acute) 74 year old female with below past medical hospitalized for intractable low back pain, complicated by E. Coli urinary tract infection, admitted to TCU with debility, here for rehabilitation, strengthening, prior to discharge home alone. * Debility - PT/OT. * Pain - Tramadol 50MG Q6H PRN pain (6-10). * Bowel - Lomotil 1-2 tablets Q8H PRN diarrhea, Dulcolax 10MG ND daily PRN. * Adult immunization - Administer Prevnar 13, Pneumovax 23, Fluzone as appropriate. * DVT prophylaxis - Hold. * Vitamin C deficiency - Vitamin C 500MG daily. * Hyperlipidemia - Atorvastatin 40MG QHS. * Indigestion - Pantoprazole 20MG daily, TUMS 500MG daily. * E. Coli UTI - Cefadroxil 500MG BID thru 01/10/20. * Vitamin B12 deficiency - B12 1000MCG SC Qmonth. * Vitamin D deficiency - D2 50,000 units per month. * Depression - Fluoxetine 20Mg daily, stable chronic residential use, GDR not recommended. * Neuropathic pain -Gabapentin 600MG TIDCM. * Diabetes Mellitus II - Metformin 750MG daily, Humalog SSI. * Conjunctivitis - Ketorolac 1GTT OD 4x/day. * Hypothyroidism - Levothyroxine 100MCG daily. * Hypertension - Losartan 50MG QHS. * Insomnia - Melatonin 10MG QHS. * Nutrition - MVI daily. * Hypokalemia - K-Dur 20MEQ daily. * Restless leg syndrome - Ropinirole 2MG QHS. * Rheumatoid Arthritis - Kevzara 200MG SC Qweek. * Insomnia - Zolpidem 5MG QHS.
[2020-01-06] MEDS: MELATONIN 10 MG TABLET PO (21:11)
[2020-01-06] MEDS: Losartan Potassium 50 MG Tablet PO (21:11)
[2020-01-06] MEDS: NON-FORMULARY 1 PO (21:11)
[2020-01-06] MEDS: Atorvastatin Calcium 40 MG Tablet PO (21:11)
[2020-01-06 21:21] LABS: Bedside Glucose 281 mg/dL (70-110)
[2020-01-06] MEDS: Zolpidem Tartrate 5 MG Tablet PO (23:53)
[2020-01-07 02:50] VITALS: BP 140/87; PULSE 106; RESP 20; TEMP 37; O2SAT 84
[2020-01-07 03:00] VITALS: O2SAT 92
--- NOTE | 2020-01-07 03:05 | RAD_ITS ---
STUDY: X-RAY CHEST REASON FOR EXAM: Female, 74 years old. INCREASE IN O2 REQUIREMENTS TECHNIQUE: Single AP portable view of the chest. COMPARISON: 12/29/2015 FINDINGS: Subsegmental atelectases in the right and left lung bases. There is no demonstrated pleural abnormality. Normal size heart. Normal mediastinum and iza. Normal visualized pulmonary arteries. Normal visualized aortic arch and descending thoracic aorta. Normal visualized thoracic spine. There is degenerative osteoarthritis of the left shoulder. There is a right-sided shoulder arthroplasty in good alignment. There is no demonstrated abnormality of the visualized soft tissue structures of the upper abdomen. RAD/Chest PA and Lateral IMPRESSION: Degenerative changes, as described above. No demonstrated acute cardiopulmonary process. Electronically Signed: Merna Starr, at 5:31 EDT Tel , Service support ,
--- NOTE | 2020-01-07 03:06 | NURSING ---
Addendum entered by Chasidy Beltran 01/07/20 06:12: Pt up to restroom with 1 assist. C/o 9/10 back and R knee pain. PRN ultram administered with morning medications. Pt's skin hot to the touch, T99.2 temporal. Pt A&Ox3 but still confused to situation intermittently. Original Note: 0240- pt yelling out and attempting to get OOB unassisted. Pt did not know where she was or what she was doing here. Assisted to restroom and back to bed. Vitals obtained. SaO2 84% on room air, however, pt has artificial nails on all fingers. Attempted to get SaO2 on ear and toe and would not register. 2L O2 applied and eventually SaO2 showing 92% on pt's toe. Asked pt if she's worn O2 before and pt states not at home but they were putting it on me here sometimes. Pt's face symmetrical, speech normal, hand grasps and foot pushes equal. Pt able to state name, , year, president, and [facility] but remains confused to situation, asking what am I supposed to do here? is there anyone else here?. Also confused to time of day. Pt reoriented and bed alarm applied. Call light within reach and pt re-educated to use. Accucheck 217. Dr. Walsh notified and CXR order received. Will continue to monitor.
[2020-01-07 03:11] LABS: Bedside Glucose 217 mg/dL (70-110)
[2020-01-07 05:47] LABS: Absolute Lymphocyte Count 2.34 X10^3/uL (0.83-4.51); Absolute Neutrophil Count 7.6 X10^3/uL (2.0-7.7); Basophil# 0.04 X10^3/uL; Basophil% 0.3 % (0-1); Eosinophil# 0.27 X10^3/uL; Eosinophils% 2.3 % (0-5); Hematocrit 45.3 % (37-47); Hemoglobin 14.4 g/dL (12.0-15.0); Lymphocyte # 2.34 X10^3/ul (4.0); Lymphocyte % 20.2 % (19-41); Mean Corp Hgb Conc 31.8 g/dL (32-36); Mean Corpuscular Hgb 31.4 pg (27.0-32.0); Mean Corpuscular Volume 98.9 fL (81-99); Mean Platelet Vol. 8.3 fl (6.2-12.0); Monocyte# 1.23 X10^3/uL; Monocyte% 10.6 % (0-10); NRBC Flagged by Analyzer 0 % (0-5); Neutrophil # 7.64 X10^3/uL (2.7-7.7); Neutrophil % 66.3 % (47-70); Platelet Count 258 K/mm3 (150-450); RBC Distribution Width SD 51.5 fl (35.1-43.9); Red Blood Count 4.58 M/mm3 (4.2-5.4); White Blood Count 11.6 K/mm3 (4.4-11.0)
[2020-01-07] MEDS: Pantoprazole Sodium 20 MG Tablet PO (06:01)
[2020-01-07] MEDS: FLUoxetine 20 MG Capsule PO (06:01)
[2020-01-07] MEDS: traMADol 50 MG Tablet PO ×4 (06:01→22:12)
[2020-01-07] MEDS: Cefadroxil 500 MG CAPSULE PO ×2 (06:01→18:11)
[2020-01-07] MEDS: Levothyroxine 100 MCG Tablet PO (06:01)
[2020-01-07] MEDS: Nystatin Powder 15gm Bottle 1 APPLIC TOPICAL ×2 (06:06→18:12)
[2020-01-07 06:08] VITALS: TEMP 37.3
[2020-01-07 06:16] LABS: Anion Gap 8 (5-15); BUN 14 mg/dL (7-18); BUN/Creat Ratio 19.6 RATIO (10-20); Calcium,Total 8.9 mg/dL (8.5-10.1); Chloride 102 mmol/L (98-107); Creatinine, Serum 0.71 mg/dL (0.55-1.02); EST Glomerular Filtration Rate 85 mL/min (>60); Est Glom Filt Rate - Afr Amer 102 mL/min (>60); Glucose 170 mg/dL (74-106); Potassium 3.8 mmol/L (3.5-5.1); Sodium Level 139 mmol/L (136-145)
[2020-01-07 06:31] LABS: Bedside Glucose 188 mg/dL (70-110)
[2020-01-07] MEDS: NON-FORMULARY 1 PO ×2 (08:35→18:09)
[2020-01-07] MEDS: METFORMIN HCL 750 MG TAB.ER.24H PO (08:35)
[2020-01-07] MEDS: Multivitamins,Ther W-Minerals Tablet 1 TABLET PO (08:35)
[2020-01-07] MEDS: Gabapentin 600 MG Tablet PO ×3 (08:35→18:11)
[2020-01-07] MEDS: Calcium Carbonate 500 MG Tablet PO (08:35)
[2020-01-07] MEDS: Insulin Lispro 100 UNIT/ML INSULN.PEN SC ×3 (08:38→18:07)
[2020-01-07] MEDS: Ascorbic Acid 500 MG Tablet PO (08:39)
--- NOTE | 2020-01-07 09:03 | NURSING ---
pt c/o pain 10/26 in back, pt medicated with ultram @ 0600. pt sitting up in recliner chair eating brkfst. Pt requesting another ultram. Asked pt how she takes her meds at home, stated Well, I take another one when I have pain pt also stated last evening that she takes her requip differently than labeled on her home presciption. pt is alert and oriented this AM but did remember feeling confused in middle of night. Dr johnson notified of pt request, new orders given. pt assisted back to bed x2 for safety, offered to place kpad on back and pt declined.
[2020-01-07] MEDS: Tuberculin,Purif.prot.deriv. 50 TU/ML Vial 5 ML ID (10:47)
[2020-01-07 11:20] LABS: Bedside Glucose 256 mg/dL (70-110)
--- NOTE | 2020-01-07 11:21 | NURSING ---
PT asking for PRN lomotil states she gets it before Breakfast, Lunch and Dinner. Let pt know that we weren't aware of her having diarrhea asked career development specialist's if she had loose stool this am none was noted. Pt said that if she doesn't get her lomotil that she will make a mess all of the floor d/t not being able to make it in time to restroom. Gave PRN per pt request. Will update Dr. Walsh.
[2020-01-07] MEDS: Diphenoxylate/Atrop 1 Tablet PO (11:31)
[2020-01-07 13:38] VITALS: BP 119/60; PULSE 86; RESP 17; TEMP 37.1; O2SAT 95
--- NOTE | 2020-01-07 14:48 | CASEMGMT ---
Social Work Discussed code status with pt. Pt confirmed DNR-CC. MOLST form reviewed and placed in chart. Izzy Huggins, PLAYGROUND DIRECTOR WELT MAKER
--- NOTE | 2020-01-07 15:44 | NURSING ---
pt requesting that she get her ultram with her scheduled neurontin, this nurse changed neurontin times to 0600,1200,1800 so that ultram can be given at those times if needed.
[2020-01-07 16:31] LABS: Bedside Glucose 223 mg/dL (70-110)
[2020-01-07] MEDS: Diphenoxylate/Atrop 1 Tablet 2 TABLET PO (18:14)
[2020-01-07] MEDS: MELATONIN 10 MG TABLET PO (21:58)
[2020-01-07] MEDS: Losartan Potassium 50 MG Tablet PO (21:59)
[2020-01-07] MEDS: Atorvastatin Calcium 40 MG Tablet PO (22:00)
[2020-01-07] MEDS: Zolpidem Tartrate 5 MG Tablet PO (22:05)
[2020-01-07 22:16] LABS: Bedside Glucose 191 mg/dL (70-110)
[2020-01-08 06:15] VITALS: BP 114/58; PULSE 97; RESP 16; TEMP 36.6; O2SAT 98
[2020-01-08] MEDS: traMADol 50 MG Tablet PO (06:16)
[2020-01-08] MEDS: Pantoprazole Sodium 20 MG Tablet PO (06:17)
[2020-01-08] MEDS: Levothyroxine 100 MCG Tablet PO (06:17)
[2020-01-08] MEDS: Gabapentin 600 MG Tablet PO ×3 (06:17→17:21)
[2020-01-08] MEDS: FLUoxetine 20 MG Capsule PO (06:17)
[2020-01-08] MEDS: Cefadroxil 500 MG CAPSULE PO ×2 (06:17→17:20)
[2020-01-08 06:26] LABS: Bedside Glucose 178 mg/dL (70-110)
[2020-01-08] MEDS: Nystatin Powder 15gm Bottle 1 APPLIC TOPICAL ×2 (06:41→17:21)
[2020-01-08] MEDS: Calcium Carbonate 500 MG Tablet PO (07:55)
[2020-01-08] MEDS: Multivitamins,Ther W-Minerals Tablet 1 TABLET PO (07:55)
[2020-01-08] MEDS: NON-FORMULARY 1 PO ×2 (07:56→17:19)
[2020-01-08] MEDS: Insulin Lispro 100 UNIT/ML INSULN.PEN SC ×3 (08:47→18:03)
[2020-01-08] MEDS: Ascorbic Acid 500 MG Tablet PO (08:49)
[2020-01-08] MEDS: METFORMIN HCL 750 MG TAB.ER.24H PO (08:49)
[2020-01-08] MEDS: Diphenoxylate/Atrop 1 Tablet 2 TABLET PO ×3 (08:50→17:18)
--- NOTE | 2020-01-08 09:36 | PT ---
Called Dr. Espinoza's office about consult for pt. Asked if possible, could physician come to TCU to consult pt versus pt going to physician's office for appointment. Dr. Espinoza's office will call nursing tomorrow AM to update TCU staff if physician is able to come to TCU to consult pt.
[2020-01-08 11:09] VITALS: PULSE 93; RESP 18; O2SAT 94
[2020-01-08 11:11] LABS: Bedside Glucose 230 mg/dL (70-110)
[2020-01-08 15:15] VITALS: BP 126/74; PULSE 93; RESP 18; TEMP 36.3; O2SAT 94
[2020-01-08 16:51] LABS: Bedside Glucose 164 mg/dL (70-110)
[2020-01-08] MEDS: Losartan Potassium 50 MG Tablet PO (21:20)
[2020-01-08] MEDS: Zolpidem Tartrate 5 MG Tablet PO (21:20)
[2020-01-08] MEDS: MELATONIN 10 MG TABLET PO (21:20)
[2020-01-08] MEDS: Atorvastatin Calcium 40 MG Tablet PO (21:21)
[2020-01-08 21:26] LABS: Bedside Glucose 228 mg/dL (70-110)
[2020-01-09] MEDS: traMADol 50 MG Tablet PO ×3 (00:44→20:47)
[2020-01-09 06:30] LABS: Bedside Glucose 189 mg/dL (70-110)
[2020-01-09 06:31] VITALS: BP 114/86; PULSE 91; RESP 16; TEMP 36.8; O2SAT 98
[2020-01-09] MEDS: Gabapentin 600 MG Tablet PO ×3 (06:35→18:04)
[2020-01-09] MEDS: Cefadroxil 500 MG CAPSULE PO ×2 (06:35→18:05)
[2020-01-09] MEDS: Levothyroxine 100 MCG Tablet PO (06:35)
[2020-01-09] MEDS: FLUoxetine 20 MG Capsule PO (06:35)
[2020-01-09] MEDS: Pantoprazole Sodium 20 MG Tablet PO (06:35)
[2020-01-09] MEDS: Nystatin Powder 15gm Bottle 1 APPLIC TOPICAL ×2 (06:36→20:49)
[2020-01-09] MEDS: Insulin Lispro 100 UNIT/ML INSULN.PEN SC ×3 (08:33→18:08)
[2020-01-09] MEDS: METFORMIN HCL 750 MG TAB.ER.24H PO (08:36)
[2020-01-09] MEDS: Multivitamins,Ther W-Minerals Tablet 1 TABLET PO (08:37)
[2020-01-09] MEDS: NON-FORMULARY 1 PO (08:38)
[2020-01-09] MEDS: Ascorbic Acid 500 MG Tablet PO (08:39)
[2020-01-09] MEDS: Calcium Carbonate 500 MG Tablet PO (08:39)
[2020-01-09] MEDS: Diphenoxylate/Atrop 1 Tablet 2 TABLET PO ×3 (09:17→18:11)
[2020-01-09 11:10] LABS: Bedside Glucose 245 mg/dL (70-110)
--- NOTE | 2020-01-09 12:18 | PCM.PN.RX ---
<Altagracia Head - Last Filed: 01/09/20 15:47> Progress Note - Pharmacy Subjective: TCU Admission Objective: Allergies cyclobenzaprine Allergy (Verified 01/04/20 18:58) Unknown doxepin Allergy (Verified 01/04/20 18:58) Unknown hydromorphone HCl [From Dilaudid] Allergy (Verified 01/04/20 18:58) Unknown prednisone Allergy (Verified 01/04/20 18:58) Unknown pregabalin [From Lyrica] Allergy (Verified 01/04/20 18:58) Unknown acetaminophen [From Percocet] Adverse Reaction (Verified 01/04/20 18:58) HALLUCINATION hydrocodone bitartrate [From Vicodin] Adverse Reaction (Verified 01/04/20 18:58) HALLUCINATIONS oxycodone HCl [From Percocet] Adverse Reaction (Verified 01/04/20 18:58) HALLUCINATION Current Medications Generic Name Dose Route Start Last Admin Trade Name Freq PRN Reason Stop Dose Admin Ascorbic Acid 500 mg 01/07/20 08:00 01/09/20 08:39 Ascorbic Acid 500 Mg Tablet PO 500 mg DAILY@0800 DARON Administration Atorvastatin Calcium 40 mg 01/06/20 22:00 01/08/20 21:21 Atorvastatin Calcium 40 Mg Tablet PO 40 mg QHS DARON Administration Bisacodyl 10 mg 01/06/20 17:33 Bisacodyl 10 Mg Suppository RECTAL DAILY PRN Constipation Calcium Carbonate 500 mg 01/07/20 08:00 01/09/20 08:39 Calcium Carbonate 500 Mg Tablet PO 500 mg DAILYCM DARON Administration Cefadroxil 500 mg 01/06/20 18:00 01/09/20 06:35 Cefadroxil 500 Mg Capsule PO 01/10/20 23:59 500 mg BID DARON Administration Cyanocobalamin 1,000 mcg 01/18/20 06:00 Cyanocobalamin (B12) 1,000 Mcg/Ml Vial SC QMONTH [facility] Diphenoxylate HCl/Atropine 2 tablet 01/07/20 17:45 01/09/20 12:16 Diphenoxylate/Atrop 1 Tablet PO 2 tablet TIDCM DARON Administration Ergocalciferol 50,000 unit 01/12/20 08:00 Ergocalciferol 50,000 Unit Capsule PO MO [facility] Fluoxetine HCl 20 mg 01/07/20 06:00 01/09/20 06:35 Fluoxetine 20 Mg Capsule PO 20 mg DAILY DARON Administration Gabapentin 600 mg 01/07/20 18:00 01/09/20 12:12 Gabapentin 600 Mg Tablet PO 600 mg 0600,1200,1800 DARON Administration Insulin Human Lispro 0 unit 01/07/20 06:45 01/09/20 12:10 Insulin Lispro 100 Unit/Ml Insuln.Pen SC 3 units TIDAC DARON Administration Protocol Ketorolac Tromethamine 1 drop 01/06/20 22:00 01/09/20 12:09 Ketorolac Tromethamine 5 Ml Drops RIGHT EYE 1 drop 4X/DAY DARON Administration Levothyroxine Sodium 100 mcg 01/07/20 06:00 01/09/20 06:35 Levothyroxine 100 Mcg Tablet PO 100 mcg DAILY DARON Administration Losartan Potassium 50 mg 01/06/20 22:00 01/08/20 21:20 Losartan Potassium 50 Mg Tablet PO 50 mg QHS DARON Administration Melatonin 10 mg 01/06/20 20:00 01/08/20 21:20 Melatonin 10 Mg Tablet PO 10 mg 2000 DARON Administration Metformin HCl 750 mg 01/07/20 08:00 01/09/20 08:36 Metformin Hcl 750 Mg Tab.Er.24h PO 750 mg DAILYCM DARON Administration Multi-Ingredient Cream 1 applic 01/06/20 23:27 Mineral Oil/Petrolatum,White Jar TOPICAL BID PRN PRN DRY SKIN Protocol Multivitamins/Minerals 1 tablet 01/07/20 08:00 01/09/20 08:37 Multivitamins,Ther W-Minerals Tablet PO 1 tablet DAILY@0800 DARON Administration Non-Formulary Medication 1 01/07/20 08:00 01/09/20 08:38 Non-Formulary PO 1 BIDCM DARON Administration Non-Formulary Medication 1 mg 01/08/20 08:00 01/08/20 08:51 Sarilumab [Kevzara] SQ 1 mg QWEEK DARON Administration Nystatin 1 applic 01/07/20 06:00 01/09/20 06:36 Nystatin Powder 15gm Bottle TOPICAL 1 applicatio BID DARON Administration Protocol Pantoprazole Sodium 20 mg 01/07/20 06:00 01/09/20 06:35 Pantoprazole Sodium 20 Mg Tablet PO 20 mg DAILY DARON Administration Potassium Chloride 20 meq 01/07/20 08:00 01/09/20 08:37 Potassium Chloride 20 Meq Tablet PO 20 meq DAILYCM DARON Administration Ropinirole HCl 2 mg 01/06/20 22:00 01/08/20 21:25 Ropinirole Hcl 0.5 Mg Tablet PO 2 mg QHS DARON Administration Sodium Chloride 10 - 40 ml 01/06/20 17:32 0.9% Saline Lock 10 Ml Syringe IV UD PRN SALINE FLUSH Tramadol HCl 50 - 100 mg 01/07/20 08:55 01/09/20 06:34 Tramadol 50 Mg Tablet PO 100 mg Q6H PRN PRN Administration Pain Score 1-10 Tuberculin PPD 5 tu 01/14/20 10:00 Tuberculin,Purif.Prot.Deriv. 50 Tu/Ml Vial ID 01/14/20 10:01 X1 ONE Zolpidem Tartrate 5 mg 01/06/20 22:00 01/08/20 21:20 Zolpidem Tartrate 5 Mg Tablet PO 5 mg QHS DARON Administration Problem List (Last Reviewed 01/04/20 @ 23:[address] Pio York, DO) Debility (Acute) Low back pain (Acute) UTI (urinary tract infection) (Acute) Neuropathic pain (Chronic) Compression fracture of lumbosacral spine (Chronic) Vitamin D deficiency (Chronic) Hyperlipidemia (Chronic) Hypertension (Chronic) Diabetes mellitus (Chronic) Restless legs syndrome (Chronic) Hypokalemia (Chronic) GERD (gastroesophageal reflux disease) (Chronic) Hypothyroidism (Chronic) Vital Signs Temp Pulse Resp BP Pulse Ox 98.3 F 91 16 114/86 H 98 01/09/20 06:31 01/09/20 06:31 01/09/20 06:31 01/09/20 06:31 01/09/20 06:31 Oxygen Flow Rate (L/min) 2 Oxygen Delivery Method Room Air Weight: 112.5 kg Body Mass Index (BMI) 40.0 Sodium 139 mmol/L (136-145) 01/07/20 05:15 Potassium 3.8 mmol/L (3.5-5.1) 01/07/20 05:15 Chloride 102 mmol/L (98-107) 01/07/20 05:15 Carbon Dioxide 29.0 mmol/L (21.0-32.0) 01/07/20 05:15 Anion Gap 8 (5-15) 01/07/20 05:15 BUN 14 mg/dL (7-18) 01/07/20 05:15 Creatinine 0.71 mg/dL (0.55-1.02) 01/07/20 05:15 Est GFR (MDRD) Af Amer 102 mL/min (>60) 01/07/20 05:15 Est GFR (MDRD) Non-Af 85 mL/min (>60) 01/07/20 05:15 BUN/Creatinine Ratio 19.6 RATIO (-20) 01/07/20 05:15 Glucose 170 mg/dL (74-106) H 01/07/20 05:15 Assessment/Plan: 1. Pain: Tramadol 50-100mg PO Q6H PRN pain score 1-12/26. Please monitor for improvement/worsening of pain, PRN usage, constipation and respiratory depression. 2. UTI (E.Coli infection): cefadroxil 500mg PO BID until 01/10/20. Please continue to monitor for S/S of infection and diarrhea. 3. Diabetes Mellitus II: metformin XR 750mg PO daily and Humalog Sliding scale SC TIDAC. Please monitor BG (Last BG 01/09/20 ; 189 mg/dL), S/S of hypoglycemia, renal function, and for diarrhea. 4. Neuropathic pain: gabapentin 600mg PO TID. Please monitor for improvement/worsening of neuropathic pain, confusion, and renal function. *5. Hypothyroidism : levothyroxine 100mcg PO daily. Please consider ordering a TSH. Last level from 10/08/18. Thanks. 6. Hypertension: losartan 50mg PO QHS. Please monitor BP (last BP 01/09/20; 114/86) and renal function. 7. Hypokalemia : K-Dur 20meq PO daily. Please monitor potassium levels (last 3.8mmol/L). 8. Rheumatoid Arthritis : Kevzara 200mg SQ every other . Please monitor for improvement/ worsening of RA, S/S of infection, ANC, CBC, LFTs, platelet count, and lipid panel. 9. Restless leg syndrome: ropinirole 2mg PO QHS. Please monitor for improvement/worsening of RLS. 10. Insomnia: melatonin 10mg PO QHS and zolpidem 5mg PO QHS. Please monitor for improvement/worsening of insomnia and excessive drowsiness. 11. Indigestion: pantoprazole 20mg PO daily and TUMS 500mg PO daily. Please monitor for improvement/worsening of indigestion and calcium levels (last 8.9mg/dL). 12. Conjunctivitis: Ketorolac Instill 1 drop in right eye QID. Please monitor for improvement/worsening of conjunctivitis *13. Overall Health: Vitamin C 500mg PO daily, Vitamin B12 1000mcg SC Q month, MVI+ Minerals 1 Tablet PO daily, Preservision 1C PO BIDCM and ergocalciferol 50,000units PO on Mondays. Please consider ordering vitamin B12 and vitamin D levels. Thanks. Psychotropic Medications: 1. Depression: Fluoxetine 20mg PO daily. Please refer to physician?s note for GDR recommendation. Unnecessary Medications: None Bowel Regimen: Bisacodyl 10mg [place] daily PRN constipation and Lomotil 2 tablets PO TID. Please monitor for improvement/worsening of diarrhea and PRN usage. Date of Note:: 01/09/20 - Provider Comments Provider responsibility: Provider responsible to enter orders to implement recommendations <Keegan Walsh Chi - Last Filed: 01/09/20 18:37> Progress Note - Pharmacy Subjective: [] Objective: Allergies cyclobenzaprine Allergy (Verified 01/04/20 18:58) Unknown doxepin Allergy (Verified 01/04/20 18:58) Unknown hydromorphone HCl [From Dilaudid] Allergy (Verified 01/04/20 18:58) Unknown prednisone Allergy (Verified 01/04/20 18:58) Unknown pregabalin [From Lyrica] Allergy (Verified 01/04/20 18:58) Unknown acetaminophen [From Percocet] Adverse Reaction (Verified 01/04/20 18:58) HALLUCINATION hydrocodone bitartrate [From Vicodin] Adverse Reaction (Verified 01/04/20 18:58) HALLUCINATIONS oxycodone HCl [From Percocet] Adverse Reaction (Verified 01/04/20 18:58) HALLUCINATION Current Medications Generic Name Dose Route Start Last Admin Trade Name Freq PRN Reason Stop Dose Admin Ascorbic Acid 500 mg 01/07/20 08:00 01/09/20 08:39 Ascorbic Acid 500 Mg Tablet PO 500 mg DAILY@0800 DARON Administration Atorvastatin Calcium 40 mg 01/06/20 22:00 01/08/20 21:21 Atorvastatin Calcium 40 Mg Tablet PO 40 mg QHS DARON Administration Bisacodyl 10 mg 01/06/20 17:33 Bisacodyl 10 Mg Suppository RECTAL DAILY PRN Constipation Calcium Carbonate 500 mg 01/07/20 08:00 01/09/20 08:39 Calcium Carbonate 500 Mg Tablet PO 500 mg DAILYCM DARON Administration Cefadroxil 500 mg 01/06/20 18:00 01/09/20 18:05 Cefadroxil 500 Mg Capsule PO 01/10/20 23:59 500 mg BID DARON Administration Cyanocobalamin 1,000 mcg 01/18/20 06:00 Cyanocobalamin (B12) 1,000 Mcg/Ml Vial SC QMONTH [facility] Diphenoxylate HCl/Atropine 2 tablet 01/07/20 17:45 01/09/20 18:11 Diphenoxylate/Atrop 1 Tablet PO 2 tablet TIDCM DARON Administration Ergocalciferol 50,000 unit 01/12/20 08:00 Ergocalciferol 50,000 Unit Capsule PO MO [facility] Fluoxetine HCl 20 mg 01/07/20 06:00 01/09/20 06:35 Fluoxetine 20 Mg Capsule PO 20 mg DAILY DARON Administration Gabapentin 600 mg 01/07/20 18:00 01/09/20 18:04 Gabapentin 600 Mg Tablet PO 600 mg 0600,1200,1800 [facility] Administration Insulin Human Lispro 0 unit 01/07/20 06:45 01/09/20 18:08 Insulin Lispro 100 Unit/Ml Insuln.Pen SC 2 units TIDAC [facility] Administration Protocol Ketorolac Tromethamine 1 drop 01/06/20 22:00 01/09/20 18:03 Ketorolac Tromethamine 5 Ml Drops RIGHT EYE 1 drop 4X/DAY DARON Administration Levothyroxine Sodium 100 mcg 01/07/20 06:00 01/09/20 06:35 Levothyroxine 100 Mcg Tablet PO 100 mcg DAILY DARON Administration Losartan Potassium 50 mg 01/06/20 22:00 01/08/20 21:20 Losartan Potassium 50 Mg Tablet PO 50 mg QHS DARON Administration Melatonin 10 mg 01/06/20 20:00 01/08/20 21:20 Melatonin 10 Mg Tablet PO 10 mg 2000 DARON Administration Metformin HCl 750 mg 01/07/20 08:00 01/09/20 08:36 Metformin Hcl 750 Mg Tab.Er.24h PO 750 mg DAILYCM DARON Administration Multi-Ingredient Cream 1 applic 01/06/20 23:27 Mineral Oil/Petrolatum,White Jar TOPICAL BID PRN PRN DRY SKIN Protocol Multivitamins/Minerals 1 tablet 01/07/20 08:00 01/09/20 08:37 Multivitamins,Ther W-Minerals Tablet PO 1 tablet DAILY@0800 DARON Administration Nystatin 1 applic 01/07/20 06:00 01/09/20 06:36 Nystatin Powder 15gm Bottle TOPICAL 1 applicatio BID DARON Administration Protocol Pantoprazole Sodium 20 mg 01/07/20 06:00 01/09/20 06:35 Pantoprazole Sodium 20 Mg Tablet PO 20 mg DAILY DARON Administration Potassium Chloride 20 meq 01/07/20 08:00 01/09/20 08:37 Potassium Chloride 20 Meq Tablet PO 20 meq DAILYCM DARON Administration Ropinirole HCl 2 mg 01/06/20 22:00 01/08/20 21:25 Ropinirole Hcl 0.5 Mg Tablet PO 2 mg QHS DARON Administration Sodium Chloride 10 - 40 ml 01/06/20 17:32 0.9% Saline Lock 10 Ml Syringe IV UD PRN SALINE FLUSH Tramadol HCl 50 - 100 mg 01/07/20 08:55 01/09/20 06:34 Tramadol 50 Mg Tablet PO 100 mg Q6H PRN PRN Administration Pain Score 1-10 Tuberculin PPD 5 tu 01/14/20 10:00 Tuberculin,Purif.Prot.Deriv. 50 Tu/Ml Vial ID 01/14/20 10:01 X1 ONE Zolpidem Tartrate 5 mg 01/06/20 22:00 01/08/20 21:20 Zolpidem Tartrate 5 Mg Tablet PO 5 mg QHS DARON Administration Problem List (Last Reviewed 01/04/20 @ 23:[address] Pio York, DO) Debility (Acute) Low back pain (Acute) UTI (urinary tract infection) (Acute) Neuropathic pain (Chronic) Compression fracture of lumbosacral spine (Chronic) Vitamin D deficiency (Chronic) Hyperlipidemia (Chronic) Hypertension (Chronic) Diabetes mellitus (Chronic) Restless legs syndrome (Chronic) Hypokalemia (Chronic) GERD (gastroesophageal reflux disease) (Chronic) Hypothyroidism (Chronic) Vital Signs Temp Pulse Resp BP Pulse Ox 97.6 F L 90 17 120/62 92 01/09/20 14:30 01/09/20 14:30 01/09/20 14:30 01/09/20 14:30 01/09/20 14:30 Oxygen Flow Rate (L/min) 2 Oxygen Delivery Method Room Air Weight: 112.5 kg Body Mass Index (BMI) 40.0 Sodium 139 mmol/L (136-145) 01/07/20 05:15 Potassium 3.8 mmol/L (3.5-5.1) 01/07/20 05:15 Chloride 102 mmol/L (98-107) 01/07/20 05:15 Carbon Dioxide 29.0 mmol/L (21.0-32.0) 01/07/20 05:15 Anion Gap 8 (5-15) 01/07/20 05:15 BUN 14 mg/dL (7-18) 01/07/20 05:15 Creatinine 0.71 mg/dL (0.55-1.02) 01/07/20 05:15 Est GFR (MDRD) Af Amer 102 mL/min (>60) 01/07/20 05:15 Est GFR (MDRD) Non-Af 85 mL/min (>60) 01/07/20 05:15 BUN/Creatinine Ratio 19.6 RATIO (-20) 01/07/20 05:15 Glucose 170 mg/dL (74-106) H 01/07/20 05:15 Assessment/Plan: Psychotropic Medications: Unnecessary Medications: Bowel Regimen: - Provider Comments Provider responsibility: Provider responsible to enter orders to implement recommendations Provider Comments to Recommendations by Pharmacy: Agree
[2020-01-09 14:30] VITALS: BP 120/62; PULSE 90; RESP 17; TEMP 36.4; O2SAT 92
[2020-01-09 16:41] LABS: Bedside Glucose 215 mg/dL (70-110)
[2020-01-09] MEDS: VIT C/E/ZN/COPPR/LUTEIN/ZEAXAN 1 EACH CAPSULE PO (18:02)
[2020-01-09] MEDS: Zolpidem Tartrate 5 MG Tablet PO (20:32)
[2020-01-09] MEDS: MELATONIN 10 MG TABLET PO (20:35)
[2020-01-09] MEDS: Losartan Potassium 50 MG Tablet PO (20:36)
[2020-01-09] MEDS: Atorvastatin Calcium 40 MG Tablet PO (20:47)
[2020-01-09 21:51] LABS: Bedside Glucose 212 mg/dL (70-110)
[2020-01-10] MEDS: traMADol 50 MG Tablet PO ×4 (01:39→17:58)
[2020-01-10 05:07] VITALS: BP 157/57; PULSE 88; RESP 18; TEMP 36.8; O2SAT 91
[2020-01-10] MEDS: Pantoprazole Sodium 20 MG Tablet PO (05:09)
[2020-01-10] MEDS: Levothyroxine 100 MCG Tablet PO (05:09)
[2020-01-10] MEDS: Cefadroxil 500 MG CAPSULE PO ×2 (05:09→17:59)
[2020-01-10] MEDS: FLUoxetine 20 MG Capsule PO (05:09)
[2020-01-10] MEDS: Gabapentin 600 MG Tablet PO ×3 (05:10→17:59)
[2020-01-10] MEDS: Nystatin Powder 15gm Bottle 1 APPLIC TOPICAL ×2 (05:12→18:38)
[2020-01-10 06:26] LABS: Bedside Glucose 207 mg/dL (70-110)
[2020-01-10] MEDS: Insulin Lispro 100 UNIT/ML INSULN.PEN SC ×3 (08:56→18:37)
[2020-01-10] MEDS: Diphenoxylate/Atrop 1 Tablet 2 TABLET PO ×3 (08:57→22:24)
[2020-01-10] MEDS: METFORMIN HCL 750 MG TAB.ER.24H PO (08:59)
[2020-01-10] MEDS: VIT C/E/ZN/COPPR/LUTEIN/ZEAXAN 1 EACH CAPSULE PO ×2 (08:59→17:59)
[2020-01-10] MEDS: Multivitamins,Ther W-Minerals Tablet 1 TABLET PO (09:00)
[2020-01-10] MEDS: Calcium Carbonate 500 MG Tablet PO (09:01)
[2020-01-10] MEDS: Ascorbic Acid 500 MG Tablet PO (09:02)
[2020-01-10 11:30] LABS: Bedside Glucose 263 mg/dL (70-110)
[2020-01-10 11:46] VITALS: PULSE 86; RESP 20; O2SAT 92
--- NOTE | 2020-01-10 13:29 | NURSING ---
Resident notified of COVID Outbreak status. Left messages for son, Ok and friend, Brittney to call.
--- NOTE | 2020-01-10 13:41 | NURSING ---
Friend, Brittney, notified of COVID Outbreak status.
[2020-01-10 15:13] VITALS: BP 134/70; PULSE 84; RESP 20; TEMP 36.4; O2SAT 92
[2020-01-10 16:26] LABS: Bedside Glucose 192 mg/dL (70-110)
[2020-01-10] MEDS: Atorvastatin Calcium 40 MG Tablet PO (21:00)
[2020-01-10] MEDS: Losartan Potassium 50 MG Tablet PO (21:00)
[2020-01-10] MEDS: MELATONIN 10 MG TABLET PO (21:00)
[2020-01-10] MEDS: Zolpidem Tartrate 5 MG Tablet PO (22:24)
[2020-01-10 22:31] LABS: Bedside Glucose 245 mg/dL (70-110)
[2020-01-10 22:50] LABS: Bedside Glucose 240 mg/dL (70-110)
[2020-01-11 05:22] VITALS: BP 134/69; PULSE 90; RESP 20; TEMP 36.6; O2SAT 93
[2020-01-11] MEDS: traMADol 50 MG Tablet PO ×3 (05:28→18:05)
[2020-01-11] MEDS: Nystatin Powder 15gm Bottle 1 APPLIC TOPICAL ×2 (05:29→17:14)
[2020-01-11] MEDS: Pantoprazole Sodium 20 MG Tablet PO (05:29)
[2020-01-11] MEDS: Gabapentin 600 MG Tablet PO ×3 (05:29→17:11)
[2020-01-11] MEDS: FLUoxetine 20 MG Capsule PO (05:29)
[2020-01-11] MEDS: Levothyroxine 100 MCG Tablet PO (05:29)
[2020-01-11 06:31] LABS: Bedside Glucose 210 mg/dL (70-110)
[2020-01-11] MEDS: Multivitamins,Ther W-Minerals Tablet 1 TABLET PO (07:55)
[2020-01-11] MEDS: METFORMIN HCL 750 MG TAB.ER.24H PO (07:55)
[2020-01-11] MEDS: Calcium Carbonate 500 MG Tablet PO (07:55)
[2020-01-11] MEDS: Ascorbic Acid 500 MG Tablet PO (07:55)
[2020-01-11] MEDS: VIT C/E/ZN/COPPR/LUTEIN/ZEAXAN 1 EACH CAPSULE PO ×2 (07:56→17:11)
[2020-01-11] MEDS: Insulin Lispro 100 UNIT/ML INSULN.PEN SC ×3 (07:57→18:05)
[2020-01-11] MEDS: Diphenoxylate/Atrop 1 Tablet 2 TABLET PO ×3 (08:46→17:12)
[2020-01-11 11:35] LABS: Bedside Glucose 219 mg/dL (70-110)
[2020-01-11 13:47] VITALS: BP 125/62; PULSE 92; RESP 16; TEMP 36.3; O2SAT 94
[2020-01-11 17:16] LABS: Bedside Glucose 205 mg/dL (70-110)
[2020-01-11] MEDS: MELATONIN 10 MG TABLET PO (20:37)
[2020-01-11] MEDS: Losartan Potassium 50 MG Tablet PO (20:37)
[2020-01-11] MEDS: Atorvastatin Calcium 40 MG Tablet PO (20:37)
[2020-01-11 21:55] LABS: Bedside Glucose 206 mg/dL (70-110)
[2020-01-11] MEDS: Zolpidem Tartrate 5 MG Tablet PO (21:58)
[2020-01-12 04:00] VITALS: BP 130/79; PULSE 90; RESP 20; TEMP 36.3; O2SAT 91
[2020-01-12] MEDS: Levothyroxine 100 MCG Tablet PO (04:13)
[2020-01-12] MEDS: Pantoprazole Sodium 20 MG Tablet PO (04:13)
[2020-01-12] MEDS: FLUoxetine 20 MG Capsule PO (04:13)
[2020-01-12] MEDS: traMADol 50 MG Tablet PO ×3 (04:13→20:15)
[2020-01-12] MEDS: Gabapentin 600 MG Tablet PO ×3 (04:13→17:19)
[2020-01-12] MEDS: Nystatin Powder 15gm Bottle 1 APPLIC TOPICAL ×2 (04:14→17:19)
[2020-01-12 06:35] LABS: Bedside Glucose 184 mg/dL (70-110)
[2020-01-12] MEDS: Insulin Lispro 100 UNIT/ML INSULN.PEN SC ×3 (08:27→17:13)
[2020-01-12] MEDS: Diphenoxylate/Atrop 1 Tablet 2 TABLET PO ×3 (08:29→17:16)
[2020-01-12] MEDS: METFORMIN HCL 750 MG TAB.ER.24H PO (08:30)
[2020-01-12] MEDS: Multivitamins,Ther W-Minerals Tablet 1 TABLET PO (08:30)
[2020-01-12] MEDS: Calcium Carbonate 500 MG Tablet PO (08:31)
[2020-01-12] MEDS: VIT C/E/ZN/COPPR/LUTEIN/ZEAXAN 1 EACH CAPSULE PO ×2 (08:31→17:18)
[2020-01-12] MEDS: Ascorbic Acid 500 MG Tablet PO (08:32)
[2020-01-12 11:20] LABS: Bedside Glucose 291 mg/dL (70-110)
--- NOTE | 2020-01-12 13:56 | NURSING ---
pt assisted to bathroom, then to WC to go to appt at Dr Espinoza spine surgeon. [facility] ambulance here, pt off floor via WC.
[2020-01-12 13:59] VITALS: BP 130/66; PULSE 91; RESP 18; TEMP 36.2; O2SAT 96
--- NOTE | 2020-01-12 14:30 | NURSING ---
Off unit for doctors appointment.
[2020-01-12 17:06] LABS: Bedside Glucose 404 mg/dL (70-110)
--- NOTE | 2020-01-12 17:49 | NURSING ---
SonOk, notified of negative COVID results.
[2020-01-12 17:52] VITALS: O2SAT 96
[2020-01-12] MEDS: Zolpidem Tartrate 5 MG Tablet PO (20:16)
[2020-01-12] MEDS: Atorvastatin Calcium 40 MG Tablet PO (20:17)
[2020-01-12] MEDS: Losartan Potassium 50 MG Tablet PO (20:17)
[2020-01-12] MEDS: MELATONIN 10 MG TABLET PO (20:18)
[2020-01-12 21:36] LABS: Bedside Glucose 225 mg/dL (70-110)
[2020-01-13] MEDS: traMADol 50 MG Tablet PO ×2 (03:12→21:23)
[2020-01-13] MEDS: Nystatin Powder 15gm Bottle 1 APPLIC TOPICAL ×2 (05:47→17:48)
[2020-01-13] MEDS: Pantoprazole Sodium 20 MG Tablet PO (05:48)
[2020-01-13] MEDS: FLUoxetine 20 MG Capsule PO (05:48)
[2020-01-13] MEDS: Gabapentin 600 MG Tablet PO (05:48)
[2020-01-13] MEDS: Levothyroxine 100 MCG Tablet PO (05:48)
[2020-01-13 06:26] LABS: Bedside Glucose 204 mg/dL (70-110)
[2020-01-13 07:17] VITALS: O2SAT 90
[2020-01-13] MEDS: Insulin Lispro 100 UNIT/ML INSULN.PEN SC ×3 (07:49→17:44)
[2020-01-13] MEDS: Ascorbic Acid 500 MG Tablet PO (07:51)
[2020-01-13] MEDS: METFORMIN HCL 750 MG TAB.ER.24H PO (07:51)
[2020-01-13] MEDS: Calcium Carbonate 500 MG Tablet PO (07:51)
[2020-01-13] MEDS: Multivitamins,Ther W-Minerals Tablet 1 TABLET PO (07:51)
[2020-01-13] MEDS: VIT C/E/ZN/COPPR/LUTEIN/ZEAXAN 1 EACH CAPSULE PO ×2 (07:52→17:42)
[2020-01-13] MEDS: Diphenoxylate/Atrop 1 Tablet 2 TABLET PO ×3 (07:55→17:41)
--- NOTE | 2020-01-13 09:30 | NURSING ---
Addendum entered by Betzy Larson 01/13/20 12:20: spoke with Dr Fournier office, MRI order was submitted to [facility] precert dept. Spoke with ephraim in precert dept #[id number] and it will be a few days before [facility] responds. Original Note: pt states that Dr Espinoza recommending MRI of spine and will let her know when approval for insurance is done.
[2020-01-13 11:15] LABS: Bedside Glucose 273 mg/dL (70-110)
[2020-01-13] MEDS: Gabapentin 800 MG Tablet PO ×2 (11:41→17:44)
[2020-01-13 15:33] VITALS: BP 131/47; PULSE 90; RESP 16; TEMP 36.3; O2SAT 95
--- NOTE | 2020-01-13 16:13 | NURSING ---
Resident and son, Ok, notified of staff member testing positive for COVID19.
[2020-01-13 17:06] LABS: Bedside Glucose 277 mg/dL (70-110)
[2020-01-13] MEDS: Zolpidem Tartrate 5 MG Tablet PO (21:19)
[2020-01-13] MEDS: Atorvastatin Calcium 40 MG Tablet PO (21:20)
[2020-01-13] MEDS: Losartan Potassium 50 MG Tablet PO (21:21)
[2020-01-13] MEDS: MELATONIN 10 MG TABLET PO (21:21)
[2020-01-13 21:35] LABS: Bedside Glucose 237 mg/dL (70-110)
[2020-01-14 05:36] VITALS: BP 142/81; PULSE 101; RESP 20; TEMP 36.8; O2SAT 91
[2020-01-14] MEDS: traMADol 50 MG Tablet PO ×2 (05:38→20:08)
[2020-01-14] MEDS: Gabapentin 800 MG Tablet PO ×3 (05:39→18:30)
[2020-01-14] MEDS: Pantoprazole Sodium 20 MG Tablet PO (05:40)
[2020-01-14] MEDS: FLUoxetine 20 MG Capsule PO (05:40)
[2020-01-14] MEDS: Levothyroxine 100 MCG Tablet PO (05:40)
[2020-01-14] MEDS: Nystatin Powder 15gm Bottle 1 APPLIC TOPICAL ×2 (05:42→19:27)
[2020-01-14 06:04] LABS: Absolute Lymphocyte Count 1.71 X10^3/uL (0.83-4.51); Absolute Neutrophil Count 4.7 X10^3/uL (2.0-7.7); Basophil# 0.02 X10^3/uL; Basophil% 0.3 % (0-1); Eosinophil# 0.26 X10^3/uL; Eosinophils% 3.5 % (0-5); Hematocrit 45.3 % (37-47); Hemoglobin 14.4 g/dL (12.0-15.0); Lymphocyte # 1.71 X10^3/ul (4.0); Lymphocyte % 23.2 % (19-41); Mean Corp Hgb Conc 31.8 g/dL (32-36); Mean Corpuscular Hgb 31.7 pg (27.0-32.0); Mean Corpuscular Volume 99.8 fL (81-99); Mean Platelet Vol. 8.5 fl (6.2-12.0); Monocyte# 0.69 X10^3/uL; Monocyte% 9.4 % (0-10); NRBC Flagged by Analyzer 0 % (0-5); Neutrophil # 4.67 X10^3/uL (2.7-7.7); Neutrophil % 63.3 % (47-70); Platelet Count 286 K/mm3 (150-450); RBC Distribution Width CV 13.5 % (11.6-14.6); RBC Distribution Width SD 50.3 fl (35.1-43.9); Red Blood Count 4.54 M/mm3 (4.2-5.4); White Blood Count 7.4 K/mm3 (4.4-11.0)
[2020-01-14 06:33] LABS: Anion Gap 4 (5-15); BUN 12 mg/dL (7-18); BUN/Creat Ratio 19.5 RATIO (10-20); Calcium,Total 9.1 mg/dL (8.5-10.1); Chloride 108 mmol/L (98-107); Creatinine, Serum 0.62 mg/dL (0.55-1.02); EST Glomerular Filtration Rate 100 mL/min (>60); Est Glom Filt Rate - Afr Amer 121 mL/min (>60); Glucose 239 mg/dL (74-106); Potassium 3.9 mmol/L (3.5-5.1); Sodium Level 141 mmol/L (136-145)
[2020-01-14 06:51] LABS: Bedside Glucose 268 mg/dL (70-110)
[2020-01-14] MEDS: Multivitamins,Ther W-Minerals Tablet 1 TABLET PO (08:50)
[2020-01-14] MEDS: VIT C/E/ZN/COPPR/LUTEIN/ZEAXAN 1 EACH CAPSULE PO ×2 (08:50→18:30)
[2020-01-14] MEDS: Ascorbic Acid 500 MG Tablet PO (08:50)
[2020-01-14] MEDS: METFORMIN HCL 750 MG TAB.ER.24H PO (08:50)
[2020-01-14] MEDS: Calcium Carbonate 500 MG Tablet PO (08:50)
[2020-01-14] MEDS: Insulin Lispro 100 UNIT/ML INSULN.PEN SC ×3 (08:52→18:32)
[2020-01-14] MEDS: Diphenoxylate/Atrop 1 Tablet 2 TABLET PO ×3 (10:00→18:30)
--- NOTE | 2020-01-14 10:53 | CASEMGMT ---
Social Work IDT met with patient and son via conference call for care plan meeting. Discussed patient's progress in therapy. Pt is Gabino for bed mobility, CGA for tx, ambulating 20 ft with FWW. Pt having limited standing tolerance and distance due to low back pain. Pt is Gabino for UE ADLS, modA for LE ADLS, CGA-Gabino for toilet transfers, modA for toileting tasks. Pt is on an 1800 calorie cardiac diet, but does not like cardiac - DC'd to regular. Pt is out of isolation 01/19. [facility] has been started for MRI of back. Dr. Espinoza, spine surgeon to follow for dx and treatment of back pain. Explained [employer] insurance with NRD 01/22 and continued stay is not guaranteed. Pt has [address] to [address] apartment. Son can assist with IADLs if needed. Will continue to follow, Izzy Huggins, CABLE SPOOLER DIRECTOR VETERINARY
[2020-01-14 11:16] LABS: Bedside Glucose 349 mg/dL (70-110)
[2020-01-14] MEDS: Mag Hydrox/Al Hydrox/Simeth 30 ML UDC PO ×2 (11:19→20:08)
[2020-01-14] MEDS: Tuberculin,Purif.prot.deriv. 50 TU/ML Vial 5 ML ID (11:21)
[2020-01-14 15:25] VITALS: BP 146/58; PULSE 90; RESP 20; TEMP 36.9; O2SAT 95
[2020-01-14 15:31] VITALS: PULSE 90; RESP 20; O2SAT 95
[2020-01-14 16:56] LABS: Bedside Glucose 251 mg/dL (70-110)
[2020-01-14] MEDS: Zolpidem Tartrate 5 MG Tablet PO (20:10)
[2020-01-14] MEDS: Atorvastatin Calcium 40 MG Tablet PO (20:11)
[2020-01-14] MEDS: Losartan Potassium 50 MG Tablet PO (20:11)
[2020-01-14] MEDS: MELATONIN 10 MG TABLET PO (20:11)
[2020-01-14 21:01] LABS: Bedside Glucose 224 mg/dL (70-110)
[2020-01-15 05:52] VITALS: BP 160/87; PULSE 91; RESP 20; TEMP 36.8; O2SAT 92
[2020-01-15] MEDS: traMADol 50 MG Tablet PO (05:53)
[2020-01-15] MEDS: Nystatin Powder 15gm Bottle 1 APPLIC TOPICAL ×2 (05:55→17:35)
[2020-01-15] MEDS: Levothyroxine 100 MCG Tablet PO (05:55)
[2020-01-15] MEDS: FLUoxetine 20 MG Capsule PO (05:55)
[2020-01-15] MEDS: Gabapentin 800 MG Tablet PO ×3 (05:55→17:34)
[2020-01-15] MEDS: Pantoprazole Sodium 20 MG Tablet PO (05:55)
[2020-01-15 06:35] LABS: Bedside Glucose 213 mg/dL (70-110)
[2020-01-15 07:02] VITALS: O2SAT 92
[2020-01-15] MEDS: Diphenoxylate/Atrop 1 Tablet 2 TABLET PO ×3 (08:38→17:34)
[2020-01-15] MEDS: METFORMIN HCL 750 MG TAB.ER.24H PO (08:39)
[2020-01-15] MEDS: VIT C/E/ZN/COPPR/LUTEIN/ZEAXAN 1 EACH CAPSULE PO ×2 (08:39→17:33)
[2020-01-15] MEDS: Insulin Lispro 100 UNIT/ML INSULN.PEN SC ×3 (08:41→17:40)
[2020-01-15] MEDS: Calcium Carbonate 500 MG Tablet PO (08:48)
[2020-01-15] MEDS: Ascorbic Acid 500 MG Tablet PO (08:48)
[2020-01-15] MEDS: Multivitamins,Ther W-Minerals Tablet 1 TABLET PO (08:48)
--- NOTE | 2020-01-15 09:41 | PT ---
Pt laying in bed and c/o back pain. Pt frustrated she is still waiting to hear back from insurance on MRI. Pt frustrated she is laying in bed and not doing much and having back pain. Suggested pt get out of bed and sit in recliner. Pt refused. Suggested pt get out of bed and attempt to walk. Pt refused. Educated pt importance of getting out of bed and moving even with back pain. Pt stated she knew she was going to have a lot of pain when she heard the rain. Offered to ask nurisng if pt was able to have more pain medication at this time. Pt stated she had something this morning and didn't want to bother the nurse right now.
[2020-01-15 11:20] LABS: Bedside Glucose 285 mg/dL (70-110)
[2020-01-15 16:00] VITALS: BP 134/62; PULSE 93; RESP 18; TEMP 37.1; O2SAT 92
[2020-01-15 16:36] LABS: Bedside Glucose 291 mg/dL (70-110)
[2020-01-15] MEDS: MELATONIN 10 MG TABLET PO (21:22)
[2020-01-15] MEDS: Atorvastatin Calcium 40 MG Tablet PO (21:22)
[2020-01-15] MEDS: Losartan Potassium 50 MG Tablet PO (21:22)
[2020-01-15 21:31] LABS: Bedside Glucose 295 mg/dL (70-110)
[2020-01-15] MEDS: Zolpidem Tartrate 5 MG Tablet PO (22:18)
--- NOTE | 2020-01-16 05:50 | NURSING ---
Pt made aware last night was her last dose of requip which is a medication brought from home. Pt states she will call a refill in to her pharmacy and have family bring it in.
[2020-01-16 05:51] VITALS: BP 152/73; PULSE 102; RESP 18; TEMP 36.9; O2SAT 92
[2020-01-16] MEDS: FLUoxetine 20 MG Capsule PO (05:53)
[2020-01-16] MEDS: Pantoprazole Sodium 20 MG Tablet PO (05:53)
[2020-01-16] MEDS: Gabapentin 800 MG Tablet PO ×3 (05:53→18:33)
[2020-01-16] MEDS: Levothyroxine 100 MCG Tablet PO (05:53)
[2020-01-16] MEDS: traMADol 50 MG Tablet PO ×3 (05:53→18:52)
[2020-01-16] MEDS: Nystatin Powder 15gm Bottle 1 APPLIC TOPICAL ×2 (05:54→18:33)
[2020-01-16 06:40] LABS: Bedside Glucose 211 mg/dL (70-110)
[2020-01-16 08:21] VITALS: O2SAT 92
[2020-01-16] MEDS: VIT C/E/ZN/COPPR/LUTEIN/ZEAXAN 1 EACH CAPSULE PO ×2 (08:46→18:25)
[2020-01-16] MEDS: METFORMIN HCL 750 MG TAB.ER.24H PO (08:46)
[2020-01-16] MEDS: Calcium Carbonate 500 MG Tablet PO (08:47)
[2020-01-16] MEDS: Multivitamins,Ther W-Minerals Tablet 1 TABLET PO (08:47)
[2020-01-16] MEDS: Diphenoxylate/Atrop 1 Tablet 2 TABLET PO ×3 (08:47→20:20)
[2020-01-16] MEDS: Ascorbic Acid 500 MG Tablet PO (08:47)
[2020-01-16] MEDS: Insulin Lispro 100 UNIT/ML INSULN.PEN SC ×3 (08:48→18:30)
[2020-01-16 11:00] LABS: Bedside Glucose 249 mg/dL (70-110)
[2020-01-16 15:45] VITALS: BP 130/72; PULSE 87; RESP 18; TEMP 37.2; O2SAT 92
[2020-01-16 15:47] VITALS: PULSE 87; RESP 18; O2SAT 92
[2020-01-16 17:01] LABS: Bedside Glucose 214 mg/dL (70-110)
[2020-01-16] MEDS: MELATONIN 10 MG TABLET PO (20:20)
[2020-01-16] MEDS: Atorvastatin Calcium 40 MG Tablet PO (20:21)
[2020-01-16] MEDS: Losartan Potassium 50 MG Tablet PO (20:21)
[2020-01-16 21:21] LABS: Bedside Glucose 276 mg/dL (70-110)
[2020-01-16] MEDS: Zolpidem Tartrate 5 MG Tablet PO (21:58)
--- NOTE | 2020-01-16 23:15 | NURSING ---
Addendum entered by Samira Soliman 01/17/20 09:22: New Order for rectal cream. Original Note: Bright red blood noted in toilet this evening after pt had BM. Pt states this is WNL for her due to hemorrhoids and she has quite a bit of blood from them about every 3 months or so. Denies pain/discomfort.
[2020-01-17] MEDS: traMADol 50 MG Tablet PO ×3 (03:51→22:59)
[2020-01-17] MEDS: Gabapentin 800 MG Tablet PO ×3 (03:52→17:11)
[2020-01-17] MEDS: FLUoxetine 20 MG Capsule PO (03:53)
[2020-01-17] MEDS: Pantoprazole Sodium 20 MG Tablet PO (03:53)
[2020-01-17] MEDS: Levothyroxine 100 MCG Tablet PO (03:53)
[2020-01-17] MEDS: Nystatin Powder 15gm Bottle 1 APPLIC TOPICAL ×2 (03:55→17:15)
[2020-01-17 04:06] VITALS: BP 120/64; PULSE 94; RESP 18; TEMP 36.7; O2SAT 95
[2020-01-17 06:31] LABS: Bedside Glucose 159 mg/dL (70-110)
[2020-01-17 08:05] VITALS: O2SAT 93
[2020-01-17] MEDS: Insulin Lispro 100 UNIT/ML INSULN.PEN SC ×3 (08:38→17:10)
[2020-01-17] MEDS: Diphenoxylate/Atrop 1 Tablet 2 TABLET PO ×3 (08:39→17:13)
[2020-01-17] MEDS: Calcium Carbonate 500 MG Tablet PO (08:39)
[2020-01-17] MEDS: Multivitamins,Ther W-Minerals Tablet 1 TABLET PO (08:39)
[2020-01-17] MEDS: Ascorbic Acid 500 MG Tablet PO (08:39)
[2020-01-17] MEDS: VIT C/E/ZN/COPPR/LUTEIN/ZEAXAN 1 EACH CAPSULE PO ×2 (08:39→17:10)
[2020-01-17] MEDS: METFORMIN HCL 750 MG TAB.ER.24H PO (08:39)
[2020-01-17] MEDS: Mag Hydrox/Al Hydrox/Simeth 30 ML UDC PO (10:23)
[2020-01-17 11:15] LABS: Bedside Glucose 300 mg/dL (70-110)
[2020-01-17 13:44] VITALS: BP 117/60; PULSE 94; RESP 18; TEMP 36.5; O2SAT 90
[2020-01-17 16:56] LABS: Bedside Glucose 194 mg/dL (70-110)
[2020-01-17] MEDS: Hydrocortisone 2.5% Crm 1 APPLIC TOPICAL ×2 (17:15→22:57)
[2020-01-17 21:50] LABS: Bedside Glucose 321 mg/dL (70-110)
[2020-01-17] MEDS: Zolpidem Tartrate 5 MG Tablet PO (22:57)
[2020-01-17] MEDS: Atorvastatin Calcium 40 MG Tablet PO (22:58)
[2020-01-17] MEDS: Losartan Potassium 50 MG Tablet PO (22:58)
[2020-01-17] MEDS: MELATONIN 10 MG TABLET PO (22:58)
[2020-01-18] MEDS: FLUoxetine 20 MG Capsule PO (04:20)
[2020-01-18] MEDS: traMADol 50 MG Tablet PO ×3 (04:20→19:53)
[2020-01-18] MEDS: Gabapentin 800 MG Tablet PO ×3 (04:21→17:43)
[2020-01-18] MEDS: Nystatin Powder 15gm Bottle 1 APPLIC TOPICAL ×2 (04:21→17:43)
[2020-01-18] MEDS: Pantoprazole Sodium 20 MG Tablet PO (04:21)
[2020-01-18] MEDS: Levothyroxine 100 MCG Tablet PO (04:21)
[2020-01-18] MEDS: Cyanocobalamin (B12) 1,000 MCG/ML Vial 1000 MCG SC (04:23)
[2020-01-18 04:31] VITALS: BP 141/64; PULSE 98; RESP 16; TEMP 36.8; O2SAT 91
[2020-01-18 06:20] LABS: Bedside Glucose 187 mg/dL (70-110)
[2020-01-18 07:56] VITALS: O2SAT 91
[2020-01-18] MEDS: VIT C/E/ZN/COPPR/LUTEIN/ZEAXAN 1 EACH CAPSULE PO ×2 (08:41→17:42)
[2020-01-18] MEDS: METFORMIN HCL 750 MG TAB.ER.24H PO (08:41)
[2020-01-18] MEDS: Diphenoxylate/Atrop 1 Tablet 2 TABLET PO ×3 (08:42→17:43)
[2020-01-18] MEDS: Insulin Lispro 100 UNIT/ML INSULN.PEN SC ×3 (08:42→19:44)
[2020-01-18] MEDS: Calcium Carbonate 500 MG Tablet PO (08:43)
[2020-01-18] MEDS: Multivitamins,Ther W-Minerals Tablet 1 TABLET PO (08:43)
[2020-01-18] MEDS: Ascorbic Acid 500 MG Tablet PO (08:43)
[2020-01-18 11:16] LABS: Bedside Glucose 265 mg/dL (70-110)
[2020-01-18 11:37] VITALS: PULSE 88; RESP 18; O2SAT 94
[2020-01-18 15:30] VITALS: BP 150/78; PULSE 88; RESP 18; TEMP 36.7; O2SAT 94
[2020-01-18 16:21] LABS: Bedside Glucose 164 mg/dL (70-110)
[2020-01-18] MEDS: MELATONIN 10 MG TABLET PO (19:48)
[2020-01-18] MEDS: Losartan Potassium 50 MG Tablet PO (19:49)
[2020-01-18] MEDS: Atorvastatin Calcium 40 MG Tablet PO (19:49)
[2020-01-18] MEDS: Hydrocortisone 25 MG Suppository RECTAL (21:12)
[2020-01-18 21:41] LABS: Bedside Glucose 235 mg/dL (70-110)
[2020-01-18] MEDS: Zolpidem Tartrate 5 MG Tablet PO (21:59)
--- NOTE | 2020-01-18 22:48 | NURSING ---
UP TO BR, MOD AMT BRIGHT RED BLEEDING FROM EXTERNAL HEMORRHOID, ADMINISTERED ANUSOL SUPP, FELT WARM TO TOUCH, TEMP 98 TEMPORAL
[2020-01-19] MEDS: traMADol 50 MG Tablet PO ×2 (03:10→14:43)
--- NOTE | 2020-01-19 03:15 | NURSING ---
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
[2020-01-19 04:45] VITALS: BP 157/73; PULSE 75; RESP 17; TEMP 36.4; O2SAT 95
[2020-01-19 06:26] LABS: Bedside Glucose 95 mg/dL (70-110)
[2020-01-19] MEDS: Pantoprazole Sodium 20 MG Tablet PO (06:43)
[2020-01-19] MEDS: Levothyroxine 100 MCG Tablet PO (06:43)
[2020-01-19] MEDS: FLUoxetine 20 MG Capsule PO (06:43)
[2020-01-19] MEDS: Nystatin Powder 15gm Bottle 1 APPLIC TOPICAL ×2 (06:44→17:42)
[2020-01-19] MEDS: Gabapentin 800 MG Tablet PO ×3 (06:44→17:37)
[2020-01-19] MEDS: Hydrocortisone 25 MG Suppository RECTAL (06:45)
--- NOTE | 2020-01-19 06:59 | NURSING ---
Bill held this am, blood dugar 95, pt arousable for meds and returns to sleep quickly, administered anusol supp for rectal bleeding
[2020-01-19 07:30] VITALS: O2SAT 90
[2020-01-19] MEDS: METFORMIN HCL 750 MG TAB.ER.24H PO (08:34)
[2020-01-19] MEDS: VIT C/E/ZN/COPPR/LUTEIN/ZEAXAN 1 EACH CAPSULE PO ×2 (08:34→17:36)
[2020-01-19] MEDS: Calcium Carbonate 500 MG Tablet PO (08:35)
[2020-01-19] MEDS: Ascorbic Acid 500 MG Tablet PO (08:35)
[2020-01-19] MEDS: Multivitamins,Ther W-Minerals Tablet 1 TABLET PO (08:44)
[2020-01-19] MEDS: Diphenoxylate/Atrop 1 Tablet 2 TABLET PO ×3 (08:44→17:36)
[2020-01-19 10:00] VITALS: RESP 16
[2020-01-19] MEDS: Mag Hydrox/Al Hydrox/Simeth 30 ML UDC PO (10:12)
--- NOTE | 2020-01-19 10:23 | MDS.RN ---
Information for the mds was obtained from review of the clinical record, interview of resident, staff, and direct observation of resident's care.
[2020-01-19 10:51] LABS: Bedside Glucose 227 mg/dL (70-110)
[2020-01-19] MEDS: Insulin Lispro 100 UNIT/ML INSULN.PEN SC (12:25)
[2020-01-19 13:40] VITALS: BP 127/64; PULSE 80; RESP 16; TEMP 36.9; O2SAT 96
[2020-01-19 16:25] LABS: Bedside Glucose 121 mg/dL (70-110)
[2020-01-19] MEDS: Naproxen 500 MG Tablet PO (17:37)
[2020-01-19 21:55] LABS: Bedside Glucose 121 mg/dL (70-110)
[2020-01-19] MEDS: MELATONIN 10 MG TABLET PO (21:58)
[2020-01-19] MEDS: Losartan Potassium 50 MG Tablet PO (21:58)
[2020-01-19] MEDS: Atorvastatin Calcium 40 MG Tablet PO (21:58)
[2020-01-19] MEDS: Zolpidem Tartrate 5 MG Tablet PO (22:03)
--- NOTE | 2020-01-20 00:25 | NURSING ---
Pt resting in bed with eyes closed, hob elevated, glasses on and tv on, resp even, no s/s of distress noted.
[2020-01-20 06:26] VITALS: BP 149/74; PULSE 96; RESP 18; TEMP 36.1; O2SAT 91
[2020-01-20] MEDS: Gabapentin 800 MG Tablet PO ×3 (06:28→17:59)
[2020-01-20] MEDS: FLUoxetine 20 MG Capsule PO (06:29)
[2020-01-20] MEDS: Nystatin Powder 15gm Bottle 1 APPLIC TOPICAL ×2 (06:29→18:00)
[2020-01-20] MEDS: Pantoprazole Sodium 20 MG Tablet PO (06:29)
[2020-01-20] MEDS: Levothyroxine 100 MCG Tablet PO (06:29)
[2020-01-20 06:46] LABS: Bedside Glucose 102 mg/dL (70-110)
[2020-01-20 07:04] VITALS: O2SAT 94
[2020-01-20] MEDS: METFORMIN HCL 750 MG TAB.ER.24H PO (08:47)
[2020-01-20] MEDS: Calcium Carbonate 500 MG Tablet PO (08:47)
[2020-01-20] MEDS: Diphenoxylate/Atrop 1 Tablet 2 TABLET PO ×3 (08:47→17:59)
[2020-01-20] MEDS: Multivitamins,Ther W-Minerals Tablet 1 TABLET PO (08:49)
[2020-01-20] MEDS: VIT C/E/ZN/COPPR/LUTEIN/ZEAXAN 1 EACH CAPSULE PO ×2 (08:49→17:57)
[2020-01-20] MEDS: Naproxen 500 MG Tablet PO ×2 (08:49→17:59)
[2020-01-20] MEDS: Ascorbic Acid 500 MG Tablet PO (08:54)
[2020-01-20 11:00] LABS: Bedside Glucose 205 mg/dL (70-110)
[2020-01-20] MEDS: Insulin Lispro 100 UNIT/ML INSULN.PEN SC ×2 (12:10→18:02)
[2020-01-20 16:09] VITALS: BP 130/62; PULSE 96; RESP 18; TEMP 36.7; O2SAT 97
[2020-01-20 16:11] VITALS: PULSE 96; RESP 18; O2SAT 95
[2020-01-20 16:11] LABS: Bedside Glucose 235 mg/dL (70-110)
[2020-01-20 21:15] LABS: Bedside Glucose 161 mg/dL (70-110)
[2020-01-20] MEDS: MELATONIN 10 MG TABLET PO (21:22)
[2020-01-20] MEDS: Zolpidem Tartrate 5 MG Tablet PO (21:22)
[2020-01-20] MEDS: Losartan Potassium 50 MG Tablet PO (21:23)
[2020-01-20] MEDS: Atorvastatin Calcium 40 MG Tablet PO (21:23)
[2020-01-21 05:18] VITALS: BP 119/70; PULSE 97; RESP 16; TEMP 36.2; O2SAT 91
[2020-01-21] MEDS: Pantoprazole Sodium 20 MG Tablet PO (05:20)
[2020-01-21] MEDS: Gabapentin 800 MG Tablet PO ×3 (05:20→18:19)
[2020-01-21] MEDS: Levothyroxine 100 MCG Tablet PO (05:21)
[2020-01-21] MEDS: FLUoxetine 20 MG Capsule PO (05:21)
[2020-01-21] MEDS: Nystatin Powder 15gm Bottle 1 APPLIC TOPICAL ×2 (05:22→18:19)
[2020-01-21] MEDS: Hydrocortisone 25 MG Suppository RECTAL (05:26)
[2020-01-21 05:38] LABS: Absolute Lymphocyte Count 3.37 X10^3/uL (0.83-4.51); Absolute Neutrophil Count 7.7 X10^3/uL (2.0-7.7); Basophil# 0.05 X10^3/uL; Basophil% 0.4 % (0-1); Eosinophil# 0.37 X10^3/uL; Eosinophils% 2.9 % (0-5); Hematocrit 46.5 % (37-47); Hemoglobin 14.5 g/dL (12.0-15.0); Lymphocyte # 3.37 X10^3/ul (4.0); Lymphocyte % 26.5 % (19-41); Mean Corp Hgb Conc 31.2 g/dL (32-36); Mean Corpuscular Hgb 31.3 pg (27.0-32.0); Mean Corpuscular Volume 100.2 fL (81-99); Mean Platelet Vol. 8.5 fl (6.2-12.0); Monocyte# 1.19 X10^3/uL; Monocyte% 9.4 % (0-10); NRBC Flagged by Analyzer 0 % (0-5); Neutrophil # 7.66 X10^3/uL (2.7-7.7); Neutrophil % 60.2 % (47-70); Platelet Count 290 K/mm3 (150-450); RBC Distribution Width CV 13.6 % (11.6-14.6); RBC Distribution Width SD 50.5 fl (35.1-43.9); Red Blood Count 4.64 M/mm3 (4.2-5.4); White Blood Count 12.7 K/mm3 (4.4-11.0)
[2020-01-21 06:10] LABS: Anion Gap 5 (5-15); BUN 26 mg/dL (7-18); BUN/Creat Ratio 28.9 RATIO (10-20); Calcium,Total 8.9 mg/dL (8.5-10.1); Chloride 105 mmol/L (98-107); EST Glomerular Filtration Rate 65 mL/min (>60); Est Glom Filt Rate - Afr Amer 78 mL/min (>60); Estimated Creatinine Clearance 49.78 ml/min; Glucose 117 mg/dL (74-106); Potassium 4.2 mmol/L (3.5-5.1); Sodium Level 140 mmol/L (136-145)
[2020-01-21 06:41] LABS: Bedside Glucose 121 mg/dL (70-110)
[2020-01-21] MEDS: VIT C/E/ZN/COPPR/LUTEIN/ZEAXAN 1 EACH CAPSULE PO ×2 (08:30→18:19)
[2020-01-21] MEDS: METFORMIN HCL 750 MG TAB.ER.24H PO (08:30)
[2020-01-21] MEDS: Diphenoxylate/Atrop 1 Tablet 2 TABLET PO ×3 (08:31→18:19)
[2020-01-21] MEDS: Ascorbic Acid 500 MG Tablet PO (08:31)
[2020-01-21] MEDS: Naproxen 500 MG Tablet PO ×2 (08:31→18:19)
[2020-01-21] MEDS: Calcium Carbonate 500 MG Tablet PO (08:32)
[2020-01-21] MEDS: Multivitamins,Ther W-Minerals Tablet 1 TABLET PO (08:32)
[2020-01-21] MEDS: traMADol 50 MG Tablet PO (10:00)
[2020-01-21 11:31] LABS: Bedside Glucose 173 mg/dL (70-110)
[2020-01-21] MEDS: Insulin Lispro 100 UNIT/ML INSULN.PEN SC ×2 (12:55→18:28)
--- NOTE | 2020-01-21 13:28 | NURSING ---
Resident and son, Ok, notified of staff members testing positive for COVID 19.
--- NOTE | 2020-01-21 13:35 | PCA ---
dietary calls floor every morning to ask for this paitients meals most of the time patient is reluctant to order meals saying she is not hungry or she has an upset stomach staff has offered to assist patient with filling menu sheets out and patient refuses states that she will call her meals to the dietary patient waits until meals are are over to alert staff that she has not had anything to eat
[2020-01-21 14:36] VITALS: BP 128/76; PULSE 72; RESP 20; TEMP 36.8; O2SAT 94
[2020-01-21 16:41] LABS: Bedside Glucose 181 mg/dL (70-110)
[2020-01-21] MEDS: Zolpidem Tartrate 5 MG Tablet PO (20:29)
[2020-01-21] MEDS: Losartan Potassium 50 MG Tablet PO (20:30)
[2020-01-21] MEDS: MELATONIN 10 MG TABLET PO (20:30)
[2020-01-21] MEDS: Atorvastatin Calcium 40 MG Tablet PO (20:30)
[2020-01-21 21:11] LABS: Bedside Glucose 253 mg/dL (70-110)
[2020-01-22 05:27] VITALS: BP 126/68; PULSE 102; RESP 18; TEMP 36.4; O2SAT 87
[2020-01-22] MEDS: FLUoxetine 20 MG Capsule PO (05:29)
[2020-01-22] MEDS: Gabapentin 800 MG Tablet PO ×3 (05:29→17:08)
[2020-01-22] MEDS: Levothyroxine 100 MCG Tablet PO (05:29)
[2020-01-22] MEDS: Pantoprazole Sodium 20 MG Tablet PO (05:29)
[2020-01-22] MEDS: Nystatin Powder 15gm Bottle 1 APPLIC TOPICAL ×2 (05:31→17:11)
[2020-01-22] MEDS: Hydrocortisone 25 MG Suppository RECTAL (05:50)
[2020-01-22 06:26] LABS: Bedside Glucose 188 mg/dL (70-110)
[2020-01-22 07:29] VITALS: O2SAT 91
[2020-01-22] MEDS: Insulin Lispro 100 UNIT/ML INSULN.PEN SC ×3 (08:15→17:16)
[2020-01-22] MEDS: VIT C/E/ZN/COPPR/LUTEIN/ZEAXAN 1 EACH CAPSULE PO ×2 (08:16→17:08)
[2020-01-22] MEDS: Naproxen 500 MG Tablet PO ×2 (08:16→17:08)
[2020-01-22] MEDS: Multivitamins,Ther W-Minerals Tablet 1 TABLET PO (08:16)
[2020-01-22] MEDS: METFORMIN HCL 750 MG TAB.ER.24H PO (08:16)
[2020-01-22] MEDS: Ascorbic Acid 500 MG Tablet PO (08:16)
[2020-01-22] MEDS: Diphenoxylate/Atrop 1 Tablet 2 TABLET PO ×3 (08:16→17:07)
[2020-01-22] MEDS: Calcium Carbonate 500 MG Tablet PO (08:16)
[2020-01-22] MEDS: traMADol 50 MG Tablet PO ×2 (08:26→16:17)
--- NOTE | 2020-01-22 09:29 | NURSING ---
NOTIFIED CLINTON FROM PRECERT DEPT ON RESULTS OF PRECERTIFICATION, SHE STATES SHE IS APPROVED BY HER INSURANCE. SPOKE WITH SCHEDULING, MRI OF SPINE WILL BE 1430 01/23/20. PT UPDATED. RESTING IN BED, CALL LIGHT IN REACH.
[2020-01-22] MEDS: Mag Hydrox/Al Hydrox/Simeth 30 ML UDC PO (09:45)
--- NOTE | 2020-01-22 09:46 | NURSING ---
PT C/O LOOSE STOOLS, ASSISTED PT FROM TOILET BACK TO BED. SCANT AMT OF LIQUID STOOL NOTED. PT REQUESTING MYLANTA. PT WORRIED THAT IF SHE DOESNT GET HER BOWELS UNDER CONTROL SHE WILL NOT BE ABLE TO LAY ON TABLE FOR MRI. STATES I DONT WANT TO SCREW THAT UP WILL UPDATE DR ROBISON
[2020-01-22 11:21] LABS: Bedside Glucose 191 mg/dL (70-110)
[2020-01-22 13:07] VITALS: BP 153/73; PULSE 91; RESP 18; TEMP 36.1; O2SAT 94
--- NOTE | 2020-01-22 14:35 | NURSING ---
Parts Counter Salesperson Note: 1:1 visit with resident. Res in bed and tearful. Sat with resident to talk about emotions and concerns. Res scheduled for MRI on 01/23/2020 and was expecting to discharge home after test. Staff has explained to resident that she should consider awaiting results and treatment plan before discharge. Res states that she just wants to go home. Supportive listening provided. DIRECTOR OF MARKETING COMMUNICATIONS arrived and discussed options as well as provided resident much encouragement to come out of room for socialization, be up in chair more often. Resident expressed understanding. Res then explained to Parts Counter Salesperson that she is not a social person and because she is not able to propel self in wheelchair would prefer not to come out of room. Offered resident options of sitting at a table in lounge with books and cookbooks with a welch to ring when she is in need of assistance. Also encouraged resident to actively participate in therapies and demonstrate to PT and OT what she is able to do for self. Resident appreciative of visit and mood improved.
--- NOTE | 2020-01-22 14:56 | NURSING ---
Addendum entered by Nishi David 01/22/20 16:19: R' UPDATED ON NEW MED ORDER. AGREEABLE. Addendum entered by Betzy Larson 01/22/20 16:12: office returned call, new order to increase Prozac to 40mg every day. Original Note: message left with DR Dejesus regarding an increase in prozac, pt withdrawn at times & tearful. awaiting return call.
--- NOTE | 2020-01-22 16:07 | CASEMGMT ---
Social Work Pt requesting to meet with SW. JEREMIAH met with pt. Pt expressed she was under the understanding that once her MRI was performed she could DC home after, and was told that would not be beneficial and is discouraged by news. Explained to pt, as explained prior, that is correct. It is beneficial for pt to remain in TCU to continue to get stronger, get the medical care, and await results from spine DrTheodore on results from MRI for further direction. Explained the insurance perspective. Pt expressed understanding and sees the benefit of remaining in TCU to see the treatment plan. If recommends continued therapy or surgery then therapy, pt is in the most beneficial place for that treatment. Pt understood. Continued to encourage pt get out room more often, be up in chair, go to [facility] for meals or self directed activities, etc. Discussed changing pt's mindset, to not have negative self talk, to develop positive coping skills. Validated pt's feelings of being overwhelmed, having to process all of her emotions, and the unknown. Pt expresses she wants to be in control and this very hard for her not to know what is happening right now. JEREMIAH provided supportive listening. SW explained for pt to have motivation to work with therapy and nursing to show us consistently what her capabilities are to ensure a safe DC plan is in place. Pt understood. Inquired about dep/anxiety medication. Pt explained PCP made increase about a month ago. Inquired if she would be agreeable to another increase as she would have felt impact at this time if effective, but new information has surfaced that has decreased her mood again. Pt agreeable for nursing to contact PCP to inquire about increase or change. Notified nursing. Pt still agreeable for SW to schedule Dr. Tyler Banegas appt at [place]. Offered to contact now for phone session, pt denied. Pt expressed how her son will be disappointed to learn she cannot DC at this time either. SW offered to contact son and explain situation. Pt agreed. Therapy arrived for pt treatment. Pt appreciative of visit. Therapy to take pt out of room for session and pt agreeable to sit in chair for dinner this evening. Contacted son, explained all of above. Son understanding of remaining in TCU to await results and continue with recommended treatment. Son agrees pt is benefitting from being in TCU vs home at this time for therapy and nursing care. Son inquired about getting anything in place in pt's home when she is ready to DC. Son acknowledged there are 26 steps into the home, but that he does assist with doing pt's errands and everything is on first floor once in home. Inquired about getting a stair lift. SW explained pt seems to be doing well in therapy, but is not consistent and stating not able to do toilet hygiene, for example, and wanting therapy or nursing to complete. Explained encouraged pt to be consistent and show us what she can do so we can better evaluate a safe DC plan and determine if there are tasks therapy needs to improve upon if she cannot do them well. Son agrees and offered to have that conversation with pt to help motivate pt. SW offered if able to get stair lift that can only help not hurt, and even if she can do the stairs now, it will be beneficial on a bad day or when she cannot do them at all. Offered to think of bad weather coming and to eliminate that chance to slip and fall on steps when she does need to come in and out of house. Son understood and indicated to look into getting a stair lift. Son appreciative of SW and staff assistance with pt. Insurance NRD 01/22 and continued stay is not guaranteed. Will continue to follow. Izzy Huggins, GRAINING MACHINE OPERATOR PROFILER HAND
[2020-01-22 16:20] LABS: Bedside Glucose 191 mg/dL (70-110)
[2020-01-22 21:25] LABS: Bedside Glucose 239 mg/dL (70-110)
[2020-01-22] MEDS: Losartan Potassium 50 MG Tablet PO (22:20)
[2020-01-22] MEDS: Atorvastatin Calcium 40 MG Tablet PO (22:20)
[2020-01-22] MEDS: MELATONIN 10 MG TABLET PO (22:20)
[2020-01-22] MEDS: Zolpidem Tartrate 5 MG Tablet PO (22:37)
[2020-01-23] MEDS: traMADol 50 MG Tablet PO ×2 (05:21→11:31)
[2020-01-23] MEDS: Nystatin Powder 15gm Bottle 1 APPLIC TOPICAL ×2 (05:25→17:30)
[2020-01-23] MEDS: FLUoxetine 20 MG Capsule 40 MG PO (05:27)
[2020-01-23] MEDS: Levothyroxine 100 MCG Tablet PO (05:27)
[2020-01-23] MEDS: Pantoprazole Sodium 20 MG Tablet PO (05:27)
[2020-01-23] MEDS: Gabapentin 800 MG Tablet PO ×3 (05:27→17:30)
[2020-01-23 05:30] VITALS: BP 155/68; PULSE 98; RESP 18; TEMP 36.7; O2SAT 96
[2020-01-23 06:30] LABS: Bedside Glucose 151 mg/dL (70-110)
[2020-01-23] MEDS: Diphenoxylate/Atrop 1 Tablet 2 TABLET PO ×3 (08:13→17:29)
[2020-01-23] MEDS: Insulin Lispro 100 UNIT/ML INSULN.PEN SC ×2 (08:13→11:30)
[2020-01-23] MEDS: Multivitamins,Ther W-Minerals Tablet 1 TABLET PO (08:13)
[2020-01-23] MEDS: Ascorbic Acid 500 MG Tablet PO (08:13)
[2020-01-23] MEDS: VIT C/E/ZN/COPPR/LUTEIN/ZEAXAN 1 EACH CAPSULE PO ×2 (08:14→17:30)
[2020-01-23] MEDS: METFORMIN HCL 750 MG TAB.ER.24H PO (08:14)
[2020-01-23 11:03] VITALS: O2SAT 93
[2020-01-23 11:05] LABS: Bedside Glucose 154 mg/dL (70-110)
[2020-01-23] MEDS: diazePAM 5 MG Tablet PO (14:02)
[2020-01-23 16:41] LABS: Bedside Glucose 122 mg/dL (70-110)
[2020-01-23 16:51] VITALS: BP 129/65; PULSE 89; RESP 14; TEMP 36.3; O2SAT 95
[2020-01-23] MEDS: traMADol 50 MG Tablet 100 MG PO (20:50)
[2020-01-23] MEDS: Atorvastatin Calcium 40 MG Tablet PO (20:51)
[2020-01-23] MEDS: Losartan Potassium 50 MG Tablet PO (20:52)
[2020-01-23] MEDS: MELATONIN 10 MG TABLET PO (20:53)
[2020-01-23 21:26] LABS: Bedside Glucose 159 mg/dL (70-110)
[2020-01-23] MEDS: Zolpidem Tartrate 5 MG Tablet PO (21:48)
--- NOTE | 2020-01-24 02:20 | NURSING ---
Pt assisted up to br, c/o lt shoulder hurting a lot more tonight, able to lift arm up but states it hurts when touched on posterior shoulder. Note left for Dr. Walsh to address in am.
[2020-01-24] MEDS: Pantoprazole Sodium 20 MG Tablet PO (04:45)
[2020-01-24] MEDS: Nystatin Powder 15gm Bottle 1 APPLIC TOPICAL ×2 (04:45→16:37)
[2020-01-24] MEDS: FLUoxetine 20 MG Capsule 40 MG PO (04:45)
[2020-01-24] MEDS: traMADol 50 MG Tablet 100 MG PO ×2 (04:45→17:35)
[2020-01-24] MEDS: Gabapentin 800 MG Tablet PO ×3 (04:45→16:26)
[2020-01-24] MEDS: Levothyroxine 100 MCG Tablet PO (04:45)
[2020-01-24 04:48] VITALS: BP 137/58; PULSE 89; RESP 18; TEMP 36.8; O2SAT 94
[2020-01-24 06:36] LABS: Bedside Glucose 84 mg/dL (70-110)
[2020-01-24] MEDS: Calcium Carbonate 500 MG Tablet PO (08:56)
[2020-01-24] MEDS: Ascorbic Acid 500 MG Tablet PO (08:58)
[2020-01-24] MEDS: VIT C/E/ZN/COPPR/LUTEIN/ZEAXAN 1 EACH CAPSULE PO ×2 (09:02→16:28)
[2020-01-24] MEDS: Multivitamins,Ther W-Minerals Tablet 1 TABLET PO (09:03)
[2020-01-24] MEDS: METFORMIN HCL 750 MG TAB.ER.24H PO (09:04)
[2020-01-24] MEDS: Diphenoxylate/Atrop 1 Tablet 2 TABLET PO ×3 (09:19→16:34)
[2020-01-24 11:21] LABS: Bedside Glucose 158 mg/dL (70-110)
[2020-01-24] MEDS: Insulin Lispro 100 UNIT/ML INSULN.PEN SC (12:13)
[2020-01-24 13:25] VITALS: PULSE 71; RESP 18
[2020-01-24 14:06] VITALS: BP 127/80; PULSE 69; RESP 17; TEMP 36.7; O2SAT 96
[2020-01-24 16:10] LABS: Bedside Glucose 128 mg/dL (70-110)
[2020-01-24] MEDS: Zolpidem Tartrate 5 MG Tablet PO (21:09)
[2020-01-24] MEDS: Hydrocortisone 25 MG Suppository RECTAL (21:09)
[2020-01-24] MEDS: Atorvastatin Calcium 40 MG Tablet PO (21:11)
[2020-01-24] MEDS: Losartan Potassium 50 MG Tablet PO (21:12)
[2020-01-24] MEDS: MELATONIN 10 MG TABLET PO (21:13)
[2020-01-24 21:20] LABS: Bedside Glucose 174 mg/dL (70-110)
[2020-01-25 05:31] VITALS: BP 107/41; PULSE 89; RESP 18; TEMP 36.5; O2SAT 90
[2020-01-25] MEDS: traMADol 50 MG Tablet 100 MG PO (05:35)
[2020-01-25] MEDS: FLUoxetine 20 MG Capsule 40 MG PO (05:35)
[2020-01-25] MEDS: Levothyroxine 100 MCG Tablet PO (05:35)
[2020-01-25] MEDS: Pantoprazole Sodium 20 MG Tablet PO (05:36)
[2020-01-25] MEDS: Gabapentin 800 MG Tablet PO ×2 (05:36→11:57)
[2020-01-25] MEDS: Nystatin Powder 15gm Bottle 1 APPLIC TOPICAL ×2 (05:38→18:24)
[2020-01-25 06:16] LABS: Bedside Glucose 145 mg/dL (70-110)
[2020-01-25] MEDS: Calcium Carbonate 500 MG Tablet PO (08:30)
[2020-01-25] MEDS: Diphenoxylate/Atrop 1 Tablet 2 TABLET PO ×2 (08:30→11:57)
[2020-01-25] MEDS: METFORMIN HCL 750 MG TAB.ER.24H PO (08:30)
[2020-01-25] MEDS: VIT C/E/ZN/COPPR/LUTEIN/ZEAXAN 1 EACH CAPSULE PO (08:30)
[2020-01-25] MEDS: Ascorbic Acid 500 MG Tablet PO (08:30)
[2020-01-25] MEDS: Multivitamins,Ther W-Minerals Tablet 1 TABLET PO (08:31)
[2020-01-25 08:40] VITALS: PULSE 89; RESP 20; O2SAT 93
[2020-01-25 10:31] LABS: Bedside Glucose 155 mg/dL (70-110)
[2020-01-25] MEDS: Insulin Lispro 100 UNIT/ML INSULN.PEN SC ×2 (11:56→17:55)
[2020-01-25 13:49] VITALS: BP 122/56; PULSE 97; RESP 18; TEMP 36.3; O2SAT 90
[2020-01-25 16:46] LABS: Bedside Glucose 155 mg/dL (70-110)
[2020-01-25] MEDS: Hydrocortisone 25 MG Suppository RECTAL (18:36)
--- NOTE | 2020-01-25 19:52 | RAD_ITS ---
STUDY: X-RAY - LEFT SHOULDER REASON FOR EXAM: Female, 74 years old. left shoulder pain, patient has pain with movement TECHNIQUE: 4 view(s) of the shoulder. COMPARISON: None. FINDINGS: There is moderate degenerative arthrosis of the glenohumeral articulation. There is degenerative arthrosis of the acromioclavicular joint without inferior osseous spur formation. Normal acromion. Normal humeral head and visualized proximal humerus. The soft tissue structures are unremarkable. Normal visualized pulmonary apex. RAD/Shoulder min 2 Views IMPRESSION: Degenerative changes without acute findings Electronically Signed: Wellington Yap DO at 20:53 EST Tel , Service support ,
--- NOTE | 2020-01-25 19:53 | NURSING ---
Patient has been complaining of left shoulder pain off and on the last couple of days. Patient states that when she went to Dr. Espinoza appointment the other day that he had taken xrays of shoulder. No xray report noted. Patient also c/o severe abdominal pain where patient refused her PM medications. Dr. Walsh notified of this, new orders given.
--- NOTE | 2020-01-25 20:05 | RAD_ITS ---
STUDY: X-RAY - ABDOMEN/PELVIS REASON FOR EXAM: Female, 74 years old. abdominal pain TECHNIQUE: 3 AP supine views of the abdomen and pelvis. COMPARISON: None. FINDINGS: Normal visualized lung bases. There is an unremarkable bowel gas pattern. There is no demonstrated free abdominal air. The visualized liver, spleen and kidneys are grossly normal in size and morphology. Normal soft tissue structures. Normal visualized osseous structures. RAD/Abdomen Single View (Portable) IMPRESSION: Normal x-ray examination of the abdomen and pelvis. Electronically Signed: Wellington Yap DO at 20:56 EST Tel , Service support ,
--- NOTE | 2020-01-25 20:23 | EKG12_ITS ---
Test Reason : DYSRYTHMIA Blood Pressure : / mmHG Vent. Rate : 089 BPM Atrial Rate : 089 BPM P-R Int : 146 ms QRS Dur : 098 ms QT Int : 374 ms P-R-T Axes : 050 -26 047 degrees QTc Int : 455 ms Normal sinus rhythm Normal ECG When compared with ECG of 04-JAN-2020 22:36, No significant change was found Confirmed by PAMELA HAN, TIEN ([id number]), editor map SOLO ROQUE ([id number]) on 01/27/2020 11:00:18 AM Referred By: Ayden Espinoza Confirmed By:TIEN SANTIAGO MD
[2020-01-25 21:20] LABS: Bedside Glucose 186 mg/dL (70-110)
[2020-01-25] MEDS: Zolpidem Tartrate 5 MG Tablet PO (21:21)
[2020-01-25] MEDS: MELATONIN 10 MG TABLET PO (21:22)
[2020-01-25] MEDS: Atorvastatin Calcium 40 MG Tablet PO (21:22)
[2020-01-25] MEDS: Losartan Potassium 50 MG Tablet PO (21:22)
[2020-01-26 06:09] VITALS: BP 153/74; PULSE 104; RESP 18; TEMP 36.6; O2SAT 90
[2020-01-26] MEDS: Nystatin Powder 15gm Bottle 1 APPLIC TOPICAL ×2 (06:12→18:50)
[2020-01-26 06:21] LABS: Bedside Glucose 157 mg/dL (70-110)
[2020-01-26 07:51] LABS: Bedside Glucose 149 mg/dL (70-110)
[2020-01-26] MEDS: METFORMIN HCL 750 MG TAB.ER.24H PO (08:11)
[2020-01-26] MEDS: FLUoxetine 20 MG Capsule 40 MG PO (08:13)
[2020-01-26] MEDS: Pantoprazole Sodium 20 MG Tablet PO (08:14)
[2020-01-26] MEDS: Gabapentin 800 MG Tablet PO ×4 (08:14→18:45)
[2020-01-26] MEDS: Levothyroxine 100 MCG Tablet PO (08:14)
[2020-01-26] MEDS: Diphenoxylate/Atrop 1 Tablet 2 TABLET PO ×3 (08:21→18:50)
--- NOTE | 2020-01-26 08:25 | NURSING ---
pt refused several morning medications, required much encouragement to take some of her morning medications. Refusing Mag citrate stating she is having too many BM's, educated pt that her last documented BM was 01/23, pt stated she had a small BM yesterday and continues to refuse anything to assist with BM's.
--- NOTE | 2020-01-26 09:20 | PCA ---
Pt was brandoncory Alarconben from bed, i went into room to see how i could assist pt. Entered room and told pt that she needed to use her call light which was right at her side in the bed, pt stated i can't what part of i can't don't you people understand? i asked pt what she needed me to do for her? pt said she wanted this removed referring to the over bedside table and her breakfast tray, i removed both. asked pt if she needed anyting else? pt said she wanted her test results back from all the tests she had done such as her shoulder, her stomach i explained that i would let the nurse know and she will be back as soon as she can to talk to her. pt said well how long will that be, i reassured pt that i would tell the nurse baljeet mario that she will be back to see her as soon as she can i cannot give you a definite time frame. i exited the room
--- NOTE | 2020-01-26 09:29 | NURSING ---
Contacted Dr. Espinoza's office to make sure they received the MRI results and to see what his recommendations are. They will notify Dr. Espinoza and return the call later today.
--- NOTE | 2020-01-26 09:36 | NURSING ---
pt refused the majority of her medications this morning, required a lot of encouragement to take some of her medications.
[2020-01-26 10:00] VITALS: PULSE 99; RESP 16; O2SAT 92
--- NOTE | 2020-01-26 10:09 | NURSING ---
Received order to obtain a UA & CS, explained procedure and need for catheterization to obtain a sterile urine sample, pt refused. Educated pt on need to test urine and pt continued to refuse.
[2020-01-26 11:00] LABS: Bedside Glucose 206 mg/dL (70-110)
[2020-01-26] MEDS: Insulin Lispro 100 UNIT/ML INSULN.PEN SC ×2 (11:37→18:43)
[2020-01-26] MEDS: traMADol 50 MG Tablet 100 MG PO (11:38)
[2020-01-26 12:31] VITALS: BP 133/71; PULSE 103; RESP 16; TEMP 36.9; O2SAT 90
--- NOTE | 2020-01-26 13:22 | CASEMGMT ---
Addendum entered by Izzy Huggins 01/26/20 14:55: Typing Error: Pt DC home 01/27, per pt request Original Note: Social Work Nursing explained Dr. Espinoza will not be doing surgery on pt and provided no other treatment plan aside from pain management. Spoke with pt about news. Pt frustrated but appeared to understand. Pt would like to follow up with Dr. Wynne instead of Dr. Heath. Discussed Palliative Medicine to assist with pain management. Pt agreed to referral. Referral made. Pt would like to [place] 01/28. IDT agreeable. Pt remains agreeable to restart counseling services with Dr. Tyler Banegas. Pt agreeable to [facility] - referral made for PT/OT/SN/SW. Pt stated she does not use her O2, it is only PRN and does not see benefit when wearing it. No O2 to be ordered at [place]. Pt requested transport w/c to assist with mobility outside of home. Son to assist at DC. Scheduled appt with Dr. Banegas 01/28 at 1400. Plan: DC home alone with son support 01/28, with [facility] PT/OT/SN/SW, [employer] - transport w/c Izzy Huggins, GRAPHIC PRODUCTION ARTIST VENEER CUTTER
[2020-01-26 18:56] LABS: Bedside Glucose 211 mg/dL (70-110)
[2020-01-26] MEDS: MELATONIN 10 MG TABLET PO (20:56)
[2020-01-26] MEDS: Atorvastatin Calcium 40 MG Tablet PO (20:56)
[2020-01-26] MEDS: Losartan Potassium 50 MG Tablet PO (20:57)
[2020-01-26] MEDS: Zolpidem Tartrate 5 MG Tablet PO (21:00)
[2020-01-26] MEDS: Acetaminophen 500 MG Tablet 1000 MG PO (21:01)
--- NOTE | 2020-01-26 21:23 | NURSING ---
Lying in bed . arousable when awakened, falls back to sleep quickly, cont to refused to have urine spec obtained, previous nurse stated Dr Walsh aware
[2020-01-26 21:26] LABS: Bedside Glucose 159 mg/dL (70-110)
[2020-01-27 06:15] VITALS: BP 131/76; PULSE 91; RESP 16; TEMP 36.1; O2SAT 94
[2020-01-27 06:15] LABS: Bedside Glucose 83 mg/dL (70-110)
[2020-01-27] MEDS: FLUoxetine 20 MG Capsule 40 MG PO (06:26)
[2020-01-27] MEDS: Pantoprazole Sodium 20 MG Tablet PO (06:26)
[2020-01-27] MEDS: Levothyroxine 100 MCG Tablet PO (06:26)
[2020-01-27] MEDS: Nystatin Powder 15gm Bottle 1 APPLIC TOPICAL ×2 (06:30→18:44)
--- NOTE | 2020-01-27 08:08 | PCM.DC ---
- Discharge Diagnoses Current Active Problems: Current Active and Chronic Problems (Last Reviewed 01/04/20 @ 23:[address] Pio York, DO) Debility (Acute) Low back pain (Acute) UTI (urinary tract infection) (Acute) Neuropathic pain (Chronic) Compression fracture of lumbosacral spine (Chronic) Vitamin D deficiency (Chronic) Hyperlipidemia (Chronic) Hypertension (Chronic) Diabetes mellitus (Chronic) Restless legs syndrome (Chronic) Hypokalemia (Chronic) GERD (gastroesophageal reflux disease) (Chronic) Hypothyroidism (Chronic) You will use the following diet at home:: No restrictions, Regular Your food should be the consistency of: Regular Your liquids should be the consistency of: Regular/Thin Discharge Activity: Return to Normal Activity, May Shower, Use Walker Weight Bearing Status: Weight bearing as tolerated Call your doctor if you observe: Fever of 101 or Higher, Inability to urinate, Inability to have a bowel movement, Shortness of breath, Chest pain, Uncontrolled pain Allergies/Adverse Reactions: Allergies cyclobenzaprine Allergy (Verified 01/12/20 14:58) Unknown doxepin Allergy (Verified 01/12/20 14:58) Unknown hydromorphone HCl [From Dilaudid] Allergy (Verified 01/12/20 14:58) Unknown prednisone Allergy (Verified 01/12/20 14:58) Unknown pregabalin [From Lyrica] Allergy (Verified 01/12/20 14:58) Unknown acetaminophen [From Percocet] Adverse Reaction (Verified 01/12/20 14:58) HALLUCINATION hydrocodone bitartrate [From Vicodin] Adverse Reaction (Verified 01/12/20 14:58) HALLUCINATIONS oxycodone HCl [From Percocet] Adverse Reaction (Verified 01/12/20 14:58) HALLUCINATION Medications to take at Discharge Ascorbic Acid [Vitamin C] 500 mg PO DAILY@0800 11/20/14 Atorvastatin Calcium [Lipitor] 40 mg PO QHS 11/20/14 Calcium Carbonate [Calcium] 600 mg PO DAILY 11/20/14 Cyanocobalamin (Vitamin B-12) 1,000 mcg SC QMONTH 11/20/14 Gabapentin [Neurontin] 600 mg PO TID 11/20/14 Irbesartan [Avapro] 150 mg PO QHS 11/20/14 Levothyroxine [Synthroid] 100 mcg PO DAILY 11/20/14 Metformin HCl [Glucophage Xr] 750 mg PO DAILY 11/20/14 Multivit-Min/FA/Lycopen/Lutein [Centrum Silver Tablet] 1 each PO DAILY 11/20/14 Omeprazole [Prilosec] 20 mg PO DAILY 11/20/14 Diphenoxylate HCl/Atropine [Diphenoxylate-Atrop 2.5-0.025] 2 ea PO Q8H PRN PRN 01/04/20 Ketorolac Tromethamine [Acular LS] 1 drp RIGHT EYE 4X/DAY 01/04/20 Melatonin 10 mg PO 199901/04/20 Ropinirole HCl 2 mg PO QHS 01/04/20 Sarilumab [Kevzara] 200 mg SQ QWEEK 01/04/20 Turmeric Root Extract [Turmeric] 500 mg PO DAILY 01/04/20 Vit C/E/Zn/Coppr/Lutein/Zeaxan [Preservision Areds 2 Softgel] 1 ea PO BIDCM 01/04/20 Zolpidem Tartrate [Zolpidem Tartrate ER] 12.5 mg PO QHS 01/04/20 Ergocalciferol [Vitamin D] 50,000 unit PO MO 01/05/20 Calcium (Elemental) [Os-Humble 500] 500 mg PO DAILYCM tab 01/06/20 Potassium Chloride [K-Dur] 20 meq PO DAILYCM 01/06/20 Vitamin E 400 units PO DAILY@1200 01/06/20 traMADol [Ultram] 50 mg PO Q6H PRN PRN 3 Days #10 tab 01/06/20 Acetaminophen [Tylenol] 1,000 mg PO Q6H PRN PRN tab 01/27/20 Diphenoxylate/Atrop [Lomotil] 2 tab PO TIDCM tab 01/27/20 Fluoxetine [Prozac] 40 mg PO DAILY #30 cap 01/27/20 Insulin Glargine [Lantus SoloStar Pen] 10 units SC BID pen 01/27/20 Nystatin Powder [Mycostatin Powder] 1 applic TOPICAL BID bottle 01/27/20 The following prescriptions were given: Fluoxetine [Prozac] 40 mg PO DAILY #30 cap Transmission Status: Pending to [facility] Primary Care Physician: Anjelica,Diallo, DO [Primary Care Provider] - Please follow up with your Primary Care Physician in: 1 week. Test Results: Test results from this visit will be discussed in further detail at your follow-up appointment, if applicable. Please Follow Up With: Dr. Espinoza When: [phone] Please Follow Up With: Dr. John When: [phone] Please Follow Up With: Dr. Tyler Banegas, psychologist When: [phone] Proposed Discharge Date: 01/28/20
--- NOTE | 2020-01-27 08:10 | DS.PCM_ITS ---
Discharge Date and Diagnosis - Problem List Patient Problems: Active and Suspected Problems (Last Reviewed 01/04/20 @ 23:[address] Pio York DO) Debility (Acute) Low back pain (Acute) UTI (urinary tract infection) (Acute) Date of Admission: 01/06/20 Date of Discharge: 01/28/20 - Primary Discharge Diagnosis Acute Problems: Active Problems (Last Reviewed 01/04/20 @ 23:[address] Pio York DO) Debility (Acute) Low back pain (Acute) UTI (urinary tract infection) (Acute) - Secondary Discharge Diagnosis Chronic Problems: Chronic Problems (Last Reviewed 01/04/20 @ 23:[address] Pio York DO) Back pain (Chronic) Neuropathic pain (Chronic) Compression fracture of lumbosacral spine (Chronic) Vitamin D deficiency (Chronic) Neuropathic pain (Chronic) Edema (Chronic) Vitamin B12 deficiency (Chronic) Sjogrens syndrome (Chronic) Gout (Chronic) Hyperlipidemia (Chronic) Hypertension (Chronic) Diabetes mellitus (Chronic) Sleep apnea (Chronic) Insomnia (Chronic) Restless legs syndrome (Chronic) Hypokalemia (Chronic) GERD (gastroesophageal reflux disease) (Chronic) Hypothyroidism (Chronic) Osteoarthritis, shoulder (Chronic) Hospital Course and Treatment Imaging Results: 01/14/20 09:59 Diet: Consistent Carb - Calorie Controlled Food consistency:: Regular Liquid Consistency:: Regular/Thin Is pt able to select menu?: Yes How many daily calories?: 1800 calorie Clinical Impression(s) from Imaging Studies Chest X-Ray 01/07/20 03:05 IMPRESSION: Degenerative changes, as described above. No demonstrated acute cardiopulmonary process. Electronically Signed: Merna Starr at 5:31 EDT Tel , Service support , Shoulder X-Ray 01/25/20 19:52 IMPRESSION: Degenerative changes without acute findings Electronically Signed: Wellington Yap DO at 20:53 EST Tel , Service support , KUB X-Ray 01/25/20 20:05 IMPRESSION: Normal x-ray examination of the abdomen and pelvis. Electronically Signed: Wellington Yap DO at 20:56 EST Tel , Service support , Labs (Last 48 Hours) 01/25/20 01/25/20 01/25/20 10:26 16:39 21:10 POC Glucose 155 H 155 H 186 H 01/26/20 01/26/20 01/26/20 06:07 07:43 10:47 POC Glucose 157 H 149 H 206 H 01/26/20 01/26/20 01/27/20 18:43 21:09 06:06 POC Glucose 211 H 159 H 83 Microbiology 01/26/20 Unknown Mucosa - Nose Respiratory Syncytial Virus Ag Scrn - Final Operations: None Procedures: None Summary of Care Provided: The patient is a 74 year old Female with below past medical hospitalized for intractable low back pain, complicated by E. Coli urinary tract infection, admitted to TCU with debility, here for rehabilitation, strengthening, prior to discharge home alone. Discharge home with son support, [facility] PT/OT/SN/SW, [employer] transport wheelchair. Patient Problems: Active and Suspected Problems (Last Reviewed 01/04/20 @ 23:[address] Pio York DO) Debility (Acute) Low back pain (Acute) UTI (urinary tract infection) (Acute) - Physical Exam Vitals/I&O's: Vital Signs Temp Pulse Resp BP Pulse Ox 97 F L 91 16 131/76 H 94 01/27/20 06:15 01/27/20 06:15 01/27/20 06:15 01/27/20 06:15 01/27/20 06:15 Oxygen Flow Rate (L/min) 2 Oxygen Delivery Method Room Air Weight: 110.847 kg Body Mass Index (BMI) 40.0 Intake and Output for Last 24 Hours 01/25/20 01/26/20 01/27/20 23:59 23:59 23:59 Intake Total 300 / 300 360 / 360 Balance 300 / 300 360 / 360 Microbiology Past 72 Hours 01/26/20 Unknown Mucosa - Nose Respiratory Syncytial Virus Ag Scrn - Final Laboratory Results 01/26/20 10:47: POC Glucose 206 H 01/26/20 18:43: POC Glucose 211 H 01/26/20 21:09: POC Glucose 159 H 01/27/20 06:06: POC Glucose 83 Current Medications Acetaminophen (Acetaminophen 500 Mg Tablet) 1,000 mg PO Q6H PRN PRN PRN Reason: Pain Score 1-5 Last Admin: 01/26/20 21:01 Dose: 1,000 mg Documented by: Al Hydroxide/Mg Hydroxide (Mag Hydrox/Al Hydrox/Simeth 30 Ml Udc) 30 ml PO Q4H PRN PRN PRN Reason: INDIGESTION Last Admin: 01/22/20 09:45 Dose: 30 ml Documented by: Ascorbic Acid (Ascorbic Acid 500 Mg Tablet) 500 mg PO DAILY@0800 [facility] Last Admin: 01/26/20 09:10 Dose: Not Given Documented by: Atorvastatin Calcium (Atorvastatin Calcium 40 Mg Tablet) 40 mg PO QHS [facility] Last Admin: 01/26/20 20:56 Dose: 40 mg Documented by: Bisacodyl (Bisacodyl 10 Mg Suppository) 10 mg RECTAL DAILY PRN PRN Reason: Constipation Calcium Carbonate (Calcium Carbonate 500 Mg Tablet) 500 mg PO DAILYCM [facility] Last Admin: 01/26/20 09:10 Dose: Not Given Documented by: Cyanocobalamin (Cyanocobalamin (B12) 1,000 Mcg/Ml Vial) 1,000 mcg SC QMONTH [facility] Last Admin: 01/18/20 04:23 Dose: 1,000 mcg Documented by: Diphenoxylate HCl/Atropine (Diphenoxylate/Atrop 1 Tablet) 2 tablet PO TIDCM [facility] Last Admin: 01/26/20 18:50 Dose: 2 tablet Documented by: Ergocalciferol (Ergocalciferol 50,000 Unit Capsule) 50,000 unit PO MO [facility] Last Admin: 01/26/20 09:11 Dose: Not Given Documented by: Fluoxetine HCl (Fluoxetine 20 Mg Capsule) 40 mg PO DAILY [facility] Last Admin: 01/27/20 06:26 Dose: 40 mg Documented by: Gabapentin (Gabapentin 800 Mg Tablet) 800 mg PO 0600,1200,1800 [facility] Last Admin: 01/26/20 18:45 Dose: 800 mg Documented by: Hydrocortisone (Hydrocortisone 2.5% Crm) 1 applic TOPICAL BID PRN PRN; Protocol PRN Reason: Hemorrhoids Last Admin: 01/17/20 22:57 Dose: 1 applicatio Documented by: Hydrocortisone Acetate (Hydrocortisone 25 Mg Suppository) 25 mg RECTAL BID PRN PRN PRN Reason: Hemorrhoids Last Admin: 01/25/20 18:36 Dose: 25 mg Documented by: Insulin Glargine (Insulin Glargine 100 Units/Ml Pen) 10 units SC BID [facility] Last Admin: 01/27/20 06:28 Dose: 10 units Documented by: Insulin Human Lispro (Insulin Lispro 100 Unit/Ml Insuln.Pen) 0 unit SC TIDAC [facility]; Protocol Last Admin: 01/26/20 18:43 Dose: 2 units Documented by: Ketorolac Tromethamine (Ketorolac Tromethamine 5 Ml Drops) 1 drop RIGHT EYE 4X/DAY [facility] Last Admin: 01/27/20 06:30 Dose: 1 drop Documented by: Levothyroxine Sodium (Levothyroxine 100 Mcg Tablet) 100 mcg PO DAILY [facility] Last Admin: 01/27/20 06:26 Dose: 100 mcg Documented by: Losartan Potassium (Losartan Potassium 50 Mg Tablet) 50 mg PO QHS [facility] Last Admin: 01/26/20 20:57 Dose: 50 mg Documented by: Melatonin (Melatonin 10 Mg Tablet) 10 mg PO 1999 [facility] Last Admin: 01/26/20 20:56 Dose: 10 mg Documented by: Metformin HCl (Metformin Hcl 750 Mg Tab.Er.24h) [facility] Last Admin: 01/26/20 08:11 Dose: 750 mg Documented by: Multi-Ingredient Cream (Mineral Oil/Petrolatum,White Jar) 1 applic TOPICAL BID PRN PRN; Protocol PRN Reason: DRY SKIN Multivitamins/Minerals (Multivitamins,Ther W-Minerals Tablet) 1 tablet PO DAILY@0800 [facility] Last Admin: 01/26/20 09:10 Dose: Not Given Documented by: Nystatin (Nystatin Powder 15gm Bottle) 1 applic TOPICAL BID [facility]; Protocol Last Admin: 01/27/20 06:30 Dose: 1 applicatio Documented by: Pantoprazole Sodium (Pantoprazole Sodium 20 Mg Tablet) 20 mg PO DAILY [facility] Last Admin: 01/27/20 06:26 Dose: 20 mg Documented by: Potassium Chloride (Potassium Chloride 20 Meq Tablet) [facility] Last Admin: 01/26/20 09:10 Dose: Not Given Documented by: Ropinirole HCl (Ropinirole Hcl 0.5 Mg Tablet) 2 mg PO QHS [facility] Last Admin: 01/26/20 20:57 Dose: 2 mg Documented by: Sodium Chloride (0.9% Saline Lock 10 Ml Syringe) 10 - 40 ml IV UD PRN PRN Reason: SALINE FLUSH Tramadol HCl (Tramadol 50 Mg Tablet) 100 mg PO Q6H PRN PRN PRN Reason: Pain Score 6-10 Last Admin: 01/26/20 11:38 Dose: 100 mg Documented by: Zolpidem Tartrate (Zolpidem Tartrate 5 Mg Tablet) 5 mg PO QHS [facility] Last Admin: 01/26/20 21:00 Dose: 5 mg Documented by: Discharge Diet: No Restrictions Discharge Activity: Return to Normal Activity, May Shower, Use Walker Weight Bearing Status: Weight bearing as tolerated Call your doctor if you observe: Fever of 101 or Higher, Inability to urinate, Inability to have a bowel movement, Shortness of breath, Chest pain, Uncontrolled pain Home Medications: Medications to take at Discharge Ascorbic Acid [Vitamin C] 500 mg PO DAILY@0800 11/20/14 Atorvastatin Calcium [Lipitor] 40 mg PO QHS 11/20/14 Calcium Carbonate [Calcium] 600 mg PO DAILY 11/20/14 Cyanocobalamin (Vitamin B-12) 1,000 mcg SC QMONTH 11/20/14 Gabapentin [Neurontin] 600 mg PO TID 11/20/14 Irbesartan [Avapro] 150 mg PO QHS 11/20/14 Levothyroxine [Synthroid] 100 mcg PO DAILY 11/20/14 Metformin HCl [Glucophage Xr] 750 mg PO DAILY 11/20/14 Multivit-Min/FA/Lycopen/Lutein [Centrum Silver Tablet] 1 each PO DAILY 11/20/14 Omeprazole [Prilosec] 20 mg PO DAILY 11/20/14 Diphenoxylate HCl/Atropine [Diphenoxylate-Atrop 2.5-0.025] 2 ea PO Q8H PRN PRN 01/04/20 Ketorolac Tromethamine [Acular LS] 1 drp RIGHT EYE 4X/DAY 01/04/20 Melatonin 10 mg PO 2000 01/04/20 Ropinirole HCl 2 mg PO QHS 01/04/20 Sarilumab [Kevzara] 200 mg SQ QWEEK 01/04/20 Turmeric Root Extract [Turmeric] 500 mg PO DAILY 01/04/20 Vit C/E/Zn/Coppr/Lutein/Zeaxan [Preservision Areds 2 Softgel] 1 ea PO BIDCM 01/04/20 Zolpidem Tartrate [Zolpidem Tartrate ER] 12.5 mg PO QHS 01/04/20 Ergocalciferol [Vitamin D] 50,000 unit PO MO 01/05/20 Calcium (Elemental) [Os-Humble 500] 500 mg PO DAILYCM tab 01/06/20 Potassium Chloride [K-Dur] 20 meq PO DAILYCM 01/06/20 Vitamin E 400 units PO DAILY@1200 01/06/20 traMADol [Ultram] 50 mg PO Q6H PRN PRN 3 Days #10 tab 01/06/20 Acetaminophen [Tylenol] 1,000 mg PO Q6H PRN PRN tab 01/27/20 Diphenoxylate/Atrop [Lomotil] 2 tab PO TIDCM tab 01/27/20 Fluoxetine [Prozac] 40 mg PO DAILY #30 cap 01/27/20 Insulin Glargine [Lantus SoloStar Pen] 10 units SC BID pen 01/27/20 Nystatin Powder [Mycostatin Powder] 1 applic TOPICAL BID bottle 01/27/20 Following Prescriptions Were Given to Patient: Fluoxetine [Prozac] 40 mg PO DAILY #30 cap Transmission Status: Pending to [facility]30 Primary Care Physician: Diallo Dejesus DO [Primary Care Provider] - Please follow up with your Primary Care Physician in: 1 week. Please Follow Up With: Dr. Espinoza When: [phone] Please Follow Up With: Dr. John When: [phone] Please Follow Up With: Dr. Tyler Banegas, psychologist When: [phone] Disposition: Home with Home Health Minutes spent on discharge:: 35 Patient Condition:: Stable Medical Necessity - Tobacco Use Smoking Status: Never smoker Tobacco Use: Non-smoker Meaningful Use Info Meaningful Use Diagnoses (Choose all that apply): None applicable
[2020-01-27] MEDS: Diphenoxylate/Atrop 1 Tablet 2 TABLET PO ×3 (08:27→18:40)
[2020-01-27] MEDS: Ascorbic Acid 500 MG Tablet PO (08:28)
[2020-01-27] MEDS: METFORMIN HCL 750 MG TAB.ER.24H PO (08:28)
[2020-01-27] MEDS: VIT C/E/ZN/COPPR/LUTEIN/ZEAXAN 1 EACH CAPSULE PO ×2 (08:28→18:40)
[2020-01-27] MEDS: Multivitamins,Ther W-Minerals Tablet 1 TABLET PO (08:29)
[2020-01-27] MEDS: Calcium Carbonate 500 MG Tablet PO (08:34)
[2020-01-27] MEDS: Mag Hydrox/Al Hydrox/Simeth 30 ML UDC PO (08:52)
[2020-01-27 11:01] LABS: Bedside Glucose 175 mg/dL (70-110)
[2020-01-27] MEDS: Gabapentin 800 MG Tablet PO ×2 (12:57→18:45)
[2020-01-27] MEDS: Insulin Lispro 100 UNIT/ML INSULN.PEN SC ×2 (12:58→18:44)
[2020-01-27 15:21] VITALS: BP 138/82; PULSE 95; RESP 18; TEMP 36.4; O2SAT 90
[2020-01-27 17:00] LABS: Bedside Glucose 157 mg/dL (70-110)
[2020-01-27 21:45] LABS: Bedside Glucose 136 mg/dL (70-110)
[2020-01-27] MEDS: MELATONIN 10 MG TABLET PO (22:30)
[2020-01-27] MEDS: Losartan Potassium 50 MG Tablet PO (22:30)
[2020-01-27] MEDS: Atorvastatin Calcium 40 MG Tablet PO (22:31)
[2020-01-27] MEDS: Zolpidem Tartrate 5 MG Tablet PO (22:34)
[2020-01-28 06:02] LABS: Absolute Lymphocyte Count 2.25 X10^3/uL (0.83-4.51); Absolute Neutrophil Count 8.9 X10^3/uL (2.0-7.7); Basophil# 0.04 X10^3/uL; Basophil% 0.3 % (0-1); Eosinophil# 0.24 X10^3/uL; Eosinophils% 1.9 % (0-5); Hematocrit 41.8 % (37-47); Hemoglobin 13.1 g/dL (12.0-15.0); Lymphocyte # 2.25 X10^3/ul (4.0); Lymphocyte % 17.7 % (19-41); Mean Corp Hgb Conc 31.3 g/dL (32-36); Mean Corpuscular Hgb 30.9 pg (27.0-32.0); Mean Corpuscular Volume 98.6 fL (81-99); Monocyte# 1.22 X10^3/uL; Monocyte% 9.6 % (0-10); NRBC Flagged by Analyzer 0 % (0-5); Neutrophil # 8.86 X10^3/uL (2.7-7.7); Neutrophil % 69.9 % (47-70); Platelet Count 291 K/mm3 (150-450); RBC Distribution Width CV 13.5 % (11.6-14.6); RBC Distribution Width SD 49.5 fl (35.1-43.9); Red Blood Count 4.24 M/mm3 (4.2-5.4); White Blood Count 12.7 K/mm3 (4.4-11.0)
[2020-01-28 06:05] VITALS: BP 115/55; PULSE 106; RESP 16; TEMP 37.2; O2SAT 90
[2020-01-28] MEDS: Levothyroxine 100 MCG Tablet PO (06:08)
[2020-01-28] MEDS: Gabapentin 800 MG Tablet PO ×3 (06:08→18:46)
[2020-01-28] MEDS: Pantoprazole Sodium 20 MG Tablet PO (06:09)
[2020-01-28] MEDS: Nystatin Powder 15gm Bottle 1 APPLIC TOPICAL ×2 (06:09→18:47)
[2020-01-28] MEDS: FLUoxetine 20 MG Capsule 40 MG PO (06:10)
[2020-01-28 06:26] LABS: Anion Gap 7 (5-15); BUN 28 mg/dL (7-18); BUN/Creat Ratio 30.8 RATIO (10-20); Calcium,Total 8.8 mg/dL (8.5-10.1); Chloride 103 mmol/L (98-107); Creatinine, Serum 0.91 mg/dL (0.55-1.02); EST Glomerular Filtration Rate 64 mL/min (>60); Est Glom Filt Rate - Afr Amer 77 mL/min (>60); Estimated Creatinine Clearance 49.24 ml/min; Glucose 108 mg/dL (74-106); Potassium 3.6 mmol/L (3.5-5.1); Sodium Level 139 mmol/L (136-145)
[2020-01-28 06:36] LABS: Bedside Glucose 113 mg/dL (70-110)
--- NOTE | 2020-01-28 08:40 | PCA ---
pt is requiring a full dependability from staff to assist with toileting pulling down and up pants along with wiping self after toilet, and performing AM care.
[2020-01-28] MEDS: VIT C/E/ZN/COPPR/LUTEIN/ZEAXAN 1 EACH CAPSULE PO ×2 (08:47→18:47)
[2020-01-28] MEDS: Multivitamins,Ther W-Minerals Tablet 1 TABLET PO (08:47)
[2020-01-28] MEDS: METFORMIN HCL 750 MG TAB.ER.24H PO (08:47)
[2020-01-28] MEDS: Ascorbic Acid 500 MG Tablet PO (08:48)
[2020-01-28] MEDS: Diphenoxylate/Atrop 1 Tablet 2 TABLET PO ×3 (08:48→18:46)
[2020-01-28 08:59] VITALS: PULSE 95; RESP 18; O2SAT 93
--- NOTE | 2020-01-28 09:07 | NURSING ---
Discussed need to do sterile catheterization to obtain urine. Patient states she has no trouble with urination. Patient is refusing to have procedure done.
--- NOTE | 2020-01-28 10:26 | CASEMGMT ---
Social Work Received voicemail from son to discuss postponing DC home and to speak with pt. Met with pt. Pt expressed concerns with discharging home this date, and feels she is not ready - I made a mistake about wanting to go home, and I feel weaker now than I do when I came in. Pt stated she wants to keep working with therapy to get stronger. Explained pt does not have to DC home today, but her insurance update is 01/29 and continued stay is not guaranteed. Stressed the insurance will be looking at solely pt's progress now. Pt has been getting therapy for duration of stay and unsure how much significant progress she will make. Explained to pt that she needs to be more motivated to get out of bed, do more things on her own (while asking for supervision), do her exercises outside of the therapy session, be in the chair for meals, etc. Pt needs to push herself to do more because realistically if pt does not feel ready to DC home, discussions need to happen about an alternative plan. Pt expressed understanding and agrees completely. Pt stated she will show therapy the next two days she can do better and do more to progress further. Relayed information to therapy. Therapy to discuss pt's levels with son as well. Son working, but left message about above information and SW can offer assistance for providing resources to nonskilled HHC, SNF or AL choices. Will continue to follow. Izzy Huggins, FISHERIES DIRECTOR RIM TURNING MACHINE OPERATOR
[2020-01-28 11:05] LABS: Bedside Glucose 211 mg/dL (70-110)
--- NOTE | 2020-01-28 11:49 | PHA.DC.MR ---
Pharmacy Service has performed discharge medication reconciliation for this patient. The patient's discharge medication list was reviewed for discrepancies and discrepancies were resolved. Home Medications Ascorbic Acid [Vitamin C] 500 mg PO DAILY@0800 11/20/14 Atorvastatin Calcium [Lipitor] 40 mg PO QHS 11/20/14 Calcium Carbonate [Calcium] 600 mg PO DAILY 11/20/14 Cyanocobalamin (Vitamin B-12) 1,000 mcg SC QMONTH 11/20/14 Gabapentin [Neurontin] 600 mg PO TID 11/20/14 Irbesartan [Avapro] 150 mg PO QHS 11/20/14 Levothyroxine [Synthroid] 100 mcg PO DAILY 11/20/14 Metformin HCl [Glucophage Xr] 750 mg PO DAILY 11/20/14 Multivit-Min/FA/Lycopen/Lutein [Centrum Silver Tablet] 1 each PO DAILY 11/20/14 Omeprazole [Prilosec] 20 mg PO DAILY 11/20/14 Diphenoxylate HCl/Atropine [Diphenoxylate-Atrop 2.5-0.025] 2 ea PO Q8H PRN PRN 01/04/20 Ketorolac Tromethamine [Acular LS] 1 drp RIGHT EYE 4X/DAY 01/04/20 Melatonin 10 mg PO 2000 01/04/20 Ropinirole HCl 2 mg PO QHS 01/04/20 Sarilumab [Kevzara] 200 mg SQ QWEEK 01/04/20 Turmeric Root Extract [Turmeric] 500 mg PO DAILY 01/04/20 Vit C/E/Zn/Coppr/Lutein/Zeaxan [Preservision Areds 2 Softgel] 1 ea PO BIDCM 01/04/20 Zolpidem Tartrate [Zolpidem Tartrate ER] 12.5 mg PO QHS 01/04/20 Ergocalciferol [Vitamin D] 50,000 unit PO MO 01/05/20 Calcium (Elemental) [Os-Humble 500] 500 mg PO DAILYCM tab 01/06/20 Potassium Chloride [K-Dur] 20 meq PO DAILYCM 01/06/20 Vitamin E 400 units PO DAILY@1200 01/06/20 traMADol [Ultram] 50 mg PO Q6H PRN PRN 3 Days #10 tab 01/06/20 Acetaminophen [Tylenol] 1,000 mg PO Q6H PRN PRN tab 01/27/20 Diphenoxylate/Atrop [Lomotil] 2 tab PO TIDCM tab 01/27/20 Fluoxetine [Prozac] 40 mg PO DAILY #30 cap 01/27/20 Insulin Glargine [Lantus SoloStar Pen] 10 units SC BID pen 01/27/20 Nystatin Powder [Mycostatin Powder] 1 applic TOPICAL BID bottle 01/27/20
[2020-01-28] MEDS: Insulin Lispro 100 UNIT/ML INSULN.PEN SC ×2 (13:00→18:52)
[2020-01-28 16:00] VITALS: BP 126/60; PULSE 95; RESP 18; TEMP 36.6; O2SAT 93
[2020-01-28 16:26] LABS: Bedside Glucose 187 mg/dL (70-110)
--- NOTE | 2020-01-28 18:29 | PCA ---
CODING DIRECTOR went to assist patient to bathroom. Patient unable to sit forward without assistance from CODING DIRECTOR. Stated they were going to need some help getting up and made little effort to try her own. CODING DIRECTOR had to assist with standing, and patient needed help pulling down pants in the bathroom, stating they could not do it on their own.
[2020-01-28 21:11] LABS: Bedside Glucose 190 mg/dL (70-110)
[2020-01-28] MEDS: Zolpidem Tartrate 5 MG Tablet PO (21:40)
[2020-01-28] MEDS: MELATONIN 10 MG TABLET PO (21:40)
[2020-01-28] MEDS: Losartan Potassium 50 MG Tablet PO (21:41)
[2020-01-28] MEDS: Atorvastatin Calcium 40 MG Tablet PO (21:41)
[2020-01-28] MEDS: traMADol 50 MG Tablet 100 MG PO (23:11)
[2020-01-29 06:27] VITALS: BP 130/62; PULSE 94; RESP 18; TEMP 37.2; O2SAT 93
[2020-01-29] MEDS: Mag Hydrox/Al Hydrox/Simeth 30 ML UDC PO (06:27)
[2020-01-29] MEDS: Nystatin Powder 15gm Bottle 1 APPLIC TOPICAL ×2 (06:33→17:43)
[2020-01-29 06:50] LABS: Bedside Glucose 173 mg/dL (70-110)
[2020-01-29] MEDS: Levothyroxine 100 MCG Tablet PO (06:59)
[2020-01-29] MEDS: Pantoprazole Sodium 20 MG Tablet PO (06:59)
--- NOTE | 2020-01-29 07:00 | NURSING ---
Pt was given mylanta for indigestion/nausea, did not want to take all her AM meds at this time, kamryn RN made aware.
--- NOTE | 2020-01-29 09:29 | NURSING ---
Mechanical Sound Technician Note: Invited resident to do a cooking activity for OT and out of room activity. Res had previously stated that she enjoys cooking at home and is discouraged about not being able to do that. Encouraged resident to choose a recipe and ingredients would be provided. Res lying in bed and stated that she is too nauseous, feeling like she is going to vomit and is unable to get up. States that her stomach is upset because of her nerves. Encouraged resident to get up, dressed and come out of room for socialization. Offered to look through cookbook with her that she has in room. Refused offers to do activity, refused offer to get up and dressed.
--- NOTE | 2020-01-29 09:31 | NURSING ---
pt still with c/o nausea this AM. held humalog d/t pt not wanting to eat brkfst. assisted pt to BR x2 SB assist for safety. Back to bed. resting. dr johnson updated, new order for PRN sigridfran.
[2020-01-29] MEDS: Ondansetron ODT 4 MG Tablet PO (09:36)
[2020-01-29 09:38] VITALS: PULSE 90; RESP 16; O2SAT 91
--- NOTE | 2020-01-29 09:47 | NURSING ---
clinton given, pt states she gets nauseated at home too, not a new issue. Will monitor, will attempt to give 0800 meds in approx 15 minutes per pt request
[2020-01-29] MEDS: Gabapentin 800 MG Tablet PO ×3 (10:09→17:43)
[2020-01-29] MEDS: Calcium Carbonate 500 MG Tablet PO (10:10)
[2020-01-29] MEDS: Multivitamins,Ther W-Minerals Tablet 1 TABLET PO (10:10)
[2020-01-29] MEDS: Ascorbic Acid 500 MG Tablet PO (10:10)
[2020-01-29] MEDS: METFORMIN HCL 750 MG TAB.ER.24H PO (10:10)
[2020-01-29] MEDS: VIT C/E/ZN/COPPR/LUTEIN/ZEAXAN 1 EACH CAPSULE PO ×2 (10:11→17:42)
[2020-01-29] MEDS: FLUoxetine 20 MG Capsule 40 MG PO (10:11)
--- NOTE | 2020-01-29 10:24 | NURSING ---
pt resting in bed, HOB elevated, pt began coughing on potassium med that was split for easier swallowing. pt gagging as soon as it hit her tongue. pt states i have a hard time with big pills difficulty with meds has not been witnessed by this nurse since admission.
[2020-01-29 10:55] LABS: Bedside Glucose 160 mg/dL (70-110)
[2020-01-29] MEDS: Insulin Lispro 100 UNIT/ML INSULN.PEN SC (12:06)
[2020-01-29] MEDS: Diphenoxylate/Atrop 1 Tablet 2 TABLET PO ×2 (12:07→17:42)
[2020-01-29 13:12] VITALS: BP 127/66; PULSE 99; RESP 17; TEMP 36.9; O2SAT 94
[2020-01-29 16:16] LABS: Bedside Glucose 142 mg/dL (70-110)
--- NOTE | 2020-01-29 19:21 | PCA ---
patient did not wish to wash up tonight. Therapy will be helping patient with ADLs in the morning and she would like to wait until then
[2020-01-29] MEDS: Zolpidem Tartrate 5 MG Tablet PO (20:37)
[2020-01-29] MEDS: Losartan Potassium 50 MG Tablet PO (20:39)
[2020-01-29] MEDS: Atorvastatin Calcium 40 MG Tablet PO (20:39)
[2020-01-29] MEDS: MELATONIN 10 MG TABLET PO (20:40)
[2020-01-29 21:06] LABS: Bedside Glucose 189 mg/dL (70-110)
[2020-01-30 04:50] VITALS: BP 135/67; PULSE 98; RESP 18; TEMP 36.9; O2SAT 92
[2020-01-30] MEDS: Levothyroxine 100 MCG Tablet PO (04:54)
[2020-01-30] MEDS: Pantoprazole Sodium 20 MG Tablet PO (04:54)
[2020-01-30] MEDS: FLUoxetine 20 MG Capsule 40 MG PO (04:54)
[2020-01-30] MEDS: Gabapentin 800 MG Tablet PO ×3 (04:54→17:41)
[2020-01-30] MEDS: Nystatin Powder 15gm Bottle 1 APPLIC TOPICAL ×2 (04:58→17:40)
[2020-01-30 06:30] LABS: Bedside Glucose 138 mg/dL (70-110)
[2020-01-30] MEDS: Diphenoxylate/Atrop 1 Tablet 2 TABLET PO ×3 (07:55→17:43)
[2020-01-30] MEDS: VIT C/E/ZN/COPPR/LUTEIN/ZEAXAN 1 EACH CAPSULE PO ×2 (07:57→17:39)
[2020-01-30] MEDS: Multivitamins,Ther W-Minerals Tablet 1 TABLET PO (07:57)
[2020-01-30] MEDS: METFORMIN HCL 750 MG TAB.ER.24H PO (07:57)
[2020-01-30] MEDS: Calcium Carbonate 500 MG Tablet PO (07:58)
[2020-01-30] MEDS: Ascorbic Acid 500 MG Tablet PO (07:58)
--- NOTE | 2020-01-30 10:35 | CASEMGMT ---
Social Work Spoke with pt's son about an alternative plan for pt's DC. Son and pt spoke at length about DC plans and pt's current progress. Son stated he gave encouragement to pt to work through pain/nausea, etc to participate to her best ability in therapy. Discussed how pt can be self-limiting and, at this time, she requires a higher level of assistance than what would be safe for her to DC home alone. Explained IDT is recommending SNF for continued care before pt would DC home. However, there are options to pay nonskilled HHC to assist, but staffing is challenging in the area. Son would like to see pt return home but based on her current levels it would be best for her to go to a SNF. Explained a SNF would be private pay room and board, and she could choose an in network facility for Part B therapy benefits or she would pay out of pocket for therapy as well. Emailed list of SNFs, nonskilled HHC and [facility] resources to son, as well as provided to pt. Son stated he would like pt to ultimately decide if she wants to go home or to a SNF. SW to speak with pt. Son is aware insurance update is this date and continued stay is not guaranteed. Spoke with pt about above conversation with pt. Pt stated she feels like she has no other choice but to go to a SNF. Explained she absolutely has a choice, and does not have to follow IDT recommendations. IDT cannot, at this time, confidently state she would be safe at home alone. Pt stated, I understand, me neither, so I can go to a SNF. Provided SNF list to pt and explained how to research on the internet. Will continue to follow. Izzy Huggins, SEN COAL HANDLING SUPERVISOR
[2020-01-30 10:51] LABS: Bedside Glucose 159 mg/dL (70-110)
[2020-01-30] MEDS: Insulin Lispro 100 UNIT/ML INSULN.PEN SC ×2 (11:35→17:38)
[2020-01-30 13:51] VITALS: BP 118/56; PULSE 92; RESP 18; TEMP 36.6; O2SAT 90
--- NOTE | 2020-01-30 16:15 | NURSING ---
Resident and son, Ok, notified of staff testing positive for COVID.
[2020-01-30 16:45] LABS: Bedside Glucose 161 mg/dL (70-110)
[2020-01-30] MEDS: Zolpidem Tartrate 5 MG Tablet PO (20:13)
[2020-01-30] MEDS: Losartan Potassium 50 MG Tablet PO (20:15)
[2020-01-30] MEDS: MELATONIN 10 MG TABLET PO (20:15)
[2020-01-30] MEDS: Atorvastatin Calcium 40 MG Tablet PO (20:15)
[2020-01-30 21:25] LABS: Bedside Glucose 204 mg/dL (70-110)
[2020-01-31 05:28] VITALS: BP 143/62; PULSE 101; RESP 18; TEMP 37.2; O2SAT 91
[2020-01-31] MEDS: Levothyroxine 100 MCG Tablet PO (05:30)
[2020-01-31] MEDS: Gabapentin 800 MG Tablet PO ×3 (05:30→17:35)
[2020-01-31] MEDS: FLUoxetine 20 MG Capsule 40 MG PO (05:30)
[2020-01-31] MEDS: traMADol 50 MG Tablet 100 MG PO ×2 (05:30→21:41)
[2020-01-31] MEDS: Pantoprazole Sodium 20 MG Tablet PO (05:30)
[2020-01-31] MEDS: Nystatin Powder 15gm Bottle 1 APPLIC TOPICAL ×2 (05:31→17:35)
[2020-01-31 06:46] LABS: Bedside Glucose 162 mg/dL (70-110)
[2020-01-31] MEDS: Multivitamins,Ther W-Minerals Tablet 1 TABLET PO (08:44)
[2020-01-31] MEDS: Diphenoxylate/Atrop 1 Tablet 2 TABLET PO ×3 (08:45→17:38)
[2020-01-31] MEDS: VIT C/E/ZN/COPPR/LUTEIN/ZEAXAN 1 EACH CAPSULE PO ×2 (08:45→17:33)
[2020-01-31] MEDS: Insulin Lispro 100 UNIT/ML INSULN.PEN SC ×3 (08:47→17:33)
[2020-01-31] MEDS: METFORMIN HCL 750 MG TAB.ER.24H PO (09:07)
[2020-01-31 11:16] LABS: Bedside Glucose 151 mg/dL (70-110)
[2020-01-31 13:25] VITALS: BP 124/55; PULSE 92; RESP 16; TEMP 37; O2SAT 90
[2020-01-31 16:25] LABS: Bedside Glucose 150 mg/dL (70-110)
--- NOTE | 2020-01-31 20:29 | NURSING ---
During assessment pt mentioned that she can't taste anything today, had pt smell a few things from her tray and she states she can smell slightly, also c/o nausea, updated and order for covid test received.
[2020-01-31] MEDS: MELATONIN 10 MG TABLET PO (20:34)
[2020-01-31] MEDS: Atorvastatin Calcium 40 MG Tablet PO (20:34)
[2020-01-31] MEDS: Losartan Potassium 50 MG Tablet PO (20:34)
[2020-01-31 21:26] LABS: Bedside Glucose 175 mg/dL (70-110)
[2020-01-31] MEDS: Zolpidem Tartrate 5 MG Tablet PO (21:38)
[2020-01-31 22:32] LABS: Probe Check PASS; Specimen Processing Control PASS
[2020-02-01 05:52] VITALS: BP 130/64; PULSE 98; RESP 18; TEMP 36; O2SAT 93
[2020-02-01] MEDS: Levothyroxine 100 MCG Tablet PO (05:57)
[2020-02-01] MEDS: Pantoprazole Sodium 20 MG Tablet PO (05:57)
[2020-02-01] MEDS: FLUoxetine 20 MG Capsule 40 MG PO (05:57)
[2020-02-01] MEDS: Gabapentin 800 MG Tablet PO ×3 (05:57→17:20)
[2020-02-01] MEDS: Nystatin Powder 15gm Bottle 1 APPLIC TOPICAL ×2 (05:57→17:24)
[2020-02-01 06:26] LABS: Bedside Glucose 145 mg/dL (70-110)
[2020-02-01 06:56] VITALS: O2SAT 96
[2020-02-01] MEDS: Multivitamins,Ther W-Minerals Tablet 1 TABLET PO (08:38)
[2020-02-01] MEDS: VIT C/E/ZN/COPPR/LUTEIN/ZEAXAN 1 EACH CAPSULE PO ×2 (08:38→17:20)
[2020-02-01] MEDS: METFORMIN HCL 750 MG TAB.ER.24H PO (08:38)
[2020-02-01] MEDS: Diphenoxylate/Atrop 1 Tablet 2 TABLET PO ×3 (08:44→17:20)
[2020-02-01 10:00] VITALS: PULSE 96; O2SAT 94
[2020-02-01 11:20] LABS: Bedside Glucose 191 mg/dL (70-110)
[2020-02-01] MEDS: Insulin Lispro 100 UNIT/ML INSULN.PEN SC ×2 (12:05→17:18)
[2020-02-01] MEDS: Mag Hydrox/Al Hydrox/Simeth 30 ML UDC PO (12:05)
[2020-02-01 13:47] VITALS: BP 130/57; PULSE 91; RESP 16; TEMP 36.6; O2SAT 94
[2020-02-01 16:25] LABS: Bedside Glucose 167 mg/dL (70-110)
[2020-02-01] MEDS: Zolpidem Tartrate 5 MG Tablet PO (20:31)
[2020-02-01] MEDS: Losartan Potassium 50 MG Tablet PO (20:32)
[2020-02-01] MEDS: Atorvastatin Calcium 40 MG Tablet PO (20:32)
[2020-02-01] MEDS: MELATONIN 10 MG TABLET PO (20:33)
[2020-02-01 21:15] LABS: Bedside Glucose 187 mg/dL (70-110)
[2020-02-02 05:06] VITALS: BP 129/57; PULSE 93; RESP 16; TEMP 36.6; O2SAT 93
[2020-02-02] MEDS: Levothyroxine 100 MCG Tablet PO (05:12)
[2020-02-02] MEDS: Pantoprazole Sodium 20 MG Tablet PO (05:12)
[2020-02-02] MEDS: Gabapentin 800 MG Tablet PO ×3 (05:12→18:11)
[2020-02-02] MEDS: FLUoxetine 20 MG Capsule 40 MG PO (05:12)
[2020-02-02] MEDS: Nystatin Powder 15gm Bottle 1 APPLIC TOPICAL ×2 (05:13→18:13)
[2020-02-02 06:25] LABS: Bedside Glucose 122 mg/dL (70-110)
[2020-02-02 06:46] VITALS: O2SAT 97
[2020-02-02] MEDS: METFORMIN HCL 750 MG TAB.ER.24H PO (08:40)
[2020-02-02] MEDS: VIT C/E/ZN/COPPR/LUTEIN/ZEAXAN 1 EACH CAPSULE PO ×2 (08:40→18:11)
[2020-02-02] MEDS: Multivitamins,Ther W-Minerals Tablet 1 TABLET PO (08:40)
[2020-02-02] MEDS: Calcium Carbonate 500 MG Tablet PO (08:40)
[2020-02-02] MEDS: Ascorbic Acid 500 MG Tablet PO (08:40)
[2020-02-02] MEDS: Diphenoxylate/Atrop 1 Tablet 2 TABLET PO ×3 (09:18→18:17)
[2020-02-02 10:40] LABS: Bedside Glucose 177 mg/dL (70-110)
[2020-02-02] MEDS: Ondansetron ODT 4 MG Tablet PO (11:04)
--- NOTE | 2020-02-02 11:07 | NURSING ---
Addendum entered by Lizeth George 02/02/20 18:20: Dr Walsh in room and talks with resident about her concerns. Original Note: Resident reports feeling nauseas and is refusing therapy at this time. States she feels down, depressed, overwhelmed about her condition and the way she feels. She is tired of feeling nauseaus. States she wished she did not have to take so many pills and she wished she could talk to Dr Dejesus as he seems to be able to manage my health so well. She does not want to go to a halfway but feels like its her only option at this point. She reports that any bit of activity, like sitting in a chair, leaves her so exhausted. Zofran given at this time. She will rest till lunch and then try and eat so she can do therapy later today. Will address resident concerns with Dr Walsh.
[2020-02-02] MEDS: Insulin Lispro 100 UNIT/ML INSULN.PEN SC (12:10)
[2020-02-02 13:57] VITALS: BP 127/61; PULSE 90; RESP 16; TEMP 36.7; O2SAT 94
[2020-02-02 16:45] LABS: Bedside Glucose 119 mg/dL (70-110)
--- NOTE | 2020-02-02 19:59 | PN_ITS ---
Subjective: Resident seen for regulatory visit. She is lying in bed, nursing staff stated resident feels she takes too many medications. I know it is a fact resident takes too many medications, but I reminded Obdulia she is the one who warned me not to change her medications, so I let her know I understood that to me she likes taking multiple medications. I let her know if there are any medications she would like to stop, let nursing staff know and I will be more than happy to stop them. All medications which have been added while on TCU are by resident request. Obdulia feels there is a pill for every ill and that is the motto she lives by. Vitals/I&O's: Vital Signs Temp Pulse Resp BP Pulse Ox 98.0 F 90 16 127/61 H 94 02/02/20 13:57 02/02/20 13:57 02/02/20 13:57 02/02/20 13:57 02/02/20 13:57 Oxygen Flow Rate (L/min) 2 Oxygen Delivery Method Nasal Cannula Weight: 111.244 kg Body Mass Index (BMI) 40.0 Intake and Output for Last 24 Hours 01/31/20 02/01/20 02/02/20 23:59 23:59 23:59 Intake Total 600 / 600 560 / 560 300 / 300 Balance 600 / 600 560 / 560 300 / 300 Laboratory Results 02/01/20 21:06: POC Glucose 187 H 02/02/20 06:13: POC Glucose 122 H 02/02/20 10:32: POC Glucose 177 H 02/02/20 16:27: POC Glucose 119 H Past Medical History Past Medical History (Chronic Problems): Chronic Problems (Last Reviewed 01/04/20 @ 23:[address] Pio York, DO) Back pain (Chronic) Neuropathic pain (Chronic) Compression fracture of lumbosacral spine (Chronic) Vitamin D deficiency (Chronic) Neuropathic pain (Chronic) Edema (Chronic) Vitamin B12 deficiency (Chronic) Sjogrens syndrome (Chronic) Gout (Chronic) Hyperlipidemia (Chronic) Hypertension (Chronic) Diabetes mellitus (Chronic) Sleep apnea (Chronic) Insomnia (Chronic) Restless legs syndrome (Chronic) Hypokalemia (Chronic) GERD (gastroesophageal reflux disease) (Chronic) Hypothyroidism (Chronic) Osteoarthritis, shoulder (Chronic) Medical History: Medical History (Last Reviewed 01/04/20 @ 23:[address] Pio York, DO) Acquired hypothyroidism E03.9 Anemia D64.9 Benign essential hypertension I10 Depression F32.9 Diabetes mellitus with diabetic polyneuropathy, with long-term current use of insulin E11.42, Z79.4 Fibromyalgia M79.7 IBS (irritable bowel syndrome) K58.9 Rheumatoid arthritis M06.9 Allergies cyclobenzaprine Allergy (Verified 01/12/20 14:58) Unknown doxepin Allergy (Verified 01/12/20 14:58) Unknown hydromorphone HCl [From Dilaudid] Allergy (Verified 01/12/20 14:58) Unknown prednisone Allergy (Verified 01/12/20 14:58) Unknown pregabalin [From Lyrica] Allergy (Verified 01/12/20 14:58) Unknown acetaminophen [From Percocet] Adverse Reaction (Verified 01/12/20 14:58) HALLUCINATION hydrocodone bitartrate [From Vicodin] Adverse Reaction (Verified 01/12/20 14:58) HALLUCINATIONS oxycodone HCl [From Percocet] Adverse Reaction (Verified 01/12/20 14:58) HALLUCINATION Home Medications: Ambulatory Orders Medication Instructions Recorded Ascorbic Acid [Vitamin C] 500 mg PO DAILY@0800 11/20/14 Atorvastatin Calcium [Lipitor] 40 mg PO QHS 11/20/14 Calcium Carbonate [Calcium] 600 mg PO DAILY 11/20/14 Cyanocobalamin (Vitamin B-12) 1,000 mcg SC QMONTH 11/20/14 Gabapentin [Neurontin] 600 mg PO TID 11/20/14 Irbesartan [Avapro] 150 mg PO QHS 11/20/14 Levothyroxine [Synthroid] 100 mcg PO DAILY 11/20/14 Metformin HCl [Glucophage Xr] 750 mg PO DAILY 11/20/14 Multivit-Min/FA/Lycopen/Lutein 1 each PO DAILY 11/20/14 [Centrum Silver Tablet] Omeprazole [Prilosec] 20 mg PO DAILY 11/20/14 Diphenoxylate HCl/Atropine 2 ea PO Q8H PRN PRN 01/04/20 [Diphenoxylate-Atrop 2.5-0.025] Ketorolac Tromethamine [Acular LS] 1 drp RIGHT EYE 4X/DAY 01/04/20 Melatonin 10 mg PO 2000 01/04/20 Ropinirole HCl 2 mg PO QHS 01/04/20 Sarilumab [Kevzara] 200 mg SQ QWEEK 01/04/20 Turmeric Root Extract [Turmeric] 500 mg PO DAILY 01/04/20 Vit C/E/Zn/Coppr/Lutein/Zeaxan 1 ea PO BIDCM 01/04/20 [Preservision Areds 2 Softgel] Zolpidem Tartrate [Zolpidem 12.5 mg PO QHS 01/04/20 Tartrate ER] Ergocalciferol [Vitamin D] 50,000 unit PO MO 01/05/20 Calcium (Elemental) [Os-Humble 500] 500 mg PO DAILYCM tab 01/06/20 Potassium Chloride [K-Dur] 20 meq PO DAILYCM 01/06/20 Vitamin E 400 units PO DAILY@1200 01/06/20 traMADol [Ultram] 50 mg PO Q6H PRN PRN 3 Days #10 tab 01/06/20 Acetaminophen [Tylenol] 1,000 mg PO Q6H PRN PRN tab 01/27/20 Diphenoxylate/Atrop [Lomotil] 2 tab PO TIDCM tab 01/27/20 Fluoxetine [Prozac] 40 mg PO DAILY #30 cap 01/27/20 Insulin Glargine [Lantus SoloStar 10 units SC BID pen 01/27/20 Pen] Nystatin Powder [Mycostatin Powder] 1 applic TOPICAL BID bottle 01/27/20 Surgical History: Surgical History (Last Updated 01/12/20 @ 14:53 by Maria Del Rosario Culp) H/O shoulder surgery Z98.890 2017, Right shoulder History of ankle surgery Z98.890 History of bilateral knee replacement Z96.653 History of carpal tunnel surgery Z98.890 History of cystoscopy Z98.890 History of total hysterectomy Z90.710 Surgical History: hysterectomy, total knee arthroplasty - Bilateral., - - Right ankle surgery, Left leg ORIF, carpal tunnel surgery, trigger finger, Right shoulder arthroplasty. Psychiatric History: Depression FACTORY REPRESENTATIVE History: No pertinent FACTORY REPRESENTATIVE history Lives: Alone Smoking Status: Never smoker Tobacco Use: Non-smoker Alcohol: None Drugs: None - *Family History Maternal Family History: Family History (Last Updated 01/12/20 @ 14:59 by Maria Del Rosario Culp) Brother Diabetes Grandmother Diabetes Father Colon cancer CVA (cerebral vascular accident) Mother Hypertension History Items: No pertinent history Paternal Family History: Family History (Last Updated 01/12/20 @ 14:59 by Maria Del Rosario Culp) Brother Diabetes Grandmother Diabetes Father Colon cancer CVA (cerebral vascular accident) Mother Hypertension History Items: No pertinent history Capacity - Capacity Assessment Tool Can the patient make a choice & communicate that choice?: Yes Can the patient understand benefits, risks and alternatives?: Yes Can the patient make a logical, rational choice?: Yes Is the choice the patient makes consistent w/ their values?: No Is there an impending, emergent risk to the patient?: No Does the patient have an Advance Directive?: Yes Is there a Surrogate Available?: Yes i.e. HCPOA: Yes i.e. close relative (spouse, child, parent, sibling)?: Yes Review of Systems Constitutional: Denies: Chills, Fever, Weight Change HEENT: Denies: Head Aches, Sinus Congestion, Sinus Drainage Cardiovascular: Denies: Chest Pain, Palpitations Respiratory: Denies: Cough, Shortness of breath at rest, Sputum production Gastrointestinal: Denies: Abdominal Pain, Nausea, Vomiting Genitourinary: Denies: Dysuria Musculoskeletal: Denies: Joint Pain, Joint Tenderness Skin: Denies: Rash, Wounds Neurological: Denies: Numbness, Tingling, Focal weakness Psychiatric: Denies: Anxiety, Depression, Homicidal Ideations, Suicidal Ideations Hematologic/ Lymphatic: Denies: Easy Bruising, Easy Bleeding Patient Problems: Active and Suspected Problems (Last Reviewed 01/04/20 @ 23:[address] Pio York, DO) Debility (Acute) Low back pain (Acute) UTI (urinary tract infection) (Acute) - Physical Exam Vitals/I&O's: Vital Signs Temp Pulse Resp BP Pulse Ox 98.0 F 90 16 127/61 H 94 02/02/20 13:57 02/02/20 13:57 02/02/20 13:57 02/02/20 13:57 02/02/20 13:57 Oxygen Flow Rate (L/min) 2 Oxygen Delivery Method Nasal Cannula Weight: 111.244 kg Body Mass Index (BMI) 40.0 Intake and Output for Last 24 Hours 01/31/20 02/01/20 02/02/20 23:59 23:59 23:59 Intake Total 600 / 600 560 / 560 300 / 300 Balance 600 / 600 560 / 560 300 / 300 General: Alert, Oriented x3, Cooperative HEENT: Atraumatic, PERRLA, EOMI, Normocephalic Neck: Supple, No JVD, Negative Carotid Bruits Lungs: Clear to auscultation, Normal air movement Cardiovascular: Regular rate, No murmurs Abdomen: Bowel Sounds Present, Soft, Non Tender Extremities: No edema, Capillary Refill Less than 3 Seconds Skin: No rashes, No breakdown Musculoskeletal: No Tenderness to Palpation of Joints or Extremities Neurological: Cranial nerves II-XII grossly intact Psych/Mental Status: Normal Affect, Appropriate Laboratory Results 02/01/20 21:06: POC Glucose 187 H 02/02/20 06:13: POC Glucose 122 H 02/02/20 10:32: POC Glucose 177 H 02/02/20 16:27: POC Glucose 119 H Current Medications Acetaminophen (Acetaminophen 500 Mg Tablet) 1,000 mg PO Q6H PRN PRN PRN Reason: Pain Score 1-5 Last Admin: 01/26/20 21:01 Dose: 1,000 mg Documented by: Al Hydroxide/Mg Hydroxide (Mag Hydrox/Al Hydrox/Simeth 30 Ml Udc) 30 ml PO Q4H PRN PRN PRN Reason: INDIGESTION Last Admin: 02/01/20 12:05 Dose: 30 ml Documented by: Atorvastatin Calcium (Atorvastatin Calcium 40 Mg Tablet) 40 mg PO QHS [facility] Last Admin: 02/01/20 20:32 Dose: 40 mg Documented by: Bisacodyl (Bisacodyl 10 Mg Suppository) 10 mg RECTAL DAILY PRN PRN Reason: Constipation Calcium Carbonate (Calcium Carbonate 500 Mg Tablet) [facility] Last Admin: 02/02/20 08:40 Dose: 500 mg Documented by: Cyanocobalamin (Cyanocobalamin (B12) 1,000 Mcg/Ml Vial) 1,000 mcg SC QMONTH [facility] Last Admin: 01/18/20 04:23 Dose: 1,000 mcg Documented by: Diphenoxylate HCl/Atropine (Diphenoxylate/Atrop 1 Tablet) 2 tablet PO TIDCM [facility] Last Admin: 02/02/20 18:17 Dose: 2 tablet Documented by: Ergocalciferol (Ergocalciferol 50,000 Unit Capsule) 50,000 unit PO MO [facility] Last Admin: 02/02/20 08:41 Dose: 50,000 unit Documented by: Fluoxetine HCl (Fluoxetine 20 Mg Capsule) 40 mg PO DAILY [facility] Last Admin: 02/02/20 05:12 Dose: 40 mg Documented by: Gabapentin (Gabapentin 800 Mg Tablet) 800 mg PO 0600,1200,1800 [facility] Last Admin: 02/02/20 18:11 Dose: 800 mg Documented by: Hydrocortisone (Hydrocortisone 2.5% Crm) 1 applic TOPICAL BID PRN PRN; Protocol PRN Reason: Hemorrhoids Last Admin: 01/17/20 22:57 Dose: 1 applicatio Documented by: Hydrocortisone Acetate (Hydrocortisone 25 Mg Suppository) 25 mg RECTAL BID PRN PRN PRN Reason: Hemorrhoids Last Admin: 01/25/20 18:36 Dose: 25 mg Documented by: Insulin Glargine (Insulin Glargine 100 Units/Ml Pen) 10 units SC BID [facility] Last Admin: 02/02/20 18:12 Dose: 10 units Documented by: Insulin Human Lispro (Insulin Lispro 100 Unit/Ml Insuln.Pen) 0 unit SC TIDAC [facility]; Protocol Last Admin: 02/02/20 18:09 Dose: Not Given Documented by: Ketorolac Tromethamine (Ketorolac Tromethamine 5 Ml Drops) 1 drop RIGHT EYE 4X/DAY [facility] Last Admin: 02/02/20 18:10 Dose: 1 drop Documented by: Levothyroxine Sodium (Levothyroxine 100 Mcg Tablet) 100 mcg PO DAILY [facility] Last Admin: 02/02/20 05:12 Dose: 100 mcg Documented by: Losartan Potassium (Losartan Potassium 50 Mg Tablet) 50 mg PO QHS [facility] Last Admin: 02/01/20 20:32 Dose: 50 mg Documented by: Melatonin (Melatonin 10 Mg Tablet) 10 mg PO 1999 [facility] Last Admin: 02/01/20 20:33 Dose: 10 mg Documented by: Metformin HCl (Metformin Hcl 750 Mg Tab.Er.24h) 750 mg PO DAILYCM [facility] Last Admin: 02/02/20 08:40 Dose: 750 mg Documented by: Multi-Ingredient Cream (Mineral Oil/Petrolatum,White Jar) 1 applic TOPICAL BID PRN PRN; Protocol PRN Reason: DRY SKIN Multivitamins/Minerals (Multivitamins,Ther W-Minerals Tablet) 1 tablet PO DAILY@0800 [facility] Last Admin: 02/02/20 08:40 Dose: 1 tablet Documented by: Nystatin (Nystatin Powder 15gm Bottle) 1 applic TOPICAL BID [facility]; Protocol Last Admin: 02/02/20 18:13 Dose: 1 applicatio Documented by: Ondansetron HCl (Ondansetron Odt 4 Mg Tablet) 4 mg PO Q6H PRN PRN PRN Reason: NAUSEA Last Admin: 02/02/20 11:04 Dose: 4 mg Documented by: Pantoprazole Sodium (Pantoprazole Sodium 20 Mg Tablet) 20 mg PO DAILY [facility] Last Admin: 02/02/20 05:12 Dose: 20 mg Documented by: Potassium Chloride (Potassium Chloride 20 Meq Tablet) [facility] Last Admin: 02/02/20 08:40 Dose: 20 meq Documented by: Ropinirole HCl (Ropinirole Hcl 0.5 Mg Tablet) 2 mg PO QHS [facility] Last Admin: 02/01/20 20:31 Dose: 2 mg Documented by: Sodium Chloride (0.9% Saline Lock 10 Ml Syringe) 10 - 40 ml IV UD PRN PRN Reason: SALINE FLUSH Tramadol HCl (Tramadol 50 Mg Tablet) 100 mg PO Q6H PRN PRN PRN Reason: Pain Score 6-10 Last Admin: 01/31/20 21:41 Dose: 100 mg Documented by: Zolpidem Tartrate (Zolpidem Tartrate 5 Mg Tablet) 5 mg PO QHS [facility] Last Admin: 02/01/20 20:31 Dose: 5 mg Documented by: Assessment/Plan All Active Problems (Last Reviewed 01/04/20 @ 23:[address] Pio York, DO) Decreased ambulation status (Acute) Debility (Acute) Low back pain (Acute) UTI (urinary tract infection) (Acute) 74 year old female with below past medical hospitalized for intractable low back pain, complicated by E. Coli urinary tract infection, admitted to TCU with debility, here for rehabilitation, strengthening, prior to discharge home alone. * Debility - PT/OT. * Pain - Tylenol 1000MG Q6H PRN pain (1-5), Tramadol 100MG Q6H PRN pain (6-10). * Bowel - Lomotil 2 tablets TIDCM, Dulcolax 10MG [place] daily PRN. * Adult immunization - Administer Prevnar 13, Pneumovax 23, Fluzone as appropriate. * DVT prophylaxis - Hold. * Hyperlipidemia - Atorvastatin 40MG QHS. * Indigestion - Pantoprazole 20MG daily, TUMS 500MG daily, Mylanta II 30ML Q6H PRN. * Vitamin B12 deficiency - B12 1000MCG SC Qmonth. * Vitamin D deficiency - D2 50,000 units per month. * Depression - Fluoxetine 40Mg daily, stable chronic group home use, GDR not recommended. * Neuropathic pain -Gabapentin 800MG TIDCM. * Diabetes Mellitus II - Metformin 750MG daily, Lantus 10 units BID, Humalog SSI. * Conjunctivitis - Ketorolac 1GTT OD 4x/day. * Hypothyroidism - Levothyroxine 100MCG daily. * Hypertension - Losartan 50MG QHS. * Insomnia - Melatonin 10MG QHS. * Nutrition - MVI daily. * Restless leg syndrome - Ropinirole 2MG QHS. * Rheumatoid Arthritis - Kevzara 200MG SC Qweek. * Insomnia - Zolpidem 5MG QHS. * Hemorrhoids - Hydrocortisone 25MG rectal BID PRN. * Rash - Hytone 2.5% top BID PRN. * Skin irritation - Eucerin topical BID PRN. * Tinea Corporis - Nystatin topical BID. * Nausea - Zofran 4M Q6H PRN. * Macular Degeneration - Preservision 1 tablet BID. * Polypharmacy - Recommend working with primary care provider as outpatient to decrease burden of taking so many unnecessary medications.
[2020-02-02] MEDS: Atorvastatin Calcium 40 MG Tablet PO (21:08)
[2020-02-02] MEDS: MELATONIN 10 MG TABLET PO (21:08)
[2020-02-02] MEDS: Zolpidem Tartrate 5 MG Tablet PO (21:08)
[2020-02-02] MEDS: Losartan Potassium 50 MG Tablet PO (21:09)
[2020-02-02 21:20] LABS: Bedside Glucose 112 mg/dL (70-110)
[2020-02-03 05:32] VITALS: BP 139/73; PULSE 97; RESP 16; TEMP 36.7; O2SAT 92
[2020-02-03] MEDS: Gabapentin 800 MG Tablet PO ×3 (05:34→17:20)
[2020-02-03] MEDS: traMADol 50 MG Tablet 100 MG PO ×2 (05:34→17:25)
[2020-02-03] MEDS: FLUoxetine 20 MG Capsule 40 MG PO (05:35)
[2020-02-03] MEDS: Levothyroxine 100 MCG Tablet PO (05:35)
[2020-02-03] MEDS: Pantoprazole Sodium 20 MG Tablet PO (05:35)
[2020-02-03] MEDS: Nystatin Powder 15gm Bottle 1 APPLIC TOPICAL ×2 (05:37→17:22)
[2020-02-03 06:36] LABS: Bedside Glucose 102 mg/dL (70-110)
[2020-02-03] MEDS: METFORMIN HCL 750 MG TAB.ER.24H PO (09:18)
[2020-02-03] MEDS: Diphenoxylate/Atrop 1 Tablet 2 TABLET PO ×3 (09:18→17:25)
[2020-02-03] MEDS: Calcium Carbonate 500 MG Tablet PO (09:19)
[2020-02-03] MEDS: Multivitamins,Ther W-Minerals Tablet 1 TABLET PO (09:19)
[2020-02-03] MEDS: VIT C/E/ZN/COPPR/LUTEIN/ZEAXAN 1 EACH CAPSULE PO ×2 (09:19→17:20)
[2020-02-03 11:15] LABS: Bedside Glucose 136 mg/dL (70-110)
--- NOTE | 2020-02-03 12:03 | CASEMGMT ---
Social Work Notified pt and son about that insurance approved with [employer] 02/05, but continued stay is not guaranteed. Son stated he continues to research stair lifts and will see how the week progresses. Explained pt is still struggling to participate in therapy and remains self-limiting. The insurance update is 02/05 and DC plan needs to be finalized. If the son and pt decide SNF, SW needs to begin making referrals. Son to speak with pt again and decide on plan. Will continue to follow. Izzy Huggins, TOOL DRAWING CHECKER SLOT EDITOR
[2020-02-03 13:50] VITALS: BP 112/53; PULSE 95; RESP 20; TEMP 36.4; O2SAT 91
--- NOTE | 2020-02-03 15:14 | CASEMGMT ---
Social Work Dr. Walsh spoke with pt and scheduled conference with pt and son on 02/05 at 1400. Will discuss treatment plan and possibly adjusting medications. Izzy Huggins, DIRECTOR HEMATOLOGY MENTAL HEALTH WORKER
[2020-02-03 16:15] LABS: Bedside Glucose 149 mg/dL (70-110)
[2020-02-03] MEDS: Zolpidem Tartrate 5 MG Tablet PO (21:21)
[2020-02-03] MEDS: Atorvastatin Calcium 40 MG Tablet PO (21:21)
[2020-02-03] MEDS: MELATONIN 10 MG TABLET PO (21:21)
[2020-02-03] MEDS: Losartan Potassium 50 MG Tablet PO (21:21)
[2020-02-03] MEDS: Hydrocortisone 25 MG Suppository RECTAL (21:22)
[2020-02-03 21:25] LABS: Bedside Glucose 181 mg/dL (70-110)
[2020-02-04 05:42] LABS: Absolute Lymphocyte Count 2.41 X10^3/uL (0.83-4.51); Basophil# 0.06 X10^3/uL; Basophil% 0.6 % (0-1); Eosinophil# 0.53 X10^3/uL; Eosinophils% 5.2 % (0-5); Hematocrit 40.7 % (37-47); Hemoglobin 12.5 g/dL (12.0-15.0); Lymphocyte # 2.41 X10^3/ul (4.0); Lymphocyte % 23.7 % (19-41); Mean Corp Hgb Conc 30.7 g/dL (32-36); Mean Corpuscular Hgb 30.8 pg (27.0-32.0); Mean Corpuscular Volume 100.2 fL (81-99); Mean Platelet Vol. 8.2 fl (6.2-12.0); Monocyte# 1.12 X10^3/uL; NRBC Flagged by Analyzer 0 % (0-5); Neutrophil # 6.03 X10^3/uL (2.7-7.7); Neutrophil % 59.1 % (47-70); Platelet Count 318 K/mm3 (150-450); RBC Distribution Width CV 13.7 % (11.6-14.6); RBC Distribution Width SD 50.4 fl (35.1-43.9); Red Blood Count 4.06 M/mm3 (4.2-5.4); White Blood Count 10.2 K/mm3 (4.4-11.0)
[2020-02-04 05:45] VITALS: BP 117/60; PULSE 85; RESP 18; TEMP 36.8; O2SAT 90
[2020-02-04] MEDS: FLUoxetine 20 MG Capsule 40 MG PO (05:49)
[2020-02-04] MEDS: Gabapentin 800 MG Tablet PO ×3 (05:49→18:31)
[2020-02-04] MEDS: Levothyroxine 100 MCG Tablet PO (05:49)
[2020-02-04] MEDS: Pantoprazole Sodium 20 MG Tablet PO (05:49)
[2020-02-04] MEDS: Nystatin Powder 15gm Bottle 1 APPLIC TOPICAL ×2 (05:50→18:31)
[2020-02-04 05:58] LABS: Anion Gap 5 (5-15); BUN 24 mg/dL (7-18); Calcium,Total 9.2 mg/dL (8.5-10.1); Chloride 103 mmol/L (98-107); Creatinine, Serum 0.71 mg/dL (0.55-1.02); EST Glomerular Filtration Rate 86 mL/min (>60); Est Glom Filt Rate - Afr Amer 104 mL/min (>60); Glucose 104 mg/dL (74-106); Potassium 4.4 mmol/L (3.5-5.1); Sodium Level 138 mmol/L (136-145)
[2020-02-04 06:41] LABS: Bedside Glucose 116 mg/dL (70-110)
[2020-02-04] MEDS: traMADol 50 MG Tablet 100 MG PO ×2 (06:57→20:09)
[2020-02-04] MEDS: VIT C/E/ZN/COPPR/LUTEIN/ZEAXAN 1 EACH CAPSULE PO ×2 (08:39→18:29)
[2020-02-04] MEDS: Calcium Carbonate 500 MG Tablet PO (08:39)
[2020-02-04] MEDS: METFORMIN HCL 750 MG TAB.ER.24H PO (08:39)
[2020-02-04] MEDS: Multivitamins,Ther W-Minerals Tablet 1 TABLET PO (08:40)
[2020-02-04] MEDS: Diphenoxylate/Atrop 1 Tablet 2 TABLET PO ×3 (08:47→18:30)
--- NOTE | 2020-02-04 10:40 | NURSING ---
Silk Screen Processor Note: In room visit with resident. Woke her from sleeping. Helped clean off table, cleaned teeth, gave juice. Res states that her arthritis is bad, stomach aches and is trying to participate with therapies. Encouraged resident to take shower, wash hair, change clothes. Res agreed that she would like to shower. Discussed w/ COUNTER SALES PERSON and COUNTER SALES PERSON to offer shower later today. Res mood continues to be low, tearful at times. Encouraged resident to find things to occupy thoughts such as cookbooks, reading.
[2020-02-04 11:05] LABS: Bedside Glucose 169 mg/dL (70-110)
[2020-02-04] MEDS: Ondansetron ODT 4 MG Tablet PO (11:49)
[2020-02-04] MEDS: Insulin Lispro 100 UNIT/ML INSULN.PEN SC (12:23)
[2020-02-04 13:53] VITALS: BP 130/48; PULSE 75; RESP 17; TEMP 37.2; O2SAT 95
[2020-02-04 17:00] LABS: Bedside Glucose 124 mg/dL (70-110)
[2020-02-04] MEDS: Zolpidem Tartrate 5 MG Tablet PO (20:08)
[2020-02-04] MEDS: MELATONIN 10 MG TABLET PO (20:10)
[2020-02-04] MEDS: Losartan Potassium 50 MG Tablet PO (20:11)
[2020-02-04] MEDS: Atorvastatin Calcium 40 MG Tablet PO (20:11)
[2020-02-04 21:46] LABS: Bedside Glucose 178 mg/dL (70-110)
[2020-02-05 05:23] VITALS: BP 114/49; PULSE 92; RESP 18; TEMP 36.7; O2SAT 90
[2020-02-05] MEDS: traMADol 50 MG Tablet 100 MG PO ×2 (05:25→22:39)
[2020-02-05] MEDS: FLUoxetine 20 MG Capsule 40 MG PO (05:25)
[2020-02-05] MEDS: Levothyroxine 100 MCG Tablet PO (05:25)
[2020-02-05] MEDS: Pantoprazole Sodium 20 MG Tablet PO (05:26)
[2020-02-05] MEDS: Gabapentin 800 MG Tablet PO ×3 (05:26→17:28)
[2020-02-05] MEDS: Nystatin Powder 15gm Bottle 1 APPLIC TOPICAL ×2 (05:33→17:29)
[2020-02-05 06:25] LABS: Bedside Glucose 136 mg/dL (70-110)
[2020-02-05] MEDS: Multivitamins,Ther W-Minerals Tablet 1 TABLET PO (08:45)
[2020-02-05] MEDS: Diphenoxylate/Atrop 1 Tablet 2 TABLET PO ×3 (08:45→17:28)
[2020-02-05] MEDS: METFORMIN HCL 750 MG TAB.ER.24H PO (08:46)
[2020-02-05] MEDS: VIT C/E/ZN/COPPR/LUTEIN/ZEAXAN 1 EACH CAPSULE PO ×2 (08:46→17:28)
[2020-02-05] MEDS: Calcium Carbonate 500 MG Tablet PO (08:46)
[2020-02-05 10:56] LABS: Bedside Glucose 147 mg/dL (70-110)
--- NOTE | 2020-02-05 11:47 | CASEMGMT ---
Social Work Left message with son to discuss DC plans. IDT would like to set DC date. Will continue to follow. Izzy Huggins MSW CAR SEAT MAKER
--- NOTE | 2020-02-05 15:15 | CASEMGMT ---
Addendum entered by Izzy Huggins 02/05/20 15:48: Son returned phone call. Explained the below information. Son understands and will speak with pt on choices of SNFs. SW notified Palliative of DC date. Will continue to follow. Original Note: Social Work Met with patient and explained IDT recommendations for DC 02/09 and to a SNF. Discussed how getting in the house is an issue, and despite getting a stair lift, once the pt is in the house, she still needs total assist for all of her ADLs. Explained nonskilled HHC will not be there to assist 09/10 and a SNF would be the safest at this time. Provided in network SNF list again and explained it does not need to be long-term necessarily, and pt would still get therapy under [facility], but room and board would be private pay. Pt shocked but understands and she would need to tell her son all of this. SW explained this has been discussed with son via phone and email conversations, thus he is aware. Pt and son will be speaking this evening. SW explained to choose a few SNFs to refer to tomorrow. Pt expressed understanding. Will continue to follow. Plan: DC to SNF, nonskilled, Part B therapies, 02/09. SEN ChinW
[2020-02-05 16:00] VITALS: BP 133/68; PULSE 93; RESP 16; TEMP 36.6; O2SAT 92
[2020-02-05 16:21] LABS: Bedside Glucose 127 mg/dL (70-110)
[2020-02-05] MEDS: Zolpidem Tartrate 5 MG Tablet PO (20:39)
[2020-02-05] MEDS: Losartan Potassium 50 MG Tablet PO (20:39)
[2020-02-05] MEDS: MELATONIN 10 MG TABLET PO (20:39)
[2020-02-05] MEDS: Atorvastatin Calcium 40 MG Tablet PO (20:39)
[2020-02-05 21:26] LABS: Bedside Glucose 198 mg/dL (70-110)
[2020-02-06 04:00] VITALS: BP 122/77; PULSE 94; RESP 18; TEMP 36.4; O2SAT 88
[2020-02-06] MEDS: FLUoxetine 20 MG Capsule 40 MG PO (05:32)
[2020-02-06] MEDS: Levothyroxine 100 MCG Tablet PO (05:32)
[2020-02-06] MEDS: Pantoprazole Sodium 20 MG Tablet PO (05:32)
[2020-02-06] MEDS: Gabapentin 800 MG Tablet PO ×2 (05:32→17:20)
[2020-02-06] MEDS: Nystatin Powder 15gm Bottle 1 APPLIC TOPICAL ×2 (05:36→17:20)
[2020-02-06 06:30] LABS: Bedside Glucose 142 mg/dL (70-110)
[2020-02-06] MEDS: VIT C/E/ZN/COPPR/LUTEIN/ZEAXAN 1 EACH CAPSULE PO ×2 (08:37→17:20)
[2020-02-06] MEDS: Multivitamins,Ther W-Minerals Tablet 1 TABLET PO (08:37)
[2020-02-06] MEDS: METFORMIN HCL 750 MG TAB.ER.24H PO (08:37)
[2020-02-06] MEDS: Calcium Carbonate 500 MG Tablet PO (08:38)
[2020-02-06] MEDS: Diphenoxylate/Atrop 1 Tablet 2 TABLET PO (08:38)
[2020-02-06 10:46] LABS: Bedside Glucose 202 mg/dL (70-110)
[2020-02-06] MEDS: Acetaminophen 500 MG Tablet 1000 MG PO (10:53)
[2020-02-06] MEDS: Insulin Lispro 100 UNIT/ML INSULN.PEN SC (11:23)
--- NOTE | 2020-02-06 11:27 | NURSING ---
R' REFUSED AFTERNOON LOMOTIL AND GABAPENTIN. STATES I TAKE TOO MANY PILLS. IT HURTS MY STOMACH SOMETIMES. WILL MONITOR.
--- NOTE | 2020-02-06 11:34 | CASEMGMT ---
Addendum entered by Izzy Huggins 02/06/20 15:29: [facility] accepted pt. [facility] is in network with [facility] and gave the daily rate of $190/day. Notified son. Son to contact Natalia at [facility] to asking further questions about pricing and will notify SW of final decision. Addendum entered by Izzy Huggins 02/06/20 14:25: Son contacted and would like referrals to [facility], [facility] and [facility] if the first two cannot accept. Explained [facility] is currently not taking admissions but will refer to the others. Referrals made. Will continue to follow. Original Note: Social Work Met with patient to follow up on conversation with son and SNF choices. Pt very withdrawn, and did not want to answer questions. Pt stated to contact son to get the two choices she made. Left message with son. Will continue to follow. Izzy Huggins, SEN HYLTON
[2020-02-06 13:34] VITALS: BP 130/65; PULSE 93; RESP 18; TEMP 36.6; O2SAT 94
[2020-02-06 16:36] LABS: Bedside Glucose 126 mg/dL (70-110)
[2020-02-06] MEDS: Atorvastatin Calcium 40 MG Tablet PO (21:00)
[2020-02-06] MEDS: MELATONIN 10 MG TABLET PO (21:00)
[2020-02-06] MEDS: Losartan Potassium 50 MG Tablet PO (21:00)
[2020-02-06] MEDS: Zolpidem Tartrate 5 MG Tablet PO (21:01)
[2020-02-06 21:16] LABS: Bedside Glucose 150 mg/dL (70-110)
[2020-02-07] MEDS: Acetaminophen 500 MG Tablet 1000 MG PO (02:16)
[2020-02-07 03:36] VITALS: BP 156/71; PULSE 98; RESP 20; TEMP 36.4; O2SAT 91
[2020-02-07] MEDS: Ondansetron ODT 4 MG Tablet PO ×2 (05:14→12:07)
[2020-02-07] MEDS: Nystatin Powder 15gm Bottle 1 APPLIC TOPICAL ×2 (05:16→17:33)
--- NOTE | 2020-02-07 06:26 | PCA ---
Pt rang out and said that she needed to lie down, i went back to assist pt when i entered the room pt was moaning an breathing heavily she had her head upon her bedside table saying that she was so weak and that she needed to lie down, i told pt i would go and get other aide and be right back, got other aide we assisted pt back to bed, pt was not very helpful during transfer she just kept breathing heavily and thrashing her arms up and down on and off/walker. got pt into bed and comfortable call light within reach. Nurses notified
[2020-02-07 06:31] LABS: Bedside Glucose 133 mg/dL (70-110)
[2020-02-07] MEDS: Pantoprazole Sodium 20 MG Tablet PO (06:42)
--- NOTE | 2020-02-07 06:45 | NURSING ---
Pt c/o nausea/dry heaves this AM. PRN zofran administered. Per pt Zofran was effective, however, pt refusing most of her morning medications and lantus. States I take too many pills anyway, I don't need them and also says she will likely not eat breakfast today therefore does not want lantus. resting in bed with eyes closed at this time. call light within reach.
--- NOTE | 2020-02-07 08:59 | NURSING ---
pt c/o upset stomach, dry heaving observed. don't leave me, I am so sick offered to call DR johnson for nausea med, zofran ineffective. pt requesting to go to [facility], assisted x2 to [facility], pt with explosive gas/stool. will update Dr johnson.
[2020-02-07 11:20] LABS: Bedside Glucose 135 mg/dL (70-110)
[2020-02-07 14:26] VITALS: BP 134/62; PULSE 107; RESP 22; TEMP 35.9; O2SAT 96
[2020-02-07 17:25] LABS: Bedside Glucose 134 mg/dL (70-110)
[2020-02-07] MEDS: Diphenoxylate/Atrop 1 Tablet 2 TABLET PO (17:29)
[2020-02-07] MEDS: Gabapentin 800 MG Tablet PO (17:30)
[2020-02-07] MEDS: MELATONIN 10 MG TABLET PO (20:29)
[2020-02-07] MEDS: Atorvastatin Calcium 40 MG Tablet PO (20:30)
[2020-02-07] MEDS: Losartan Potassium 50 MG Tablet PO (20:34)
[2020-02-07] MEDS: Zolpidem Tartrate 5 MG Tablet PO (21:17)
[2020-02-07 21:35] LABS: Bedside Glucose 132 mg/dL (70-110)
[2020-02-08] MEDS: Ondansetron ODT 4 MG Tablet PO (03:09)
[2020-02-08 05:08] VITALS: BP 135/83; PULSE 102; RESP 18; TEMP 36.8; O2SAT 95
[2020-02-08] MEDS: Gabapentin 800 MG Tablet PO ×3 (05:12→17:18)
[2020-02-08] MEDS: Pantoprazole Sodium 20 MG Tablet PO (05:12)
[2020-02-08] MEDS: FLUoxetine 20 MG Capsule 40 MG PO (05:12)
[2020-02-08] MEDS: Nystatin Powder 15gm Bottle 1 APPLIC TOPICAL ×2 (05:12→17:19)
[2020-02-08] MEDS: Levothyroxine 100 MCG Tablet PO (05:12)
[2020-02-08 06:36] LABS: Bedside Glucose 139 mg/dL (70-110)
[2020-02-08] MEDS: VIT C/E/ZN/COPPR/LUTEIN/ZEAXAN 1 EACH CAPSULE PO ×2 (08:50→17:18)
--- NOTE | 2020-02-08 08:50 | NURSING ---
PT REFUSING TO TAKE HER POTASSIUM, LOMOTIL, & MULTIVITAMIN. STATES I AM TAKING TO MANY PILLS, THATS WHAT IS MAKING ME SICK I THINK PT DENIES NAUSEA TODAY. LOOKS LIKE SHE IS FEELING BETTER THAN YESTERDAY MORNING. PT DID NOT GET QUITE OF FEW OF HER MEDS YESTERDAY D/T NAUSEA/DRY HEAVING.
[2020-02-08] MEDS: METFORMIN HCL 750 MG TAB.ER.24H PO (08:51)
[2020-02-08 11:01] LABS: Bedside Glucose 140 mg/dL (70-110)
[2020-02-08] MEDS: Diphenoxylate/Atrop 1 Tablet 2 TABLET PO ×2 (11:54→17:18)
[2020-02-08 14:22] VITALS: BP 107/62; PULSE 99; RESP 14; TEMP 37.1; O2SAT 95
[2020-02-08 16:56] LABS: Bedside Glucose 122 mg/dL (70-110)
[2020-02-08] MEDS: Zolpidem Tartrate 5 MG Tablet PO (20:02)
[2020-02-08] MEDS: Atorvastatin Calcium 40 MG Tablet PO (20:04)
[2020-02-08] MEDS: MELATONIN 10 MG TABLET PO (20:04)
[2020-02-08] MEDS: Losartan Potassium 50 MG Tablet PO (20:04)
[2020-02-08 21:41] LABS: Bedside Glucose 163 mg/dL (70-110)
[2020-02-09 05:23] VITALS: BP 130/65; PULSE 97; RESP 16; TEMP 36.3; O2SAT 91
[2020-02-09] MEDS: FLUoxetine 20 MG Capsule 40 MG PO (05:24)
[2020-02-09] MEDS: Pantoprazole Sodium 20 MG Tablet PO (05:25)
[2020-02-09] MEDS: Gabapentin 800 MG Tablet PO ×3 (05:25→17:11)
[2020-02-09] MEDS: Nystatin Powder 15gm Bottle 1 APPLIC TOPICAL ×2 (05:25→17:20)
[2020-02-09] MEDS: Levothyroxine 100 MCG Tablet PO (05:25)
[2020-02-09 06:21] LABS: Bedside Glucose 135 mg/dL (70-110)
[2020-02-09] MEDS: VIT C/E/ZN/COPPR/LUTEIN/ZEAXAN 1 EACH CAPSULE PO ×2 (08:30→17:16)
[2020-02-09] MEDS: Diphenoxylate/Atrop 1 Tablet 2 TABLET PO ×3 (08:30→17:16)
[2020-02-09] MEDS: Calcium Carbonate 500 MG Tablet PO (08:30)
[2020-02-09] MEDS: METFORMIN HCL 750 MG TAB.ER.24H PO (08:33)
[2020-02-09 11:10] LABS: Bedside Glucose 213 mg/dL (70-110)
[2020-02-09] MEDS: Insulin Lispro 100 UNIT/ML INSULN.PEN SC (12:03)
[2020-02-09 13:56] VITALS: BP 107/66; PULSE 86; RESP 16; TEMP 36.1; O2SAT 93
--- NOTE | 2020-02-09 15:02 | CASEMGMT ---
Addendum entered by Izzy Huggins 02/09/20 15:25: Spoke with son whom chose [facility]. Son stated he will transport pt between 3-5 pm. PASRR completed. DC info faxed to [facility]. Original Note: Social Work Left message with son and admissions for [facility] to get decision on pt destination for 02/09. Pt states to call son for answer. Will continue to follow. Izzy Huggins, SEN TRUCKSMITH
[2020-02-09 16:26] LABS: Bedside Glucose 119 mg/dL (70-110)
[2020-02-09] MEDS: MELATONIN 10 MG TABLET PO (19:52)
[2020-02-09] MEDS: Atorvastatin Calcium 40 MG Tablet PO (19:53)
[2020-02-09] MEDS: Losartan Potassium 50 MG Tablet PO (19:53)
[2020-02-09] MEDS: Zolpidem Tartrate 5 MG Tablet PO (19:58)
[2020-02-09 21:20] LABS: Bedside Glucose 168 mg/dL (70-110)
[2020-02-10 03:52] VITALS: BP 127/71; PULSE 97; RESP 18; TEMP 36.2; O2SAT 90
[2020-02-10] MEDS: Gabapentin 800 MG Tablet PO ×2 (03:56→11:27)
[2020-02-10] MEDS: Pantoprazole Sodium 20 MG Tablet PO (03:56)
[2020-02-10] MEDS: Levothyroxine 100 MCG Tablet PO (03:56)
[2020-02-10] MEDS: traMADol 50 MG Tablet 100 MG PO (03:56)
[2020-02-10] MEDS: FLUoxetine 20 MG Capsule 40 MG PO (03:57)
[2020-02-10] MEDS: Nystatin Powder 15gm Bottle 1 APPLIC TOPICAL (04:00)
[2020-02-10 06:31] LABS: Bedside Glucose 114 mg/dL (70-110)
[2020-02-10] MEDS: METFORMIN HCL 750 MG TAB.ER.24H PO (08:08)
[2020-02-10] MEDS: VIT C/E/ZN/COPPR/LUTEIN/ZEAXAN 1 EACH CAPSULE PO (08:09)
[2020-02-10] MEDS: Calcium Carbonate 500 MG Tablet PO (08:12)
[2020-02-10 11:00] VITALS: RESP 18; O2SAT 94
[2020-02-10 11:21] LABS: Bedside Glucose 155 mg/dL (70-110)
[2020-02-10] MEDS: Diphenoxylate/Atrop 1 Tablet 2 TABLET PO (11:27)
[2020-02-10] MEDS: Insulin Lispro 100 UNIT/ML INSULN.PEN SC (11:29)
[2020-02-10 14:54] VITALS: BP 117/66; PULSE 87; RESP 18; TEMP 36.6; O2SAT 92
== END 2020-02-10 15:45 | disposition skilled nursing facility (03) | DRG 690 ==
PROVIDERS: Admitting Provider Family Medicine Geriatric Medicine; PCP Family Medicine; Visit Provider Family Medicine Geriatric Medicine
DX: N39.0 Urinary tract infection, site not specified (principal); B96.20 Unspecified Escherichia coli [E. coli] as the cause of diseases classified elsewhere; E78.5 Hyperlipidemia, unspecified; E03.9 Hypothyroidism, unspecified; M06.9 Rheumatoid arthritis, unspecified; G25.81 Restless legs syndrome; E87.6 Hypokalemia; I10 Essential (primary) hypertension; H10.9 Unspecified conjunctivitis; F32.9 Major depressive disorder, single episode, unspecified; E11.42 Type 2 diabetes mellitus with diabetic polyneuropathy; E55.9 Vitamin D deficiency, unspecified; K21.9 Gastro-esophageal reflux disease without esophagitis; G47.30 Sleep apnea, unspecified; M79.7 Fibromyalgia; K58.9 Irritable bowel syndrome, unspecified; M19.019 Primary osteoarthritis, unspecified shoulder; B35.4 Tinea corporis
CPT/HCPCS: 36415; 71046; 73030; 74018; 80048; 82962; 85025; 87426; 87635; 93005; 97110; 97116; 97162; 97166; 97530; 97535; 97802; J3420; U0002; U0003

== ENCOUNTER → 2020-01-23 14:18 | Outpatient (CLI) | payer MEDICARE, SELFPAY ==
[2019-03-20 13:57] VITALS: BMI 41.1
[2020-01-12 14:53] VITALS: BMI 40.0
--- NOTE | 2020-01-23 14:19 | MRI_ITS ---
STUDY: MRI LUMBAR SPINE WITHOUT CONTRAST REASON FOR EXAM: Female, 74 years old. LOW BACK PAIN INTO LEGS BILATERALLY X SEVERAL MONTHS, FELL IN BATHTUB TECHNIQUE: Standardized fat and water weighted pulse sequences were obtained in the sagittal and axial planes. COMPARISON: Radiograph lumbar spine 01/12/2020 FINDINGS: T12-L1: Normal endplates. Normal disc height, hydration and morphology. Normal bilateral facet joints. Normal central canal and bilateral lateral recesses. Normal bilateral intervertebral neural foramina. Normal lumbar lordosis. There is no substantial scoliosis. Normal conus medullaris that terminates at the L1 level. T12 compression fracture due to Schmorl''s node disease along the inferior endplate. L1-2: Circumferential disc marginal osteophyte and moderate narrowing of the neural foramina bilaterally. Central canal patent. L2-3: Moderate central and lateral trefoil type spinal stenosis. Moderate right paracentral disc protrusion causes severe narrowing of the neural foramen on the right. Narrowing of the neural foramina, right greater than left. Bilateral hypertrophic facet disease. Central thecal sac measures 7 mm in the midline. T1 and T2 lengthening within the L2 and L3 vertebral bodies. L3-4: Moderate circumferential disc marginal right causing moderate narrowing of the neural foramina bilaterally. Central canal patent. L4-5: Moderate circumferential disc marginal osteophyte causing moderate narrowing of the neural foramina bilaterally. Central thecal sac patent. L5-S1: Severe narrowing of the neural foramina bilaterally due to disc marginal osteophyte and hypertrophic facet disease. Central canal patent. Normal visualized sacral ala. Normal visualized paraspinous soft tissue structures. MRI/Spine Lumbar (Routine) IMPRESSION: Remote compression fracture T12. Probable reactive spondylosis L2 and L3. Multilevel spinal stenosis as above Electronically Signed: Louie Juarez MD at 16:20 EST , Service support ,
== END ==
PROVIDERS: PCP Family Medicine; Referring Provider Orthopaedic Surgery; Visit Provider Orthopaedic Surgery
DX: M48.061 Spinal stenosis, lumbar region without neurogenic claudication (principal); M51.26 Other intervertebral disc displacement, lumbar region
CPT/HCPCS: 72148

== ENCOUNTER 2020-02-11 05:35 | Emergency (ER) | payer MEDICARE, SELFPAY ==
[2020-01-12 14:53] VITALS: BMI 40.0
[2020-02-11 05:36] VITALS: BP 157/64; PULSE 93; RESP 16; TEMP 36.6; O2SAT 93; BMI 40.6
--- NOTE | 2020-02-11 05:41 | RAD_ITS ---
HISTORY: LT SIDED CP ADDITIONAL HISTORY: None provided. EXAMINATION/TECHNIQUE: XR Chest 1 View AP/PA Number of images including paperwork: 1 COMPARISON: 01/07/2020 FINDINGS: LUNGS AND PLEURA: No dense consolidation. Mild bibasilar opacities with some linear components. Blunting of the costophrenic angles. CARDIAC SILHOUETTE: Stable. MEDIASTINUM AND LISA: Stable. UPPER ABDOMEN: Unremarkable. SKELETON AND SOFT TISSUES: No acute skeletal findings. Degenerative changes. OTHER DEVICES AND HARDWARE: Right shoulder prosthesis partially visible. RAD/Chest 1 View (Portable) IMPRESSION: Mild bibasilar atelectasis versus infiltrates. Small pleural effusions versus pleural scarring. at 0607 Reported and signed by: Oumou Dykes MD Electronically Signed: Oumou Dykes MD at 6:07 EST Tel , Service support ,
--- NOTE | 2020-02-11 05:41 | EKG12_ITS ---
Test Reason : CP Blood Pressure : / mmHG Vent. Rate : 089 BPM Atrial Rate : 089 BPM P-R Int : 142 ms QRS Dur : 094 ms QT Int : 366 ms P-R-T Axes : 040 -31 037 degrees QTc Int : 445 ms Normal sinus rhythm Left axis deviation Abnormal ECG Confirmed by PAMELA HAN, TIEN ([id number]), editor farm journal SOLO ROQUE ([id number]) on 02/13/2020 11:02:51 AM Referred By: LAURI Confirmed By:TIEN SANTIAGO MD
[2020-02-11 05:42] VITALS: O2SAT 94
[2020-02-11] MEDS: Aspirin 81 MG TAB.CHEW 324 MG PO (05:46)
[2020-02-11 05:53] LABS: Absolute Lymphocyte Count 1.66 X10^3/uL (0.83-4.51); Absolute Neutrophil Count 6.6 X10^3/uL (2.0-7.7); Basophil# 0.02 X10^3/uL; Basophil% 0.2 % (0-1); Eosinophil# 0.31 X10^3/uL; Eosinophils% 3.3 % (0-5); Hematocrit 41.6 % (37-47); Hemoglobin 13.2 g/dL (12.0-15.0); Lymphocyte # 1.66 X10^3/ul (4.0); Lymphocyte % 17.7 % (19-41); Mean Corp Hgb Conc 31.7 g/dL (32-36); Mean Corpuscular Volume 97.7 fL (81-99); Monocyte# 0.73 X10^3/uL; Monocyte% 7.8 % (0-10); NRBC Flagged by Analyzer 0 % (0-5); Neutrophil # 6.64 X10^3/uL (2.7-7.7); Neutrophil % 70.6 % (47-70); Platelet Count 255 K/mm3 (150-450); RBC Distribution Width CV 13.6 % (11.6-14.6); RBC Distribution Width SD 48.7 fl (35.1-43.9); Red Blood Count 4.26 M/mm3 (4.2-5.4); White Blood Count 9.4 K/mm3 (4.4-11.0)
[2020-02-11 06:10] LABS: Anion Gap 4 (5-15); BUN 17 mg/dL (7-18); Calcium,Total 8.9 mg/dL (8.5-10.1); Chloride 104 mmol/L (98-107); Creatinine, Serum 0.59 mg/dL (0.55-1.02); EST Glomerular Filtration Rate 106 mL/min (>60); Est Glom Filt Rate - Afr Amer 128 mL/min (>60); Glucose 126 mg/dL (74-106); Potassium 3.8 mmol/L (3.5-5.1); Sodium Level 138 mmol/L (136-145)
--- NOTE | 2020-02-11 06:34 | ED.DCSUM_ITS ---
- ER Visit Summary Date of Service: 02/11/20 Chief Complaint: Chest pain History of Present Illness: The patient is a 74 F who presents with chest pain. Started 2 hours. Patient is currently living in a skilled nursing. She went to the bathroom when she came back she felt like there was a ball on the left side of her chest. She states that this pain is now pretty much gone and its only very mildly there. Nothing seemed to make it better or worse. She had no nausea, vomiting, diaphoresis or dyspnea. She has no history of GA or stents. She does have history of anxiety. She took Tylenol when this first happened. She also has a hypertension diabetes and hypercholesterolemia history. Patient is currently in the skilled nursing after spending time in our transitional care unit after she was admitted for debility. Physical Examination: Vital signs reviewed. HEENT exam unremarkable. Heart is regular rate and rhythm without murmurs. Lungs are clear to auscultation. Abdomen is soft and nontender. Extremities reveal no edema. Peripheral pulses are equal. Skin exam normal. Neurologic exam normal. Test Results: EKG was sinus rhythm with rate 89. No ST changes. Unchanged from previous EKGs. Laboratory studies are unremarkable including troponin, except for glucose of 126. Chest x-ray shows atelectasis as interpreted by myself and radiology. Emergency Department Course and Treatment: The patient was given aspirin. She has a 2 out of 7 ALFONSO score. Her pain is atypical and is now gone without any medications here in the emergency department. The patient will have a 3-hour troponin and if this is negative she will be sent back to the skilled nursing Treatment Plan: [] Disposition: Pending Impression: Chest pain This note was generated with [employer] dictation software. It may contain incorrect words, spelling, and punctuation that were not noted in review of the chart prior to signing ED Disposition - Plan for ED Patient: Referrals: Jhonny Francisco MD [Primary Care Provider] -
--- NOTE | 2020-02-11 06:36 | ED.DEP ---
ED Disposition - Plan for ED Patient: Disposition: Home or Assisted Living Instructions: ED Chest Pain NonCardiac Referrals: Jhonny Francisco MD [Primary Care Provider] -
--- NOTE | 2020-02-11 07:19 | ED.RN ---
CALLED AND UPDATED SON WITH PT STATUS
[2020-02-11 08:02] VITALS: BP 146/61; PULSE 91; RESP 18; O2SAT 96
[2020-02-11 09:44] VITALS: BP 120/54; PULSE 72; RESP 16; O2SAT 96
--- NOTE | 2020-02-11 09:46 | NURSING ---
CALLED SQUAD, ETA IS WITHIN THE HOUR
== END 2020-02-11 10:53 | disposition home or self-care (01) ==
PROVIDERS: Emergency Medicine; Emergency Provider Emergency Medicine; PCP Family Medicine
DX: R07.89 Other chest pain (principal); J98.11 Atelectasis; I10 Essential (primary) hypertension; E11.9 Type 2 diabetes mellitus without complications; F41.9 Anxiety disorder, unspecified; K21.9 Gastro-esophageal reflux disease without esophagitis; E78.00 Pure hypercholesterolemia, unspecified; G47.33 Obstructive sleep apnea (adult) (pediatric); Z79.4 Long term (current) use of insulin; Z79.899 Other long term (current) drug therapy
CPT/HCPCS: 71045; 80048; 84484; 85025; 93005; 99285; A4216

== ENCOUNTER → 2020-06-03 | Outpatient (CLI) | payer MEDICARE, SELFPAY ==
[2020-06-03 11:46] LABS: Absolute Lymphocyte Count 1.49 X10^3/uL (0.83-4.51); Absolute Neutrophil Count 3.1 X10^3/uL (2.0-7.7); Basophil# 0.04 X10^3/uL; Basophil% 0.8 % (0-1); Eosinophil# 0.16 X10^3/uL; Hematocrit 51.5 % (37-47); Hemoglobin 15.8 g/dL (12.0-15.0); Lymphocyte # 1.49 X10^3/ul (4.0); Lymphocyte % 28.4 % (19-41); Mean Corp Hgb Conc 30.7 g/dL (32-36); Mean Corpuscular Hgb 28.4 pg (27.0-32.0); Mean Corpuscular Volume 92.6 fL (81-99); Mean Platelet Vol. 9.9 fl (6.2-12.0); Monocyte# 0.46 X10^3/uL; Monocyte% 8.8 % (0-10); NRBC Flagged by Analyzer 0 % (0-5); Platelet Count 166 K/mm3 (150-450); RBC Distribution Width CV 16.7 % (11.6-14.6); RBC Distribution Width SD 56.4 fl (35.1-43.9); Red Blood Count 5.56 M/mm3 (4.2-5.4); White Blood Count 5.3 K/mm3 (4.4-11.0)
[2020-06-03 12:05] LABS: BNP,B-Type NATRIURETIC PEPTIDE 847.6 pg/mL (0-100)
[2020-06-03 12:06] LABS: Hemoglobin A1c 8.6 % (3.8-5.6)
[2020-06-03 12:17] LABS: ALB/GLOB Ratio 0.6 RATIO (0.9-2.4); AST(SGOT) 39 U/L (15-37); Alanine Aminotransfer ALT/SGPT 31 U/L (13-56); Albumin, Serum 2.3 g/dL (3.2-5.0); Alkaline Phosphatase 512 U/L (45-117); Anion Gap 3 (5-15); BUN 10 mg/dL (7-18); BUN/Creat Ratio 13.8 RATIO (10-20); Calcium,Total 8.8 mg/dL (8.5-10.1); Chloride 103 mmol/L (98-107); Creatinine, Serum 0.72 mg/dL (0.55-1.02); EST Glomerular Filtration Rate 83 mL/min (>60); Est Glom Filt Rate - Afr Amer 100 mL/min (>60); Globulin 3.7 g/dL (2.2-4.2); Glucose 212 mg/dL (74-106); Potassium 3.7 mmol/L (3.5-5.1); Sodium Level 141 mmol/L (136-145); Thyroid Stim Hormone (TSH) 3.06 uIU/mL (0.358-3.74)
[2020-06-03 12:49] LABS: D-Dimer Quantitative (DVT/PE) > 20.00 FEU/ug/m (0.27-0.49)
== END | disposition home or self-care (01) ==
PROVIDERS: PCP Family Medicine; Visit Provider Family Medicine
DX: R43.0 Anosmia (principal); E11.42 Type 2 diabetes mellitus with diabetic polyneuropathy; R09.02 Hypoxemia; D64.9 Anemia, unspecified; E03.9 Hypothyroidism, unspecified; I50.9 Heart failure, unspecified; I11.0 Hypertensive heart disease with heart failure
CPT/HCPCS: 36415; 80053; 83036; 83880; 84443; 85025; 85379; 86769

== ENCOUNTER → 2020-11-05 08:58 | Outpatient (CLI) | payer MEDICARE, SELFPAY ==
[2020-11-05 11:28] LABS: GGTP 636 U/L (5-55)
[2020-11-08 16:09] LABS: Alkaline Phosphatase, Serum 480 IU/L (48-121); Bone Fraction 37 % (14-68); Liver Fraction 60 % (18-85)
[2020-11-08 17:14] LABS: Intestinal Fraction 3 % (0-18)
== END ==
PROVIDERS: PCP Family Medicine; Visit Provider Internal Medicine Rheumatology
DX: R74.8 Abnormal levels of other serum enzymes (principal)
CPT/HCPCS: 36415; 82977; 84075; 84080

== ENCOUNTER → 2021-01-06 10:47 | Outpatient (CLI) | payer MEDICARE, SELFPAY ==
--- NOTE | 2021-01-06 10:50 | US_ITS ---
STUDY: ABDOMINAL ULTRASOUND - RIGHT UPPER QUADRANT REASON FOR VISIT: Female, 75 years old abnl labs TECHNIQUE: Ultrasound evaluation of the right upper quadrant was performed with real-time and static springer-scale imaging. TECHNICAL QUALITY: Adequate. COMPARISON: Comparison is made with prior ultrasound dated 04/19/[address] scan dated 12/03/2017. FINDINGS: Liver: The liver measures 17.7 cm. There is increased echogenicity consistent with fatty infiltration. The bile ducts are within normal limits. There is hepatic color flow. The direction of portal flow is hepatopetal. There is no demonstrated mass lesion. Gallbladder: The patient is status post cholecystectomy. Common Bile Duct (C.B.D.): The common bile duct measures 6.3 mm. Pancreas: Normal size of the head, body and tail of the pancreas. There is no demonstrated pancreatic mass or cyst. Right Kidney: Normal size of the right kidney. The right kidney measures 11.6 cm x 5 cm x 4.5 cm. Normal renal cortex. The right cortex measures 1.2 cm. There is no demonstrated renal mass or cyst. There is no right hydronephrosis. US/Abdomen Limited IMPRESSION: Diffuse fatty infiltration of the liver. The patient is status post cholecystectomy. Electronically Signed: Larry Godinez MD at 15:22 EDT , Service support ,
== END ==
PROVIDERS: PCP Family Medicine; Referring Provider Family Medicine; Visit Provider Family Medicine
DX: R74.8 Abnormal levels of other serum enzymes (principal)
CPT/HCPCS: 76705

== ENCOUNTER → 2021-01-19 09:04 | Outpatient (CLI) | payer MEDICARE, SELFPAY ==
[2021-01-19 11:25] LABS: Absolute Lymphocyte Count 2.69 X10^3/uL (0.83-4.51); Absolute Neutrophil Count 2.8 X10^3/uL (2.0-7.7); Basophil# 0.02 X10^3/uL; Basophil% 0.3 % (0-1); Eosinophil# 0.31 X10^3/uL; Eosinophils% 4.7 % (0-5); Hematocrit 47.5 % (37-47); Hemoglobin 15.3 g/dL (12.0-15.0); Lymphocyte # 2.69 X10^3/ul (0.83-4.51); Lymphocyte % 41.2 % (19-41); Mean Corp Hgb Conc 32.2 g/dL (32-36); Mean Corpuscular Hgb 30.1 pg (27.0-32.0); Mean Corpuscular Volume 93.5 fL (81-99); Mean Platelet Vol. 9.4 fl (6.2-12.0); Monocyte# 0.66 X10^3/uL; Monocyte% 10.1 % (0-10); NRBC Flagged by Analyzer 0 % (0-5); Neutrophil # 2.83 X10^3/uL (2.7-7.7); Neutrophil % 43.4 % (47-70); Platelet Count 178 K/mm3 (150-450); RBC Distribution Width SD 48.3 fl (35.1-43.9); Red Blood Count 5.08 M/mm3 (4.2-5.4); White Blood Count 6.5 K/mm3 (4.4-11.0)
[2021-01-19 11:49] LABS: Microalbumin,Random Urine 32.4 mg/L (NO RANGE EST.); Microalbumin:Creatinine Ratio 46.2 mg/g CRE (<30 mg/g CRE)
[2021-01-19 11:51] LABS: Hemoglobin A1c 7.8 % (3.8-5.6)
[2021-01-19 12:08] LABS: ALB/GLOB Ratio 0.9 RATIO (0.9-2.4); AST(SGOT) 248 U/L (15-37); Alanine Aminotransfer ALT/SGPT 151 U/L (13-56); Alkaline Phosphatase 349 U/L (45-117); Anion Gap 5 (5-15); BUN 25 mg/dL (7-18); BUN/Creat Ratio 33.1 RATIO (10-20); Calcium,Total 8.8 mg/dL (8.5-10.1); Chloride 107 mmol/L (98-107); Cholesterol 176 mg/dL (200); Creatinine, Serum 0.76 mg/dL (0.55-1.02); EST Glomerular Filtration Rate 79 mL/min (>60); Est Glom Filt Rate - Afr Amer 95 mL/min (>60); Globulin 3.4 g/dL (2.2-4.2); Glucose 145 mg/dL (74-106); High Density Lipoprotein 41 mg/dL; Protein, Total 6.4 g/dL (6.4-8.2); Sodium Level 140 mmol/L (136-145); Thyroid Stim Hormone (TSH) 2.53 uIU/mL (0.358-3.74); Triglycerides 199 mg/dL; Uric Acid 7.3 mg/dL (2.6-6.0); Very Low Density Lipoprotein 40 mg/dL (5-40)
== END ==
PROVIDERS: PCP Family Medicine; Visit Provider Family Medicine
DX: E11.42 Type 2 diabetes mellitus with diabetic polyneuropathy (principal); I10 Essential (primary) hypertension; E03.9 Hypothyroidism, unspecified; D64.9 Anemia, unspecified; M10.9 Gout, unspecified
CPT/HCPCS: 36415; 80053; 80061; 82043; 82570; 83036; 84443; 84550; 85025

== ENCOUNTER 2021-03-30 07:57 | Outpatient (CLI) | payer MEDICARE, SELFPAY | END 2021-03-30 23:59 | disposition short-term general hospital (02) | LOC: LABSPEC 03-31 07:58 | PROVIDERS: PCP Family Medicine; Visit Provider Family Medicine | DX: Z20.828 Contact with and (suspected) exposure to other viral communicable diseases (principal) | CPT/HCPCS: 87635; U0003; U0005 ==

== ENCOUNTER → 2021-10-10 | Outpatient (CLI) | payer MEDICARE, SELFPAY ==
[2021-10-10 17:21] LABS: Absolute Lymphocyte Count 3.14 X10^3/uL (0.83-4.51); Absolute Neutrophil Count 5.9 X10^3/uL (2.0-7.7); Basophil# 0.04 X10^3/uL; Basophil% 0.4 % (0-1); Eosinophil# 0.15 X10^3/uL; Eosinophils% 1.5 % (0-5); Hematocrit 46.8 % (37-47); Hemoglobin 15.4 g/dL (12.0-15.0); Lymphocyte # 3.14 X10^3/ul (0.83-4.51); Lymphocyte % 30.8 % (19-41); Mean Corp Hgb Conc 32.9 g/dL (32-36); Mean Corpuscular Hgb 30.7 pg (27.0-32.0); Mean Corpuscular Volume 93.2 fL (81-99); Mean Platelet Vol. 8.5 fl (6.2-12.0); Monocyte# 0.88 X10^3/uL; Monocyte% 8.6 % (0-10); NRBC Flagged by Analyzer 0 % (0-5); Neutrophil # 5.93 X10^3/uL (2.7-7.7); Neutrophil % 58.2 % (47-70); Platelet Count 293 K/mm3 (150-450); RBC Distribution Width CV 13.3 % (11.6-14.6); Red Blood Count 5.02 M/mm3 (4.2-5.4); White Blood Count 10.2 K/mm3 (4.4-11.0)
[2021-10-10 17:33] LABS: Erythrocyte Sedimentation Rate 49 mm/hr (0-30)
[2021-10-10 17:34] LABS: Prothrombin Time (Protime)PT. 12.9 SECONDS (11.7-14.9)
[2021-10-10 18:08] LABS: Hemoglobin A1c 7.7 % (3.8-5.6)
[2021-10-10 18:17] LABS: ALB/GLOB Ratio 0.7 RATIO (0.9-2.4); AST(SGOT) 16 U/L (15-37); Alanine Aminotransfer ALT/SGPT 22 U/L (13-56); Albumin, Serum 2.9 g/dL (3.2-5.0); Alkaline Phosphatase 212 U/L (45-117); Anion Gap 10 (5-15); BUN 21 mg/dL (7-18); BUN/Creat Ratio 27.3 RATIO (10-20); CRP 8.57 mg/L (0.0-3.0); Calcium,Total 9.4 mg/dL (8.5-10.1); Chloride 102 mmol/L (98-107); Creatinine, Serum 0.77 mg/dL (0.55-1.02); EST Glomerular Filtration Rate 77 mL/min (>60); Est Glom Filt Rate - Afr Amer 93 mL/min (>60); Ferritin 80 ng/mL (8-252); Globulin 4.3 g/dL (2.2-4.2); Glucose 172 mg/dL (74-106); LDH 208 U/L (84-246); Potassium 3.8 mmol/L (3.5-5.1); Protein, Total 7.2 g/dL (6.4-8.2); Sodium Level 139 mmol/L (136-145)
[2021-10-10 20:03] LABS: HIV - WCH Non-Reactive (Nonreactive)
[2021-10-12 14:08] LABS: Anti-Centromere B Ab <0.2 AI (0.0-0.9); Anti-Chromatin <0.2 AI (0.0-0.9); Anti-Jo <0.2 AI (0.0-0.9); Anti-Scleroderma-70 AB <0.2 AI (0.0-0.9); RNP Ab <0.2 AI (0.0-0.9); SJOGREN'S Anti-SS-A test < 0.2 AI (0.0-0.9); SJOGREN'S Anti-SS-B test < 0.2 AI (0.0-0.9); Smith Ab <0.2 AI (0.0-0.9)
[2021-10-12 16:18] LABS: Anti-Mitochondrial AB <20.0 Units (0.0-20.0); Anti-dsDNA Ab <1 IU/mL (0-9)
[2021-10-13 14:08] LABS: Angiotensin Convert Enzyme 55 U/L (14-82); Ceruloplasmin 48.9 mg/dL (19.0-39.0); Cytoplasmic Ab (C-ANCA) <1:20 titer (Neg:<1:20); HEPATITIS B SURFACE AG Negative (Negative); Hep C Antibodies 0.2 s/co ratio (0.0-0.9); Hepatitis A IgM Antibody Negative (Negative); Hepatitis B Core AB IgM Negative (Negative)
[2021-10-13 15:46] LABS: Anti-Smooth Muscle ABS 29 Units (0-19); Copper, Serum or Plasma 139 ug/dL (80-158); Haptoglobin 255 mg/dL (42-346); Perinuclear Ab (P-ANCA) <1:20 titer (Neg:<1:20)
== END | disposition home or self-care (01) ==
PROVIDERS: PCP Family Medicine; Visit Provider Nurse Practitioner Adult Health
DX: S32.000A Wedge compression fracture of unspecified lumbar vertebra, initial encounter for closed fracture (principal); E11.9 Type 2 diabetes mellitus without complications; K76.0 Fatty (change of) liver, not elsewhere classified; R74.8 Abnormal levels of other serum enzymes; R53.81 Other malaise; E03.9 Hypothyroidism, unspecified
CPT/HCPCS: 36415; 80053; 80074; 82140; 82164; 82390; 82525; 82728; 83010; 83036; 83516; 83615; 85025; 85610; 85652; 86140; 86225; 86235; 86256; 86703

== ENCOUNTER → 2021-10-29 | Outpatient (CLI) | payer MEDICARE, SELFPAY ==
[2021-10-29 11:29] LABS: GGTP 385 U/L (5-55)
[2021-11-02 01:06] LABS: Immunoglobulin A 402 mg/dL (64-422); Immunoglobulin G 779 mg/dL (586-1602); Immunoglobulin G, Subclass 1 401 mg/dL (248-810); Immunoglobulin G, Subclass 2 306 mg/dL (130-555); Immunoglobulin G, Subclass 3 50 mg/dL (15-102); Immunoglobulin G, Subclass 4 55 mg/dL (2-96); Immunoglobulin M 275 mg/dL (26-217)
[2021-11-02 12:31] LABS: Immunoglobulin E 14 IU/mL (6-495)
== END | disposition home or self-care (01) ==
PROVIDERS: PCP Family Medicine; Referring Provider Nurse Practitioner Adult Health; Visit Provider Nurse Practitioner Adult Health
DX: R74.8 Abnormal levels of other serum enzymes (principal); K76.0 Fatty (change of) liver, not elsewhere classified
CPT/HCPCS: 82784; 82785; 82787; 82977

== ENCOUNTER → 2021-11-03 | Outpatient (CLI) | payer MEDICARE, SELFPAY ==
--- NOTE | 2021-11-03 07:04 | US_ITS ---
STUDY: ABDOMINAL ULTRASOUND - ELASTOGRAPHY REASON FOR VISIT: Female, 76 years old. Fatty infiltration of the liver. TECHNIQUE: Liver stiffness measurements were obtained on a [employer] RS 85 ultrasound machine using a CA 1-7 probe following the SRU guidelines. 3 measurements were obtained using a 2-D-SWE method. The IQR/M was 14% suggesting a quality data set. TECHNICAL QUALITY: Adequate. COMPARISON: Comparison is made with prior examination done earlier today. FINDINGS: Liver: Fatty infiltration of the liver. Median liver stiffness measured 9.4 kPa. US/Elastography Parenchyma/Organ IMPRESSION: Liver stiffness measures 9.4 kPa compatible with F2-F3 (Mild to moderate liver fibrosis) Metavir score. Electronically Signed: Larry Godinez MD at 10:13 EDT ,
--- NOTE | 2021-11-03 07:04 | US_ITS ---
STUDY: ABDOMINAL ULTRASOUND - RIGHT UPPER QUADRANT REASON FOR VISIT: Female, 76 years old . Fatty infiltration of the liver. TECHNIQUE: Ultrasound evaluation of the right upper quadrant was performed with real-time and static springer-scale imaging. TECHNICAL QUALITY: Adequate. COMPARISON: Comparison is made with prior examination of 01/06/2021. FINDINGS: Liver: The liver is enlarged and measures 19.9 cm. There is increased echogenicity consistent with fatty infiltration. The bile ducts are within normal limits. There is hepatic color flow. The direction of portal flow is hepatopetal. There is no demonstrated mass lesion. Gallbladder: The patient is status post cholecystectomy. Common Bile Duct (C.B.D.): The common bile duct measures 7 mm. Pancreas: Normal size of the head, body and tail of the pancreas. There is increased echogenicity of the pancreas. There is no demonstrated pancreatic mass or cyst. Right Kidney: Normal size of the right kidney. The right kidney measures 11 cm x 5.4 cm x 6 cm. Normal renal cortex. The right cortex measures 1.4 cm. There is no demonstrated renal mass or cyst. There is no right hydronephrosis. US/Abdomen Limited IMPRESSION: Hepatomegaly and diffuse fatty infiltration of the liver. The patient is status post cholecystectomy. Electronically Signed: Larry Godinez MD at 10:11 EDT ,
--- NOTE | 2021-11-03 07:06 | CT_ITS ---
EXAM: CT ANGIOGRAPHY CHEST WITHOUT AND WITH INTRAVENOUS CONTRAST CLINICAL INDICATION: PALPS TECHNIQUE: Helically acquired angiography images were obtained of the chest without and with intravenous contrast. This CT exam was performed using one or more of the following dose reduction techniques: automated exposure control, adjustment of the mA and/or kV according to patient size, and/or use of iterative reconstruction technique. This report was created using [employer] report generation technology. MIP reconstructed images were created and reviewed. CONTRAST: IV 100mL [id number] COMPARISON: CTA Chest dated december 29 2015 FINDINGS: PULMONARY ARTERIES: Normal. Normal in caliber. No evidence of pulmonary embolism. AORTA: Normal. Normal in caliber. No evidence of dissection. GREAT VESSELS OF AORTIC ARCH: Normal. Normal in caliber. No evidence of dissection. LUNGS AND PLEURAL SPACES: Stable 5 mm right lower lobe pulmonary nodule. Bibasilar linear densities consistent with scarring and/or atelectasis. No pleural effusion or thickening. No pneumothorax. HEART: Normal. Heart size is normal. No pericardial effusion. No signs of right heart strain, ratio of right ventricle to left ventricle measures less than 1. MEDIASTINUM: Normal. No mediastinal or hilar adenopathy. Esophagus is unremarkable. No hiatal hernia. THYROID: Normal. BONES/JOINTS: Interval placement of a reverse right shoulder prosthesis. No suspicious lytic or blastic abnormality. CT/CTA Chest W/WO Contrast IMPRESSION: 1. No acute pulmonary embolism. 2. Stable 5 mm right lower lobe pulmonary nodule. 3. Bibasilar linear atelectasis/scarring Electronically Signed: Marvin Greer MD at 8:18 EDT ,
== END | disposition home or self-care (01) ==
PROVIDERS: PCP Family Medicine; Visit Provider Nurse Practitioner Adult Health
DX: R05.9 Cough, unspecified (principal); R06.00 Dyspnea, unspecified; R07.9 Chest pain, unspecified; K76.0 Fatty (change of) liver, not elsewhere classified; R74.8 Abnormal levels of other serum enzymes
CPT/HCPCS: 71275; 76705; 76981; Q9967

== ENCOUNTER → 2022-07-11 | Outpatient (CLI) | payer MEDICARE, SELFPAY ==
--- NOTE | 2022-07-11 17:35 | RAD_ITS ---
INDICATION: WHEEZING EXAMINATION/TECHNIQUE: X-RAY - XR Chest 2 Views COMPARISON: None. FINDINGS: LINES/DEVICES: None. LUNGS: No consolidation, edema or effusion. Basilar atelectasis. No pneumothorax. MEDIASTINUM AND CARDIOVASCULAR STRUCTURES: Cardiac silhouette not enlarged. Central airways and mediastinal contour are unremarkable. BONES AND SOFT TISSUES: Degenerative vertebral changes. There is a right shoulder prosthesis. RAD/Chest PA and Lateral IMPRESSION: Basilar atelectasis. Electronically Signed: Luis Smiley DO at 19:02 EDT Reading Location ID and State: [facility] / [place] Tel [phone], Service support ,
== END | disposition home or self-care (01) ==
LOC: RAD 17:28
PROVIDERS: PCP Family Medicine; Referring Provider Family Medicine; Visit Provider Family Medicine
DX: R06.2 Wheezing (principal)
CPT/HCPCS: 71046

== ENCOUNTER → 2022-07-13 | Outpatient (CLI) | payer MEDICARE, SELFPAY ==
--- NOTE | 2022-07-13 13:12 | PFTCOMP_ITS ---
COMPLETE PULMONARY FUNCTION TEST INTERPRETATION Brief HPI: Patient is a 76-year-old female, currently under the care of Dr. Dejesus, who presents to [facility] for complete pulmonary function tests secondary to diagnosis of dyspnea. Respiratory therapist reports good effort and reproducible results. Interpretation: Forced expiration spirometry shows a moderately severe large airways obstructive ventilatory defect with an FEV1 of 51% predicted. There is no significant bronchodilator response by strict ATS criteria. Spirograms are of good quality and plateau slowly, indicating slowly emptying areas of the lungs. The respiratory flow volume loop shows decreased expiratory flow rates at all lung volumes consistent with airway obstruction. Lung volumes by body plethysmography show a normal total lung capacity at 4.44 L, 86% predicted. FRC and RV are elevated out of proportion. Lung volume measurements are consistent with air-trapping. Diffusion capacity by carbon monoxide is decreased at 49% predicted. The airway resistance is elevated. No previous pulmonary function tests were available for review. Impression: Irreversible moderately severe large airways obstructive ventilatory defect, resulting in air trapping, and a symmetric reduction in diffusion capacity.
== END | disposition home or self-care (01) ==
LOC: PSN 09:41
PROVIDERS: PCP Family Medicine; Referring Provider Family Medicine; Visit Provider Family Medicine
DX: R06.00 Dyspnea, unspecified (principal); R06.2 Wheezing; R09.02 Hypoxemia
CPT/HCPCS: 94060; 94726; 94729

== ENCOUNTER → 2022-07-14 | Outpatient (CLI) | payer MEDICARE, SELFPAY ==
[2022-07-14 12:59] VITALS: PULSE 106; PULSE 108; PULSE 110; PULSE 115; PULSE 87; PULSE 90; PULSE 94; O2SAT 92; O2SAT 93; O2SAT 94; O2SAT 95; O2SAT 97
--- NOTE | 2022-07-14 13:01 | CPS ---
PATIENT ARRIVED FOR TESTING VIA WHEELCHAIR WITH HER ROLLATOR. SHE USED HER ALBUTEROL PRIOR TO ARRIVAL, NO AUDIBLE WHEEZING HEARD PRIOR TO START OF TESTING. PT TOOK MULTIPLE REST BREAKS DURING TESTING D/T INCREASED WOB, LEG FATIGUE AND WAS AUDIBLY WHEEZING. SHE WALKED A TOTAL OF 259FT DURING TEST, WHEEZING SUBSIDED UPON REST. ENTIRE TEST WAS PERFORMED WITH PATIENT ON ROOM AIR.
--- NOTE | 2022-07-14 14:23 | WT_ITS ---
PSN 6 Minute Walk Test 6 Minute Walk Test 6 Minute Walk Test: 6 Minute Walk Test PSN:6-Minute Walk Test Start: 07/14/22 12:58 Freq: Status: Active Protocol: [id number] Document 07/14/22 12:59 [facility] (Rec: 07/14/22 13:08 [facility] [id number]) 6 Minute Walk Test Date Performed 07/14/22 Time Performed 12:30 Height 5 ft 6 in Weight: 100.244 kg Weight in Pounds 221.[address]: Diallo Dejesus Assistive device used: Walker Pre-test Oxygen Delivery Method Room Air Pulse Ox (%) 93 Pulse Rate (60-100 beats/min) 90 Dyspnea Ana Scale (0-10) 0 1st minute Oxygen Delivery Method Room Air Pulse Ox (%) 94 Pulse Rate (60-100 beats/min) 87 Dyspnea Ana Scale (0-10) 3 Number of Rests Taken 1 Reported Symptoms Increased Work of Breathing 2nd minute Oxygen Delivery Method Room Air Pulse Ox (%) 94 Pulse Rate (60-100 beats/min) 115 H Dyspnea Ana Scale (0-10) 6 Number of Rests Taken 1 Reported Symptoms Increased Work of Breathing 3rd minute Oxygen Delivery Method Room Air Pulse Ox (%) 95 Pulse Rate (60-100 beats/min) 110 H Dyspnea Ana Scale (0-10) 5 Number of Rests Taken 1 Reported Symptoms Increased Work of Breathing 4th minute Oxygen Delivery Method Room Air Pulse Ox (%) 92 Pulse Rate (60-100 beats/min) 108 H Dyspnea Ana Scale (0-10) 5 Number of Rests Taken 1 Reported Symptoms Increased Work of Breathing 5th minute Oxygen Delivery Method Room Air Pulse Ox (%) 93 Pulse Rate (60-100 beats/min) 110 H Dyspnea Ana Scale (0-10) 6 Number of Rests Taken 1 Reported Symptoms Increased Work of Breathing 6th minute Oxygen Delivery Method Room Air Pulse Ox (%) 94 Pulse Rate (60-100 beats/min) 106 H Dyspnea Ana Scale (0-10) 5 Number of Rests Taken 1 Reported Symptoms Increased Work of Breathing Post-test Oxygen Delivery Method Room Air Pulse Ox (%) 97 Pulse Rate (60-100 beats/min) 94 Dyspnea Ana Scale (0-10) 1 Full Laps Walked 4 Partial Lap, Number of Tiles Walked 23 Total Distance Walked (ft) 259 07/14/22 13:01 Cardiopulmonary Services by Marsha Rogers PATIENT ARRIVED FOR TESTING VIA WHEELCHAIR WITH HER ROLLATOR. SHE USED HER ALBUTEROL PRIOR TO ARRIVAL, NO AUDIBLE WHEEZING HEARD PRIOR TO START OF TESTING. PT TOOK MULTIPLE REST BREAKS DURING TESTING D/T INCREASED WOB, LEG FATIGUE AND WAS AUDIBLY WHEEZING. SHE WALKED A TOTAL OF 259FT DURING TEST, WHEEZING SUBSIDED UPON REST. ENTIRE TEST WAS PERFORMED WITH PATIENT ON ROOM AIR. Initialized on 07/14/22 13:01 - END OF NOTE Interpretation Interpretation: The patient was noted to be 93% on room air on presentation. The patient did not experience significant desaturation, but did have tachycardia as high as 110 bpm. In total, the patient travel 259 feet over the course of 6 minutes with the assistance of a walker and 6 breaks. Patient did report significant leg fatigue. These findings are consistent with a musculoskeletal limitation exercise tolerance. Recommendations Recommendations: No supplemental oxygen is indicated at this time.
== END | disposition home or self-care (01) ==
PROVIDERS: PCP Family Medicine; Referring Provider Family Medicine; Visit Provider Family Medicine
DX: R06.00 Dyspnea, unspecified (principal); R06.2 Wheezing; R09.02 Hypoxemia
CPT/HCPCS: 94618

== ENCOUNTER → 2022-09-09 | Outpatient (CLI) | payer MEDICARE, SELFPAY ==
--- NOTE | 2022-09-09 09:00 | US_ITS ---
STUDY: ABDOMINAL ULTRASOUND - RIGHT UPPER QUADRANT REASON FOR VISIT: Female, 77 years old . Fatty infiltration of the liver. Autoimmune hepatitis. TECHNIQUE: Ultrasound evaluation of the right upper quadrant was performed with real-time and static springer-scale imaging. TECHNICAL QUALITY: Adequate. COMPARISON: Comparison is made with prior study November 03, 2021. FINDINGS: Liver: The liver is mildly enlarged and measures 17.8 cm. There is increased echogenicity consistent with fatty infiltration. The bile ducts are within normal limits. There is hepatic color flow. The direction of portal flow is hepatopetal. There is no demonstrated mass lesion. Gallbladder: The patient is status post cholecystectomy. Common Bile Duct (C.B.D.): The common bile duct measures 6 mm. Pancreas: Normal size of the head, body and tail of the pancreas. There is normal echogenicity of the pancreas. There is no demonstrated pancreatic mass or cyst. Right Kidney: Normal size of the right kidney. The right kidney measures 9.9 cm x 5.4 cm x 5.4 cm. Normal renal cortex. The right cortex measures 1.2 cm. There is no demonstrated renal mass or cyst. There is no right hydronephrosis. IMPRESSION: Mild hepatomegaly and fatty infiltration of the liver. Electronically Signed: Larry Godinez MD at 8:24 EDT , STUDY: ABDOMINAL ULTRASOUND - ELASTOGRAPHY REASON FOR VISIT: Female, 77 years old. Autoimmune hepatitis. Fatty infiltration of the liver. TECHNIQUE: Liver stiffness measurements were obtained on a [employer] 85 ultrasound machine using a CA 1-7 probe following the SRU guidelines. 3 measurements were obtained using a 2-D-SWE method. TheIQR/M was 19 % suggesting a quality data set. TECHNICAL QUALITY: Adequate. COMPARISON: None. FINDINGS: Liver: There is no demonstrated mass lesion. Median liver stiffness measured 9 kPa. Abdomen: There is no demonstrated mass lesion. US/ABD Limited w/ Elastography IMPRESSION: Liver stiffness measures 9 kPa compatible with F2-F3 (Mild to moderate liver fibrosis) Metavir score. Electronically Signed: Larry Godinez MD at 8:25 EDT ,
== END | disposition home or self-care (01) ==
PROVIDERS: PCP Family Medicine; Referring Provider Internal Medicine Gastroenterology; Visit Provider Internal Medicine Gastroenterology
DX: K75.4 Autoimmune hepatitis (principal)
CPT/HCPCS: 76705; 76981

== ENCOUNTER → 2022-09-27 | Outpatient (CLI) | payer MEDICARE, SELFPAY ==
--- NOTE | 2022-09-27 10:16 | NM_ITS ---
INDICATION: Abdominal pain, Diabetes, IBS, Gastritis EXAMINATION: NUCLEAR MEDICINE GASTRIC EMPTYING - NM Gastric Emptying Study (solid, liquid or both) TECHNIQUE: Radiopharmaceutical (solid portion of the exam): 1.0 mCi of Tc99m Sulfur Colloid mixed with oat meal. Oral administration. Imagin minutes of imaging with anterior and posterior projection. COMPARISON: Ultrasound 09/09/2022 FINDINGS: Gastric emptying time with solids: T1/2 measures 26 minutes, within normal limits. Visually, there is normal passage of isotope from the stomach into the small bowel. No gastroesophageal reflux. NM/Gastric Emptying Study IMPRESSION: Normal gastric emptying time with solids. Electronically Signed: Saul Demaroc (Brooks), at 12:40 EDT ,
== END | disposition home or self-care (01) ==
LOC: NM 10:16
PROVIDERS: PCP Family Medicine; Referring Provider Internal Medicine Gastroenterology; Visit Provider Internal Medicine Gastroenterology
DX: R10.9 Unspecified abdominal pain (principal)
CPT/HCPCS: 78264; A9541

== ENCOUNTER → 2022-10-27 | Outpatient (CLI) | payer MEDICARE, SELFPAY ==
--- NOTE | 2022-10-27 17:18 | CT_ITS ---
EXAM: CT CHEST WITHOUT INTRAVENOUS CONTRAST CLINICAL INDICATION: Concern for interstitial lung disease TECHNIQUE: Helically acquired images were obtained of the chest without intravenous contrast. This CT exam was performed using one or more of the following dose reduction techniques: automated exposure control, adjustment of the mA and/or kV according to patient size, and/or use of iterative reconstruction technique. COMPARISON: CTA chest 11/03/2021 FINDINGS: LUNGS AND PLEURAL SPACES: Bibasilar linear densities consistent with areas of atelectasis. No mass. No pleural effusion or thickening. No pneumothorax. HEART: Small focus of calcification at the left ventricular apex which may be related to chronic myocardial infarction. Heart is within the range of normal size. No pericardial effusion. No significant coronary artery calcifications. MEDIASTINUM: Normal. No mediastinal or hilar adenopathy. Esophagus is unremarkable. No hiatal hernia. BONES/JOINTS: Advanced arthritic changes of the left glenohumeral joint. Partial visualization of the reverse shoulder prosthesis on the right. VASCULATURE: Normal. Thoracic aorta is non-dilated. CT/Chest without Contrast IMPRESSION: 1. No acute cardiopulmonary abnormality. 2. No evidence of diffuse interstitial lung disease. 3. Chronic findings as described above. Electronically Signed: Marvin Greer MD at 16:06 EDT ,
== END | disposition home or self-care (01) ==
PROVIDERS: PCP Family Medicine; Referring Provider Internal Medicine Critical Care Medicine; Visit Provider Internal Medicine Critical Care Medicine
DX: M35.00 Sjogren syndrome, unspecified (principal); R06.00 Dyspnea, unspecified
CPT/HCPCS: 71250

== ENCOUNTER 2022-12-10 20:55 | Inpatient (IN) | payer MEDICARE, SELFPAY ==
[2022-12-10] VITALS (8 sets, daily range): BP systolic 145–149; BP diastolic 70–91; PULSE 106–112; RESP 22–33; TEMP 36.2–36.5; O2SAT 85–95; BMI 38.0
--- NOTE | 2022-12-10 21:22 | EDS_ITS ---
HPI History of Present Illness Chief Complaint: Shortness of Breath Detail of Chief Complaint: . Informant: patient Onset/Context/Timing Onset: Days Context: gradual Quality: Positive for Wheezing Current Severity: Moderate Maximum Severity: Moderate Worsened by: Nothing Relieved by: Nothing and Oxygen Associated Symptoms Negative for fever, white sputum, yellow sputum or green sputum Chest Pain: Positive for None Narrative Narrative: -year-old female history of diabetes, COPD for which she is on oxygen at home at night and prior pulmonary emboli. States the last several days prior to getting on Sunday she has been progressively increasing short of breath with wheezing. Denies any chest pain or hemoptysis. No fever or chills. She is currently not on any blood thinners. PE Risk Factors: Positive for Prior DVT or PE; Negative for Cancer, OCP + Smoking + > 35, Recent immobilization, Recent surgery or Recent travel Prior similar symptoms: Yes Recent Illness/Hospitalization: No PFSH PFSH Medical History Acquired hypothyroidism Anemia Benign essential hypertension Chronic gastritis Depression Diabetes mellitus with diabetic polyneuropathy, with long-term current use of insulin Fibromyalgia Hx of deep venous thrombosis IBS (irritable bowel syndrome) LIS (obstructive sleep apnea) Rheumatoid arthritis Home Medications Cyanocobalamin (Vitamin B-12) 1,000 mcg subcut QMONTH supplement 11/20/14 [History Last Taken 12/18/19 08:00] atorvastatin 40 mg tablet 40 mg PO QHS cholesterol 11/20/14 [History Last Taken 01/03/20] gabapentin 300 mg capsule 600 mg PO TID back pain 11/20/14 [History Last Taken 01/04/20] irbesartan 150 mg tablet (Avapro) 150 mg PO QHS blood pressure 11/20/14 [History Last Taken 01/03/20] levothyroxine 100 mcg tablet 100 mcg PO DAILY thyroid 11/20/14 [History Last Taken 01/04/20] omeprazole 10 mg capsule,delayed release 10 - 20 mg PO BID GERD 11/20/14 [History Last Taken 01/03/20] ketorolac 0.4 % eye drops 1 drp RIGHT EYE 4X/DAY macular degeneration 01/04/20 [History Last Taken 01/04/20] melatonin 1 mg tablet 10 mg PO 2000 sleep 01/04/20 [History Last Taken 01/03/20] ropinirole 2 mg tablet 2 mg PO QHS restless legs 01/04/20 [History Last Taken 01/03/20] zolpidem 12.5 mg tablet,extended release,multiphase 12.5 mg PO QHS sleep 01/04/20 [History Last Taken 01/03/20] vitamin E (dl, acetate) 180 mg (400 unit) capsule 400 units PO DAILY@1200 Supplement 01/06/20 [History Last Taken Unknown] acetaminophen 500 mg tablet 1,000 mg (2 x 500 mg) PO Q6H PRN PRN Pain Score 1-5 01/27/20 [Rx Last Taken Unknown] fluoxetine 20 mg capsule 40 mg (2 x 20 mg) PO DAILY #30 caps 01/27/20 [Rx Last Taken Unknown] insulin glargine 100 unit/mL (3 mL) subcutaneous pen 10 units (0.1 mL) subcut BID 01/27/20 [Rx Last Taken Unknown] furosemide 40 mg tablet 40 mg PO DAILY 08/23/21 [History Last Taken Unknown] sarilumab 200 mg/1.14 mL subcutaneous pen injector (Kevzara) 200 mg subcut QWEEK 08/23/21 [History Last Taken Unknown] ursodiol 250 mg tablet 250 mg PO BID #180 tabs 11/05/21 [Rx Last Taken Unknown] ondansetron HCl 4 mg tablet 4 mg PO Q8H PRN nausea and vomiting #14 tabs 10/03/22 [Rx Last Taken Unknown] albuterol sulfate 2.5 mg/3 mL (0.083 %) solution for nebulization 2.5 mg inhalation Q4H PRN shortness of breath or wheezing 10/05/22 [History Last Taken Unknown] fluticasone 500 mcg-salmeterol 50 mcg/dose blistr powdr for inhalation (Jenifer Inhub) 1 inh inhalation BID #60 ea 10/11/22 [Rx Last Taken Unknown] cholecalciferol (vitamin D3) 1,250 mcg (50,000 unit) capsule 1,250 mcg PO .weekly 12/10/22 [History Last Taken Unknown] diphenoxylate-atropine 2.5 mg-0.025 mg tablet 2 tab PO Q12H PRN diarrhea 12/10/22 [History Last Taken Unknown] fesoterodine 4 mg tablet,extended release 24 hr 4 mg PO DAILY 12/10/22 [History Last Taken Unknown] potassium chloride 20 mEq tablet,extended release 20 meq PO DAILY 12/10/22 [History Last Taken Unknown] sucralfate 100 mg/mL oral suspension 10 ml PO Q12H 12/10/22 [History Last Taken Unknown] tramadol 50 mg tablet 50 mg PO Q12H 12/10/22 [History Last Taken Unknown] Allergy/AdvReac Type Severity Reaction Status Date / Time cyclobenzaprine Allergy Unknown Verified 12/10/22 21:01 doxepin Allergy Unknown Verified 12/10/22 21:01 hydromorphone HCl Allergy Unknown Verified 12/10/22 21:01 [From Dilaudid] prednisone Allergy Unknown Verified 12/10/22 21:01 pregabalin [From Lyrica] Allergy Unknown Verified 12/10/22 21:01 acetaminophen [From Percocet] AdvReac HALLUCINATI Verified 12/10/22 21:01 ON hydrocodone bitartrate AdvReac HALLUCINATI Verified 12/10/22 21:01 [From Vicodin] ONS oxycodone HCl [From Percocet] AdvReac HALLUCINATI Verified 12/10/22 21:01 ON Family History Brother Diabetes Grandmother Diabetes Father Colon cancer CVA (cerebral vascular accident) Mother Hypertension Surgical History H/O shoulder surgery History of ankle surgery History of bilateral knee replacement History of carpal tunnel surgery History of cystoscopy History of total hysterectomy Hx of cholecystectomy Social History household members: none housing: apartment Smoking Status: Never smoker alcohol intake: never what type of physical activity do you participate in: none do you feel safe at home: Yes ROS ROS ED ROS Narrative Of breath. Wheezing. Review of Systems ROS Unobtainable: Denies due to encephalopathy Constitutional Constitutional ED: Denies chills or fever(s) Eyes Eyes: Denies blurry vision ENT ENT ED: Denies ear pain, rhinorrhea or sore throat Cardiovascular Cardiovascular: Denies chest pain, palpitations or racing heartbeat Respiratory/Chest Respiratory/Chest: Reports dyspnea; Denies cough Gastrointestinal Gastrointestinal: Denies abdominal pain, constipation, diarrhea, melena, nausea or vomiting Genitourinary Genitourinary ED: Denies dysuria or hematuria Musculoskeletal Musculoskeletal: Denies arthralgias or back pain Integumentary Denies abscess Neurologic Neurologic: Denies headache(s) Psychiatric Psychiatric: Denies anxiety or depression Endocrine Endocrinology: Denies cold intolerance Hematologic/Lymphatic Hematologic/Lymphatic: Denies easy bleeding, easy bruising or lymphadenopathy Allergic/Immunologic Allergic/Immunologic ED: Denies mouth swelling or tongue swelling EXAM Physical Exam Narrative Exam Narrative: 77-year-old female with wheezing. Family present in room. Vital signs stable on a nonrebreather she is 93%. HEENT exam unremarkable moist extremities. Neck nontender no JVD. Lungs expiratory wheezing throughout. No rales or rhonchi. Equal symmetrical. Heart tachycardic rate 110 no murmur. Chest wall nontender. Abdomen soft nontender. Moving all 4 extremities. Chronic trace edema left leg that is not new or worse. No calf tenderness bilaterally. Neurologically she is awake alert with no focal motor deficits. Const Vital Signs: 12/10/22 20:57 12/10/22 21:00 12/10/22 21:00 Temperature 97.7 F L 97.7 F L Temperature Source Temporal Temporal Pulse Rate 111 H 112 H Respiratory Rate 33 H 32 H Respiratory Effort Respiratory Depth Respiratory Pattern Blood Pressure 148/91 H 149/78 H Blood Pressure Mean 110 101 Pulse Ox 93 92 94 Oxygen Delivery Method Non-Rebreather Non-Rebreather Non-Rebreather Oxygen Flow Rate (L/min) 15 15 15 12/10/22 21:02 12/10/22 21:25 12/10/22 21:41 Temperature Temperature Source Pulse Rate 106 H Respiratory Rate 28 H Respiratory Effort Short of Breath Respiratory Depth Shallow Respiratory Pattern Tachypnea Tachypnea Blood Pressure Blood Pressure Mean Pulse Ox Oxygen Delivery Method Non-Rebreather Non-Rebreather Oxygen Flow Rate (L/min) 15 15 12/10/22 22:00 12/10/22 23:00 12/10/22 23:01 Temperature 97.1 F L Temperature Source Temporal Pulse Rate 109 H 110 H Respiratory Rate 22 H 24 H Respiratory Effort Respiratory Depth Respiratory Pattern Blood Pressure 145/79 H 146/77 H Blood Pressure Mean 101 100 Pulse Ox 95 85 93 Oxygen Delivery Method Nasal Cannula Non-Rebreather Oxygen Flow Rate (L/min) 6 15 12/10/22 23:00 12/10/22 23:37 Temperature 97.2 F L 97.3 F L Temperature Source Temporal Temporal Pulse Rate 110 H 108 H Respiratory Rate 22 H 22 H Respiratory Effort Respiratory Depth Respiratory Pattern Blood Pressure 146/77 H 145/70 H Blood Pressure Mean 100 95 Pulse Ox 93 95 Oxygen Delivery Method Non-Rebreather Non-Rebreather Oxygen Flow Rate (L/min) 15 15 Positive well nourished and well developed; Negative for cachectic or contractures General Appearance ED: well developed; Negative for cachectic, contractures, NAD or pallor Nutritional Appearance: Negative for cachectic HEENT Reports moist mucous membranes Negative for atraumatic, trauma or tenderness Eyes PERRL and EOMs intact bilaterally General Eye ED: Negative for pale conjunctiva or scleral icterus Neck no lymphadenopathy, supple, no meningeal signs and no JVD General: Negative for tenderness Lymph Lymphatic: Negative for other Resp No normal respiratory effort and No clear to auscultation bilaterally Resp Narrative: Increased respiratory rate. Bilateral expiratory wheezing. No rales or rhonchi appreciated. Auscultation: wheezes Cardio regular rhythm, S1 normal heart sound, S2 normal heart sound and no murmurs; Negative for regular rate Rate: tachycardic GI non-tender, non-distended and no masses Inspection: Negative for other Auscultation: normoactive bowel sounds Palpation: soft; Negative for tender or guarding Back/Spine no CVA tenderness and normal to inspection General Back: Negative for CVA tenderness or tenderness Extremity Negative for normal to inspection Extremity Narrative: Leg normal. Left leg chronic trace edema. Not new or changed. Calves nontender. No cords. General Extremety ED: Yes edema General Extremity: edema Neuro oriented x3 and CN's II-XII intact bilaterally Sensorium / Orientation: alert, oriented to person, oriented to place and oriented to time; Negative for orientation impaired, confused or lethargic Motor Exam: strength 5/5 throughout Psych mental status grossly normal Attitude: No agitated Mood & Affect: Negative for depressed, anxious or tearful Thought Process: normal thought process Skin no wounds General Skin Exam: Negative for jaundice or pallor Lesions: no lesions Rashes: no rashes Trauma: Negative for abrasion, laceration or puncture MDM MDM MDM Narrative Medical decision making narrative: 77-year-old female short of breath and wheezing suspect COPD flare. Rule out cardiac event versus pneumonia versus congestive heart failure. She was treated by squad with Solu-Medrol prior to arrival and aerosols. She will be given additional aerosols. Undergo a respiratory and cardiac work-up. Repeat exam at 11:20 PM patient showing improvement with aerosols. She becomes hypoxic if we take her off the face mask O2. With her elevated D-dimer I am obtaining a CTA of her chest. Also rapid COVID. And she will need her enzymes cycled due to her troponin being 99. I have the hospitalist on page for admission. CTA showed bilateral pulmonary emboli without heart strain. She will be started on heparin bolus and drip. Hospitalist is aware. History & Record Review Discussion w/independent historian: Patient Additional record(s) reviewed:: Prior inpatient record, Prior outpatient record, Prior ED visit and Prior labs Lab Data Attestation: I reviewed the patient's lab results. Lab results narrative: CBC shows a white 11.8. H&H of 15 and 47. Platelets 246. D-dimer is greater than 20. Troponins elevated 99. Repeat troponin was 98. BNP is 282. Electrolytes show a gap of 7 normal BUN and creatinine are 19 and 0.9. Glucose 233. Chest x-ray chronic changes. Due to the elevated D-dimer a CTA of the chest will be obtained. COVID and influenza were both positive. CTA of her chest showed bilateral pulmonary emboli throughout both lungs and in the main pulmonary arteries. However no signs of heart strain. Labs: Laboratory Results - last 24 hr 12/10/22 12/10/22 20:50 23:30 WBC 11.8 H RBC 5.30 Hgb 15.0 Hct 47.8 H MCV 90.2 MCH 28.3 MCHC 31.4 L RDW Std Deviation 47.9 H RDW Coeff of Susi 14.5 Plt Count 246 MPV 8.9 Immature Gran % (Auto) 0.300 Neut % (Auto) 63.9 Lymph % (Auto) 24.1 Dickey % (Auto) 9.5 Eos % (Auto) 1.9 Baso % (Auto) 0.3 Absolute Neuts (auto) 7.6 Absolute Lymphs (auto) 2.85 Nucleated RBC % 0 D-Dimer Quant (PE/DVT) > 20.00 H* Sodium 137 Potassium 4.0 Chloride 101 Carbon Dioxide 29.0 Anion Gap 7 BUN 19 H Creatinine 0.99 Estim Creat Clear Calc 43.14 Est GFR (MDRD) Af Amer 70 Est GFR (MDRD) Non-Af 58 L BUN/Creatinine Ratio 19.2 Glucose 233 H Calcium 8.7 Troponin I High Sens 99 H 98 H B-Natriuretic Peptide 282.3 H Radiography Chest X-Ray - ED: 1 View, Read by ED Physician, Heart, Lungs, Mediastinum, Bony Structures, No Acute Disease and Chronic Changes Diagnostic Testing: Clinical Impression(s) from Imaging Studies Chest X-Ray 12/10/22 22:05 IMPRESSION: Overall no change compared to prior study allowing for differences in patient rotation. Electronically Signed: Segundo Mendez MD at 22:22 EDT , Chest x-ray, portable, single view interpreted both by myself and the radiologist shows chronic changes no acute process. No significant signs of congestive heart failure. No pleural effusions. No pneumonia. Normal cardiac silhouette. Rhythm Strip Rhythm Strip: Sinus Tach Rate: 109 Ectopy: None EKG Initial EKG: Attestation: I personally reviewed and interpreted this EKG as follows: Interpretation: Sinus Tachycardia Comments: Tachycardia rate of 109 no acute signs of MO or ischemia. Inc omplete right bundle jesus block. Critical Care Time Critical Care Time: Yes Critical care time (excluding procedures): 30-74 minutes, Including time spent:, Discussing w/Patient &/or Family/Jailer/Training Officer, Discussing w/Consultants, Arranging Admission or Transfer, Performing Direct Patient Care at Bedside and - (40 min) Discharge Plan Dx/Rx/DC Orders Clinical Impression: Acute dyspnea, Hypoxia, Acute exacerbation of chronic obstructive pulmonary di sease, Hx of pulmonary embolus, COVID, Bilateral pulmonary embolism, Influenza Disposition Disposition: [facility]
[2022-12-10 21:32] LABS: Absolute Lymphocyte Count 2.85 X10^3/uL (0.83-4.51); Absolute Neutrophil Count 7.6 X10^3/uL (2.0-7.7); Basophil# 0.04 X10^3/uL; Basophil% 0.3 % (0-1); Eosinophil# 0.22 X10^3/uL; Eosinophils% 1.9 % (0-5); Hematocrit 47.8 % (37-47); Lymphocyte # 2.85 X10^3/ul (0.83-4.51); Lymphocyte % 24.1 % (19-41); Mean Corp Hgb Conc 31.4 g/dL (32-36); Mean Corpuscular Hgb 28.3 pg (27.0-32.0); Mean Corpuscular Volume 90.2 fL (81-99); Mean Platelet Vol. 8.9 fl (6.2-12.0); Monocyte# 1.12 X10^3/uL; Monocyte% 9.5 % (0-10); NRBC Flagged by Analyzer 0 % (0-5); Neutrophil # 7.55 X10^3/uL (2.7-7.7); Neutrophil % 63.9 % (47-70); Platelet Count 246 K/mm3 (150-450); RBC Distribution Width CV 14.5 % (11.6-14.6); RBC Distribution Width SD 47.9 fl (35.1-43.9); White Blood Count 11.8 K/mm3 (4.4-11.0)
[2022-12-10] MEDS: Albuterol 2.5 MG/3 ML VIAL.NEB. INHALATION ×2 (21:33→21:34)
[2022-12-10] MEDS: Ipratropium/Albuterol Sulfate 3 ML AMPUL.NEB INHALATION (21:33)
[2022-12-10 21:49] LABS: Anion Gap 7 (5-15); BUN 19 mg/dL (7-18); BUN/Creat Ratio 19.2 RATIO (10-20); Calcium,Total 8.7 mg/dL (8.5-10.1); Chloride 101 mmol/L (98-107); Creatinine, Serum 0.99 mg/dL (0.55-1.02); EST Glomerular Filtration Rate 58 mL/min (>60); Est Glom Filt Rate - Afr Amer 70 mL/min (>60); Estimated Creatinine Clearance 43.14 ml/min; Glucose 233 mg/dL (74-106); Sodium Level 137 mmol/L (136-145); Troponin-I HS 99 pg/mL (3.0-54.0)
[2022-12-10 22:01] LABS: BNP,B-Type NATRIURETIC PEPTIDE 282.3 pg/mL (0-100)
--- NOTE | 2022-12-10 22:05 | RAD_ITS ---
INDICATION: chest pain EXAMINATION/TECHNIQUE: X-RAY - XR Chest 1 View COMPARISON: CT October 27, 2022. Radiograph July 11, 2022. FINDINGS: Right shoulder arthroplasty. Cardiac silhouette and mediastinal contours are similar to prior study. No focal airspace consolidation or pleural effusion. No subdiaphragmatic free air. There is no acute bony pathology. Severe left shoulder degenerative change. RAD/Chest 1 View (Portable) IMPRESSION: Overall no change compared to prior study allowing for differences in patient rotation. Electronically Signed: Segundo Mendez MD at 22:22 EDT ,
[2022-12-10 22:30] LABS: D-Dimer Quantitative (DVT/PE) > 20.00 FEU/ug/m (0.27-0.49)
--- NOTE | 2022-12-10 23:20 | CT_ITS ---
STUDY: CTA CHEST REASON FOR EXAM: Female, 77 years old. hypoxia and elevated d-dimer RADIATION DOSAGE (If Supplied By Facility): CTDIvol = ( 14.48 ) mGy, DLP = ( 507.76 ) mGycm TECHNIQUE: The examination was performed with the intravenous administration of IV 100mL Isovue-370. Post-processing of the angiographic images was performed, with multiplanar reformation and 3D reconstruction. Individualized dose optimization techniques were used for this CT. COMPARISON: CT October 27, 2022. CT November 03, 2021 FINDINGS: Acute pulmonary embolus bilateral main pulmonary arteries extending into right upper lobar artery and anterior lateral right apical segments, right middle lobar artery extending into lateral and medial segments and subsegmental branches, left upper lobar artery descending into apical and anterior segments, and left lobar artery extending throughout the basilar segments and subsegmental branches. Mild main pulmonary arterial enlargement. Aortic atherosclerosis without dissection or ectasia. No cardiomegaly or pericardial effusion.. Mild multivessel coronary atherosclerosis. Coarse mitral annular calcifications. Mitral valvular calcifications. No mediastinal or hilar adenopathy. Unremarkable esophagus Mild debris in the right lower lobe bronchus.. Scattered subsegmental atelectasis within lungs. No evidence of infarct, consolidation, effusion, pneumothorax.. 4 mm lateral right lower lobe nodule axial image 128. Normal chest wall structures. Right shoulder arthroplasty. Cholecystectomy. CT/CTA Chest W/WO Contrast IMPRESSION: Acute pulmonary embolus bilateral main pulmonary arteries extending into bilateral upper lobe, right middle lobe, left lower lobar arteries as well as segmental subsegmental branches. Overall large clot burden. Mild pulmonary arterial enlargement as can be seen pulmonary hypertension. Normal RV LV ratio. No elevation to suggest right heart strain. 4 mm right lower lobe nodule, unchanged from November 03, 2021. Additional one-year follow-up CT is recommended to establish two-year stability. N.B. : The above Results were Read Back by Fred Jones MD to Vu Anderson MD, and understanding confirmed on 12/11/2022 00:19:36 (ET). Electronically Signed: Fred Jones MD at 0:26 EDT ,
--- NOTE | 2022-12-10 23:33 | HP.PCM.HOS_ITS ---
HPI - General General Date of Admission: 12/11/22 Date of Service: 12/11/22 Chief Complaint: Bilateral PE HPI Narrative CAMRON SNOW, is a 77 F with history of chronic hypoxic respiratory failure on home 2 L nasal cannula at night, prior PE/DVT not currently on anticoagulation, pulmonary hypertension, nonalcoholic fatty liver disease, LIS, gout, RA, fibromyalgia, hypothyroidism, chronic pain and depression who presented to [facility] ED on 12/10/2022 with worsening shortness of breath. Patient seen at bedside in ED. Was on nonrebreather satting in the low 90s during my interview, however she had very mild increased work of breathing and otherwise was sitting comfortably in bed and conversing normally. Patient states that her shortness of breath has been getting worse over the last 4 to 5 days. She lives at home by herself, has been getting some help from family. Has not been able to do much over the past several days at home. Has gotten significantly short of breath with any exertion. She does report mild to moderate left lower leg pain and cramping. Has been taking all of her home medications as prescribed. She denies any fevers or chills. She denies any abdominal pain. No other acute concerns. Vitals in ED notable for hypoxia requiring 15 L nonrebreather mask to maintain oxygen saturations in low 90s, sinus tachycardia with pulse around 110, otherwise stable. Labs notable for WBC count 11, hemoglobin 15, normal BMP, D- dimer greater than 20, troponin trend 99 to 98, BNP 282. CTA chest in ED showed an acute PE and bilateral main pulmonary arteries extending into the bilateral upper lobe, right middle lobe, left lower lobar arteries as well as segmental and subsegmental branches with overall large clot burden; notably with normal RV to LV ratio with no elevation to suggest right heart strain, and mild pulmonary arterial enlargement as can be seen in chronic pulmonary hypertension. [facility] Medical History (Updated 12/11/22 @ 01:39 by Laney Gonzalez) Acquired hypothyroidism Anemia Benign essential hypertension Chronic gastritis COPD (chronic obstructive pulmonary disease) Depression Diabetes mellitus with diabetic polyneuropathy, with long-term current use of insulin Fibromyalgia Hx of deep venous thrombosis IBS (irritable bowel syndrome) LIS (obstructive sleep apnea) Rheumatoid arthritis Home Medications Cyanocobalamin (Vitamin B-12) 1,000 mcg subcut QMONTH supplement 11/20/14 [History Last Taken 10/01/20 08:00] atorvastatin 40 mg tablet 40 mg PO QHS cholesterol 11/20/14 [History Last Taken 01/03/20] gabapentin 300 mg capsule 600 mg PO TID back pain 11/20/14 [History Last Taken 01/04/20] irbesartan 150 mg tablet (Avapro) 150 mg PO QHS blood pressure 11/20/14 [History Last Taken 01/03/20] levothyroxine 100 mcg tablet 100 mcg PO DAILY thyroid 11/20/14 [History Last Taken 01/04/20] omeprazole 10 mg capsule,delayed release 10 - 20 mg PO BID PRN GERD 11/20/14 [History Last Taken 01/03/20] ketorolac 0.4 % eye drops 1 drp RIGHT EYE 4X/DAY macular degeneration 01/04/20 [History Last Taken 01/04/20] melatonin 1 mg tablet 10 mg PO 2000 sleep 01/04/20 [History Last Taken 01/03/20] ropinirole 2 mg tablet 0.5 mg PO .5x/day PRN restless legs 01/04/20 [History Last Taken 01/03/20] zolpidem 12.5 mg tablet,extended release,multiphase 12.5 mg PO QHS sleep 01/03 [History Last Taken 01/03/20] vitamin E (dl, acetate) 180 mg (400 unit) capsule 400 units PO DAILY@1200 Supplement 01/06/20 [History Last Taken Unknown] acetaminophen 500 mg tablet 1,000 mg (2 x 500 mg) PO Q6H PRN PRN Pain Score 1-5 01/27/20 [Rx Last Taken Unknown] insulin glargine 100 unit/mL (3 mL) subcutaneous pen 10 units (0.1 mL) subcut BID 01/27/20 [Rx Last Taken Unknown] furosemide 40 mg tablet 40 mg PO DAILY water pill 08/23/21 [History Last Taken Unknown] sarilumab 200 mg/1.14 mL subcutaneous pen injector (Kevzara) 200 mg subcut QWEEK 08/23/21 [History Last Taken Unknown] ursodiol 250 mg tablet 250 mg PO BID #180 tabs 11/05/21 [Rx Last Taken Unknown] ondansetron HCl 4 mg tablet 4 mg PO Q8H PRN nausea and vomiting #14 tabs 10/03/22 [Rx Last Taken Unknown] albuterol sulfate 2.5 mg/3 mL (0.083 %) solution for nebulization 2.5 mg inhalation Q4H PRN shortness of breath or wheezing 10/05/22 [History Last Taken Unknown] fluticasone 500 mcg-salmeterol 50 mcg/dose blistr powdr for inhalation (Wixela Inhub) 1 inh inhalation BID asthma #60 ea 10/11/22 [Rx Last Taken Unknown] cholecalciferol (vitamin D3) 1,250 mcg (50,000 unit) capsule 1,250 mcg PO MO supplement 12/10/22 [History Last Taken Unknown] diphenoxylate-atropine 2.5 mg-0.025 mg tablet 2 tab PO Q12H PRN diarrhea 3 [History Last Taken Unknown] fesoterodine 4 mg tablet,extended release 24 hr 4 mg PO DAILY overactive bladder 12/10/22 [History Last Taken Unknown] potassium chloride 20 mEq tablet,extended release 20 meq PO DAILY supplement 12/10/22 [History Last Taken Unknown] sucralfate 100 mg/mL oral suspension 10 ml PO Q12H 12/10/22 [History Last Taken Unknown] tramadol 50 mg tablet 50 mg PO BID pain 12/10/22 [History Last Taken Unknown] fluoxetine 20 mg capsule 20 mg PO DAILY depression 12/11/22 [History Last Taken Unknown] vit C 250 mg-vit E 90 mg-zinc 10 mg-copper 1 [id number] capsule (Healthy Eyes SuperVision2) 1 cap PO DAILY supplement 12/11/22 [History Last Taken Unknown] Allergy/AdvReac Type Severity Reaction Status Date / Time cyclobenzaprine Allergy Unknown Verified 12/10/22 21:01 doxepin Allergy Unknown Verified 12/10/22 21:01 hydromorphone HCl Allergy Unknown Verified 12/10/22 21:01 [From Dilaudid] prednisone Allergy Unknown Verified 12/10/22 21:01 pregabalin [From Lyrica] Allergy Unknown Verified 12/10/22 21:01 acetaminophen [From Percocet] AdvReac HALLUCINATI Verified 12/10/22 21:01 ON hydrocodone bitartrate AdvReac HALLUCINATI Verified 12/10/22 21:01 [From Vicodin] ONS oxycodone HCl [From Percocet] AdvReac HALLUCINATI Verified 12/10/22 21:01 ON Family History Brother Diabetes Grandmother Diabetes Father Colon cancer CVA (cerebral vascular accident) Mother Hypertension Surgical History H/O shoulder surgery History of ankle surgery History of bilateral knee replacement History of carpal tunnel surgery History of cystoscopy History of total hysterectomy Hx of cholecystectomy Social History household members: none housing: apartment Smoking Status: Never smoker alcohol intake: never what type of physical activity do you participate in: none do you feel safe at home: Yes ROS Constitutional Constitutional: Reports fatigue; Denies chills or fever(s) Eyes Eyes: Denies change in vision Cardiovascular Cardiovascular: Reports edema; Denies chest pain, lightheadedness or palpitations Respiratory/Chest Respiratory/Chest: Reports cough, shortness of breath at rest and shortness of breath with exertion; Denies productive cough or wheezing Gastrointestinal Gastrointestinal: Denies abdominal pain Musculoskeletal Musculoskeletal: Denies back pain Vital Signs Vital Signs Vital Signs: 12/10/22 20:57 12/10/22 21:00 12/10/22 21:00 Temperature 97.7 F L 97.7 F L Temperature Source Temporal Temporal Pulse Rate 111 H 112 H Respiratory Rate 33 H 32 H Respiratory Effort Respiratory Depth Respiratory Pattern Blood Pressure 148/91 H 149/78 H Blood Pressure Mean 110 101 Pulse Ox 93 92 94 Oxygen Delivery Method Non-Rebreather Non-Rebreather Non-Rebreather Oxygen Flow Rate (L/min) 15 15 15 12/10/22 21:02 12/10/22 21:25 12/10/22 21:41 Temperature Temperature Source Pulse Rate 106 H Respiratory Rate 28 H Respiratory Effort Short of Breath Respiratory Depth Shallow Respiratory Pattern Tachypnea Tachypnea Blood Pressure Blood Pressure Mean Pulse Ox Oxygen Delivery Method Non-Rebreather Non-Rebreather Oxygen Flow Rate (L/min) 15 15 12/10/22 22:00 12/10/22 23:00 12/10/22 23:01 Temperature 97.1 F L Temperature Source Temporal Pulse Rate 109 H 110 H Respiratory Rate 22 H 24 H Respiratory Effort Respiratory Depth Respiratory Pattern Blood Pressure 145/79 H 146/77 H Blood Pressure Mean 101 100 Pulse Ox 95 85 93 Oxygen Delivery Method Nasal Cannula Non-Rebreather Oxygen Flow Rate (L/min) 6 15 12/10/22 23:00 Temperature 97.2 F L Temperature Source Temporal Pulse Rate 110 H Respiratory Rate 22 H Respiratory Effort Respiratory Depth Respiratory Pattern Blood Pressure 146/77 H Blood Pressure Mean 100 Pulse Ox 93 Oxygen Delivery Method Non-Rebreather Oxygen Flow Rate (L/min) 15 Weight Weight: 106.7 kg Body Mass Index (BMI) 38.0 Physical Exam Const alert and oriented x3 Constitutional Narrative: Chronically ill-appearing elderly female, obese, satting in low 90s on nonrebreather mask, mildly increased work of breathing noted. Otherwise laying comfortably in bed, conversing normally. General Appearance: cooperative and comfortable HEENT normocephalic, head/scalp atraumatic, hearing grossly normal bilaterally, nasal mucous membranes and turbinates normal and moist oral mucous membranes Eyes PERRL, EOMs intact bilaterally and conjunctivae normal Neck full ROM, no lymphadenopathy and supple Lymph Lymphatic: no lymphadenopathy noted Chest inspection of chest normal Resp Resp Narrative: Decreased air movement noted bilaterally. No wheezes noted. Cardio regular rhythm, no murmurs and peripheral pulses 2+ throughout Cardio Narrative: Sinus tachycardia. GI normal to inspection, nondistended, normoactive bowel sounds, soft to palpation, non-tender and non-distended Back/Spine normal ROM Extremity Extremity Narrative: Lower left leg appears to be more edematous than right leg, left leg mildly tender to palpation. Skin no rashes or lesions noted Psych mental status grossly normal Results Lab / Micro Data 12/11/22 03:30 12/10/22 20:50 Labs: Laboratory Results - last 24 hr 12/10/22 20:50: WBC 11.8 H, RBC 5.30, Hgb 15.0, Hct 47.8 H, MCV 90.2, MCH 28.3, MCHC 31.4 L, RDW Std Deviation 47.9 H, RDW Coeff of Susi 14.5, Plt Count 246, MPV 8.9, Immature Gran % (Auto) 0.300, Neut % (Auto) 63.9, Lymph % (Auto) 24.1, [place] % (Auto) 9.5, Eos % (Auto) 1.9, Baso % (Auto) 0.3, Absolute Neuts (auto) 7.6, Absolute Lymphs (auto) 2.85, Nucleated RBC % 0, D-Dimer Quant (PE/DVT) > 20.00 H*, Sodium 137, Potassium 4.0, Chloride 101, Carbon Dioxide 29.0, Anion Gap 7, BUN 19 H, Creatinine 0.99, Estim Creat Clear Calc 43.14, Est GFR (MDRD) Af Amer 70, Est GFR (MDRD) Non-Af 58 L, BUN/Creatinine Ratio 19.2, Glucose 233 H, Calcium 8.7, Troponin I High Sens 99 H, B-Natriuretic Peptide 282.3 H Rhythm Strip Rhythm Strip: Sinus Tach Rate: 109 Ectopy: None Radiology Impression Chest X-Ray 12/10/22 22:05 IMPRESSION: Overall no change compared to prior study allowing for differences in patient rotation. Electronically Signed: Segundo Mendez MD at 22:22 EDT , Assessment & Plan Assessment/Plan (1) Bilateral pulmonary embolism: PLAN: Plan Patient is a 77-year-old female with history of chronic hypoxic respiratory failure on home 2 L nasal cannula at night, prior PE/DVT not currently on anticoagulation, pulmonary hypertension, nonalcoholic fatty liver disease, LIS, gout, RA, fibromyalgia, hypothyroidism, chronic pain and depression who presented to [facility] ED on 12/10/2022 with worsening shortness of breath. 1. Acute bilateral PE, intermediate risk; acute on chronic hypoxic respiratory failure CTA chest in ED showed an acute PE and bilateral main pulmonary arteries extending into the bilateral upper lobe, right middle lobe, left lower lobar arteries as well as segmental and subsegmental branches with overall large clot burden; notably with normal RV to LV ratio with no elevation to suggest right heart strain, and mild pulmonary arterial enlargement as can be seen in chronic pulmonary hypertension. Suspect PE may be secondary to COVID/flu as noted below with recent inactivity possibly contributing. Requiring up to 15 L high flow nasal cannula on admission. Mildly tachycardic to heart rate 100-110, otherwise hemodynamically stable. Troponin trend 99 to 98. BNP 282. ? Admit under inpatient status to PCU. Continue heparin drip. Wean supplemental oxygen as able, goal saturations of greater than 90%. Cardiology consulted. Echo ordered. Lower extremity duplex ultrasound ordered. Treating COVID as noted below. 2. COVID-19 infection, influenza B infection COVID-positive and influenza B positive in the ED. CT chest with significant clot burden as noted above, however with no noted lung parenchymal findings. Vitals with hypoxia and tachycardia as noted above, otherwise afebrile and hemodynamically stable. WBC count of 14 on admit. ? Will initiate treatment of COVID with IV Decadron 6 mg daily. Patient noted symptoms for last 4 to 5 days, unclear on how effective antiviral flu medication would be, will hold on this for now. 3. Chronic hypoxic respiratory failure Saw Dr. Gusman with pulmonology in the office on 10/05/22. Unclear etiology of patient's chronic respiratory failure at that time. Dr. Gusman noted that patient's PFTs were consistent with COPD, but this notably could be mimicked by fluid overload and some interstitial lung disease. Alpha-1 antitrypsin marker was sent, and it appears that testing came back positive but no further action was taken on this. Had further testing sent off for interstitial lung disease that all seems to have been negative. 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 ? Continue home long-acting inhaler, DuoNebs as needed. No need for pulmonology consult at this time, recommend continued outpatient follow-up. 4. Nonalcoholic fatty liver disease Follows with Dr. Chun in the office, last office visit on 08/07/2022. Was initially diagnosed in 08/2021. Was started on ursodiol at that time but developed diarrhea and lower abdominal pain/cramping so this was stopped. Was then started on vitamin E, continue on home statin and given recommendation for weight loss. As noted above, appears that alpha-1 antitrypsin test came back positive but there has been no action taken on this. ? LFTs pending. Outpatient GI follow-up. Chronic medical conditions: ? Type 2 diabetes: Home regimen of glargine 10 units twice daily. Continue home glargine 10 units twice daily with sliding scale insulin, adjust as needed. Continue home gabapentin 600 mg 3 times daily. ? Hypertension: Holding home irbesartan given large PE with risk for developing hemodynamic instability as noted above. ? Pulmonary hypertension: Holding home with Lasix 40 mg daily and home potassium supplement in setting of PE as above. ? Chronic pain: Continue home tramadol 50 mg twice daily. ? Depression: Continue home fluoxetine. DVT prophylaxis: Heparin drip CODE STATUS: DNR CCA, DO NOT INTUBATE. Confirmed with patient on admission. Expected disposition: TBD Total clinical time spent by myself addressing the patient's medical issues, reviewing all the data, and collaborating with patient's care team: 75 minutes. Charges/Coding Visit Charges Inpatient E&M: 80389 Init Hosp L3
[2022-12-10 23:54] LABS: Troponin-I HS 98 pg/mL (3.0-54.0)
[2022-12-11] VITALS (31 sets, daily range): BP systolic 128–178; BP diastolic 53–90; PULSE 92–111; RESP 17–29; TEMP 35.9–36.8; O2SAT 88–100; BMI 36.6
[2022-12-11] MEDS: Heparin Injection (Vial) 5,000 UNIT/ML VIAL 8000 UNIT IV (01:28)
[2022-12-11] MEDS: HEPARIN/D5w 25,000 UNITS 25,000 UNITS/250 ML IV.SOLN. 15 UNITS CONT INF (01:33)
--- NOTE | 2022-12-11 02:10 | ECHOD_ITS ---
Reason For Study: Emboli Procedure This was a 2D Doppler, Color Flow transthoracic echocardiogram. The study was technically difficult. The exam was abbreviated due to the COVID 19 protocol. Left Ventricle Normal LV size. Mild concentric left ventricular hypertrophy. The left ventricular ejection fraction is 55 %. Diastolic function is indeterminate. Right Ventricle Normal RV size. Moderate global right ventricular systolic dysfunction. Atria The left atrium is mildly enlarged. Normal right atrium. Mitral Valve Severe mitral annular calcification. Mild (1+) mitral valve insufficiency. Tricuspid Valve Trivial tricuspid valve insufficiency. Unable to estimate RV systolic pressure due to insufficient tricuspid regurgitant envelope. Aortic Valve The aortic valve is not well visualized in the short axis view. Mild aortic stenosis. Pulmonic Valve The pulmonic valve is not well visualized. Great Vessels Normal sized aortic root. Pericardium/Pleural No pericardial effusion. MMode/2D Measurements & Calculations LVIDd: 5.0 cm IVSd: 1.5 cm LVOT diam: 2.0 cm LVIDs: 4.1 cm LVPWd: 1.3 cm LVOT area: 3.1 cm2 RVDd: 3.1 cm FS: 17.9 % LA dimension: 3.6 cm LAV(MOD-bp): 66.9 ml LVAd ap4: 25.6 cm2 LAV(MOD-bp) Indexed: 31.2 ml/m2 LVLd ap4: 7.8 cm LAV(MOD-sp2): 81.3 ml EDV(MOD-sp4): 68.9 ml LAV(MOD-sp4): 54.7 ml EDV(sp4-el): 71.4 ml LVAs ap4: 15.6 cm2 LVLs ap4: 6.3 cm ESV(MOD-sp4): 32.5 ml ESV(sp4-el): 32.7 ml EF(MOD-sp4): 52.8 % EF(sp4-el): 54.2 % SV(MOD-sp4): 36.3 ml SV(sp4-el): 38.7 ml LA A4 area: 19.5 cm2 RA A4 area: 15.2 cm2 TAPSE: 1.3 cm Doppler Measurements & Calculations Lat Peak E' [place]: 7.1 cm/sec Med Peak E' [place]: 4.7 cm/sec MV V2 max: 162.2 cm/sec MV max P.5 mmHg MV V2 mean: 92.6 cm/sec MV mean P.0 mmHg MV V2 VTI: 28.7 cm MVA(VTI): 1.8 cm2 MV P1/2t max [place]: 99.0 cm/sec Ao V2 max: 253.5 cm/sec LV V1 max: 89.4 cm/sec MV P1/2t: 104.9 msec Ao max P.7 mmHg LV V1 max P.2 mmHg MV dec slope: 276.2 cm/sec2 Ao V2 mean: 184.7 cm/sec LV V1 mean P.7 mmHg Ao mean P.1 mmHg LV V1 mean: 61.4 cm/sec MVA(P1/2t): 2.1 cm2 Ao V2 VTI: 47.2 cm LV V1 VTI: 16.9 cm AV (velocity ratio): 0.36 NAZ(I,D): 1.1 cm2 NAZ(V,D): 1.1 cm2 MR max [place]: 587.7 cm/sec SV(LVOT): 51.6 ml MR max P.1 mmHg ECHO/Echo Complete Interpretation Summary Mild concentric left ventricular hypertrophy. The left ventricular ejection fraction is 55 %. Moderate global right ventricular systolic dysfunction. The left atrium is mildly enlarged. Severe mitral annular calcification. Mild (1+) mitral valve insufficiency. Mild aortic stenosis. Ordering Physician: Chris Cruz Referring Physician: Diallo Dejesus Performed By: Terence Quiles RCS
[2022-12-11] MEDS: Insulin Lispro 100 UNIT/ML INSULN.PEN SC ×5 (03:16→21:18)
--- NOTE | 2022-12-11 03:16 | VDLE_ITS ---
Reason For Study: PE RIGHT LEFT GSV is normal. GSV is normal. CFV is patent and compressible. CFV is dilated and NON COMPRESSIBLE FV is patent and compressible consistent with acute DVT POPV and T/P Trunk is partially compressible FV is patent and compressible with homogenous and bright intraluminal POPV is patent and compressible echoes consistent with acute on chronic DVT PeroV is not visualized. PTV is compressible T/P Trunk is compressible. PeroV is not visualized. PTV is compressible. Procedure This is a venous duplex using B-mode, color flow and spectral Doppler. The exam was abbreviated due to the COVID 19 protocol. Exam performed portable in patient room. A preliminary report was called and/or faxed to [facility]. VL/Venous Duplex US - Agustín Extrem Interpretation Summary Acute deep vein thrombosis is noted in the left common femoral vein. Acute on chronic deep vein thrombosis is noted in the right popliteal vein, tib ioperoneal trunk vein. Ordering Physician: Chris Cruz Referring Physician: Diallo Dejesus Performed By: Raquel Diaz, CHRISCS, RVT
[2022-12-11 03:38] LABS: Hematocrit 44.5 % (37-47); Hemoglobin 13.9 g/dL (12.0-15.0); Mean Corp Hgb Conc 31.2 g/dL (32-36); Mean Corpuscular Hgb 28.3 pg (27.0-32.0); Mean Corpuscular Volume 90.4 fL (81-99); Mean Platelet Vol. 8.8 fl (6.2-12.0); Platelet Count 200 K/mm3 (150-450); RBC Distribution Width CV 14.4 % (11.6-14.6); RBC Distribution Width SD 47.9 fl (35.1-43.9); Red Blood Count 4.92 M/mm3 (4.2-5.4); White Blood Count 8.7 K/mm3 (4.4-11.0)
[2022-12-11 03:39] LABS: Bedside Glucose 313 mg/dL (74-106)
[2022-12-11 03:47] LABS: International Normalized Ratio 1.2; Prothrombin Time (Protime)PT. 15.1 SECONDS (11.7-14.9)
[2022-12-11 03:57] LABS: Partial Thromboplast Time 223.7 Seconds (24.1-36.2)
[2022-12-11 03:58] LABS: Anion Gap 9 (5-15); BUN 18 mg/dL (7-18); BUN/Creat Ratio 17.6 RATIO (10-20); Calcium,Total 8.9 mg/dL (8.5-10.1); Chloride 102 mmol/L (98-107); Creatinine, Serum 1.02 mg/dL (0.55-1.02); EST Glomerular Filtration Rate 56 mL/min (>60); Est Glom Filt Rate - Afr Amer 67 mL/min (>60); Estimated Creatinine Clearance 41.87 ml/min; Glucose 351 mg/dL (74-106); Potassium 4.2 mmol/L (3.5-5.1); Sodium Level 137 mmol/L (136-145)
[2022-12-11 04:36] LABS: AST(SGOT) 26 U/L (15-37); Alanine Aminotransfer ALT/SGPT 25 U/L (13-56); Albumin, Serum 2.7 g/dL (3.2-5.0); Alkaline Phosphatase 305 U/L (45-117); Bilirubin, Direct 0.13 mg/dL (0.00-0.30); Globulin 4.7 g/dL (2.2-4.2); Protein, Total 7.4 g/dL (6.4-8.2)
[2022-12-11] MEDS: Levothyroxine 100 MCG Tablet PO (06:45)
[2022-12-11] MEDS: Sucralfate 1 GM Tablet PO ×2 (06:49→17:01)
[2022-12-11 07:09] LABS: Bedside Glucose 366 mg/dL (74-106)
[2022-12-11] MEDS: Ipratropium/Albuterol Sulfate 3 ML AMPUL.NEB INHALATION ×2 (07:29→22:06)
[2022-12-11 08:27] LABS: Partial Thromboplast Time 146.5 Seconds (24.1-36.2)
[2022-12-11 09:03] LABS: Procalcitonin 0.17 ng/mL (0.00-0.09)
--- NOTE | 2022-12-11 10:35 | PCM.HOSP.N ---
Hospitalist Note Patient on high flow, patient tearful as she discussed her multiple medical problems including her abdominal pain for which she has undergone extensive outpatient work-up before stopping following with a GI physician because she was unhappy with communication, reports she is supposed to see surgery in the near future to schedule endoscopies, supportive care provided. Patient is feeling slightly better than yesterday. Continue heparin drip and present management.
[2022-12-11 11:37] LABS: Bedside Glucose 339 mg/dL (74-106)
[2022-12-11] MEDS: Potassium Chloride Oral Tablet 20 MEQ PO (11:39)
[2022-12-11] MEDS: FLUoxetine 20 MG Capsule PO (11:39)
[2022-12-11] MEDS: Acetaminophen 325 MG Tablet 650 MG PO (11:40)
[2022-12-11] MEDS: Pantoprazole Sodium 20 MG Tablet PO ×2 (11:40→21:17)
[2022-12-11] MEDS: Tolterodine Tartrate 2 MG CAP.SA PO (11:41)
[2022-12-11] MEDS: dexAMETHasone 4 MG/ML Vial 6 MG IV (11:41)
[2022-12-11 17:26] LABS: Bedside Glucose 366 mg/dL (74-106)
[2022-12-11] MEDS: HEPARIN/D5w 25,000 UNITS 25,000 UNITS/250 ML IV.SOLN. 12 UNITS CONT INF (18:33)
[2022-12-11] MEDS: Pramipexole Di-HCl 1 MG Tablet PO (21:17)
[2022-12-11] MEDS: Insulin Glargine-YFGN 100 UNIT/ML Pen SC (21:19)
[2022-12-11] MEDS: MELATONIN 3 MG TABLET PO (21:42)
[2022-12-11] MEDS: traMADol 50 MG Tablet PO (21:42)
[2022-12-11] MEDS: Budesonide Respules 0.5 MG/2 ML AMPUL.NEB. INHALATION (22:06)
[2022-12-11 22:23] LABS: Bedside Glucose 371 mg/dL (74-106)
[2022-12-11] MEDS: Zolpidem Tartrate 5 MG Tablet PO (23:15)
[2022-12-12] VITALS (14 sets, daily range): BP systolic 124–164; BP diastolic 63–87; PULSE 88–103; RESP 17–29; TEMP 36.1–36.7; O2SAT 85–98
[2022-12-12] MEDS: Ipratropium/Albuterol Sulfate 3 ML AMPUL.NEB INHALATION ×4 (02:42→19:16)
[2022-12-12 03:00] LABS: Absolute Lymphocyte Count 1.68 X10^3/uL (0.83-4.51); Basophil# 0.02 X10^3/uL; Basophil% 0.2 % (0-1); Hematocrit 40.9 % (37-47); Hemoglobin 13.2 g/dL (12.0-15.0); Lymphocyte # 1.68 X10^3/ul (0.83-4.51); Lymphocyte % 12.9 % (19-41); Mean Corp Hgb Conc 32.3 g/dL (32-36); Mean Corpuscular Hgb 28.9 pg (27.0-32.0); Mean Corpuscular Volume 89.5 fL (81-99); Mean Platelet Vol. 8.8 fl (6.2-12.0); NRBC Flagged by Analyzer 0 % (0-5); Neutrophil # 9.98 X10^3/uL (2.7-7.7); Neutrophil % 76.6 % (47-70); Platelet Count 218 K/mm3 (150-450); RBC Distribution Width CV 14.5 % (11.6-14.6); RBC Distribution Width SD 46.5 fl (35.1-43.9); Red Blood Count 4.57 M/mm3 (4.2-5.4)
[2022-12-12 03:11] LABS: Partial Thromboplast Time 51.3 Seconds (24.1-36.2)
[2022-12-12 03:13] LABS: Anion Gap 3 (5-15); BUN 25 mg/dL (7-18); BUN/Creat Ratio 26.2 RATIO (10-20); Calcium,Total 8.9 mg/dL (8.5-10.1); Chloride 106 mmol/L (98-107); Creatinine, Serum 0.95 mg/dL (0.55-1.02); EST Glomerular Filtration Rate 60 mL/min (>60); Est Glom Filt Rate - Afr Amer 73 mL/min (>60); Estimated Creatinine Clearance 44.95 ml/min; Glucose 267 mg/dL (74-106); Sodium Level 139 mmol/L (136-145)
[2022-12-12] MEDS: Heparin Injection (Vial) 5,000 UNIT/ML VIAL IV ×2 (04:09→18:33)
[2022-12-12] MEDS: Levothyroxine 100 MCG Tablet PO (06:15)
[2022-12-12] MEDS: Insulin Lispro 100 UNIT/ML INSULN.PEN SC ×4 (06:21→21:33)
[2022-12-12 06:59] LABS: Bedside Glucose 238 mg/dL (74-106)
[2022-12-12] MEDS: Budesonide Respules 0.5 MG/2 ML AMPUL.NEB. INHALATION ×2 (07:53→19:16)
[2022-12-12] MEDS: Sucralfate 1 GM Tablet PO ×2 (09:35→17:47)
[2022-12-12] MEDS: 0.9% Saline Lock 10 ML Syringe IV (09:39)
[2022-12-12] MEDS: dexAMETHasone 4 MG/ML Vial 6 MG IV (09:40)
[2022-12-12 10:38] LABS: Partial Thromboplast Time 47.4 Seconds (24.1-36.2)
[2022-12-12] MEDS: Heparin Injection (Vial) 5,000 UNIT/ML VIAL 1000 UNIT IV (11:26)
[2022-12-12] MEDS: FLUoxetine 20 MG Capsule PO (11:28)
[2022-12-12] MEDS: Potassium Chloride Oral Tablet 20 MEQ PO (11:29)
[2022-12-12] MEDS: Tolterodine Tartrate 2 MG CAP.SA PO (11:29)
[2022-12-12] MEDS: Pantoprazole Sodium 20 MG Tablet PO ×2 (11:29→21:28)
--- NOTE | 2022-12-12 13:07 | PN.HOSP_ITS ---
Reason for Visit Reason for Visit: Diagnoses Other pulmonary embolism without acute cor pulmonale (12/11/22) Subjective Subjective Patient still feeling somewhat weak and short of breath but feeling better than she had been and is been able to get up and move around and maintaining on nasal cannula Objective Data Objective Data Vital Signs: Vital Signs Temp Pulse Resp BP Pulse Ox O2 Del Method O2 Flow Rate 97.6 F L 92 19 H 148/63 H 95 Nasal Cannula 2 12/12/22 09:30 12/12/22 09:30 12/12/22 09:30 12/12/22 09:30 12/12/22 11:22 12/12/22 10:00 12/12/22 11:22 FiO2 64 12/11/22 11:22 Oxygen Flow Rate (L/min) 2 Oxygen Delivery Method Nasal Cannula Weight: 103.1 kg Body Mass Index (BMI) 36.6 Intake & Output: Intake and Output for Last 24 Hours 12/10/22 12/11/22 12/12/22 23:59 23:59 23:59 Intake Total 1278.1 / 1518.1 593.30 / 593.30 Output Total 760 / 1160 400 / 400 Balance 518.1 / 358.1 193.30 / 193.30 Lab / Micro Data 12/12/22 02:50 12/12/22 02:50 Labs: Laboratory Results - last 24 hr 12/11/22 16:56: POC Glucose 366 H 12/11/22 17:50: APTT 94.0 H* 12/11/22 21:18: POC Glucose 371 H 12/12/22 02:50: WBC 13.0 H, RBC 4.57, Hgb 13.2, Hct 40.9, MCV 89.5, MCH 28.9, MCHC 32.3, RDW Std Deviation 46.5 H, RDW Coeff of Susi 14.5, Plt Count 218, MPV 8.8, Immature Gran % (Auto) 0.300, Neut % (Auto) 76.6 H, Lymph % (Auto) 12.9 L, [place] % (Auto) 10.0, Eos % (Auto) 0.0, Baso % (Auto) 0.2, Absolute Neuts (auto) 10.0 H, Absolute Lymphs (auto) 1.68, Nucleated RBC % 0, APTT 51.3 H, Sodium 139, Potassium 4.0, Chloride 106, Carbon Dioxide 30.0, Anion Gap 3 L, BUN 25 H, Creatinine 0.95, Estim Creat Clear Calc 44.95, Est GFR (MDRD) Af Amer 73, Est GFR (MDRD) Non-Af 60, BUN/Creatinine Ratio 26.2 H, Glucose 267 H, Calcium 8.9 12/12/22 06:20: POC Glucose 238 H 12/12/22 10:15: APTT 47.4 H Micro: Microbiology 12/10/22 23:30 Nasal Secretion SARS-CoV-2 & FLU Antigen (Rapid) - Final SARS-CoV-2 (COVID 19) Influenzae B Radiography Diagnostic Testing: Radiology Impression Echocardiogram 12/11/22 02:10 Interpretation Summary Mild concentric left ventricular hypertrophy. The left ventricular ejection fraction is 55 %. Moderate global right ventricular systolic dysfunction. The left atrium is mildly enlarged. Severe mitral annular calcification. Mild (1+) mitral valve insufficiency. Mild aortic stenosis. Ordering Physician: Chris Cruz Referring Physician: Diallo Dejesus Performed By: Terence Quiles, [facility] Venous Doppler Study 12/11/22 03:16 Interpretation Summary Acute deep vein thrombosis is noted in the left common femoral vein. Acute on chronic deep vein thrombosis is noted in the right popliteal vein, tibioperoneal trunk vein. Ordering Physician: Chris Cruz Referring Physician: Diallo Dejesus Performed By: Raquel Diaz, CHRISCS, RVT Rhythm Strip Rhythm Strip: Sinus Tach Rate: 109 Ectopy: None Physical Exam Narrative General: Alert, oriented, no apparent distress HEENT: Atraumatic, normocephalic Eyes: Anicteric, normal conjunctiva, extraocular movements grossly intact Neck: Supple Respiratory: Scattered wheezes, improving air movement, normal respiratory effort Cardiovascular: Regular rate and rhythm GI: Soft, nontender, nondistended Extremities: Some edema lower extremities Musculoskeletal: Moving all extremities Neuro: No overt focal neurological deficits Skin: No rashes appreciated Psych: Cooperative Assessment & Plan Assessment/Plan (1) Bilateral pulmonary embolism: PLAN: Plan #Acute bilat PE and LE DVTs -CTA chest in ED showed an acute PE and bilateral main pulmonary arteries extending into the bilateral upper lobe, right middle lobe, left lower lobar arteries as well as segmental and subsegmental branches with overall large clot burden; notably with normal RV to LV ratio with no elevation to suggest right heart strain, and mild pulmonary arterial enlargement as can be seen in chronic pulmonary hypertension -Suspect PE may be secondary to COVID/flu as noted below with recent inactivity possibly contributing -Requiring up to 15 L high flow nasal cannula on admission -Mildly tachycardic to heart rate 100-110, otherwise hemodynamically stable. Troponin trend 99 to 98. BNP 282. ? Admit under inpatient status to PCU. Continue heparin drip. Wean supplemental oxygen as able, goal saturations of greater than 90%. Echo ordered. Lower extremity duplex ultrasound ordered. Treating COVID as noted below. -12/12: Significantly decreased O2 requirements and improving symptomatically with Decadron and heparin drip, echo demonstrated moderate global right ventricular systolic dysfunction, may benefit from having this repeated in 6 to 8 weeks on outpatient basis, if ambulating well tomorrow with acceptable oxygen requirements may be medically ready for either rehab or home #COVID-19 infection, influenza B positive COVID-positive and influenza B positive in the ED. CT chest with significant clot burden as noted above, however with no noted lung parenchymal findings. Vitals with hypoxia and tachycardia as noted above, otherwise afebrile and hemodynamically stable. WBC count of 14 on admit. ? Will initiate treatment of COVID with IV Decadron 6 mg daily. Patient noted symptoms for last 4 to 5 days, unclear on how effective antiviral flu medication would be, will hold on this for now. -12/12: Doing well on Decadron, unclear if influenza B is false positive as I have seen this before concomitantly with the COVID-positive but given that she has not started on oseltamavir and is rapidly improving do not necessarily think this needs to be started now #Acute on chronic hypoxic respiratory failure Saw Dr. Gusman with pulmonology in the office on 10/05/22. Unclear etiology of patient's chronic respiratory failure at that time. Dr. Gusman noted that patient's PFTs were consistent with COPD, but this notably could be mimicked by fluid overload and some interstitial lung disease. Alpha-1 antitrypsin marker was sent, and it appears that testing came back positive but no further action was taken on this. Had further testing sent off for interstitial lung disease that all seems to have been negative. 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 ? Continue home long-acting inhaler, DuoNebs as needed. No need for pulmonology consult at this time, recommend continued outpatient follow-up. -12/12: O2 being weaned, continue Decadron, will add nebs that she is wheezing and suspect this may be helpful as well in the short-term. #Type 2 diabetes mellitus -Glucose checks and sliding scale insulin -Started 5 units of glargine due to elevated glucoses, continue to adjust especially given steroids #Nonalcoholic fatty liver disease Follows with Dr. Chun in the office, last office visit on 08/07/2022. Was initially diagnosed in 08/2021. Was started on ursodiol at that time but developed diarrhea and lower abdominal pain/cramping so this was stopped. Was then started on vitamin E, continue on home statin and given recommendation for weight loss. As noted above, appears that alpha-1 antitrypsin test came back positive but there has been no action taken on this. ? LFTs pending. Outpatient GI follow-up. -12/12: Had elevated alk phos but normal AST and ALT, unclear clinical significance ? Hypertension: Holding home irbesartan given large PE with risk for developing hemodynamic instability as noted above. ? Pulmonary hypertension: Holding home with Lasix 40 mg daily and home potassium supplement in setting of PE as above. -12/12: Resuming Lasix ? Chronic pain: Continue home tramadol 50 mg twice daily. ? Depression: Continue home fluoxetine. DVT prophylaxis: Heparin drip CODE STATUS: DNR CCA, DO NOT INTUBATE. Confirmed with patient on admission. Expected disposition: TBD Total clinical time spent by myself addressing the patient's medical issues, reviewing all the data, and collaborating with patient's care team: 40 minutes. Charges/Coding Visit Charges Inpatient E&M: 47203 Subs Hosp L2
--- NOTE | 2022-12-12 13:40 | CASEMGMT ---
Addendum entered by Wilber Leslie 12/12/22 17:07: CM to follow for anti-coag @ discharge as well and to provide 30-day savings card, if indicated. Original Note: RN?CM?ORNAMENTAL IRON WORKER HELPER?CM?spoke w/pt for initial transition planning/care coordination?assessment.?RN?CM?introduced self and role at [facility].? Pt voices understanding and consents to?assessment?at this time.? Pt is A/O at this time and answers all questions appropriately.?? Care providers, pharmacy, and demographics verified/updated at this time. PCP: Dr Dejesus Specialists: Dr Vimal Romero- for arthritis in [place], Dr Boyd (?sp) @ [facility] for macular degeneration. Dr Banegas-psychologist @ [facility]. Pt states she used to see Dr Gusman and Fabi Lambert, [employer]-manager wastewater, but states, Not anymore. Preferred Pharmacy: [facility] Insurance:[employer] Prescription Benefit:?Yes Living Will/HPOA:? has done both LW and HCPOA, who is her son, Mp LNOK: SonMp Living Arrangements: Pt states lives in the same home as her son, Mp, but they have separate apt's within the home. Pt states they live in a 2-story home and she stays in the upstairs apartment. She has 6 steps to go up (her son helps her up them) to get to the front porch and then she takes a stair lift up to the 2nd floor. She states she is mostly independent w/dressing. Her son stays in the bathroom when she showers to be available if she needs help and does assist w/lower extremity dressing, when needed. Her son helps w/med mgnt, as he sets up daily pill containers for her, and he gets groceries, and assists w/laundry and cleaning. She also hires a cleaning lady. Pt states her son does work outside the home and is gone sometimes 16-hrs/day, but she states he manages okay at home on her own while he is gone. Transportation:?son or hires a driving service. DME: States has the following DME:?stair lift, shower chair, cane, rollator, functioning glucometer w/supplies, grab bars, bedrails, toilet riser w/hand rails, O2 through [employer], that pt states she uses @ 5 l/m @ HS only. She states she has a concentrator and one small tank, and has a pulse ox. Pt would like medical alert info. This was given to pt's RN to take into pt's room when she goes in next. Pt states no need for further DME at this time.? HHC/SNF:Hx of going to [facility] and [facility], and pt has had HHC in the past. Pt wishes to return home and feels she will be safe @ home. She is interested in HHC. List of HHC's that was provided by naval surface fire support plannerChary, given to RN, to take into pt's room when she goes in next. Pt made aware to review list and to pick out top 3 preferences of HHC agencies. FLORAL MANAGER Nishi SWANN, made aware. Pt wishes to return home and states has no concerns with going home at time of discharge.? CM?to follow for home oxygen needs and any further discharge planning/needs.? Pt voices no further concerns/needs at this time.? Advised pt to ask for?CM?if any further questions/concerns/needs arise.? Voices understanding. PLAN:??Home w/HHC. Follow for any increase in Home O2 needs. Danna MAJORN?RN?CM
--- NOTE | 2022-12-12 14:15 | CASEMGMT ---
Discharge Planning A list of SNF?providers including quality and resource use data and consistent with the patient's preferred geographic region, medical needs, and insurance network was created in [employer] Guide.? This list was provided to the RN SHREE. Chary Barrett, Discharge Planning Asst.
[2022-12-12] MEDS: Furosemide 40 MG Tablet PO (14:27)
[2022-12-12 18:17] LABS: Partial Thromboplast Time 50.1 Seconds (24.1-36.2)
[2022-12-12] MEDS: HEPARIN/D5w 25,000 UNITS 25,000 UNITS/250 ML IV.SOLN. 12 UNITS CONT INF (18:34)
[2022-12-12] MEDS: traMADol 50 MG Tablet PO (21:27)
[2022-12-12] MEDS: MELATONIN 3 MG TABLET PO (21:28)
[2022-12-12] MEDS: Zolpidem Tartrate 5 MG Tablet PO ×2 (21:28→23:27)
[2022-12-12] MEDS: Pramipexole Di-HCl 1 MG Tablet PO (21:28)
[2022-12-12] MEDS: Insulin Glargine-YFGN 100 UNIT/ML Pen SC (21:33)
[2022-12-12 23:30] LABS: Bedside Glucose 400 mg/dL (74-106)
[2022-12-12 23:30] LABS: Bedside Glucose 304 mg/dL (74-106)
[2022-12-13] VITALS (11 sets, daily range): BP systolic 134–184; BP diastolic 75–106; PULSE 89–104; RESP 21–25; TEMP 36.1–36.7; O2SAT 92–96
[2022-12-13 00:45] LABS: Partial Thromboplast Time 69.4 Seconds (24.1-36.2)
[2022-12-13 01:22] LABS: Bedside Glucose 397 mg/dL (74-106)
[2022-12-13] MEDS: Sucralfate 1 GM Tablet PO (05:19)
[2022-12-13] MEDS: Levothyroxine 100 MCG Tablet PO (05:19)
[2022-12-13] MEDS: hydrALAZINE 20 MG/ML Vial 5 MG IV (06:05)
[2022-12-13] MEDS: 0.9% Saline Lock 10 ML Syringe IV (06:07)
[2022-12-13 06:34] LABS: Absolute Lymphocyte Count 2.44 X10^3/uL (0.83-4.51); Absolute Neutrophil Count 7.8 X10^3/uL (2.0-7.7); Basophil# 0.02 X10^3/uL; Basophil% 0.2 % (0-1); Eosinophil# 0.09 X10^3/uL; Eosinophils% 0.8 % (0-5); Hematocrit 44.1 % (37-47); Hemoglobin 13.8 g/dL (12.0-15.0); Lymphocyte # 2.44 X10^3/ul (0.83-4.51); Lymphocyte % 21.3 % (19-41); Mean Corp Hgb Conc 31.3 g/dL (32-36); Mean Corpuscular Hgb 28.2 pg (27.0-32.0); Mean Corpuscular Volume 90.2 fL (81-99); Mean Platelet Vol. 8.7 fl (6.2-12.0); Monocyte# 1.13 X10^3/uL; Monocyte% 9.8 % (0-10); NRBC Flagged by Analyzer 0 % (0-5); Neutrophil # 7.76 X10^3/uL (2.7-7.7); Neutrophil % 67.6 % (47-70); Platelet Count 248 K/mm3 (150-450); RBC Distribution Width CV 14.5 % (11.6-14.6); RBC Distribution Width SD 47.8 fl (35.1-43.9); Red Blood Count 4.89 M/mm3 (4.2-5.4); White Blood Count 11.5 K/mm3 (4.4-11.0)
[2022-12-13] MEDS: Insulin Lispro 100 UNIT/ML INSULN.PEN SC ×3 (06:43→16:44)
[2022-12-13 06:44] LABS: Partial Thromboplast Time 72.5 Seconds (24.1-36.2)
[2022-12-13] MEDS: Ipratropium/Albuterol Sulfate 3 ML AMPUL.NEB INHALATION (06:47)
[2022-12-13] MEDS: Budesonide Respules 0.5 MG/2 ML AMPUL.NEB. INHALATION (06:47)
[2022-12-13 06:59] LABS: Anion Gap 6 (5-15); BUN 20 mg/dL (7-18); BUN/Creat Ratio 22.1 RATIO (10-20); Calcium,Total 9.1 mg/dL (8.5-10.1); Chloride 101 mmol/L (98-107); EST Glomerular Filtration Rate 64 mL/min (>60); Est Glom Filt Rate - Afr Amer 77 mL/min (>60); Estimated Creatinine Clearance 47.45 ml/min; Glucose 206 mg/dL (74-106); Potassium 3.8 mmol/L (3.5-5.1); Sodium Level 137 mmol/L (136-145)
[2022-12-13 07:06] LABS: Bedside Glucose 210 mg/dL (74-106)
[2022-12-13] MEDS: dexAMETHasone 4 MG/ML Vial 6 MG IV (08:51)
[2022-12-13] MEDS: Pantoprazole Sodium 20 MG Tablet PO (08:52)
[2022-12-13] MEDS: FLUoxetine 20 MG Capsule PO (08:55)
[2022-12-13] MEDS: Tolterodine Tartrate 2 MG CAP.SA PO (08:55)
[2022-12-13] MEDS: APIXABAN 5 MG TABLET 10 MG PO (08:55)
[2022-12-13] MEDS: Potassium Chloride Oral Tablet 20 MEQ PO (08:55)
[2022-12-13] MEDS: Furosemide 40 MG Tablet PO (08:56)
[2022-12-13] MEDS: Lisinopril 5 MG Tablet PO (08:57)
[2022-12-13] MEDS: Mag Hydrox/Al Hydrox/Simeth 30 ML UDC PO (11:14)
--- NOTE | 2022-12-13 11:45 | CASEMGMT ---
ESTEFANIA SWANN updated by hospitalist that patient is requesting RN CM to call son Ok to discuss HHC at discharge. RN SHREE called Ok to discuss discharge needs. Son is agreeable to HHC and [facility] ESTEFANIA SWANN updated son that patient will need 2lpm with ambulation with oxygen and updated script to be sent to [place] and will have tank arranged to be delivered to patient's room. Ok had no further questions or concerns at this time. ESTEFANIA SWANN sent referral to [facility] and awaiting acceptance.
[2022-12-13 11:47] LABS: Bedside Glucose 351 mg/dL (74-106)
--- NOTE | 2022-12-13 15:21 | PCM.DC ---
Discharge Instructions Diet Discharge Diet: Carb Control Diet Activity Discharge Activity: - (Increase activity as tolerated) Follow Up Care Test Results: Test results from this visit will be discussed in further detail at your follow-up appointment, if applicable. Discharge Plan Admission Admit Date/Time: 12/11/22 00:27 Primary Reason for Your Visit: Shortness of breath Attending Provider: Hannah Carbajal Primary Care Provider: Diallo Dejesus Consulting Providers: Chris Cruz; Pio York Instructions Patient Instructions: Pulmonary Embolism Additional Instructions / Restrictions: DISCHARGE INSTRUCTIONS PLEASE READ *Please take this with you to your next doctors appointment* -You will be discharged on Eliquis 10 mg twice daily for 7 days followed by 5 mg twice daily thereafter -You will be discharged on home oxygen -You will need 7 additional doses of dexamethasone for your covid -You indicated that you will resume your previous home regimen sliding scale, given you are presently on steroids your glucose will need to be monitored closely as he may need more insulin than usual -Additionally due to high blood pressure you will be discharged on lisinopril -Would recommend repeat echocardiogram (picture of your heart) in 8 weeks through your primary care physician's office to make sure your heart is still squeezing well -Please call your primary care provider's office upon discharge to schedule a hospital follow up within 1 week. -For any concerning signs or symptoms please call 911 or proceed to the nearest emergency department Discharge Orders/Prescriptions Prescriptions: New lisinopril 5 mg Tablet 5 mg PO DAILY 30 Days Qty: 30 0RF Eliquis 5 mg tablet 5 mg PO BID Qty: 74 0RF Rx Instructions: Take 10 mg (2 tablets) twice daily x 7 days then transition to 5 mg (1 tablet) twice daily thereafter. dexamethasone 6 mg tablet 6 mg PO DAILY 7 Days Qty: 7 0RF Continued albuterol sulfate 2.5 mg /3 mL (0.083 %) solution for nebulization 2.5 mg inhalation Q4H PRN (Reason: shortness of breath or wheezing) fluticasone propion-salmeterol [Wixela Inhub] 500-50 mcg/dose blister with device 1 inh inhalation BID Qty: 60 3RF levothyroxine 100 MCG tablet 100 mcg PO DAILY Patient Comments: thyroid omeprazole 10 MG capsule 10 - 20 mg PO BID PRN (Reason: GERD) Patient Comments: acid reflux Cyanocobalamin (Vitamin B-12) 1,000 mcg subcut QMONTH Rx Instructions: first day of every month ropinirole 2 MG tablet 0.5 mg PO .5x/day PRN melatonin 1 MG tablet 10 mg PO 1999 Rx Instructions: 8 pm zolpidem 12.5 MG tablet,ext release multiphase 12.5 mg PO QHS ketorolac 1 DROP drops 1 drp RIGHT EYE 4X/DAY Rx Instructions: acular 5% eye drop vitamin E (dl, acetate) 400 UNITS capsule 400 units PO DAILY@1200 acetaminophen 500 MG tablet 1,000 mg PO Q6H PRN PRN (Reason: Pain Score 1-5) 0RF fesoterodine 4 mg tablet extended release 24 hr 4 mg PO DAILY Patient Comments: TAKE 1 TABLET BY MOUTH EVERY DAY diphenoxylate-atropine 2.5-0.025 mg tablet 2 tab PO Q12H PRN (Reason: diarrhea) Patient Comments: TAKE 2 TABLETS BY MOUTH EVERY 8 HOURS NEEDED tramadol 50 mg tablet 50 mg PO BID PRN (Reason: pain) Patient Comments: TAKE 1 TABLET BY MOUTH TWICE DAILY potassium chloride 20 mEq tablet extended release 20 meq PO DAILY Patient Comments: Take one tablet by mouth daily. cholecalciferol (vitamin D3) 1,250 mcg (50,000 unit) capsule 1,250 mcg PO MO Patient Comments: TAKE 1 CAPSULE BY MOUTH every week sucralfate 100 mg/mL suspension 10 ml PO Q12H Patient Comments: Take 10 ml orally 2 times per day at least 30 min before meals Healthy Eyes SuperVision2 250-90-10-1 mg capsule 1 cap PO DAILY fluoxetine 20 MG capsule 20 mg PO DAILY Humulin R U-500 (Conc) Insulin 500 unit/mL solution 1.5 - 2 unit subcut TIDCM Patient Comments: Inject 1-3 units 3 times daily as neededn at 101 carb to insulin ratio ondansetron HCl 4 mg tablet 4 mg PO Q8H PRN (Reason: nausea and vomiting) Qty: 14 2RF Referrals / Follow Up: Diallo Dejesus DO [Primary Care Provider] - Within 1 Week Disposition Disposition (needs filled in before D/C Order can be placed): Home Health Service
--- NOTE | 2022-12-13 15:21 | CASEMGMT ---
ESTEFANIA SWANN called Alesha to inquire about referral sent through [facility]. Per Madonna, tank can be delivered to [facility] today. RN SHREE received call back from [facility] and they are able to accept the patient with planned start of care for tomorrow. ESTEFANIA SWANN updated hospitalist regarding HHC setup. ESTEFANIA SWANN called dana [facility]uced[facility] regarding HHC and oxygen setup. Patient discharging on Eilquis, [facility]. ESTEFANIA SWANN provided savings card to patient. ESTEFANIA SWANN updated patient regarding HHC and home oxygen. Patient had no further questions or concerns at this time.
--- NOTE | 2022-12-13 15:29 | PCM.DC.SUM ---
Providers Date of Admission: 12/11/22 Primary Care Physician: Dr. Diallo Dejesus DO Reason For Visit: ACUTE PE Diagnosis Discharge Diagnosis (1) Bilateral pulmonary embolism: Status: Acute Code(s): I26.99 - Other pulmonary embolism without acute cor pulmonale Plan #Acute bilat PE and LE DVTs #COVID-19 infection, influenza B positive #Acute on chronic hypoxic respiratory failure #Type 2 diabetes mellitus #Nonalcoholic fatty liver disease Medications at Discharge Home Medications Cyanocobalamin (Vitamin B-12) 1,000 mcg subcut QMONTH supplement 11/20/14 levothyroxine 100 mcg tablet 100 mcg PO DAILY thyroid 11/20/14 omeprazole 10 mg capsule,delayed release 10 - 20 mg PO BID PRN GERD 11/20/14 ketorolac 0.4 % eye drops 1 drp RIGHT EYE 4X/DAY macular degeneration 01/04/20 melatonin 1 mg tablet 10 mg PO 2000 sleep 01/04/20 ropinirole 2 mg tablet 0.5 mg PO .5x/day PRN restless legs 01/04/20 zolpidem 12.5 mg tablet,extended release,multiphase 12.5 mg PO QHS sleep 01/04/20 vitamin E (dl, acetate) 180 mg (400 unit) capsule 400 units PO DAILY@1200 Supplement 01/06/20 acetaminophen 500 mg tablet 1,000 mg (2 x 500 mg) PO Q6H PRN PRN Pain Score 1-5 01/27/20 ondansetron HCl 4 mg tablet 4 mg PO Q8H PRN nausea and vomiting #14 tabs 10/03/22 albuterol sulfate 2.5 mg/3 mL (0.083 %) solution for nebulization 2.5 mg inhalation Q4H PRN shortness of breath or wheezing 10/05/22 fluticasone 500 mcg-salmeterol 50 mcg/dose blistr powdr for inhalation (Wixela Inhub) 1 inh inhalation BID asthma #60 ea 10/11/22 cholecalciferol (vitamin D3) 1,250 mcg (50,000 unit) capsule 1,250 mcg PO MO supplement 12/10/22 diphenoxylate-atropine 2.5 mg-0.025 mg tablet 2 tab PO Q12H PRN diarrhea 12/10/22 fesoterodine 4 mg tablet,extended release 24 hr 4 mg PO DAILY overactive bladder 12/10/22 potassium chloride 20 mEq tablet,extended release 20 meq PO DAILY supplement 12/10/22 sucralfate 100 mg/mL oral suspension 10 ml PO Q12H 12/10/22 tramadol 50 mg tablet 50 mg PO BID PRN pain 12/10/22 fluoxetine 20 mg capsule 20 mg PO DAILY depression 12/11/22 insulin regular hum U-500 conc 500 unit/mL subcutaneous soln (Humulin R U-500 (Concentrated) Insulin) 1.5 - 2 unit subcut TIDCM diabetes 12/11/22 vit C 250 mg-vit E 90 mg-zinc 10 mg-copper 1 ue-eogarf-lcdfzn capsule (Healthy Eyes SuperVision2) 1 cap PO DAILY supplement 12/11/22 apixaban 5 mg tablet (Eliquis) 5 mg PO BID PE #74 tabs 12/13/22 dexamethasone 6 mg tablet 6 mg PO DAILY 7 days #7 tabs 12/13/22 lisinopril 5 mg tablet 5 mg PO DAILY 30 days #30 tabs 12/13/22 Hospital Course Summary of Care Provided Minutes Spent on Discharge: 45 Hospital Course: CAMRON SNOW, is a 77 F with history of chronic hypoxic respiratory failure on home 2 L nasal cannula at night, prior PE/DVT not currently on anticoagulation, pulmonary hypertension, nonalcoholic fatty liver disease, LIS, gout, RA, fibromyalgia, hypothyroidism, chronic pain and depression who presented to [facility] ED on 12/10/2022 with worsening shortness of breath. She was found to have bilateral PEs on CTA as well as COVID-19, started on dexamethasone and a heparin drip. Also had positive influenza B on the COVID test, unclear if influenza B is false positive as I have seen this before concomitantly with the COVID-positive but given that she was not started on oseltamivir and rapidly improved and given duration of symptoms addition of oseltamivir was deferred. Echocardiogram ordered and demonstrated moderate global right ventricular systolic dysfunction, can be repeated on outpatient basis, was walked and did need home O2, discussed that this may be temporary but that she will go home with this. Hospitalization also complicated by her chronic abdominal problems and abdominal pain, was following with GI but then did not want to continue seeing that specialist so we will see a surgeon in the next couple weeks for possible colonoscopy and endoscopy. Patient reports she thinks her change in eating habits in the hospital has been in part responsible, this is a chronic problem and patient takes medications at home, do not think any further acute inpatient work-up necessary. Reevaluated patient in the afternoon of discharge, she felt a little nervous about going home because her son was busy at work the following day however discussed that he was informed of discharge and would be picking her up this evening and home health would start tomorrow and she verbalized her understanding. Discussed risks and benefits of staying in the hospital versus discharge home and ultimately patient agreeable for DC home. Discharge instructions as followed: -You will be discharged on Eliquis 10 mg twice daily for 7 days followed by 5 mg twice daily thereafter -You will be discharged on home oxygen -You will need 7 additional doses of dexamethasone for your covid -You indicated that you will resume your previous home regimen sliding scale, given you are presently on steroids your glucose will need to be monitored closely as he may need more insulin than usual -Additionally due to high blood pressure you will be discharged on lisinopril -Would recommend repeat echocardiogram (picture of your heart) in 8 weeks through your primary care physician's office to make sure your heart is still squeezing well -Please call your primary care provider's office upon discharge to schedule a hospital follow up within 1 week. -For any concerning signs or symptoms please call 911 or proceed to the nearest emergency department Physical Exam Narrative General: Alert, oriented, no apparent distress HEENT: Atraumatic, normocephalic Eyes: Anicteric, normal conjunctiva, extraocular movements grossly intact Neck: Supple Respiratory: Improving air movement, normal respiratory effort Cardiovascular: Regular rate and rhythm GI: Soft, nontender, nondistended Extremities: Some edema lower extremities Musculoskeletal: Moving all extremities Neuro: No overt focal neurological deficits Skin: No rashes appreciated Psych: Cooperative Weight / BMI Weight Weight: 103.1 kg Body Mass Index (BMI) 36.6 ABG / Lab / Microbiology Data 12/13/22 06:22 12/13/22 06:22 Laboratory: Laboratory Results - last 24 hr 12/12/22 11:12: POC Glucose 304 H 12/12/22 16:24: POC Glucose 400 H 12/12/22 17:40: APTT 50.1 H 12/12/22 21:31: POC Glucose 397 H 12/13/22 00:22: APTT 69.4 H 12/13/22 06:22: WBC 11.5 H, RBC 4.89, Hgb 13.8, Hct 44.1, MCV 90.2, MCH 28.2, MCHC 31.3 L, RDW Std Deviation 47.8 H, RDW Coeff of Susi 14.5, Plt Count 248, MPV 8.7, Immature Gran % (Auto) 0.300, Neut % (Auto) 67.6, Lymph % (Auto) 21.3, [place] % (Auto) 9.8, Eos % (Auto) 0.8, Baso % (Auto) 0.2, Absolute Neuts (auto) 7.8 H, Absolute Lymphs (auto) 2.44, Nucleated RBC % 0, APTT 72.5 H, Sodium 137, Potassium 3.8, Chloride 101, Carbon Dioxide 30.0, Anion Gap 6, BUN 20 H, Creatinine 0.90, Estim Creat Clear Calc 47.45, Est GFR (MDRD) Af Amer 77, Est GFR (MDRD) Non-Af 64, BUN/Creatinine Ratio 22.1 H, Glucose 206 H, Calcium 9.1 12/13/22 06:42: POC Glucose 210 H 12/13/22 11:23: POC Glucose 351 H Microbiology: Microbiology 12/10/22 23:30 Nasal Secretion SARS-CoV-2 & FLU Antigen (Rapid) - Final SARS-CoV-2 (COVID 19) Influenzae B D/C Instructions Discharge Diet: Carb Control Diet Meaningful Use Info Meaningful Use Diagnoses (Choose all that apply): VTE VTE Anticoag overlap given w/in hospital stay or rx'd at dc?: No Reason overlap not ordered, prescribed, or given for 5 days: Treatment Not Indicated Discharge Plan Admission Admit Date/Time: 12/11/22 00:27 Primary Reason for Your Visit: Shortness of breath Attending Provider: Hannah Carbajal Primary Care Provider: Diallo Dejesus Consulting Providers: Chris Cruz; Pio York Instructions Patient Instructions: Pulmonary Embolism Additional Instructions / Restrictions: DISCHARGE INSTRUCTIONS PLEASE READ *Please take this with you to your next doctors appointment* -You will be discharged on Eliquis 10 mg twice daily for 7 days followed by 5 mg twice daily thereafter -You will be discharged on home oxygen -You will need 7 additional doses of dexamethasone for your covid -You indicated that you will resume your previous home regimen sliding scale, given you are presently on steroids your glucose will need to be monitored closely as he may need more insulin than usual -Additionally due to high blood pressure you will be discharged on lisinopril -Would recommend repeat echocardiogram (picture of your heart) in 8 weeks through your primary care physician's office to make sure your heart is still squeezing well -Please call your primary care provider's office upon discharge to schedule a hospital follow up within 1 week. -For any concerning signs or symptoms please call 911 or proceed to the nearest emergency department Discharge Orders/Prescriptions Prescriptions: New lisinopril 5 mg Tablet 5 mg PO DAILY 30 Days Qty: 30 0RF Eliquis 5 mg tablet 5 mg PO BID Qty: 74 0RF Rx Instructions: Take 10 mg (2 tablets) twice daily x 7 days then transition to 5 mg (1 tablet) twice daily thereafter. dexamethasone 6 mg tablet 6 mg PO DAILY 7 Days Qty: 7 0RF Continued albuterol sulfate 2.5 mg /3 mL (0.083 %) solution for nebulization 2.5 mg inhalation Q4H PRN (Reason: shortness of breath or wheezing) fluticasone propion-salmeterol [Wixela Inhub] 500-50 mcg/dose blister with device 1 inh inhalation BID Qty: 60 3RF levothyroxine 100 MCG tablet 100 mcg PO DAILY Patient Comments: thyroid omeprazole 10 MG capsule 10 - 20 mg PO BID PRN (Reason: GERD) Patient Comments: acid reflux Cyanocobalamin (Vitamin B-12) 1,000 mcg subcut QMONTH Rx Instructions: first day of every month ropinirole 2 MG tablet 0.5 mg PO .5x/day PRN melatonin 1 MG tablet 10 mg PO 1999 Rx Instructions: 8 pm zolpidem 12.5 MG tablet,ext release multiphase 12.5 mg PO QHS ketorolac 1 DROP drops 1 drp RIGHT EYE 4X/DAY Rx Instructions: acular 5% eye drop vitamin E (dl, acetate) 400 UNITS capsule 400 units PO DAILY@1200 acetaminophen 500 MG tablet 1,000 mg PO Q6H PRN PRN (Reason: Pain Score 1-5) 0RF fesoterodine 4 mg tablet extended release 24 hr 4 mg PO DAILY Patient Comments: TAKE 1 TABLET BY MOUTH EVERY DAY diphenoxylate-atropine 2.5-0.025 mg tablet 2 tab PO Q12H PRN (Reason: diarrhea) Patient Comments: TAKE 2 TABLETS BY MOUTH EVERY 8 HOURS NEEDED tramadol 50 mg tablet 50 mg PO BID PRN (Reason: pain) Patient Comments: TAKE 1 TABLET BY MOUTH TWICE DAILY potassium chloride 20 mEq tablet extended release 20 meq PO DAILY Patient Comments: Take one tablet by mouth daily. cholecalciferol (vitamin D3) 1,250 mcg (50,000 unit) capsule 1,250 mcg PO MO Patient Comments: TAKE 1 CAPSULE BY MOUTH every week sucralfate 100 mg/mL suspension 10 ml PO Q12H Patient Comments: Take 10 ml orally 2 times per day at least 30 min before meals Healthy Eyes SuperVision2 250-90-10-1 mg capsule 1 cap PO DAILY fluoxetine 20 MG capsule 20 mg PO DAILY Humulin R U-500 (Conc) Insulin 500 unit/mL solution 1.5 - 2 unit subcut TIDCM Patient Comments: Inject 1-3 units 3 times daily as neededn at 101 carb to insulin ratio ondansetron HCl 4 mg tablet 4 mg PO Q8H PRN (Reason: nausea and vomiting) Qty: 14 2RF Referrals / Follow Up: Diallo Dejesus DO [Primary Care Provider] - Within 1 Week Disposition Disposition (needs filled in before D/C Order can be placed): Home Health Service Charges/Coding Visit Charges Inpatient E&M: 72753 Disch Hosp >30min
[2022-12-13] MEDS: Insulin Glargine-YFGN 100 UNIT/ML Pen SC (16:45)
[2022-12-13 17:08] LABS: Bedside Glucose 295 mg/dL (74-106)
== END 2022-12-13 18:30 | disposition home health service (06) | DRG 177 ==
LOC: ED 23:27 → PCU 12-11 00:35
PROVIDERS: Admitting Provider Hospitalist; Emergency Provider Emergency Medicine; PCP Family Medicine; Visit Provider Internal Medicine
DX: U07.1 COVID-19 (principal); I26.99 Other pulmonary embolism without acute cor pulmonale; J96.21 Acute and chronic respiratory failure with hypoxia; J44.0 Chronic obstructive pulmonary disease with (acute) lower respiratory infection; J84.9 Interstitial pulmonary disease, unspecified; I27.20 Pulmonary hypertension, unspecified; E11.42 Type 2 diabetes mellitus with diabetic polyneuropathy; Z79.4 Long term (current) use of insulin; E11.65 Type 2 diabetes mellitus with hyperglycemia; I10 Essential (primary) hypertension; K76.0 Fatty (change of) liver, not elsewhere classified; F32.A Depression, unspecified; J10.1 Influenza due to other identified influenza virus with other respiratory manifestations; M79.7 Fibromyalgia; Z80.0 Family history of malignant neoplasm of digestive organs; Z82.3 Family history of stroke; Z66 Do not resuscitate; Z79.52 Long term (current) use of systemic steroids; Z99.81 Dependence on supplemental oxygen; Z86.711 Personal history of pulmonary embolism; Z86.718 Personal history of other venous thrombosis and embolism; G89.29 Other chronic pain
CPT/HCPCS: 36415; 71045; 71275; 80048; 80076; 82962; 83880; 84145; 84484; 85025; 85027; 85379; 85610; 85730; 86140; 87428; 93005; 93306; 93970; 94640; 94660; 94668; 94762; 97110; 97162; 97166; 97530; 97535; 97802; 99285; Q9957; Q9967; A4216

== ENCOUNTER 2023-01-17 18:42 | Emergency (ER) | payer MEDICARE, SELFPAY ==
[2023-01-17 18:44] VITALS: BP 157/82; PULSE 82; RESP 16; TEMP 36.6; O2SAT 98; BMI 34.8
--- NOTE | 2023-01-17 18:55 | CT_ITS ---
STUDY: CT BRAIN WITHOUT CONTRAST REASON FOR EXAM: Female, 77 years old. trauma RADIATION DOSAGE (If Supplied By Facility): CTDIvol = ( 44.99 ) mGy, DLP = ( 846.73 ) mGycm TECHNIQUE: Transaxial CT imaging of the brain was performed without administration of intravenous contrast material. Individualized dose optimization techniques were used for this CT. COMPARISON: No relevant priors. FINDINGS: Normal soft tissue structures. Normal calvarium. Normal size ventricles and extra-axial spaces for the patient''s age. Normal white matter tracts of the cerebral hemispheres. Normal basal ganglia and thalami. Normal brainstem. Normal cerebellum. There is no intracranial hemorrhage. There are no findings of an acute ischemic infarction. Normal visualized paranasal sinuses. CT/Brain/Head without Contrast IMPRESSION: Normal unenhanced CT scan of the brain. Electronically Signed: Louie Juarez MD at 19:39 EDT ,
--- NOTE | 2023-01-17 18:55 | RAD_ITS ---
STUDY: X-RAY - RIGHT KNEE REASON FOR EXAM: Female, 77 years old. FALL TECHNIQUE: 4 view(s) of the knee. COMPARISON: None. FINDINGS: Normal visualized distal femur. Normal visualized proximal tibia and fibula. Normal proximal tibiofibular articulation. Total knee arthroplasty in anatomic alignment. Normal medial femorotibial compartment. Normal lateral femorotibial compartment. Normal patellofemoral articulation. The soft tissue structures are unremarkable. RAD/Knee 4 or More Views IMPRESSION: Total knee arthroplasty Electronically Signed: Louie Juarez MD at 19:42 EDT ,
--- NOTE | 2023-01-17 18:55 | EX.ED.DYSGE1 ---
HPI History of Present Illness Chief Complaint: Lower Extremity Injury Detail of Chief Complaint: Fall Informant: patient Narrative Narrative: Patient presents to the emergency department via EMS after sustaining a fall. Patient states that her family member was pushing her in a wheelchair when they hit a bump and she flew out of the wheelchair and landed on her knees and hit her face on the ground. No loss of consciousness. 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 Patient complained of pain of both knees but more significantly to the left knee. Both knees have been replaced in the past. She denies any neck pain. She denies chest pain or abdominal pain. Patient states that she had thought that she broke her nose against her face hit the ground and was complaining of nasal pain. [facility] Medical History (Updated 01/17/23 @ 20:[address] Davey Jamison, ) Acquired hypothyroidism Acute exacerbation of chronic obstructive pulmonary disease Anemia Benign essential hypertension Chronic gastritis COPD (chronic obstructive pulmonary disease) Depression Diabetes mellitus with diabetic polyneuropathy, with long-term current use of insulin Fibromyalgia Hx of deep venous thrombosis IBS (irritable bowel syndrome) LIS (obstructive sleep apnea) Rheumatoid arthritis Home Medications Cyanocobalamin (Vitamin B-12) 1,000 mcg subcut QMONTH supplement 11/20/14 [History Last Taken 12/18/19 08:00] levothyroxine 100 mcg tablet 100 mcg PO DAILY thyroid 11/20/14 [History Last Taken 01/04/20] omeprazole 10 mg capsule,delayed release 10 - 20 mg PO BID PRN GERD 11/20/14 [History Last Taken 01/03/20] ketorolac 0.4 % eye drops 1 drp RIGHT EYE 4X/DAY macular degeneration 01/04/20 [History Last Taken 01/04/20] melatonin 1 mg tablet 10 mg PO 2000 sleep 01/04/20 [History Last Taken 01/03/20] ropinirole 2 mg tablet 0.5 mg PO .5x/day PRN restless legs 01/04/20 [History Last Taken 01/03/20] zolpidem 12.5 mg tablet,extended release,multiphase 12.5 mg PO QHS sleep 01/04/20 [History Last Taken 01/03/20] vitamin E (dl, acetate) 180 mg (400 unit) capsule 400 units PO DAILY@1200 Supplement 01/06/20 [History Last Taken Unknown] acetaminophen 500 mg tablet 1,000 mg (2 x 500 mg) PO Q6H PRN PRN Pain Score 1-5 01/27/20 [Rx Last Taken Unknown] ondansetron HCl 4 mg tablet 4 mg PO Q8H PRN nausea and vomiting #14 tabs 10/03/22 [Rx Last Taken Unknown] albuterol sulfate 2.5 mg/3 mL (0.083 %) solution for nebulization 2.5 mg inhalation Q4H PRN shortness of breath or wheezing 10/05/22 [History Last Taken Unknown] fluticasone 500 mcg-salmeterol 50 mcg/dose blistr powdr for inhalation (Marissaxela Inhub) 1 inh inhalation BID asthma #60 ea 10/11/22 [Rx Last Taken Unknown] cholecalciferol (vitamin D3) 1,250 mcg (50,000 unit) capsule 1,250 mcg PO MO supplement 12/10/22 [History Last Taken Unknown] diphenoxylate-atropine 2.5 mg-0.025 mg tablet 2 tab PO Q12H PRN diarrhea 12/10/22 [History Last Taken Unknown] fesoterodine 4 mg tablet,extended release 24 hr 4 mg PO DAILY overactive bladder 12/10/22 [History Last Taken Unknown] potassium chloride 20 mEq tablet,extended release 20 meq PO DAILY supplement 12/10/22 [History Last Taken Unknown] sucralfate 100 mg/mL oral suspension 10 ml PO Q12H 12/10/22 [History Last Taken Unknown] tramadol 50 mg tablet 50 mg PO BID PRN pain 12/10/22 [History Last Taken Unknown] fluoxetine 20 mg capsule 20 mg PO DAILY depression 12/11/22 [History Last Taken Unknown] insulin regular hum U-500 conc 500 unit/mL subcutaneous soln (Humulin R U-500 (Concentrated) Insulin) 1.5 - 2 unit subcut TIDCM diabetes 12/11/22 [History Last Taken Unknown] vit C 250 mg-vit E 90 mg-zinc 10 mg-copper 1 af-yawxdl-pozdmp capsule (Healthy Eyes SuperVision2) 1 cap PO DAILY supplement 12/11/22 [History Last Taken Unknown] apixaban 5 mg tablet (Eliquis) 5 mg PO BID PE #74 tabs 12/13/22 [Rx Last Taken Unknown] dexamethasone 6 mg tablet 6 mg PO DAILY 7 days #7 tabs 12/13/22 [Rx Last Taken Unknown] lisinopril 5 mg tablet 5 mg PO DAILY 30 days #30 tabs 12/13/22 [Rx Last Taken Unknown] Allergy/AdvReac Type Severity Reaction Status Date / Time cyclobenzaprine Allergy Unknown Verified 01/17/23 18:52 doxepin Allergy Unknown Verified 01/17/23 18:52 hydromorphone HCl Allergy Unknown Verified 01/17/23 18:52 [From Dilaudid] prednisone Allergy Unknown Verified 01/17/23 18:52 pregabalin [From Lyrica] Allergy Unknown Verified 01/17/23 18:52 acetaminophen [From Percocet] AdvReac HALLUCINATI Verified 01/17/23 18:52 ON hydrocodone bitartrate AdvReac HALLUCINATI Verified 01/17/23 18:52 [From Vicodin] ONS oxycodone HCl [From Percocet] AdvReac HALLUCINATI Verified 01/17/23 18:52 ON Family History Brother Diabetes Grandmother Diabetes Father Colon cancer CVA (cerebral vascular accident) Mother Hypertension Surgical History H/O shoulder surgery History of ankle surgery History of bilateral knee replacement History of carpal tunnel surgery History of cystoscopy History of total hysterectomy Hx of cholecystectomy Social History household members: none housing: apartment Smoking Status: Never smoker alcohol intake: never what type of physical activity do you participate in: none do you feel safe at home: Yes ROS ROS ED Review of Systems ROS Unobtainable: other Constitutional Constitutional ED: Reports lethargy; Denies chills, fever(s), sweats or weight loss Eyes Eyes: Denies blurry vision, change in vision or diplopia ENT ENT ED: Reports other Details: Nasal pain ; Denies rhinorrhea or sore throat Cardiovascular Cardiovascular: Denies chest pain, orthopnea or racing heartbeat Respiratory/Chest Respiratory/Chest: Denies cough, dyspnea, dyspnea on exertion, orthopnea or sputum Gastrointestinal Gastrointestinal: Denies abdominal pain, diarrhea, nausea or vomiting Genitourinary Genitourinary ED: Denies dysuria, hematuria or urinary frequency Musculoskeletal Musculoskeletal: Denies arthralgias, back pain, myalgias or neck pain Integumentary Reports other Details: Bilateral knee pain ; Denies abscess, Abrasions or rash Neurologic Neurologic: Denies headache(s) or weakness Psychiatric Psychiatric: Denies anxiety, depression or suicidal thoughts Endocrine Endocrinology: Denies polydipsia, polyphagia or polyuria Hematologic/Lymphatic Hematologic/Lymphatic: Denies easy bleeding, easy bruising or lymphadenopathy Allergic/Immunologic Allergic/Immunologic ED: Denies mouth swelling, tongue swelling or urticaria EXAM Physical Exam Const Vital Signs: 01/17/23 18:44 Temperature 97.8 F Temperature Source Oral Pulse Rate 82 Respiratory Rate 16 Blood Pressure 157/82 H Blood Pressure Mean 107 Pulse Ox 98 Oxygen Delivery Method Room Air Positive well nourished and well developed General Appearance ED: well developed and NAD HEENT Reports TM's clear and moist mucous membranes HEENT Narrative: Mild tenderness over the nasal bone without evidence of deformity. No significant ecchymosis or bruising noted. There are small amount of bright red blood that was old in the right nasal vault. normocephalic and atraumatic; Negative for trauma or tenderness Tympanic Membrane ED: Yes TM's clear Eyes PERRL and EOMs intact bilaterally General Eye ED: Negative for pale conjunctiva or scleral icterus Neck no lymphadenopathy, supple and no JVD General: Negative for tenderness Chest Wall inspection of chest normal and palpation of chest normal Chest: Negative for tenderness Resp normal respiratory effort and clear to auscultation bilaterally Effort and Inspection: Negative for respiratory distress or pain with movement Auscultation: Negative for rhonchi, wheezes or diminished lung sounds Cardio regular rate, regular rhythm, S1 normal heart sound, S2 normal heart sound and no murmurs Peripheral Pulses: pulses 2+ throughout GI normal to inspection, nondistended, normoactive bowel sounds, soft to palpation, non-tender, non-distended and no masses Back/Spine no CVA tenderness and no thoracic nor lumbar tenderness Extremity Extremity Narrative: Diffuse tenderness palpation over the left and right knees bilaterally. No obvious deformity. Neurovascular intact distally. Ligamentous exam difficult secondary to pain. General Extremety ED: Negative for edema General Extremity: Negative for edema Neuro oriented x3, CN's II-XII intact bilaterally, no sensory deficits noted and gait normal Sensorium / Orientation: awake, alert, oriented to person, oriented to place and oriented to time Motor Exam: strength 5/5 throughout and strength abnormal Psych mental status grossly normal Skin no rashes or lesions noted and no wounds MDM MDM MDM Narrative Medical decision making narrative: Patient presents after mechanical fall with injury to her knees and face. CT scan of the brain without contrast obtained was unremarkable. Patient had x-rays of bilateral knees that did not show any fractures but did show prior total knee replacements. Patient will be given Cornelius wraps for her knees. She will follow-up with her primary care physician within next 3 to 5 days. She will take Tylenol she also has Ultram at home for pain. Radiography Diagnostic Testing: Clinical Impression(s) from Imaging Studies Brain CT 01/17/23 18:55 IMPRESSION: Normal unenhanced CT scan of the brain. Electronically Signed: Louie Juarez MD at 19:39 EDT Reading Location ID and State: [facility] / [place] Tel , Service support , Knee X-Ray 01/17/23 18:55 IMPRESSION: Total knee arthroplasty Electronically Signed: Louie Juarez MD at 19:42 EDT Reading Location ID and State: [facility] / [place] Tel , Service support , Knee X-Ray 01/17/23 19:20 IMPRESSION: Total knee arthroplasty Electronically Signed: Louie Juarez MD at 19:43 EDT Reading Location ID and State: [facility] / [place] Tel , Service support , Discharge Plan Triage Chief Complaint: Lower Extremity Injury ED Provider: Davey Jamison Dx/Rx/DC Orders Clinical Impression: Contusion of knee, Closed head injury, Fall Instructions: ED Contusion, Lower Extremity, ED Head Injury (Adult) Prescriptions: No Action albuterol sulfate 2.5 mg /3 mL (0.083 %) solution for nebulization 2.5 mg inhalation Q4H PRN (Reason: shortness of breath or wheezing) fluticasone propion-salmeterol [Wixela Inhub] 500-50 mcg/dose blister with device 1 inh inhalation BID Qty: 60 3RF levothyroxine 100 MCG tablet 100 mcg PO DAILY Patient Comments: thyroid omeprazole 10 MG capsule 10 - 20 mg PO BID PRN (Reason: GERD) Patient Comments: acid reflux Cyanocobalamin (Vitamin B-12) 1,000 mcg subcut QMONTH Rx Instructions: first day of every month ropinirole 2 MG tablet 0.5 mg PO .5x/day PRN melatonin 1 MG tablet 10 mg PO 1999 Rx Instructions: 8 pm zolpidem 12.5 MG tablet,ext release multiphase 12.5 mg PO QHS ketorolac 1 DROP drops 1 drp RIGHT EYE 4X/DAY Rx Instructions: acular 5% eye drop vitamin E (dl, acetate) 400 UNITS capsule 400 units PO DAILY@1200 acetaminophen 500 MG tablet 1,000 mg PO Q6H PRN PRN (Reason: Pain Score 1-5) 0RF fesoterodine 4 mg tablet extended release 24 hr 4 mg PO DAILY Patient Comments: TAKE 1 TABLET BY MOUTH EVERY DAY diphenoxylate-atropine 2.5-0.025 mg tablet 2 tab PO Q12H PRN (Reason: diarrhea) Patient Comments: TAKE 2 TABLETS BY MOUTH EVERY 8 HOURS NEEDED tramadol 50 mg tablet 50 mg PO BID PRN (Reason: pain) Patient Comments: TAKE 1 TABLET BY MOUTH TWICE DAILY potassium chloride 20 mEq tablet extended release 20 meq PO DAILY Patient Comments: Take one tablet by mouth daily. cholecalciferol (vitamin D3) 1,250 mcg (50,000 unit) capsule 1,250 mcg PO MO Patient Comments: TAKE 1 CAPSULE BY MOUTH every week sucralfate 100 mg/mL suspension 10 ml PO Q12H Patient Comments: Take 10 ml orally 2 times per day at least 30 min before meals Healthy Eyes SuperVision2 250-90-10-1 mg capsule 1 cap PO DAILY fluoxetine 20 MG capsule 20 mg PO DAILY Humulin R U-500 (Conc) Insulin 500 unit/mL solution 1.5 - 2 unit subcut TIDCM Patient Comments: Inject 1-3 units 3 times daily as neededn at 101 carb to insulin ratio lisinopril 5 mg Tablet 5 mg PO DAILY 30 Days Qty: 30 0RF Eliquis 5 mg tablet 5 mg PO BID Qty: 74 0RF Rx Instructions: Take 10 mg (2 tablets) twice daily x 7 days then transition to 5 mg (1 tablet) twice daily thereafter. dexamethasone 6 mg tablet 6 mg PO DAILY 7 Days Qty: 7 0RF ondansetron HCl 4 mg tablet 4 mg PO Q8H PRN (Reason: nausea and vomiting) Qty: 14 2RF Primary Care Provider: Diallo Dejesus Referrals: Diallo Dejesus DO [Primary Care Provider] - 3-5 Days Disposition Disposition: Home, Self Care
--- NOTE | 2023-01-17 19:20 | RAD_ITS ---
STUDY: X-RAY - LEFT KNEE REASON FOR EXAM: Female, 77 years old. fall TECHNIQUE: 4 view(s) of the knee. COMPARISON: None. FINDINGS: Normal visualized distal femur. Normal visualized proximal tibia and fibula. Normal proximal tibiofibular articulation. Total knee arthroplasty in anatomic alignment. Lateral tibial screw penetrates the cortex laterally. Normal medial femorotibial compartment. Normal lateral femorotibial compartment. Normal patellofemoral articulation. The soft tissue structures are unremarkable. RAD/Knee 4 or More Views IMPRESSION: Total knee arthroplasty Electronically Signed: Louie Juarez MD at 19:43 EDT ,
== END 2023-01-17 21:11 | disposition home or self-care (01) ==
PROVIDERS: Emergency Provider Emergency Medicine; PCP Family Medicine; Visit Provider Emergency Medicine
DX: S80.02XA Contusion of left knee, initial encounter (principal); J44.9 Chronic obstructive pulmonary disease, unspecified; E11.42 Type 2 diabetes mellitus with diabetic polyneuropathy; Z79.4 Long term (current) use of insulin; S09.90XA Unspecified injury of head, initial encounter; S80.01XA Contusion of right knee, initial encounter; I10 Essential (primary) hypertension; Z86.718 Personal history of other venous thrombosis and embolism; Z79.01 Long term (current) use of anticoagulants; Z86.711 Personal history of pulmonary embolism; Z96.653 Presence of artificial knee joint, bilateral; E03.9 Hypothyroidism, unspecified; Z79.51 Long term (current) use of inhaled steroids; F32.A Depression, unspecified; Z90.710 Acquired absence of both cervix and uterus; Z90.49 Acquired absence of other specified parts of digestive tract; Z79.899 Other long term (current) drug therapy; V00.811A Fall from moving wheelchair (powered), initial encounter
CPT/HCPCS: 70450; 73564; 99283

== ENCOUNTER → 2023-02-10 | Outpatient (CLI) | payer MEDICARE, SELFPAY ==
--- NOTE | 2023-02-10 13:59 | RAD_ITS ---
EXAM: XR RIGHT WRIST COMPLETE, 3 OR MORE VIEWS CLINICAL INDICATION: PAIN S/P FALL 01/17, HAS RA TECHNIQUE: Frontal, lateral and oblique views of the right wrist. COMPARISON: No relevant prior studies available. FINDINGS: BONES/JOINTS: Widening of the scapholunate space consistent with Timoteo Gilbert sign and scapholunate rotary subluxation. Markedly heterogeneous bone density. Small ossification in the distal ulnar region, no evidence of an intact ulnar styloid process. Marked degenerative change of the base of the thumb. Prominent distortion and flattening of the proximal carpal row and narrowing of the radiocarpal and anterior ulna-carpal joints. SOFT TISSUES: Mild dorsal soft tissue swelling but no evidence of visible acute fracture. Minimal lucency in distal radial articular surface likely chronic degenerative change. No radiopaque foreign body. VASCULATURE: Arterial calcifications in the distal forearm. RAD/Wrist min 3 Views IMPRESSION: 1. Severe demineralization and degenerative changes. 2. Marked narrowing and heterogeneous appearance of proximal wrist and base of the thumb. Scapholunate space widening is highly consistent with rotary subluxation of the scaphoid, uncertain chronicity. 3. Marked narrowing of the radiocarpal-carpal joints and some impaction of the distal ulna on the dorsal lunate appears chronic. 4. Minimal streaky linear foci in the distal radius and ulna, likely due to chronic demineralization. Electronically Signed: Pita Tom MD at 0:17 EST ,
== END | disposition home or self-care (01) ==
LOC: RAD 13:57
PROVIDERS: PCP Family Medicine; Visit Provider Family Medicine
DX: M25.531 Pain in right wrist (principal)
CPT/HCPCS: 73110

== ENCOUNTER → 2023-03-03 | Outpatient (CLI) | payer MEDICARE, SELFPAY ==
[2023-03-04 11:07] LABS: H.Pylori Breath Test Negative (Negative)
== END | disposition home or self-care (01) ==
LOC: LAB 11:26
PROVIDERS: PCP Family Medicine; Referring Provider Family Medicine; Visit Provider Family Medicine
DX: R10.9 Unspecified abdominal pain (principal)
CPT/HCPCS: 83013

== ENCOUNTER → 2023-08-09 | Outpatient (CLI) | payer MEDICARE, SELFPAY ==
[2023-08-09 17:43] LABS: Absolute Lymphocyte Count 1.73 X10^3/uL (0.83-4.51); Absolute Neutrophil Count 4.4 X10^3/uL (2.0-7.7); Basophil# 0.03 X10^3/uL; Basophil% 0.4 % (0-1); Eosinophil# 0.13 X10^3/uL; Eosinophils% 1.8 % (0-5); Hematocrit 42.6 % (37-47); Hemoglobin 13.2 g/dL (12.0-15.0); Lymphocyte # 1.73 X10^3/ul (0.83-4.51); Lymphocyte % 24.6 % (19-41); Mean Corpuscular Hgb 26.8 pg (27.0-32.0); Mean Corpuscular Volume 86.4 fL (81-99); Mean Platelet Vol. 8.8 fl (6.2-12.0); Monocyte# 0.68 X10^3/uL; Monocyte% 9.7 % (0-10); NRBC Flagged by Analyzer 0 % (0-5); Neutrophil # 4.44 X10^3/uL (2.7-7.7); Neutrophil % 63.2 % (47-70); Platelet Count 273 K/mm3 (150-450); RBC Distribution Width CV 15.9 % (11.6-14.6); Red Blood Count 4.93 M/mm3 (4.2-5.4)
[2023-08-09 18:07] LABS: Vitamin B12 592 pg/mL (211-911); Vitamin D,25 Hydroxy 67.2 ng/mL
[2023-08-09 18:23] LABS: ALB/GLOB Ratio 0.6 RATIO (0.9-2.4); AST(SGOT) 25 U/L (15-37); Alanine Aminotransfer ALT/SGPT 19 U/L (13-56); Albumin, Serum 2.7 g/dL (3.2-5.0); Alkaline Phosphatase 197 U/L (45-117); Anion Gap 9 (5-15); BUN 20 mg/dL (7-18); Calcium,Total 9.1 mg/dL (8.5-10.1); Chloride 103 mmol/L (98-107); Creatinine, Serum 0.74 mg/dL (0.55-1.02); EST Glomerular Filtration Rate 80 mL/min (>60); Est Glom Filt Rate - Afr Amer 97 mL/min (>60); Globulin 4.8 g/dL (2.2-4.2); Glucose 184 mg/dL (74-106); LDH 286 U/L (84-246); Potassium 4.1 mmol/L (3.5-5.1); Protein, Total 7.5 g/dL (6.4-8.2); Sodium Level 135 mmol/L (136-145); Thyroid Stim Hormone (TSH) 4.57 uIU/mL (0.358-3.74)
[2023-08-09 18:55] LABS: Hemoglobin A1c 8.4 % (3.8-5.6)
== END | disposition home or self-care (01) ==
LOC: BFHLAB 16:10
PROVIDERS: PCP Family Medicine; Visit Provider Family Medicine
DX: R10.9 Unspecified abdominal pain (principal); E11.42 Type 2 diabetes mellitus with diabetic polyneuropathy; D64.9 Anemia, unspecified; E55.9 Vitamin D deficiency, unspecified; E53.8 Deficiency of other specified B group vitamins
CPT/HCPCS: 36415; 80053; 82306; 82607; 83036; 83615; 84443; 85025

== ENCOUNTER 2023-08-10 21:30 | Observation (INO) | payer MEDICARE, SELFPAY ==
[2023-08-10 21:31] VITALS: BP 147/88; PULSE 110; RESP 20; TEMP 36.1; O2SAT 99
--- NOTE | 2023-08-10 22:30 | CT_ITS ---
INDICATION: INJURY EXAMINATION: CT CERVICAL SPINE - CT Spine Cervical W/O Contrast Injection TECHNIQUE: Helically acquired images were obtained of the cervical spine. 2D reformatted images were reviewed. The protocol utilizes one or more of the following dose reduction techniques: automated exposure control, adjustment of mA and/or kV according to patient size,and/or use of iterative reconstruction technique. IV Contrast dosage and agent: None. RADIATION DOSAGE (If Supplied By Facility): CTDIvol = ( 27.75 ) mGy, DLP = ( 545.75 ) mGycm COMPARISON: No relevant prior comparison study available FINDINGS: Normal craniovertebral junction. Normal anterior atlantoaxial articulation. Normal odontoid process. There is straightening of the normal cervical lordosis. Normal vertebral bodies and posterior osseous elements. C2-3: Normal endplates. Normal disc height and morphology. Normal central canal and intervertebral neuroforamina. C3-4, C4-5, C5-6, C6-7: Endplate spondylosis. Central and paracentral disc bulge. Degenerative changes of the bilateral facet joints and uncovertebral joints. [id number] narrowing of the central canal and the bilateral intervertebral neural foramina. C7-T1: Normal endplates. Normal disc height and morphology. Normal central canal and intervertebral neuroforamina. Normal visualized soft tissue structures. CT/Spine Cervical without Contras IMPRESSION: Multilevel degenerative changes, as described above. Electronically Signed: Merna Starr MD at 0:21 EDT ,
--- NOTE | 2023-08-10 22:30 | CT_ITS ---
INDICATION: INJURY EXAMINATION: CT BRAIN - CT Head or Brain W/O Contrast Injection TECHNIQUE: Multiple axial images were obtained of the head without intravenous contrast. The protocol utilizes one or more of the following dose reduction techniques: automated exposure control, adjustment of mA and/or kV according to patient size,and/or use of iterative reconstruction technique. IV Contrast dosage and agent: None. RADIATION DOSAGE (If Supplied By Facility): CTDIvol = ( 44.99 ) mGy, DLP = ( 846.73 ) mGycm COMPARISON: FINDINGS: BRAIN PARENCHYMA: No intra- or extra-axial hemorrhage. No evidence of acute infarct. No intracranial mass or mass effect. There is preservation of the springer/white matter interface. Posterior fossa structures are unremarkable. CSF SPACES: Appropriate for age. No hydrocephalus. Basal cisterns are patent. CALVARIUM, SKULL BASE, PARANASAL SINUSES AND MASTOID AIR CELLS: Clear. No discrete lytic or blastic abnormalities. ORBITS: Both globes, extraocular muscles, optic nerves and retrobulbar fat appear unremarkable. ASPECTS Score for Acute Strokes: 10 CT/Brain/Head without Contrast IMPRESSION: Negative Brain CT without contrast. Electronically Signed: Merna Starr MD at 0:22 EDT ,
[2023-08-10] MEDS: Ondansetron ODT 4 MG Tablet PO (22:43)
[2023-08-10] MEDS: Morphine 4 MG/ML Syringe IM (22:43)
--- NOTE | 2023-08-10 23:10 | RAD_ITS ---
INDICATION: fall EXAMINATION/TECHNIQUE: X-RAY - XR Pelvis 1 or 2 Views COMPARISON: No relevant prior comparison study available FINDINGS: PELVIC BONES: No displaced fracture, destructive or sclerotic lesions. Note that overlapping bowel shadows may however obscure fine detail. Sacroiliac joints demonstrate moderate degenerative arthrosis. No widening of the pubic symphysis. 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 No displaced fracture seen in this frontal view. SOFT TISSUES: No soft tissue swelling or gas. 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 Electronically Signed: Merna Starr MD at 0:23 EDT ,
--- NOTE | 2023-08-10 23:10 | RAD_ITS ---
INDICATION: pain EXAMINATION/TECHNIQUE: X-RAY - XR Spine Lumbar 2 or 3 Views COMPARISON: No relevant prior comparison study available FINDINGS: VERTEBRAE: There is decreased height of the vertebral body of L1 possibly due to compression fracture. No spondylolisthesis. Preservation of the normal lumbar lordosis. No significant facet arthropathy. DISCS: Multilevel degenerative spondylosis more prominent in the upper lumbar spine. INCLUDED ABDOMEN: Atherosclerotic calcification of the abdominal aorta and iliac arteries. RAD/Lumbar Spine 2 or 3 Views IMPRESSION: Multilevel degenerative spondylosis more prominent in the upper lumbar spine. There is decreased height of the vertebral body of L1 possibly due to compression fracture of undetermined age. Electronically Signed: Merna Starr MD at 0:27 EDT ,
--- NOTE | 2023-08-10 23:10 | RAD_ITS ---
INDICATION: pain EXAMINATION/TECHNIQUE: X-RAY - RIGHT XR Knee 3 Views 3 VIEWS COMPARISON: No relevant prior comparison study available FINDINGS: SOFT TISSUES: No soft tissue swelling or gas. No radiopaque foreign body. BONES/JOINTS: Right knee arthroplasty in good alignment. No sclerotic or destructive changes observed. RAD/Knee 3 Views IMPRESSION: Right knee arthroplasty in good alignment. Electronically Signed: Merna Starr MD at 0:24 EDT ,
[2023-08-10 23:30] VITALS: BP 145/70; PULSE 70; RESP 20
[2023-08-11] VITALS (11 sets, daily range): BP systolic 111–157; BP diastolic 50–92; PULSE 69–102; RESP 16–18; TEMP 36.6–37; O2SAT 90–99; BMI 31.9; BMI 31.8; BMI 31.7
[2023-08-11] MEDS: Morphine 4 MG/ML Syringe IM (00:07)
[2023-08-11 00:16] LABS: Bedside Glucose 228 mg/dL (74-106)
--- NOTE | 2023-08-11 02:25 | HP.PCM.HOS_ITS ---
[facility] - General General Date of Admission: 08/11/23 Date of Service: 08/11/23 Chief Complaint: Fall with Subsequent Pain and Inability to Ambulate. HPI Narrative CAMRON SNOW, is a 77 F with a past medical history of essential hypertension, hypothyroidism, DM-2; uncontrolled with hyperglycemia, diabetic polyneuropathy, history of DVT/PE with moderate Right ventricular systolic dysfunction (11/2022); on Eliquis, history of COVID-19 (11/2022) history of pulmonary hypertension, LIS; with history of obesity-hypoventilation syndrome, history of asthma; with chronic hypoxic respiratory failure on 2 L nasal cannula nocturnal, chronic anemia, RLS; on Requip, overactive bladder, GERD; with chronic gastritis, IBS; of diarrheal type, history of autoimmune hepatitis, NAFLD; followed by Dr. Chun of gastroenterology, history of cholecystectomy, macular degeneration depression, fibromyalgia, RA; followed by Drs. Conn at [facility], gout, osteoarthritis; with history of bilateral TKR's, DDD, spinal stenosis, osteoporosis; with previous compression fractures of the lumbosacral spine with chronic pain syndrome on tramadol twice daily as needed, history of ambulatory dysfunction with previous falls and DNR CCA; with no intubation CODE STATUS who presents to [facility] ER complaining of fall with subsequent pain and inability to ambulate. Ms. Snow reports her symptoms began approximately 1 hour prior to arrival when she fell on her bathroom floor sustaining a large laceration on her back from her waist to her mid-back with mild bleeding that was controlled according to EMS and the patient. Patient also complained of pain in her tailbone but she was able to stand with help. She denies LOC with her fall but she does admit to hitting her head with her fall. There was no report of fever, chills, nausea, vomiting, diarrhea, constipation, chest pain, SOB or paresthesias but she does admit to another recent fall approximately 1 week ago with ongoing pain in her Right buttock due to soft tissue injury with patient feeling like her strength is gradually declining in spite of her attempts to do her pedal exercises and 15-minute bursts and otherwise trying to stay active. In the ER the patient was noted to have no acute fracture or dislocation on her x-rays of the pelvis x- rays of the pelvis, lumbar spine, knee and there was no evidence of acute fracture or dislocation on the CT scan of her C-spine and her head CT was negative for acute pathologic changes. However, the patient was a two-person 100% assist with the patient unable to mobilize due to pain with patient requesting to be admitted to the general medical floor under observation status for supportive care for stay that is expected to be less than 2 midnights. [facility] Medical History COPD (chronic obstructive pulmonary disease) Acute exacerbation of chronic obstructive pulmonary disease Hx of deep venous thrombosis Chronic gastritis LIS (obstructive sleep apnea) Rheumatoid arthritis Fibromyalgia Anemia IBS (irritable bowel syndrome) Acquired hypothyroidism Benign essential hypertension Depression Diabetes mellitus with diabetic polyneuropathy, with long-term current use of insulin Home Medications ?Medication ?Instructions ?Recorded ?Last Taken ?Type Cyanocobalamin (Vitamin B-12) 1,000 mcg subcut QMONTH supplement 11/20/14 12/18/19 08:00 History levothyroxine 100 mcg tablet 100 mcg PO DAILY thyroid 11/20/14 01/04/20 History omeprazole 10 mg capsule,delayed 20 mg PO BID PRN GERD 11/20/14 01/03/20 History release ketorolac 0.4 % eye drops 1 drp RIGHT EYE 4X/DAY macular 01/04/20 01/04/20 History degeneration melatonin 1 mg tablet 10 mg PO 2000 sleep 01/04/20 01/03/20 History ropinirole 2 mg tablet 0.5 mg PO .5x/day PRN restless legs 01/04/20 01/03/20 History zolpidem 12.5 mg tablet,extended 12.5 mg PO QHS sleep 01/04/20 01/03/20 History release,multiphase vitamin E (dl, acetate) 180 mg 400 units PO DAILY@1200 Supplement 01/06/20 Unknown History (400 unit) capsule acetaminophen 500 mg tablet 1,000 mg (2 x 500 mg) PO Q6H PRN 01/27/20 Unknown Rx PRN Pain Score 1-5 fluticasone 500 mcg-salmeterol 50 1 inh inhalation BID asthma #60 ea 10/11/22 Unknown Rx mcg/dose blistr powdr for inhalation ([employer]ix[employer] Inhub) cholecalciferol (vitamin D3) 1,250 1,250 mcg PO MO supplement 12/10/22 Unknown History mcg (50,000 unit) capsule diphenoxylate-atropine 2.5 2 tab PO Q12H PRN diarrhea 12/10/22 Unknown History mg-0.025 mg tablet fesoterodine 4 mg tablet,extended 4 mg PO DAILY overactive bladder 12/10/22 Unknown History release 24 hr potassium chloride 20 mEq 20 meq PO DAILY supplement 12/10/22 Unknown History tablet,extended release tramadol 50 mg tablet 50 mg PO BID PRN pain 12/10/22 Unknown History fluoxetine 20 mg capsule 20 mg PO DAILY depression 12/11/22 Unknown History insulin regular hum U-500 conc 500 1.5 - 2 unit subcut TIDCM diabetes 12/11/22 Unknown History unit/mL subcutaneous soln (Humulin R U-500 (Concentrated) Insulin) vit C 250 mg-vit E 90 mg-zinc 10 1 cap PO DAILY supplement 12/11/22 Unknown History mg-copper 1 [id number] capsule (Healthy Eyes SuperVision2) apixaban 5 mg tablet (Eliquis) 5 mg PO BID PE #74 tabs 12/13/22 Unknown Rx lisinopril 5 mg tablet 5 mg PO DAILY 30 days #30 tabs 12/13/22 Unknown Rx Allergy/AdvReac Type Severity Reaction Status Date / Time cyclobenzaprine Allergy Unknown Verified 02/10/23 13:42 doxepin Allergy Unknown Verified 02/10/23 13:42 hydromorphone HCl (From Allergy Unknown Verified 02/10/23 13:42 Dilaudid) prednisone Allergy Unknown Verified 02/10/23 13:42 pregabalin (From Lyrica) Allergy Unknown Verified 02/10/23 13:42 acetaminophen (From Percocet) AdvReac HALLUCINATI Verified 02/10/23 13:42 ON hydrocodone bitartrate (From AdvReac HALLUCINATI Verified 02/10/23 13:42 Vicodin) ONS oxycodone HCl (From Percocet) AdvReac HALLUCINATI Verified 02/10/23 13:42 ON Family History Brother Diabetes Grandmother Diabetes Father Colon cancer CVA (cerebral vascular accident) Mother Hypertension Surgical History Hx of cholecystectomy H/O shoulder surgery History of cystoscopy History of ankle surgery History of carpal tunnel surgery History of bilateral knee replacement History of total hysterectomy Social History household members: none housing: apartment Smoking Status: Never smoker alcohol intake: never what type of physical activity do you participate in: none do you feel safe at home: Yes ROS ROS Narrative Review of systems: General: Patient admits to generalized weakness with inability to ambulate without 100% assistance from 2 people but she denies fever or chills. HENT: Denies headache, denies stuffy nose, denies sore throat EYES: Denies changes in vision or discharge from eyes. Resp: Denies cough, denies shortness of breath Cardiac: Denies chest pain, palpitations or heart racing. GI: Denies abdominal pain, denies changes in bowel, denies nausea or vomiting. : Denies changes in urination Extremity: Denies swelling Musculoskeletal: Feels somewhat generally weak and unwell with pain coming from our lower back laceration which was treated in ER. Neuro: Patient denies headache, paresthesias or focal neurologic weakness. Heme: Patient had modest bleeding after fall with laceration with no active bleeding at this time. Skin: Denies rashes Psychiatric: No complaints voiced related uncontrolled depression or anxiety. Endocrine: No polyuria, polydipsia or polyphagia. The rest of the 14 point ROS was negative except for positives in HPI. Vital Signs Vital Signs Vital Signs: 08/10/23 21:31 08/10/23 23:30 08/11/23 01:44 Temperature 97 F L Temperature Source Temporal Pulse Rate 110 H 70 80 Respiratory Rate 20 H 20 H 17 Respiratory Effort Respiratory Depth Respiratory Pattern Blood Pressure 147/88 H 145/70 H 155/75 H Blood Pressure Mean 107 95 101 Pulse Ox 99 97 Oxygen Delivery Method Room Air Room Air Room Air 08/11/23 01:45 08/11/23 01:48 Temperature 97.9 F Temperature Source Pulse Rate 80 Respiratory Rate 16 Respiratory Effort Normal Non-Labored Respiratory Depth Normal Respiratory Pattern Normal Blood Pressure 150/73 H Blood Pressure Mean 98 Pulse Ox 96 Oxygen Delivery Method Room Air Physical Exam Const alert, oriented x3, no apparent distress and average body habitus Constitutional Narrative: Patient appears chronically ill. General Appearance: cooperative HEENT normocephalic, head/scalp atraumatic, hearing grossly normal bilaterally and moist oral mucous membranes Eyes PERRL and EOMs intact bilaterally Neck no lymphadenopathy and supple Resp normal respiratory effort, no retractions, no use of accessory muscles and clear to auscultation bilaterally Cardio regular rate and regular rhythm GI normal to inspection, nondistended, normoactive bowel sounds, soft to palpation, non-tender and non-distended Extremity normal to inspection and full ROM Skin Skin Narrative: Patient has a large laceration extending from her mid back to her low back. She has no evidence of rash or jaundice. Neuro oriented x3, CN's II-XII intact bilaterally, moves all extremities and no focal motor deficits Sensorium / Orientation: awake, alert, oriented to person, oriented to place and oriented to time Speech: speech normal Psych affect normal Results Medical Records Data Attestation: I reviewed the patient's medical records Lab / Micro Data Attestation: I reviewed the patient's lab results. 08/11/23 02:56 08/11/23 02:56 Labs: Laboratory Results - last 24 hr 08/10/23 23:57: POC Glucose 228 H Imaging Radiology Impression Brain CT 08/10/23 22:30 IMPRESSION: Negative Brain CT without contrast. Electronically Signed: Merna Starr MD at 0:22 EDT , Cervical Spine CT 08/10/23 22:30 IMPRESSION: Multilevel degenerative changes, as described above. Electronically Signed: Merna Starr MD at 0:21 EDT , Knee X-Ray 08/10/23 23:10 IMPRESSION: Right knee arthroplasty in good alignment. Electronically Signed: Merna Starr MD at 0:24 EDT , Lumbar Spine X-Ray 08/10/23 23:10 IMPRESSION: Multilevel degenerative spondylosis more prominent in the upper lumbar spine. There is decreased height of the vertebral body of L1 possibly due to compression fracture of undetermined age. Electronically Signed: Merna Starr MD at 0:27 EDT , Pelvis X-Ray 08/10/23 23:10 IMPRESSION: Advanced degenerative arthrosis of the hip joints. Electronically Signed: Merna Starr MD at 0:23 EDT , Assessment & Plan Assessment/Plan (1) Fall: QUALIFIERS: Encounter type: initial encounter Qualified Code(s): W19.XXXA - Unspecified fall, initial encounter (2) Intractable pain: (3) Neuropathic pain: (4) Inability to walk: (5) Diabetes mellitus with diabetic polyneuropathy, with long-term current use of insulin: QUALIFIERS: Diabetes mellitus type: type 2 Qualified Code(s): E 11.42 - Type 2 diabetes mellitus with diabetic polyneuropathy; Z79.4 - buttermaker continuous churn (current) use of insulin (6) Hx of deep venous thrombosis: PLAN: Plan 1. Generalized weakness with ambulatory dysfunction after mechanical fall with subsequent laceration on back and inability to ambulate without two-person 100% assist - Admit to general medical floor under observation status. PT/OT and case management consult and treat in case this patient will require rehabilitation she is deemed unable to return home safely as she lives in an old [place] house with 7 steps that she knows she cannot climb at this time. Laceration treated in ER. Give Tylenol as needed mild (level 1-3 out of 10) pain or fever. Continue tramadol as needed for moderate (level 4-6 out of 10) pain. Give morphine IV for severe (level 6-10 out of 10) pain. 2. History of DDD, spinal stenosis, osteoarthritis and osteoporosis; with previous compression fractures of the lumbosacral spine with chronic pain syndrome complicating #1 - Noted. 3. History of DVT/PE with moderate Right ventricular systolic dysfunction (11/2022); on Eliquis compounding #1 & #2 - If she continues to have falls Eliquis may need to be discontinued for safety as the risks of severe bleeding may outweigh any potential benefits. 4. DM-2; uncontrolled with hyperglycemia and diabetic polyneuropathy; adding to the pathology of #1 - #3 - ADA diet. Fingerstick blood sugars before every meal at bedtime + scale insulin. Check hemoglobin A1c to objectively assess quality of diabetic control. 5. Essential hypertension - Continue home regimen as previous plus give as needed IV hydralazine for systolic blood pressure greater than 160 mmHg. 6. Hypothyroidism - Resume Synthroid as previous plus check TSH in light of #1. 7. History of COVID-19 (11/2022) - Noted. 8. History of pulmonary hypertension - Stable. 9. LIS; with history of obesity-hypoventilation syndrome - Stable. Continue nocturnal supplemental oxygen as previous. 10. History of asthma; with chronic hypoxic respiratory failure on 2 L nasal cannula nocturnal - Stable with no evidence of acute flare at this time. Give nebulizers as needed. 11. Chronic anemia - Stable with hemoglobin of 12.2 g/dL present on admission. 12. RLS; on Requip - Continue Requip as previous. 13. Overactive bladder - Stable. 14. GERD; with chronic gastritis - Resume PPI 15. IBS; of diarrheal type - Continue as needed diphenoxylate-atropine. 16. History of autoimmune hepatitis - Noted with normal LFTs and bilirubin present on admission. 17. NAFLD; followed by Dr. Chun of gastroenterology - Stable. Continue vitamin E. 18. History of cholecystectomy - Noted. 19. Macular degeneration - Resume ketorolac eyedrops as previous. 20. Depression - Continue current regimen 21. Fibromyalgia - Noted. 22. RA; followed by Drs. Conn at [facility] - Stable with no evidence of flare at this time 21. Gout - Stable with no evidence of acute flare at this time. 22. DNR CCA; with no intubation CODE STATUS - Noted. 23. DVT prophylaxis - Patient is on Eliquis for #3 which will be continued. Total time: Approximately 85 minutes. Charges/Coding Visit Charges OBSV E&M: 94863 Observ/hosp same date L3
--- NOTE | 2023-08-11 02:44 | EDS_ITS ---
HPI History of Present Illness Chief Complaint: Fall Informant: patient and family Narrative Narrative: Patient is a 77-year-old female with past medical history of diabetes COPD previous DVT with PE currently on Eliquis hypertension fibromyalgia. She states that this evening roughly 1 to 2 hours prior to arrival she was getting into her bathtub when she lost her balance and fell striking her back. Her son states he was over at the house at the time and heard the thud. He states he rushed into the restroom after hearing this and found her on her back but awake and alert. He states he examined her noticed a cut to her back and the patient has been complaining of multiple areas of pain since the fall. With concern for underlying trauma and the fact the patient states she has not been able to stand or ambulate following the injury he presents for evaluation [facility] Medical History COPD (chronic obstructive pulmonary disease) Acute exacerbation of chronic obstructive pulmonary disease Hx of deep venous thrombosis Chronic gastritis LIS (obstructive sleep apnea) Rheumatoid arthritis Fibromyalgia Anemia IBS (irritable bowel syndrome) Acquired hypothyroidism Benign essential hypertension Depression Diabetes mellitus with diabetic polyneuropathy, with long-term current use of insulin Home Medications ?Medication ?Instructions ?Recorded ?Last Taken ?Type Cyanocobalamin (Vitamin B-12) 1,000 mcg subcut QMONTH supplement 11/20/14 12/18/19 08:00 History levothyroxine 100 mcg tablet 100 mcg PO DAILY thyroid 11/20/14 01/04/20 History omeprazole 10 mg capsule,delayed 20 mg PO BID PRN GERD 11/20/14 01/03/20 History release ketorolac 0.4 % eye drops 1 drp RIGHT EYE 4X/DAY macular 01/04/20 01/04/20 History degeneration melatonin 1 mg tablet 10 mg PO 2000 sleep 01/04/20 01/03/20 History ropinirole 2 mg tablet 0.5 mg PO .5x/day PRN restless legs 01/04/20 01/03/20 History zolpidem 12.5 mg tablet,extended 12.5 mg PO QHS sleep 01/04/20 01/03/20 History release,multiphase vitamin E (dl, acetate) 180 mg 400 units PO DAILY@1200 Supplement 01/06/20 Unknown History (400 unit) capsule acetaminophen 500 mg tablet 1,000 mg (2 x 500 mg) PO Q6H PRN 01/27/20 Unknown Rx PRN Pain Score 1-5 fluticasone 500 mcg-salmeterol 50 1 inh inhalation BID asthma #60 ea 10/11/22 Unknown Rx mcg/dose blistr powdr for inhalation (Wixela Inhub) cholecalciferol (vitamin D3) 1,250 1,250 mcg PO MO supplement 12/10/22 Unknown History mcg (50,000 unit) capsule diphenoxylate-atropine 2.5 2 tab PO Q12H PRN diarrhea 12/10/22 Unknown History mg-0.025 mg tablet fesoterodine 4 mg tablet,extended 4 mg PO DAILY overactive bladder 12/10/22 Unknown History release 24 hr potassium chloride 20 mEq 20 meq PO DAILY supplement 12/10/22 Unknown History tablet,extended release tramadol 50 mg tablet 50 mg PO BID PRN pain 12/10/22 Unknown History fluoxetine 20 mg capsule 20 mg PO DAILY depression 12/11/22 Unknown History insulin regular hum U-500 conc 500 1.5 - 2 unit subcut TIDCM diabetes 12/11/22 Unknown History unit/mL subcutaneous soln (Humulin R U-500 (Concentrated) Insulin) vit C 250 mg-vit E 90 mg-zinc 10 1 cap PO DAILY supplement 12/11/22 Unknown History mg-copper 1 [id number] capsule (Healthy Eyes SuperVision2) apixaban 5 mg tablet (Eliquis) 5 mg PO BID PE #74 tabs 12/13/22 Unknown Rx lisinopril 5 mg tablet 5 mg PO DAILY 30 days #30 tabs 12/13/22 Unknown Rx Allergy/AdvReac Type Severity Reaction Status Date / Time cyclobenzaprine Allergy Unknown Verified 02/10/23 13:42 doxepin Allergy Unknown Verified 02/10/23 13:42 hydromorphone HCl (From Allergy Unknown Verified 02/10/23 13:42 Dilaudid) prednisone Allergy Unknown Verified 02/10/23 13:42 pregabalin (From Lyrica) Allergy Unknown Verified 02/10/23 13:42 acetaminophen (From Percocet) AdvReac HALLUCINATI Verified 02/10/23 13:42 ON hydrocodone bitartrate (From AdvReac HALLUCINATI Verified 02/10/23 13:42 Vicodin) ONS oxycodone HCl (From Percocet) AdvReac HALLUCINATI Verified 02/10/23 13:42 ON Family History Brother Diabetes Grandmother Diabetes Father Colon cancer CVA (cerebral vascular accident) Mother Hypertension Surgical History Hx of cholecystectomy H/O shoulder surgery History of cystoscopy History of ankle surgery History of carpal tunnel surgery History of bilateral knee replacement History of total hysterectomy Social History household members: none housing: apartment Smoking Status: Never smoker alcohol intake: never what type of physical activity do you participate in: none do you feel safe at home: Yes ROS ROS ED Constitutional Constitutional ED: Denies chills or fever(s) Eyes Eyes: Denies blurry vision, change in vision or diplopia ENT ENT ED: Denies sore throat Cardiovascular Cardiovascular: Denies chest pain, palpitations or racing heartbeat Respiratory/Chest Respiratory/Chest: Denies cough or dyspnea Gastrointestinal Gastrointestinal: Denies abdominal pain, diarrhea, nausea or vomiting Genitourinary Genitourinary ED: Denies dysuria, hematuria or urinary frequency Musculoskeletal Musculoskeletal: Reports back pain; Denies neck pain Integumentary Reports Abrasions Neurologic Neurologic: Reports weakness; Denies headache(s) Hematologic/Lymphatic Hematologic/Lymphatic: Reports easy bleeding and easy bruising EXAM Physical Exam Const Vital Signs: 08/10/23 21:31 08/10/23 23:30 08/11/23 01:44 Temperature 97 F L Temperature Source Temporal Pulse Rate 110 H 70 80 Respiratory Rate 20 H 20 H 17 Respiratory Effort Respiratory Depth Respiratory Pattern Blood Pressure 147/88 H 145/70 H 155/75 H Blood Pressure Mean 107 95 101 Pulse Ox 99 97 Oxygen Delivery Method Room Air Room Air Room Air 08/11/23 01:45 08/11/23 01:48 Temperature 97.9 F Temperature Source Pulse Rate 80 Respiratory Rate 16 Respiratory Effort Normal Non-Labored Respiratory Depth Normal Respiratory Pattern Normal Blood Pressure 150/73 H Blood Pressure Mean 98 Pulse Ox 96 Oxygen Delivery Method Room Air Positive well nourished, well developed and obese General Appearance ED: well developed; Negative for pallor Nutritional Appearance: obese HEENT HEENT Narrative: Normocephalic atraumatic No signs of depressed or basilar skull fracture Eyes PERRL and EOMs intact bilaterally Eyes Narrative: Patient has a right-sided conjunctival hemorrhage which she states has been present for multiple days since her last macular degeneration eye treatment Neck supple Neck Narrative: No bony deformity or step-off of the cervical spine no midline tenderness to palpation Chest Wall palpation of chest normal Chest Narrative: No bony deformity or crepitance of the chest wall Resp normal respiratory effort Resp Narrative: Breath sounds are diminished throughout with faint expiratory wheeze in the bilateral bases but no nasal flaring retractions tachypnea or accessory muscle use Cardio regular rate and regular rhythm Rate: other Other Details: Radial and carotid pulses are equal and symmetric GI normal to inspection, nondistended, normoactive bowel sounds, non-tender, non- distended and no masses GI Narrative: No voluntary guarding or rigidity No pulsatile mass or fluid wave Auscultation: normoactive bowel sounds Palpation: soft Back/Spine Back/Spine Narrative: No bony deformity or step-off of the thoracic or lumbar spine but there is midline lumbar tenderness to palpation Just to the right of the midline of the lumbar spine there is a linear abrasion approximately 6 cm in length. Along the bottom 2 cm of the abrasion is more of a superficial laceration that extends into the dermis and has minimal ooze of blood There is a developing right paralumbar area of ecchymosis consistent with fall and history of anticoagulation No saddle anesthesia. Negative straight leg raise. No clonus or Babinski. Patellar reflexes are plus 1 out of 4 bilaterally Extremity normal to inspection Extremity Narrative: Pelvis is stable there is no shortening or external rotation of either lower extremity Patient has bilateral knee replacements and there is mild tenderness palpation to the anterior aspect of the right knee without ecchymosis joint effusion or bony abnormality No pain on palpation of the inguinal region disease pubic rami fracture Neuro oriented x3, CN's II-XII intact bilaterally and no sensory deficits noted Sensorium / Orientation: alert Psych mental status grossly normal Skin no rashes or lesions noted and No no wounds Skin Narrative: Superficial abrasion to the low back as documented above without signs of active infection or retained foreign body General Skin Exam: Negative for jaundice or pallor MDM MDM MDM Narrative Medical decision making narrative: Patient arrived to the ER hypertensive but afebrile. She reported a mechanical fall at home and therefore I felt no need for cardiac or syncope workup. She denies striking her head or any loss of consciousness and son reported that he was at her side within a few seconds of the hearing the fall. Therefore concern for rhabdomyolysis is low. However as she is on a blood thinner because of previous DVT/PE and fell there is concern for acute subdural or epidural hematoma. There is also concern for potential cervical compression fracture lumbar compression fracture pelvic fracture or pubic rami fracture. Imaging studies were obtained and revealed no acute finding. Despite receiving morphine the patient still had intractable pain and could not stand and walk. She lives at home alone and as she is not capable of ambulating she is not safe to return home. I discussed the case with the hospitalist who agrees to admit her at this time secondary to her intractable pain and difficulty walking. Patient understands that she may need placed in a custodial or rehab center if she does not have improvement of symptoms over the next 1 to 2 days. History & Record Review Discussion w/independent historian: Patient and Family Lab Data Attestation: I reviewed the patient's lab results. Labs: Laboratory Results - last 24 hr 08/10/23 08/11/23 23:57 02:56 WBC 7.8 RBC 4.45 Hgb 12.2 Hct 38.9 MCV 87.4 MCH 27.4 MCHC 31.4 L RDW Std Deviation 50.7 H RDW Coeff of Susi 15.9 H Plt Count 239 MPV 8.4 Immature Gran % (Auto) 0.400 Neut % (Auto) 55.6 Lymph % (Auto) 30.3 Moffat % (Auto) 10.6 H Eos % (Auto) 2.8 Baso % (Auto) 0.3 Absolute Neuts (auto) 4.3 Absolute Lymphs (auto) 2.35 Nucleated RBC % 0 Sodium 139 Potassium 4.0 Chloride 106 Carbon Dioxide 26.0 Anion Gap 7 BUN 25 H Creatinine 0.81 Est GFR (MDRD) Af Amer 87 Est GFR (MDRD) Non-Af 72 BUN/Creatinine Ratio 30.8 H Glucose 214 H Calcium 8.5 TSH 7.62 H Urine Color Yellow Urine Clarity Sl. Cloudy Urine pH 5.0 Ur Specific [place] 1.020 Urine Protein 100 H Urine Glucose (UA) Normal Urine Ketones Negative Urine Occult Blood 250 H Urine Nitrite Negative Urine Bilirubin Negative Urine Urobilinogen Normal Ur Leukocyte Esterase 100 H Urine RBC 0-5 SEEN Urine WBC 0 SEEN Ur Squamous Epith Cells 10-25 SEEN Ur Renal Epithelial Cell 0-5 SEEN Urine Bacteria 1+ Urine Mucus 0 SEEN POC Glucose 228 H Radiography Diagnostic Testing: Clinical Impression(s) from Imaging Studies Brain CT 08/10/23 22:30 IMPRESSION: Negative Brain CT without contrast. Electronically Signed: Merna Starr MD at 0:22 EDT , Cervical Spine CT 08/10/23 22:30 IMPRESSION: Multilevel degenerative changes, as described above. Electronically Signed: Merna Starr MD at 0:21 EDT Reading Location ID and State: [facility] / [place] Tel , Service support , Knee X-Ray 08/10/23 23:10 IMPRESSION: Right knee arthroplasty in good alignment. Electronically Signed: Merna Starr MD at 0:24 EDT , Lumbar Spine X-Ray 08/10/23 23:10 IMPRESSION: Multilevel degenerative spondylosis more prominent in the upper lumbar spine. There is decreased height of the vertebral body of L1 possibly due to compression fracture of undetermined age. Electronically Signed: Merna Starr MD at 0:27 EDT , Pelvis X-Ray 08/10/23 23:10 IMPRESSION: Advanced degenerative arthrosis of the hip joints. Electronically Signed: Merna Starr MD at 0:23 EDT , X-ray of the right knee as interpreted by the emergency medicine physician reveals hardware to be intact and in place without loosening joint effusion or periprosthetic fracture X-ray of the pelvis as interpreted by the emergency medicine physician reveals age-related changes without acute fracture or dislocation X-ray of the lumbar spine as interpreted by the emergency medicine physician reveals arthritic changes with possible L1 compression fracture of indeterminate age Management Discussion w/another healthcare provider: Hospitalist Discharge Plan Dx/Rx/DC Orders Clinical Impression: Intractable pain, Inability to walk, Hypertension, Hx of pulmonary embolus, Current use of chcf anticoagulation, Diabetes mellitus Disposition Disposition: Acute Care Hospital [facility] Discharge Date/Time: 08/11/23 03:38
[2023-08-11 03:05] LABS: Mucous, Urine 0 SEEN /hpf (<or=2+); White Blood Cells 0 SEEN /hpf (0-5)
[2023-08-11 03:06] LABS: Absolute Lymphocyte Count 2.35 X10^3/uL (0.83-4.51); Absolute Neutrophil Count 4.3 X10^3/uL (2.0-7.7); Basophil# 0.02 X10^3/uL; Basophil% 0.3 % (0-1); Eosinophil# 0.22 X10^3/uL; Eosinophils% 2.8 % (0-5); Hematocrit 38.9 % (37-47); Hemoglobin 12.2 g/dL (12.0-15.0); Lymphocyte # 2.35 X10^3/ul (0.83-4.51); Lymphocyte % 30.3 % (19-41); Mean Corp Hgb Conc 31.4 g/dL (32-36); Mean Corpuscular Hgb 27.4 pg (27.0-32.0); Mean Corpuscular Volume 87.4 fL (81-99); Mean Platelet Vol. 8.4 fl (6.2-12.0); Monocyte# 0.82 X10^3/uL; Monocyte% 10.6 % (0-10); NRBC Flagged by Analyzer 0 % (0-5); Neutrophil # 4.32 X10^3/uL (2.7-7.7); Neutrophil % 55.6 % (47-70); Platelet Count 239 K/mm3 (150-450); RBC Distribution Width CV 15.9 % (11.6-14.6); RBC Distribution Width SD 50.7 fl (35.1-43.9); Red Blood Count 4.45 M/mm3 (4.2-5.4); White Blood Count 7.8 K/mm3 (4.4-11.0)
[2023-08-11 03:11] LABS: Color, Urine Yellow (Yellow); Glucose, Dipstick Normal (Normal); Ketone-Dipstick Negative (Negative); Leukocyte Esterase-Dipstick 100 /ul (Negative); Nitrite-Dipstick Negative (Negative); Occult Blood-Urine 250 /ul (Negative); Protein-Dipstick 100 mg/dl (Negative); Urine Bilirubin Dipstick Negative (Negative); Urine Clarity Sl. Cloudy (Clear); Urine Urobilinogen Normal (Normal)
[2023-08-11 03:20] LABS: Red Blood Cells-Urine 0-5 SEEN /hpf (0-5); Renal Epithelial Cells 0-5 SEEN /hpf (0-5); Squamous Epithelial Cells - UA 10-25 SEEN /hpf (5-10)
[2023-08-11 03:21] LABS: Anion Gap 7 (5-15); BUN 25 mg/dL (7-18); BUN/Creat Ratio 30.8 RATIO (10-20); Calcium,Total 8.5 mg/dL (8.5-10.1); Chloride 106 mmol/L (98-107); Creatinine, Serum 0.81 mg/dL (0.55-1.02); EST Glomerular Filtration Rate 72 mL/min (>60); Est Glom Filt Rate - Afr Amer 87 mL/min (>60); Glucose 214 mg/dL (74-106); Sodium Level 139 mmol/L (136-145)
[2023-08-11 03:22] LABS: Bacteria 1+ /hpf (None Seen)
[2023-08-11 03:52] LABS: Thyroid Stim Hormone (TSH) 7.62 uIU/mL (0.358-3.74)
[2023-08-11] MEDS: Levothyroxine 100 MCG Tablet PO (05:18)
[2023-08-11] MEDS: 0.9% Normal Saline (1000mL) 1,000 ML 70 ML IV (05:19)
[2023-08-11] MEDS: Pramipexole Di-HCl 0.25 MG Tablet PO (05:21)
--- NOTE | 2023-08-11 06:58 | PN.HOSP_ITS ---
Reason for Visit Reason for Visit: Fall/inability to ambulate Subjective Subjective Mrs. Aaron is a 77-year-old white female with a complex medical history to include rheumatoid arthritis and chronic pain syndrome who presented to the emergency department at [facility] on 08/11/2023 after sustaining a fall and having subsequent inability ambulate and ongoing worsening pain. About 1 hour prior to arrival she fell in her bathroom and sustained a large laceration on her back from her waist to her mid back with mild bleeding that was controlled according to EMS and the patient. She also complained of pain in her tailbone but was able to stand with some assistance. She denied any loss of consciousness but did admit to hitting her head with the fall. She had no other symptoms or no prodrome. The pain was mechanical. She reports she had another recent fall about 1 week prior to this with ongoing pain in her right buttock due to soft tissue injury that she sustained at that time but she does admit that she feels like her strength is gradually declining despite her attempts to do exercises in about 15-minute burst throughout the day. She indicates that she is trying to stay active but weakness has been worsening. Vital signs on presentation showed a temperature of 97, initial heart rate was 110 with repeat heart rate at 70, respiratory rate was 20, blood pressure was 147/88 and oxygen saturations were 99% on room air. Her CBC was unremarkable. Her chemistry panel was unremarkable other than elevated blood glucose level at 214. She is a known diabetic. Her most recent hemoglobin A1c was obtained on 08/09/2023 and was 8.4. TSH was 7.62. UA was not consistent with infection. CT of her brain was unremarkable for any acute findings. CT of the cervical spine demonstrated multilevel degenerative changes but nothing acute. Right knee plain films showed right knee arthroplasty in good alignment with no acute findings. Lumbar spine x-ray showed multilevel degenerative spondylosis more prominent in the upper lumbar spine with decreased vertebral height at the L1 vertebral body that is possibly indicative of a compression fracture of undetermined age. Pelvic x- ray showed advanced degenerative arthrosis of the bilateral hips but no acute findings. She was not able to ambulate to go home the emergency department so she was admitted for possible placement in rehab purposes. Objective Data Objective Data Vital Signs: Vital Signs Temp Pulse Resp BP Pulse Ox O2 Del Method O2 Flow Rate 98.0 F 102 H 16 157/92 H 94 Nasal Cannula 2 08/11/23 04:28 08/11/23 04:28 08/11/23 04:48 08/11/23 04:28 08/11/23 04:48 08/11/23 04:48 08/11/23 04:48 Oxygen Flow Rate (L/min) 2 Oxygen Delivery Method Nasal Cannula Weight: 89.9 kg Body Mass Index (BMI) 31.8 Intake & Output: Intake and Output for Last 24 Hours 08/09/23 08/10/23 08/11/23 23:59 23:59 23:59 Intake Total 100 / 100 Balance 100 / 100 Lab / Micro Data 08/11/23 02:56 08/11/23 02:56 Labs: Laboratory Results - last 24 hr 08/10/23 23:57: POC Glucose 228 H 08/11/23 02:56: WBC 7.8, RBC 4.45, Hgb 12.2, Hct 38.9, MCV 87.4, MCH 27.4, MCHC 31.4 L, RDW Std Deviation 50.7 H, RDW Coeff of Susi 15.9 H, Plt Count 239, MPV 8.4, Immature Gran % (Auto) 0.400, Neut % (Auto) 55.6, Lymph % (Auto) 30.3, Mower % (Auto) 10.6 H, Eos % (Auto) 2.8, Baso % (Auto) 0.3, Absolute Neuts (auto) 4.3, Absolute Lymphs (auto) 2.35, Nucleated RBC % 0, Sodium 139, Potassium 4.0, Chloride 106, Carbon Dioxide 26.0, Anion Gap 7, BUN 25 H, Creatinine 0.81, Est GFR (MDRD) Af Amer 87, Est GFR (MDRD) Non-Af 72, BUN/Creatinine Ratio 30.8 H, G lucose 214 H, Calcium 8.5, TSH 7.62 H, Urine Color Yellow, Urine Clarity Sl. Cloudy, Urine pH 5.0, Ur Specific [place] 1.020, Urine Protein 100 H, Urine Glucose (UA) Normal, Urine Ketones Negative, Urine Occult Blood 250 H, Urine Nitrite Negative, Urine Bilirubin Negative, Urine Urobilinogen Normal, Ur Leukocyte Esterase 100 H, Urine RBC 0-5 SEEN, Urine WBC 0 SEEN, Ur Squamous Epith Cells 10-25 SEEN, Ur Renal Epithelial Cell 0-5 SEEN, Urine Bacteria 1+, Urine Mucus 0 SEEN Radiography Diagnostic Testing: Radiology Impression Brain CT 08/10/23 22:30 IMPRESSION: Negative Brain CT without contrast. Electronically Signed: Merna Starr MD at 0:22 EDT Reading Location ID and State: [facility] / [place] Tel , Service support , Cervical Spine CT 08/10/23 22:30 IMPRESSION: Multilevel degenerative changes, as described above. Electronically Signed: Merna Starr MD at 0:21 EDT Reading Location ID and State: [facility] / [place] Tel , Service support , Knee X-Ray 08/10/23 23:10 IMPRESSION: Right knee arthroplasty in good alignment. Electronically Signed: Merna Starr MD at 0:24 EDT Reading Location ID and State: [facility] / [place] Tel , Service support , Lumbar Spine X-Ray 08/10/23 23:10 IMPRESSION: Multilevel degenerative spondylosis more prominent in the upper lumbar spine. There is decreased height of the vertebral body of L1 possibly due to compression fracture of undetermined age. Electronically Signed: Merna Starr MD at 0:27 EDT Reading Location ID and State: [facility] / [place] Tel , Service support , Pelvis X-Ray 08/10/23 23:10 IMPRESSION: Advanced degenerative arthrosis of the hip joints. Electronically Signed: Merna Starr MD at 0:23 EDT Reading Location ID and State: [facility] / [place] Tel , Service support , Assessment & Plan Assessment/Plan (1) Current use of senior care anticoagulation: (2) Fall: QUALIFIERS: Encounter type: initial encounter Qualified Code(s): W19.XXXA - Unspecified fall, initial encounter (3) Inability to walk: (4) Intractable pain: PLAN: Plan Generalized Weakness/ambulatory dysfunction/debility secondary to progressive decline related to advancing age and chronic medical comorbidities -No identifiable fractures -Patient was unable to return home safely as she lives in a [facility] house with multiple steps to enter -Schedule Tylenol -Continue Ultram but increase frequency of dosing to 3 times daily -As needed IV morphine -Add low-dose Skelaxin -PT/OT consultation -Case management/social work consultation as patient will likely need placement at discharge Essential hypertension -Patient's blood pressure has given consistently elevated while hospitalized -Continue home lisinopril -Add Coreg 6.125 twice daily and monitor closely -As needed hydralazine for systolic pressure greater than 160 History of chronic pain secondary to DDD/spinal stenosis/OA/osteoporosis -History of lumbar compression fractures -Continue pain management as above -Complicates treatment, prognosis, outcomes 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 noted on echo from 12/06/2022 -Continue Eliquis DM-2 -Uncontrolled with A1c of 8.4 -Patient is on U-500 insulin -Continue home dosing -Monitor blood sugars GERD -Continue home PPI Hypothyroidism -Continue home Synthroid -TSH is elevated but suspect euthyroid sick syndrome -Check free T4 History of asthma -As needed nebulizers -No signs of acute decompensation LIS/obesity hypoventilation syndrome -Patient not tolerant of CPAP -Continue nocturnal supplemental oxygen at 2 L nasal cannula -Patient does not have chronic hypoxic respiratory failure as she is not on oxygen [id number] Restless leg syndrome -Continue home Mirapex Insomnia -Continue home zolpidem -Continue home melatonin Overactive bladder -Continue home fesoterodine Obesity -BMI 32 -Complicates treatment, prognosis, outcomes and likely contributes to debility DVT prophylaxis -Eliquis as above CODE STATUS -DNR CCA with no intubation as verified on admission
[2023-08-11 07:05] LABS: Bedside Glucose 199 mg/dL (74-106)
[2023-08-11] MEDS: Albuterol 2.5 MG/3 ML VIAL.NEB. INHALATION ×3 (07:06→19:31)
[2023-08-11] MEDS: Budesonide Respules 0.5 MG/2 ML AMPUL.NEB. INHALATION ×2 (07:06→19:31)
[2023-08-11] MEDS: Insulin Lispro 100 UNIT/ML INSULN.PEN SC ×4 (07:10→22:29)
[2023-08-11 07:36] LABS: Absolute Lymphocyte Count 1.68 X10^3/uL (0.83-4.51); Basophil# 0.03 X10^3/uL; Basophil% 0.5 % (0-1); Eosinophil# 0.16 X10^3/uL; Eosinophils% 2.4 % (0-5); Hematocrit 38.2 % (37-47); Hemoglobin 11.7 g/dL (12.0-15.0); Lymphocyte # 1.68 X10^3/ul (0.83-4.51); Lymphocyte % 25.5 % (19-41); Mean Corp Hgb Conc 30.6 g/dL (32-36); Mean Corpuscular Hgb 26.6 pg (27.0-32.0); Mean Corpuscular Volume 86.8 fL (81-99); Mean Platelet Vol. 8.5 fl (6.2-12.0); Monocyte# 0.67 X10^3/uL; Monocyte% 10.2 % (0-10); NRBC Flagged by Analyzer 0 % (0-5); Neutrophil # 4.02 X10^3/uL (2.7-7.7); Neutrophil % 60.9 % (47-70); Platelet Count 223 K/mm3 (150-450); RBC Distribution Width SD 50.4 fl (35.1-43.9); White Blood Count 6.6 K/mm3 (4.4-11.0)
[2023-08-11 08:01] LABS: Hemoglobin A1c 8.1 % (3.8-5.6)
[2023-08-11 08:05] LABS: ALB/GLOB Ratio 0.6 RATIO (0.9-2.4); AST(SGOT) 21 U/L (15-37); Alanine Aminotransfer ALT/SGPT 18 U/L (13-56); Albumin, Serum 2.2 g/dL (3.2-5.0); Alkaline Phosphatase 170 U/L (45-117); Anion Gap 6 (5-15); BUN 20 mg/dL (7-18); Calcium,Total 8.3 mg/dL (8.5-10.1); Chloride 107 mmol/L (98-107); Creatinine, Serum 0.65 mg/dL (0.55-1.02); EST Glomerular Filtration Rate 94 mL/min (>60); Est Glom Filt Rate - Afr Amer 114 mL/min (>60); Glucose 197 mg/dL (74-106); Magnesium 1.6 mg/dL (1.6-2.6); Phosphorus 3.4 mg/dL (2.5-4.9); Potassium 3.9 mmol/L (3.5-5.1); Protein, Total 6.2 g/dL (6.4-8.2); Sodium Level 136 mmol/L (136-145); Thyroid Stim Hormone (TSH) 3.97 uIU/mL (0.358-3.74)
[2023-08-11] MEDS: Morphine 2 MG/ML Syringe IV (08:57)
[2023-08-11] MEDS: Acetaminophen 500 MG Tablet 1000 MG PO ×3 (09:06→22:28)
[2023-08-11] MEDS: Potassium Chloride Oral Tablet 20 MEQ PO (09:13)
[2023-08-11] MEDS: Lisinopril 5 MG Tablet PO (09:15)
[2023-08-11] MEDS: Tolterodine Tartrate 2 MG CAP.SA PO (09:16)
[2023-08-11] MEDS: FLUoxetine 20 MG Capsule PO (09:16)
[2023-08-11] MEDS: APIXABAN 5 MG TABLET PO ×2 (09:16→22:28)
[2023-08-11] MEDS: Multivitamin (Healthy Eyes) Capsule 1 CAP PO (09:17)
[2023-08-11] MEDS: Carvedilol 6.25 MG Tablet PO ×2 (09:25→22:28)
--- NOTE | 2023-08-11 10:38 | CASEMGMT ---
RN CM in to discuss HICKEY form with patient. RN CM explained HICKEY form, patient voiced understanding. Pt signed form and filed in chart. Pt provided with a copy of signed HICKEY form. Patient had no further questions or concerns at this time. Kaylyn Woo MSN, RN, CCM
--- NOTE | 2023-08-11 10:44 | CASEMGMT ---
ESTEFANIA SWANN Assessment: Face to Face with pt for initial transition planning/care coordination assessment. RN SHREE introduced self and role at [facility], pt voices understanding and consents to assessment. Pt is A&O x4 and answers all questions appropriately at this time. Care providers, pharmacy, and demographics verified/updated. Admitting Dx: Fall with subsequent pain, back laceration PCP: Dr. Hill Specialists: Pt sees a Dr for her macular degeneration (Dr. Thompson) and arthritis (Dr. Cote) Preferred Pharmacy: [facility] Insurance: [employer] O Prescription Benefit: yes LNOK: Son Ok Living Arrangements: Pt lives at home alone. Pt lives in a [facility] home that was converted [facility] a [facility]. Pt lives on the upper level and her son lives on the lower level. There are approx 6-8 steps to the porch with a rail. Pt reports she does struggle with these steps at times. Pt has a full flight of steps up to her home but reports she now has a chair lift. Pt is independent with her ADLs, son assists with IADLs. Pt reports she does not cook unless her son is present as she does not want to drop something hot. Son does cook for her often. Transportation: No concerns DME: Rollator, w/c when outside the home, grab bars in the bathroom by the toilet and shower, shower chair, chair lift, oxygen at 2L NC at night only though [place] HHC/SNF: History of HHC through [facility], no history of SNF Pt states no concerns with going home at time of dc. Pt states no further concerns/needs. CM to follow. Advised pt to ask CM if any further question/concerns/needs arise, voices understanding. Pt Goal: Home Plan: Spoke with pt about HHC and SNF. Pt agreeable to either option. 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 Pt reports she will never live in a halfway, but is agreeable for short term. Awaiting PT/OT evaluations. Kaylyn Woo MSN, RN, CCM
[2023-08-11] MEDS: Ondansetron 4 MG/2 ML Vial IV (11:38)
[2023-08-11] MEDS: 0.9% Saline Lock 10 ML Syringe IV (11:40)
--- NOTE | 2023-08-11 12:20 | NURSING ---
Addendum entered by Michelle Santamaria 08/11/23 12:35: Dr. Ayala ordered Stat EKG-Luis Armando called and aware and cardiac enzymes x2 and Lab was called via phone and is aware of the order. Original Note: Pt was clammy and not feeling good. BS was 195. vitals were taken recently, see vitals. PT denies chest pain, dizzyness. Pt only symptom is nausea. Pt states she gets nauseated and feeling like this at home. Pt and son state that she has been seeing Dr. Cordero for this problem but nothing has been figured out on why she does this. This RN Informed Dr. Ayala of the above findings.
--- NOTE | 2023-08-11 12:34 | EKG12_ITS ---
Test Reason : GENERAL ILLNESS Blood Pressure : / mmHG Vent. Rate : 069 BPM Atrial Rate : 069 BPM P-R Int : 148 ms QRS Dur : 094 ms QT Int : 428 ms P-R-T Axes : 003 -38 011 degrees QTc Int : 458 ms Normal sinus rhythm Left axis deviation Abnormal ECG When compared with ECG of 10-DEC-2022 21:05, Vent. rate has decreased BY 40 BPM Confirmed by Luis Armando Huntley ([id number]), food expeditor SOLO ROQUE ([id number]) on 08/20/2023 1:35:43 PM Referred By: Confirmed By:Luis Armando Huntley
--- NOTE | 2023-08-11 12:41 | NURSING ---
Luis Armando From [facility] here for the EKG.
--- NOTE | 2023-08-11 12:44 | NURSING ---
Lab here getting blood drawn for cardiac enzymes.
--- NOTE | 2023-08-11 13:08 | CASEMGMT ---
Social Work SW met with pt and son and introduced self and role of SW. SW spoke with pt regarding discharge plan and possible need for SNF. Pt is understanding that this may be needed. Pt is awaiting therapy evaluation. A list of SNF providers including quality and resource use data and consistent with the patient?s preferred geographic region, medical needs, and insurance network were provided from the [employer] Guide. SW will continue to follow for dc planning. CONCETTA Zaays
[2023-08-11 13:21] LABS: Troponin-I HS 13 pg/mL (3.0-54.0)
[2023-08-11 14:33] LABS: Bedside Glucose 195 mg/dL (74-106)
[2023-08-11] MEDS: traMADol 50 MG Tablet PO ×2 (14:48→22:28)
[2023-08-11] MEDS: Mag Hydrox/Al Hydrox/Simeth 30 ML UDC PO (14:49)
[2023-08-11 15:02] LABS: Troponin-I HS 11 pg/mL (3.0-54.0)
[2023-08-11 19:11] LABS: Bedside Glucose 180 mg/dL (74-106)
[2023-08-11] MEDS: Zolpidem Tartrate 5 MG Tablet PO (22:30)
[2023-08-11 23:07] LABS: Bedside Glucose 192 mg/dL (74-106)
[2023-08-12] VITALS (10 sets, daily range): BP systolic 96–151; BP diastolic 44–82; PULSE 77–88; RESP 16–19; TEMP 36.7–37.1; O2SAT 2–96; BMI 33.3
[2023-08-12] MEDS: Ceftriaxone 1 GM/50 ML BAG IV ×2 (02:45→21:42)
[2023-08-12] MEDS: 0.9% Saline Lock 10 ML Syringe IV ×2 (02:45→15:15)
[2023-08-12] MEDS: Phenazopyridine 95 MG Tablet 190 MG PO (02:46)
[2023-08-12 02:52] LABS: Bacteria 0 SEEN /hpf (None Seen); Mucous, Urine 0 SEEN /hpf (<or=2+)
[2023-08-12] MEDS: Pramipexole Di-HCl 0.25 MG Tablet PO (02:52)
[2023-08-12] MEDS: Metaxalone 800 MG Tablet 400 MG PO (02:52)
[2023-08-12 06:06] LABS: Hematocrit 37.2 % (37-47); Hemoglobin 11.4 g/dL (12.0-15.0); Mean Corp Hgb Conc 30.6 g/dL (32-36); Mean Corpuscular Volume 88.2 fL (81-99); Mean Platelet Vol. 8.7 fl (6.2-12.0); Platelet Count 225 K/mm3 (150-450); RBC Distribution Width SD 51.8 fl (35.1-43.9); Red Blood Count 4.22 M/mm3 (4.2-5.4); White Blood Count 5.8 K/mm3 (4.4-11.0)
[2023-08-12 06:25] LABS: Anion Gap 7 (5-15); BUN 20 mg/dL (7-18); BUN/Creat Ratio 28.4 RATIO (10-20); Calcium,Total 8.7 mg/dL (8.5-10.1); Chloride 106 mmol/L (98-107); EST Glomerular Filtration Rate 85 mL/min (>60); Est Glom Filt Rate - Afr Amer 103 mL/min (>60); Estimated Creatinine Clearance 65.91 ml/min; Glucose 204 mg/dL (74-106); Potassium 4.4 mmol/L (3.5-5.1); Sodium Level 138 mmol/L (136-145)
[2023-08-12] MEDS: Insulin Lispro 100 UNIT/ML INSULN.PEN SC ×4 (06:47→23:02)
[2023-08-12] MEDS: traMADol 50 MG Tablet PO ×3 (06:47→21:54)
[2023-08-12] MEDS: Ondansetron 4 MG/2 ML Vial IV (06:47)
[2023-08-12] MEDS: Levothyroxine 100 MCG Tablet PO (06:47)
[2023-08-12] MEDS: Acetaminophen 500 MG Tablet 1000 MG PO ×3 (06:47→21:45)
[2023-08-12 07:13] LABS: Bedside Glucose 189 mg/dL (74-106)
[2023-08-12] MEDS: Budesonide Respules 0.5 MG/2 ML AMPUL.NEB. INHALATION ×2 (07:13→19:06)
[2023-08-12] MEDS: Albuterol 2.5 MG/3 ML VIAL.NEB. INHALATION ×3 (07:13→19:06)
[2023-08-12 07:39] LABS: Color, Urine Yellow (Yellow); Glucose, Dipstick Normal (Normal); Ketone-Dipstick Negative (Negative); Leukocyte Esterase-Dipstick 25 /ul (Negative); Nitrite-Dipstick Negative (Negative); Occult Blood-Urine 50 /ul (Negative); Protein-Dipstick 30 mg/dl (Negative); Urine Bilirubin Dipstick Negative (Negative); Urine Clarity Clear (Clear); Urine Urobilinogen Normal (Normal)
[2023-08-12 08:15] LABS: Red Blood Cells-Urine 0-5 SEEN /hpf (0-5); Squamous Epithelial Cells - UA 0-5 SEEN /hpf (5-10); White Blood Cells 0-5 SEEN /hpf (0-5)
[2023-08-12] MEDS: Carvedilol 6.25 MG Tablet PO ×2 (09:45→21:44)
[2023-08-12] MEDS: Multivitamin (Healthy Eyes) Capsule 1 CAP PO (09:46)
[2023-08-12] MEDS: Potassium Chloride Oral Tablet 20 MEQ PO (09:46)
[2023-08-12] MEDS: FLUoxetine 20 MG Capsule PO (09:47)
[2023-08-12] MEDS: Tolterodine Tartrate 2 MG CAP.SA PO (09:47)
[2023-08-12] MEDS: APIXABAN 5 MG TABLET PO ×2 (09:47→21:43)
[2023-08-12] MEDS: Lisinopril 5 MG Tablet PO (09:47)
[2023-08-12] MEDS: Vitamin E 400 UNITS Capsule PO (12:06)
--- NOTE | 2023-08-12 12:15 | PCM.PN.HOSP ---
Reason for Visit Reason for Visit: Fall/inability to ambulate Subjective Subjective Patient states she is feeling better today. We did discuss therapy's notes from yesterday and she did quite poorly however she feels like she would do better if she actually got out of bed on the same side she does at home and uses her regular wheeled walker as she really would like to go home if possible with home health care. The plan will be for her to see therapy later today and her son is going to bring in her rollator walker to see how she does functionally ambulating and to get out on the right side of the bed which is her baseline to see if her bed mobility improves with that. Her son does feel comfortable taking her home as long as she can move around the way she needs to but again would like to be things at what her baseline are at home. She states that typically her furthest distance of ambulation would be about 50 feet but often breaks that up and to 20 feet segments at home. She is not on oxygen at baseline during the day typically and only utilizes oxygen at night most frequently. Objective Data Objective Data Vital Signs: Vital Signs Temp Pulse Resp BP Pulse Ox O2 Del Method O2 Flow Rate 98.3 F 81 18 130/61 H 93 Nasal Cannula 2 08/12/23 09:40 08/12/23 09:40 08/12/23 09:40 08/12/23 09:40 08/12/23 09:40 08/12/23 09:40 08/12/23 09:40 Oxygen Flow Rate (L/min) 2 Oxygen Delivery Method Nasal Cannula Weight: 94.1 kg Body Mass Index (BMI) 33.3 Intake & Output: Intake and Output for Last 24 Hours 08/10/23 08/11/23 08/12/23 23:59 23:59 23:59 Intake Total 1219.33 / 1219.33 250 / 250 Output Total 600 / 600 725 / 725 Balance 619.33 / 619.33 -475 / -475 Lab / Micro Data 08/12/23 04:40 08/12/23 04:40 Labs: Laboratory Results - last 24 hr 08/11/23 11:08: POC Glucose 195 H 08/11/23 12:45: Troponin I High Sens 13 08/11/23 14:00: Troponin I High Sens 11 08/11/23 17:13: POC Glucose 180 H 08/11/23 22:26: POC Glucose 192 H 08/12/23 02:25: Urine Color Yellow, Urine Clarity Clear, Urine pH 5.0, Ur Specific [place] 1.020, Urine Protein 30 H, Urine Glucose (UA) Normal, Urine Ketones Negative, Urine Occult Blood 50 H, Urine Nitrite Negative, Urine Bilirubin Negative, Urine Urobilinogen Normal, Ur Leukocyte Esterase 25 H, Urine RBC 0-5 SEEN, Urine WBC 0-5 SEEN, Ur Squamous Epith Cells 0-5 SEEN, Urine Bacteria 0 SEEN, Urine Mucus 0 SEEN 08/12/23 04:40: WBC 5.8, RBC 4.22, Hgb 11.4 L, Hct 37.2, MCV 88.2, MCH 27.0, MCHC 30.6 L, RDW Std Deviation 51.8 H, RDW Coeff of Susi 16.0 H, Plt Count 225, MPV 8.7, Sodium 138, Potassium 4.4, Chloride 106, Carbon Dioxide 25.0, Anion Gap 7, BUN 20 H, Creatinine 0.70, Estim Creat Clear Calc 65.91, Est GFR (MDRD) Af Amer 103, Est GFR (MDRD) Non-Af 85, BUN/Creatinine Ratio 28.4 H, Glucose 204 H, Calcium 8.7 08/12/23 06:45: POC Glucose 189 H Physical Exam Const alert, oriented x3, no apparent distress and well nourished; Negative for average body habitus or healthy appearing Constitutional Narrative: Morbidly obese, white female, sitting up in bed, son at bedside, appears comfortable, nontoxic, very pleasant, appears chronically ill HEENT head/scalp atraumatic and moist oral mucous membranes HEENT Narrative: Mallampati 3, no thrush Head and Scalp: normocephalic Resp normal respiratory effort, no retractions, no use of accessory muscles and clear to auscultation bilaterally Resp Narrative: Diminished but clear Auscultation: Negative for rales, rhonchi or wheezes Cardio regular rate, regular rhythm, S1 normal heart sound, S2 normal heart sound, no murmurs, no rub, no gallops and no clicks GI normal to inspection, nondistended, normoactive bowel sounds, soft to palpation and non-tender GI Narrative: Protuberant abdomen Extremity no clubbing, cyanosis or edema Extremity Narrative: Decreased lean muscle mass, 2+ pedal pulses, 2+ radial pulses Neuro oriented x3, moves all extremities and no focal motor deficits Neuro Narrative: Generalized weakness noted but no focal deficits Speech: speech normal Psych affect normal Psych Narrative: Eye contact is good and patient interacts appropriately Assessment & Plan Assessment/Plan (1) 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: (2) Inability to walk: (3) Fall: QUALIFIERS: Encounter type: initial encounter Qualified Code(s): W19.XXXA - Unspecified fall, initial encounter (4) Intractable pain: PLAN: Plan Generalized Weakness/ambulatory dysfunction/debility secondary to progressive decline related to advancing age and chronic medical comorbidities -No identifiable fractures -Patient was unable to return home safely as she lives in a [facility] house with multiple steps to enter -Schedule Tylenol -Continue Ultram but increase frequency of dosing to 3 times daily -Discontinue IV morphine -Continue low-dose Skelaxin -PT/OT evaluated the patient and feel that she may need placement at this time however patient indicates that she got out of bed on the opposite side she typically does and that she uses a rollator walker at home different from her wheeled walker and would like to try to be able to go home with home health care if possible and be reevaluated today with circumstances more consistent with her home situation -Maximal ambulation at home sounds to be between 40 and 50 feet -Patient is markedly inactive at baseline -Case management/social work consultation as patient will likely need placement at discharge Essential hypertension -Patient's blood pressure has given consistently elevated while hospitalized -Continue home lisinopril -Continue Coreg 6.25 twice daily -As needed hydralazine for systolic pressure greater than 160 History of chronic pain secondary to DDD/spinal stenosis/OA/osteoporosis -History of lumbar compression fractures -Continue pain management as above -Complicates treatment, prognosis, outcomes 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 noted on echo from 12/06/2022 -Continue Eliquis DM-2 -Uncontrolled with A1c of 8.4 -Blood sugars are higher than I would like them to be greater than 200 fasting -Patient is on U-500 insulin so we will transition to U-500 twice daily dosing at 5 units -Continue SSI -Monitor blood sugars GERD -Continue home PPI Hypothyroidism -Continue home Synthroid -TSH is very mildly elevated but suspect euthyroid sick syndrome History of asthma -As needed nebulizers -No signs of acute decompensation LIS/obesity hypoventilation syndrome -Patient not tolerant of CPAP -Continue nocturnal supplemental oxygen at 2 L nasal cannula -Patient does not have chronic hypoxic respiratory failure as she is not on oxygen [id number] -Currently on oxygen but I have asked nursing to wean this during the day to see if its actually needed or not Restless leg syndrome -Continue home Mirapex Insomnia -Continue home zolpidem -Continue home melatonin Overactive bladder -Continue home fesoterodine Obesity -BMI 33.5 -Complicates treatment, prognosis, outcomes and likely contributes to debility DVT prophylaxis -Eliquis as above CODE STATUS -DNR CCA with no intubation as verified on admission Charges/Coding Visit Charges Inpatient E&M: 24462 Subs Hosp L2
[2023-08-12 13:23] LABS: Bedside Glucose 177 mg/dL (74-106)
[2023-08-12] MEDS: Insulin U-500 UNITS/ML PEN SC (17:04)
[2023-08-12 17:25] LABS: Bedside Glucose 204 mg/dL (74-106)
[2023-08-12] MEDS: Zolpidem Tartrate 5 MG Tablet PO (21:42)
[2023-08-12] MEDS: MELATONIN 10 MG TABLET PO (21:42)
[2023-08-12 22:52] LABS: Bedside Glucose 228 mg/dL (74-106)
[2023-08-13 02:45] VITALS: BP 155/91; PULSE 80; RESP 18; TEMP 36.3; O2SAT 96
[2023-08-13] MEDS: Levothyroxine 100 MCG Tablet PO (05:37)
[2023-08-13] MEDS: Acetaminophen 500 MG Tablet 1000 MG PO ×3 (05:37→21:57)
[2023-08-13] MEDS: traMADol 50 MG Tablet PO ×3 (05:37→21:54)
[2023-08-13 06:00] VITALS: BMI 33.3
[2023-08-13] MEDS: Insulin Lispro 100 UNIT/ML INSULN.PEN SC ×4 (06:22→21:55)
[2023-08-13 06:53] LABS: Bedside Glucose 168 mg/dL (74-106)
[2023-08-13 07:18] VITALS: PULSE 79; RESP 17; O2SAT 92
[2023-08-13] MEDS: Albuterol 2.5 MG/3 ML VIAL.NEB. INHALATION ×2 (07:18→19:05)
[2023-08-13] MEDS: Budesonide Respules 0.5 MG/2 ML AMPUL.NEB. INHALATION ×2 (07:18→19:05)
[2023-08-13 07:58] VITALS: BP 137/72; PULSE 80; RESP 18; TEMP 36.6; O2SAT 96
[2023-08-13] MEDS: Insulin U-500 UNITS/ML PEN SC ×2 (09:02→17:28)
[2023-08-13] MEDS: Carvedilol 6.25 MG Tablet PO ×2 (09:03→21:55)
[2023-08-13] MEDS: Potassium Chloride Oral Tablet 20 MEQ PO (09:03)
[2023-08-13] MEDS: Multivitamin (Healthy Eyes) Capsule 1 CAP PO (09:04)
[2023-08-13] MEDS: Vitamin E 400 UNITS Capsule PO (09:04)
[2023-08-13] MEDS: Lisinopril 5 MG Tablet PO (09:04)
[2023-08-13] MEDS: Ergocalciferol 1.25 MG (50, 000 UNIT) Capsule PO (09:04)
[2023-08-13] MEDS: FLUoxetine 20 MG Capsule PO (09:04)
[2023-08-13] MEDS: APIXABAN 5 MG TABLET PO ×2 (09:04→21:55)
[2023-08-13] MEDS: Tolterodine Tartrate 2 MG CAP.SA PO (09:05)
[2023-08-13 12:10] LABS: Bedside Glucose 208 mg/dL (74-106)
[2023-08-13 14:55] VITALS: BP 142/80; PULSE 86; RESP 18; TEMP 37.2; O2SAT 98
--- NOTE | 2023-08-13 15:22 | PCM.PN.HOSP ---
Reason for Visit Reason for Visit: Fall/Inability to Ambulate Subjective Subjective Tired today. Has accepted that she needs to go somewhere for rehab. She and her son did look through the list and have picked 3. I asked that the [place] the top three and number them tonight for SW to start process tomorrow. Pt stated that she would. Knows that she will need to get precert from insurance company. Objective Data Objective Data Vital Signs: Vital Signs Temp Pulse Resp BP Pulse Ox O2 Del Method O2 Flow Rate 99 F 86 18 142/80 H 98 Room Air 2 08/13/23 14:55 08/13/23 14:55 08/13/23 14:55 08/13/23 14:55 08/13/23 14:55 08/13/23 14:56 08/13/23 07:18 Oxygen Flow Rate (L/min) 2 Oxygen Delivery Method Room Air Weight: 94 kg Body Mass Index (BMI) 33.3 Intake & Output: Intake and Output for Last 24 Hours 08/11/23 08/12/23 08/13/23 23:59 23:59 23:59 Intake Total 1219.33 / 1219.33 780 / 980 500 / 500 Output Total 600 / 600 1175 / 1175 1100 / 1100 Balance 619.33 / 619.33 -395 / -195 -600 / -600 Lab / Micro Data 08/12/23 04:40 08/12/23 04:40 Labs: Laboratory Results - last 24 hr 08/12/23 17:00: POC Glucose 204 H 08/12/23 22:33: POC Glucose 228 H 08/13/23 06:20: POC Glucose 168 H 08/13/23 11:34: POC Glucose 208 H Physical Exam Const alert, oriented x3, no apparent distress and well nourished; Negative for average body habitus or healthy appearing Constitutional Narrative: Obese, elderly WF, lying in bed sleeping but awakens easily and interacts well, appears comfortable and nontoxic HEENT head/scalp atraumatic and moist oral mucous membranes HEENT Narrative: Mallampati 3, no thrush Head and Scalp: normocephalic Resp normal respiratory effort, no retractions, no use of accessory muscles and clear to auscultation bilaterally Auscultation: Negative for rales, rhonchi or wheezes Cardio regular rate, regular rhythm, S1 normal heart sound, S2 normal heart sound, no murmurs, no rub, no gallops and no clicks GI normal to inspection, nondistended, normoactive bowel sounds, soft to palpation and non-tender GI Narrative: protuberant abdomen Extremity no clubbing, cyanosis or edema Extremity Narrative: scattered ecchymosis Neuro oriented x3, moves all extremities and no focal motor deficits Neuro Narrative: generalized weakness Speech: speech normal Psych affect normal Psych Narrative: pleasant, eye contact is good, interacts appropriately Assessment & Plan Assessment/Plan (1) Fall: (2) Inability to walk: (3) Current use of laborer marine terminal anticoagulation: PLAN: Plan Generalized Weakness/ambulatory dysfunction/debility secondary to progressive decline related to advancing age and chronic medical comorbidities -No identifiable fractures -Patient was unable to return home safely as she lives in a [facility] house with multiple steps to enter -accepting that she can't go home -agrees to go to SNF--> will start process tomorrow when SW is back--> will need precert -Cont scheduled Tylenol -Continue Ultram but increase frequency of dosing to 3 times daily -Continue low-dose Skelaxin -Cont PT/OT -Maximal ambulation at home sounds to be between 40 and 50 feet Essential hypertension -BP better over last 24 hrs -Continue home lisinopril -Continue Coreg 6.25 twice daily -As needed hydralazine for systolic pressure greater than 160 History of chronic pain secondary to DDD/spinal stenosis/OA/osteoporosis -History of lumbar compression fractures -Continue pain management as above -Complicates treatment, prognosis, outcomes 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 noted on echo from 12/06/2022 -Continue Eliquis DM-2 -Uncontrolled with A1c of 8.4 -BGT still up -Cont U-500 insulin BID but increase to 7 u from 5 u -Continue SSI -Monitor blood sugars GERD -Continue home PPI Hypothyroidism -Continue home Synthroid -TSH is very mildly elevated but suspect euthyroid sick syndrome History of asthma -As needed nebulizers -No signs of acute decompensation LIS/obesity hypoventilation syndrome -Patient not tolerant of CPAP -Continue nocturnal supplemental oxygen at 2 L nasal cannula -Patient does not have chronic hypoxic respiratory failure as she is not on oxygen [id number] -Currently on oxygen but I have asked nursing to wean this during the day to see if its actually needed or not Restless leg syndrome -Continue home Mirapex Insomnia -Continue home zolpidem -Continue home melatonin Overactive bladder -Continue home fesoterodine Obesity -BMI 33.4 -Complicates treatment, prognosis, outcomes and likely contributes to debility DVT prophylaxis -Eliquis as above CODE STATUS -DNR CCA with no intubation as verified on admission Disposition: -Pt medically ready for discharge. Needs placement> SW to find accepting SNF tomorrow and then will need Precert Charges/Coding Visit Charges Inpatient E&M: 10931 Subs Hosp L2
[2023-08-13 17:06] LABS: Bedside Glucose 203 mg/dL (74-106)
[2023-08-13 19:05] VITALS: PULSE 83; RESP 18; O2SAT 86
[2023-08-13] MEDS: MELATONIN 10 MG TABLET PO (20:32)
[2023-08-13 21:47] VITALS: BP 143/56; PULSE 86; RESP 18; TEMP 37; O2SAT 99
[2023-08-13] MEDS: Ceftriaxone 1 GM/50 ML BAG IV (21:53)
[2023-08-13] MEDS: 0.9% Saline Lock 10 ML Syringe IV (21:53)
[2023-08-13] MEDS: Zolpidem Tartrate 5 MG Tablet PO (21:54)
[2023-08-13] MEDS: DICLOFENAC SODIUM 1 ML OPHTHALMIC (21:56)
[2023-08-13 22:42] LABS: Bedside Glucose 213 mg/dL (74-106)
[2023-08-14] VITALS (9 sets, daily range): BP systolic 106–151; BP diastolic 69–89; PULSE 80–88; RESP 15–20; TEMP 36.3–36.7; O2SAT 94–95
[2023-08-14] MEDS: Pramipexole Di-HCl 0.25 MG Tablet PO (00:57)
[2023-08-14] MEDS: Acetaminophen 500 MG Tablet 1000 MG PO ×2 (06:17→14:01)
[2023-08-14] MEDS: DICLOFENAC SODIUM 1 ML OPHTHALMIC ×2 (06:17→14:01)
[2023-08-14] MEDS: Levothyroxine 100 MCG Tablet PO (06:17)
[2023-08-14] MEDS: traMADol 50 MG Tablet PO ×2 (06:19→14:01)
[2023-08-14] MEDS: Albuterol 2.5 MG/3 ML VIAL.NEB. INHALATION ×3 (06:28→19:08)
[2023-08-14] MEDS: Budesonide Respules 0.5 MG/2 ML AMPUL.NEB. INHALATION ×2 (06:28→19:08)
[2023-08-14 07:07] LABS: Absolute Lymphocyte Count 2.26 X10^3/uL (0.83-4.51); Absolute Neutrophil Count 3.7 X10^3/uL (2.0-7.7); Basophil# 0.03 X10^3/uL; Basophil% 0.4 % (0-1); Eosinophil# 0.21 X10^3/uL; Hemoglobin 12.2 g/dL (12.0-15.0); Lymphocyte # 2.26 X10^3/ul (0.83-4.51); Mean Corp Hgb Conc 30.5 g/dL (32-36); Mean Corpuscular Hgb 26.5 pg (27.0-32.0); Mean Platelet Vol. 8.7 fl (6.2-12.0); Monocyte% 11.3 % (0-10); NRBC Flagged by Analyzer 0 % (0-5); Neutrophil # 3.72 X10^3/uL (2.7-7.7); Neutrophil % 52.7 % (47-70); Platelet Count 283 K/mm3 (150-450); RBC Distribution Width CV 15.9 % (11.6-14.6); RBC Distribution Width SD 50.4 fl (35.1-43.9); White Blood Count 7.1 K/mm3 (4.4-11.0)
[2023-08-14 07:35] LABS: Anion Gap 6 (5-15); BUN 22 mg/dL (7-18); BUN/Creat Ratio 32.6 RATIO (10-20); Calcium,Total 8.8 mg/dL (8.5-10.1); Chloride 105 mmol/L (98-107); Creatinine, Serum 0.67 mg/dL (0.55-1.02); EST Glomerular Filtration Rate 89 mL/min (>60); Est Glom Filt Rate - Afr Amer 108 mL/min (>60); Estimated Creatinine Clearance 65.87 ml/min; Glucose 155 mg/dL (74-106); Magnesium 1.7 mg/dL (1.6-2.6); Phosphorus 3.6 mg/dL (2.5-4.9); Potassium 4.6 mmol/L (3.5-5.1); Sodium Level 136 mmol/L (136-145)
[2023-08-14] MEDS: Insulin Lispro 100 UNIT/ML INSULN.PEN SC ×3 (08:17→16:20)
[2023-08-14] MEDS: Insulin U-500 UNITS/ML PEN SC ×3 (08:18→16:20)
[2023-08-14] MEDS: Potassium Chloride Oral Tablet 20 MEQ PO (08:23)
[2023-08-14] MEDS: FLUoxetine 20 MG Capsule PO (08:25)
[2023-08-14] MEDS: Vitamin E 400 UNITS Capsule PO (08:25)
[2023-08-14] MEDS: Tolterodine Tartrate 2 MG CAP.SA PO (08:25)
[2023-08-14] MEDS: Carvedilol 6.25 MG Tablet PO (08:25)
[2023-08-14] MEDS: Lisinopril 5 MG Tablet PO (08:26)
[2023-08-14] MEDS: APIXABAN 5 MG TABLET PO (08:26)
[2023-08-14] MEDS: Multivitamin (Healthy Eyes) Capsule 1 CAP PO (08:26)
[2023-08-14 08:51] LABS: Bedside Glucose 174 mg/dL (74-106)
--- NOTE | 2023-08-14 10:31 | CASEMGMT ---
Addendum entered by Chary Barrett 08/14/23 13:07: [facility] accepted and will submit for precert. SW updated. Chary Barrett DC Planning Asst. Original Note: Discharge Planning Referral sent to [facility] via [facility]. Chary Barrett DC Planning Asst.
--- NOTE | 2023-08-14 10:35 | CASEMGMT ---
Social Work Pt will require SNF placement prior to return home. Pt has reviewed SNF list over the weekend and provider choices are 1. [facility] 2. [facility] 3. [facility] 4. [facility]. FRANCISCO electrician assistant updated and referrals to be made. CONCETTA Zayas
--- NOTE | 2023-08-14 14:09 | CASEMGMT ---
Social Work- SW sent over clinicals to [facility] via fax. SW called to confirm. JEREMIAH notified pt of acceptance at [facility]. CONCETTA Duong
--- NOTE | 2023-08-14 15:04 | PN.HOSP_ITS ---
Reason for Visit Reason for Visit: Fall/inability ambulate Subjective Subjective No issues overnight. Patient is still amenable to going somewhere for rehab prior to returning home. She and her son have pick the top 3 choices and we gave those to social work and then will start finding a place in initiating pre- CERT. Denies any needs at this time. Objective Data Objective Data Vital Signs: Vital Signs Temp Pulse Resp BP Pulse Ox O2 Del Method O2 Flow Rate 98 F 82 18 141/75 H 95 Room Air 2 08/14/23 14:48 08/14/23 14:48 08/14/23 14:48 08/14/23 14:48 08/14/23 14:48 08/14/23 14:49 08/14/23 06:29 Oxygen Flow Rate (L/min) 2 Oxygen Delivery Method Room Air Weight: 94 kg Body Mass Index (BMI) 33.3 Intake & Output: Intake and Output for Last 24 Hours 08/12/23 08/13/23 08/14/23 23:59 23:59 23:59 Intake Total 780 / 980 1150 / 1150 Output Total 1175 / 1175 1500 / 1500 1000 / 1000 Balance -395 / -195 -350 / -350 -1000 / -1000 Lab / Micro Data 08/14/23 06:06 08/14/23 06:06 Labs: Laboratory Results - last 24 hr 08/13/23 16:36: POC Glucose 203 H 08/13/23 21:49: POC Glucose 213 H 08/14/23 06:06: WBC 7.1, RBC 4.60, Hgb 12.2, Hct 40.0, MCV 87.0, MCH 26.5 L, M CHC 30.5 L, RDW Std Deviation 50.4 H, RDW Coeff of Susi 15.9 H, Plt Count 283, MPV 8.7, Immature Gran % (Auto) 0.600, Neut % (Auto) 52.7, Lymph % (Auto) 32.0, [place] % (Auto) 11.3 H, Eos % (Auto) 3.0, Baso % (Auto) 0.4, Absolute Neuts (auto) 3.7, Absolute Lymphs (auto) 2.26, Nucleated RBC % 0, Sodium 136, Potassium 4.6, Chloride 105, Carbon Dioxide 25.0, Anion Gap 6, BUN 22 H, Creatinine 0.67, Estim Creat Clear Calc 65.87, Est GFR (MDRD) Af Amer 108, Est GFR (MDRD) Non-Af 89, B UN/Creatinine Ratio 32.6 H, Glucose 155 H, Calcium 8.8, Phosphorus 3.6, Magnesium 1.7 08/14/23 08:17: POC Glucose 174 H Physical Exam Const alert, oriented x3, no apparent distress and well nourished; Negative for average body habitus or healthy appearing Constitutional Narrative: Obese, elderly WF, lying in bed sleeping but awakens easily and interacts well, appears comfortable and nontoxic General Appearance: cooperative HEENT normocephalic, head/scalp atraumatic, hearing grossly normal bilaterally and moist oral mucous membranes HEENT Narrative: Mallampati 3, no thrush Resp normal respiratory effort, no retractions, no use of accessory muscles and clear to auscultation bilaterally Resp Narrative: Diminished but clear Auscultation: Negative for rales, rhonchi or wheezes Cardio regular rate, regular rhythm, S1 normal heart sound, S2 normal heart sound, no murmurs, no rub, no gallops and no clicks GI normal to inspection, nondistended, normoactive bowel sounds, soft to palpation and non-tender GI Narrative: protuberant abdomen Extremity no clubbing, cyanosis or edema Extremity Narrative: scattered ecchymosis Neuro oriented x3, moves all extremities and no focal motor deficits Neuro Narrative: generalized weakness Speech: speech normal Psych affect normal Psych Narrative: pleasant, eye contact is good, interacts appropriately Assessment & Plan Assessment/Plan (1) Fall: QUALIFIERS: Encounter type: initial encounter Qualified Code(s): W19.XXXA - Unspecified fall, initial encounter (2) Inability to walk: (3) Current use of bakery team member anticoagulation: PLAN: Plan Generalized Weakness/ambulatory dysfunction/debility secondary to progressive decline related to advancing age and chronic medical comorbidities -No identifiable fractures -Patient was unable to return home safely as she lives in a [facility] house with multiple steps to enter -accepting that she can't go home -Has given her top 3 choices of SNF--> referrals have been sent and patient has been accepted at 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 noted on echo from 12/06/2022 -Continue Eliquis DM-2 -Uncontrolled with A1c of 8.4 -Had to transition to 5 3 times daily rather than 7 twice daily due to dosing capabilities by pharmacy -Fasting blood sugars much better at 155 -Continue this insulin regimen with no change -Continue SSI -Monitor blood sugars GERD -Continue home PPI Hypothyroidism -Continue home Synthroid -TSH is very mildly elevated but suspect euthyroid sick syndrome History of asthma -As needed nebulizers -No signs of acute decompensation LIS/obesity hypoventilation syndrome -Patient not tolerant of CPAP -Continue nocturnal supplemental oxygen at 2 L nasal cannula -Patient does not have chronic hypoxic respiratory failure as she is not on oxygen [id number] -Currently on oxygen but I have asked nursing to wean this during the day to see if its actually needed or not Restless leg syndrome -Continue home Mirapex Insomnia -Continue home zolpidem -Continue home melatonin Overactive bladder -Continue home fesoterodine Obesity -BMI 33.4 -Complicates treatment, prognosis, outcomes and likely contributes to debility DVT prophylaxis -Eliquis as above CODE STATUS -DNR CCA with no intubation as verified on admission Disposition: -Patient remains medically stable for discharge since 08/13/2023. Has been accepted at [facility] and pre-CERT is pending. Plan is to discharge once pre-CERT is obtained. Charges/Coding Visit Charges Inpatient E&M: 01431 Subs Hosp L2
--- NOTE | 2023-08-14 15:44 | CASEMGMT ---
Social Work- Jose from [employer] called and notified that pt has been approved for skilled stay at [facility]. Auth #: [id number] jean paul from 08/13-08/15 CONCETTA Duong
--- NOTE | 2023-08-14 15:47 | TREXTCAR_ITS ---
Diet Diet Order/Speech Therapy: 08/11/23 04:34 Diet: Consistent Carb - Calorie Controlled Food consistency:: Regular Liquid Consistency:: Regular/Thin How many daily calories?: 2000 calorie Routine Orders/Code Status Suppository Frequency: Daily PRN O2 Liters per Minute: 2 L while sleeping nocturnally continuous and off during the day O2 Frequency: Continuous Keep PO Greater than or Equal to (%): 88 Routine Lab Work: CBC (1 week) and BMP (1 week) Code Status: DNRCC-A (No intubation) Wound(s) back: Wound Type: Laceration Suggestions for Active Care Change Position every (hours): 2 Hours to sit in a chair: 3 Times a day to sit in chair: 2 Therapies Weight Bearing: Full weight bearing Physical Therapy: Eval and Treat Occupational Therapy: Eval and Treat Problem/Diagnosis (1) Fall: Status: Acute Code(s): W19.XXXA - Unspecified fall, initial encounter (2) Inability to walk: Status: Acute Code(s): R26.2 - Difficulty in walking, not elsewhere classified (3) Current use of detention anticoagulation: Status: Acute Code(s): Z79.01 - retirement (current) use of anticoagulants Allergies/Procedures Done in Hospital Allergies cyclobenzaprine Allergy (Verified 02/10/23 13:42) Unknown doxepin Allergy (Verified 02/10/23 13:42) Unknown hydromorphone HCl (From Dilaudid) Allergy (Verified 02/10/23 13:42) Unknown prednisone Allergy (Verified 02/10/23 13:42) Unknown pregabalin (From Lyrica) Allergy (Verified 02/10/23 13:42) Unknown acetaminophen (From Percocet) Adverse Reaction (Verified 02/10/23 13:42) HALLUCINATION hydrocodone bitartrate (From Vicodin) Adverse Reaction (Verified 02/10/23 13:42) HALLUCINATIONS oxycodone HCl (From Percocet) Adverse Reaction (Verified 02/10/23 13:42) HALLUCINATION Procedures: EKG and - (CT brain/CT cervical spine/knee x-ray/lumbar spine x- ray/pelvic x-ray) Type of Care/Length of Stay Estimated LOS: Convalescent Care Less Than 30 days Type of Care Needed: Skilled Rehab Potential: Good Prognosis: Fair Additional Orders/Day of Discharge Day of Discharge: 08/14/23 Follow Up Care Please follow up with your Primary Care Physician in: 1 to 2 weeks after discharge from skilled facility Discharge Plan Admission Admit Date/Time: 08/11/23 03:02 Attending Provider: Tamiko Ayala Primary Care Provider: Diallo Dejesus Consulting Providers: Byron Ruiz Discharge Orders/Prescriptions Prescriptions: No Action fluticasone propion-salmeterol [Wixela Inhub] 500-50 mcg/dose blister with device 1 inh inhalation BID Qty: 60 3RF levothyroxine 100 MCG tablet 100 mcg PO DAILY Patient Comments: thyroid omeprazole 10 MG capsule 20 mg PO BID PRN (Reason: GERD) Patient Comments: acid reflux Cyanocobalamin (Vitamin B-12) 1,000 mcg subcut QMONTH Rx Instructions: first day of every month ropinirole 2 MG tablet 0.5 mg PO .5x/day PRN melatonin 1 MG tablet 10 mg PO 1999 Rx Instructions: 8 pm zolpidem 12.5 MG tablet,ext release multiphase 12.5 mg PO QHS ketorolac 1 DROP drops 1 drp RIGHT EYE 4X/DAY Rx Instructions: acular 5% eye drop vitamin E (dl, acetate) 400 UNITS capsule 400 units PO DAILY@1200 acetaminophen 500 MG tablet 1,000 mg PO Q6H PRN PRN (Reason: Pain Score 1-5) 0RF fesoterodine 4 mg tablet extended release 24 hr 4 mg PO DAILY Patient Comments: TAKE 1 TABLET BY MOUTH EVERY DAY diphenoxylate-atropine 2.5-0.025 mg tablet 2 tab PO Q12H PRN (Reason: diarrhea) Patient Comments: TAKE 2 TABLETS BY MOUTH EVERY 8 HOURS NEEDED tramadol 50 mg tablet 50 mg PO BID PRN (Reason: pain) Patient Comments: TAKE 1 TABLET BY MOUTH TWICE DAILY potassium chloride 20 mEq tablet extended release 20 meq PO DAILY Patient Comments: Take one tablet by mouth daily. cholecalciferol (vitamin D3) 1,250 mcg (50,000 unit) capsule 1,250 mcg PO MO Patient Comments: TAKE 1 CAPSULE BY MOUTH every week Healthy Eyes SuperVision2 250-90-10-1 mg capsule 1 cap PO DAILY fluoxetine 20 MG capsule 20 mg PO DAILY Humulin R U-500 (Conc) Insulin 500 unit/mL solution 1.5 - 2 unit subcut TIDCM Patient Comments: Inject 1-3 units 3 times daily as neededn at 101 carb to insulin ratio lisinopril 5 mg Tablet 5 mg PO DAILY 30 Days Qty: 30 0RF Eliquis 5 mg tablet 5 mg PO BID Qty: 74 0RF Rx Instructions: Take 10 mg (2 tablets) twice daily x 7 days then transition to 5 mg (1 tablet) twice daily thereafter. Referrals / Follow Up: Diallo Dejesus DO [Primary Care Provider] - (1) Fall Qualifiers: Encounter type: initial encounter Qualified Code(s): W19.XXXA - Unspecified fall, initial encounter
--- NOTE | 2023-08-14 15:49 | PCM.DC.SUM ---
Providers Date of Admission: 08/11/23 Date of Discharge: 08/14/23 Primary Care Physician: Dr. Diallo Dejesus DO Reason For Visit: FALL WITH SUBSEQUENT PAIN, BACK LACERATION Diagnosis Discharge Diagnosis (1) Fall: Status: Acute Code(s): W19.XXXA - Unspecified fall, initial encounter Qualifiers: Encounter type: initial encounter Qualified Code(s): W19.XXXA - Unspecified fall, initial encounter (2) Inability to walk: Status: Acute Code(s): R26.2 - Difficulty in walking, not elsewhere classified (3) Current use of halfway anticoagulation: Status: Acute Code(s): Z79.01 - [facility] (current) use of anticoagulants Medications at Discharge Home Medications Cyanocobalamin (Vitamin B-12) 1,000 mcg subcut QMONTH supplement 11/20/14 levothyroxine 100 mcg tablet 100 mcg PO DAILY thyroid 11/20/14 omeprazole 10 mg capsule,delayed release 20 mg PO BID PRN GERD 11/20/14 ketorolac 0.4 % eye drops 1 drp RIGHT EYE 4X/DAY macular degeneration 01/04/20 melatonin 1 mg tablet 10 mg PO 2000 sleep 01/04/20 ropinirole 2 mg tablet 0.5 mg PO .5x/day PRN restless legs 01/04/20 zolpidem 12.5 mg tablet,extended release,multiphase 12.5 mg PO QHS sleep 01/04/20 vitamin E (dl, acetate) 180 mg (400 unit) capsule 400 units PO DAILY@1200 Supplement 01/06/20 fluticasone 500 mcg-salmeterol 50 mcg/dose blistr powdr for inhalation (Wixela Inhub) 1 inh inhalation BID asthma #60 ea 10/11/22 cholecalciferol (vitamin D3) 1,250 mcg (50,000 unit) capsule 1,250 mcg PO MO supplement 12/10/22 diphenoxylate-atropine 2.5 mg-0.025 mg tablet 2 tab PO Q12H PRN diarrhea 12/10/22 fesoterodine 4 mg tablet,extended release 24 hr 4 mg PO DAILY overactive bladder 12/10/22 potassium chloride 20 mEq tablet,extended release 20 meq PO DAILY supplement 12/10/22 fluoxetine 20 mg capsule 20 mg PO DAILY depression 12/11/22 vit C 250 mg-vit E 90 mg-zinc 10 mg-copper 1 [id number] capsule (Healthy Eyes SuperVision2) 1 cap PO DAILY supplement 12/11/22 apixaban 5 mg tablet (Eliquis) 5 mg PO BID PE #74 tabs 12/13/22 lisinopril 5 mg tablet 5 mg PO DAILY 30 days #30 tabs 12/13/22 acetaminophen 500 mg tablet 1,000 mg (2 x 500 mg) PO TID #0 tabs 08/14/23 adalimumab 40 mg/0.4 mL subcutaneous pen kit (Humira(CF) Pen) 40 mg (0.4 mL) subcut Q14D #0 ea 08/14/23 carvedilol 6.25 mg tablet 6.25 mg PO BID #1 TAB 08/14/23 insulin regular hum U-500 conc 500 unit/mL(3 mL) subcut pen (Humulin R U-500 (Conc) Insulin Kwikpen) 5 unit (0.01 mL) subcut TIDCM #6 mL 08/14/23 metaxalone 800 mg tablet 400 mg (1/2 x 800 mg) PO TID PRN PRN Muscle Spasm #0 tabs 08/14/23 phenazopyridine 95 mg tablet (Azo Urinary Pain Relief) 190 mg (2 x 95 mg) PO TID PRN dysuria #0 tabs 08/14/23 tramadol 50 mg tablet 50 mg PO TID #6 tabs 08/14/23 Hospital Course Operations None Procedures - (CT brain/CT cervical spine/knee x-ray/lumbar spine x-ray/pelvic x-ray) Summary of Care Provided Minutes Spent on Discharge: 38 Hospital Course: Mrs. Aaron is a 77-year-old white female with a complex medical history to include rheumatoid arthritis and chronic pain syndrome who presented to the emergency department at [facility] on 08/11/2023 after sustaining a fall and having subsequent inability ambulate and ongoing worsening pain. About 1 hour prior to arrival she fell in her bathroom and sustained a large laceration on her back from her waist to her mid back with mild bleeding that was controlled according to EMS and the patient. She also complained of pain in her tailbone but was able to stand with some assistance. She denied any loss of consciousness but did admit to hitting her head with the fall. She had no other symptoms or no prodrome. The pain was mechanical. She reports she had another recent fall about 1 week prior to this with ongoing pain in her right buttock due to soft tissue injury that she sustained at that time but she does admit that she feels like her strength is gradually declining despite her attempts to do exercises in about 15-minute burst throughout the day. She indicates that she is trying to stay active but weakness has been worsening. Vital signs on presentation showed a temperature of 97, initial heart rate was 110 with repeat heart rate at 70, respiratory rate was 20, blood pressure was 147/88 and oxygen saturations were 99% on room air. Her CBC was unremarkable. Her chemistry panel was unremarkable other than elevated blood glucose level at 214. She is a known diabetic. Her most recent hemoglobin A1c was obtained on 08/09/2023 and was 8.4. TSH was 7.62. UA was not consistent with infection. CT of her brain was unremarkable for any acute findings. CT of the cervical spine demonstrated multilevel degenerative changes but nothing acute. Right knee plain films showed right knee arthroplasty in good alignment with no acute findings. Lumbar spine x-ray showed multilevel degenerative spondylosis more prominent in the upper lumbar spine with decreased vertebral height at the L1 vertebral body that is possibly indicative of a compression fracture of undetermined age. 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 She was not able to ambulate to go home the emergency department so she was admitted for possible placement in rehab purposes. While admitted we were able to get improved control of her pain with oral and topical medications. She was seen by physical and Occupational Therapy however did not quite do well enough to be able to go home at discharge and ongoing skilled therapy was recommended for some strengthening prior to her going back home. She was agreeable and a referral was made to [facility] and pre-CERT was obtained from her insurance company on 08/14/2023. Discharge diagnoses: Generalized weakness and ambulatory dysfunction with debility secondary to advancing age and chronic medical comorbidities Essential hypertension History of chronic pain secondary to DDD/spinal stenosis/OA/osteoporosis History of DVT/PE DM-2 GERD Hypothyroidism History of asthma LIS Obesity hypoventilation syndrome Restless leg syndrome Insomnia Overactive bladder Obesity Physical Exam Const alert, oriented x3, no apparent distress and well nourished; Negative for average body habitus or healthy appearing Constitutional Narrative: Obese, elderly WF, lying in bed sleeping but awakens easily and interacts well, appears comfortable and nontoxic General Appearance: cooperative, comfortable, well kempt and well developed Orientation / Consciousness: awake, oriented to person, oriented to place and oriented to time Exam Limitations: no limitations Nutritional Appearance: obese HEENT normocephalic, head/scalp atraumatic, hearing grossly normal bilaterally and moist oral mucous membranes HEENT Narrative: Mallampati is 3, no thrush Eyes PERRL, EOMs intact bilaterally and conjunctivae normal Eyes Narrative: No scleral icterus Neck no lymphadenopathy and supple Neck Narrative: Neck is short and thick, trachea midline, no thyroid enlargement Resp normal respiratory effort, no retractions, no use of accessory muscles and clear to auscultation bilaterally Resp Narrative: Diminished but clear Auscultation: Negative for rales, rhonchi or wheezes Cardio regular rate, regular rhythm, S1 normal heart sound, S2 normal heart sound, no murmurs, no rub, no gallops and no clicks GI normal to inspection, nondistended, normoactive bowel sounds, soft to palpation and non-tender GI Narrative: protuberant abdomen Extremity no clubbing, cyanosis or edema Extremity Narrative: scattered ecchymosis Skin no rashes or lesions noted, skin turgor normal and no jaundice Skin Narrative: Patient has a large laceration extending from her mid back to her low back Neuro oriented x3, CN's II-XII intact bilaterally, moves all extremities and no focal motor deficits Neuro Narrative: generalized weakness-proximal greater than distal and lower extremity greater than upper extremity Speech: speech normal Psych affect normal Psych Narrative: pleasant, eye contact is good, interacts appropriately Weight / BMI Weight Weight: 94 kg Body Mass Index (BMI) 33.3 ABG / Lab / Microbiology Data 08/14/23 06:06 08/14/23 06:06 Laboratory: Laboratory Results - last 24 hr 08/13/23 16:36: POC Glucose 203 H 08/13/23 21:49: POC Glucose 213 H 08/14/23 06:06: WBC 7.1, RBC 4.60, Hgb 12.2, Hct 40.0, MCV 87.0, MCH 26.5 L, MCHC 30.5 L, RDW Std Deviation 50.4 H, RDW Coeff of Susi 15.9 H, Plt Count 283, MPV 8.7, Immature Gran % (Auto) 0.600, Neut % (Auto) 52.7, Lymph % (Auto) 32.0, Bradford % (Auto) 11.3 H, Eos % (Auto) 3.0, Baso % (Auto) 0.4, Absolute Neuts (auto) 3.7, Absolute Lymphs (auto) 2.26, Nucleated RBC % 0, Sodium 136, Potassium 4.6, Chloride 105, Carbon Dioxide 25.0, Anion Gap 6, BUN 22 H, Creatinine 0.67, Estim Creat Clear Calc 65.87, Est GFR (MDRD) Af Amer 108, Est GFR (MDRD) Non-Af 89, BUN/Creatinine Ratio 32.6 H, Glucose 155 H, Calcium 8.8, Phosphorus 3.6, Magnesium 1.7 08/14/23 08:17: POC Glucose 174 H D/C Instructions Discharge Diet: Low fat / Low cholesterol and 1800 Calorie Control Diet Meaningful Use Info Meaningful Use Meaningful Use Diagnoses (Choose all that apply): None applicable Ischemic Stroke Statin Dosing Therapy Reference: STATIN DOSE THERAPY REFERENCE: * Patients > 75 years receive moderate or high dose statin therapy. * Patients 75 years or YOUNGER should receive HIGH intensity statin dose unless contraindicated. You will be required to document reason for non-treatment if statin daily dose does not meet guidelines. HIGH DOSE STATIN THERAPY DAILY Atorvastatin > than or = to 40 mg Rosuvastatin > than or = to 20 mg Amlodipine + Atorvastatin > than or = to 2.5/40 mg Ezetimibe + Simvastatin 10/80 mg Simvastatin 80mg Discharge Plan Admission Admit Date/Time: 08/11/23 03:02 Primary Reason for Your Visit: Intractable pain/inability to ambulate Attending Provider: Tamiko Ayala Primary Care Provider: Diallo Dejesus Consulting Providers: Byron Ruiz Discharge Orders/Prescriptions Prescriptions: New acetaminophen 500 mg Tablet 1,000 mg PO TID Qty: 0 0RF carvedilol 6.25 mg Tablet 6.25 mg PO BID Qty: 1 0RF metaxalone 800 mg Tablet 400 mg PO TID PRN PRN (Reason: Muscle Spasm) Qty: 0 0RF Humulin R U-500 (Conc) Kwikpen 500 unit/mL (3 mL) Insulin Pen 5 unit subcut TIDCM Qty: 6 0RF Humira(CF) Pen 40 mg/0.4 mL Pen Injector Kit 40 mg subcut Q14D Qty: 0 0RF phenazopyridine [Azo Urinary Pain Relief] 95 mg Tablet 190 mg PO TID PRN (Reason: dysuria) Qty: 0 0RF tramadol 50 mg Tablet 50 mg PO TID Qty: 6 0RF Continued fluticasone propion-salmeterol [Wixela Inhub] 500-50 mcg/dose blister with device 1 inh inhalation BID Qty: 60 3RF levothyroxine 100 MCG tablet 100 mcg PO DAILY Patient Comments: thyroid omeprazole 10 MG capsule 20 mg PO BID PRN (Reason: GERD) Patient Comments: acid reflux Cyanocobalamin (Vitamin B-12) 1,000 mcg subcut QMONTH Rx Instructions: first day of every month ropinirole 2 MG tablet 0.5 mg PO .5x/day PRN melatonin 1 MG tablet 10 mg PO 1999 Rx Instructions: 8 pm zolpidem 12.5 MG tablet,ext release multiphase 12.5 mg PO QHS ketorolac 1 DROP drops 1 drp RIGHT EYE 4X/DAY Rx Instructions: acular 5% eye drop vitamin E (dl, acetate) 400 UNITS capsule 400 units PO DAILY@1200 fesoterodine 4 mg tablet extended release 24 hr 4 mg PO DAILY Patient Comments: TAKE 1 TABLET BY MOUTH EVERY DAY diphenoxylate-atropine 2.5-0.025 mg tablet 2 tab PO Q12H PRN (Reason: diarrhea) Patient Comments: TAKE 2 TABLETS BY MOUTH EVERY 8 HOURS NEEDED potassium chloride 20 mEq tablet extended release 20 meq PO DAILY Patient Comments: Take one tablet by mouth daily. cholecalciferol (vitamin D3) 1,250 mcg (50,000 unit) capsule 1,250 mcg PO MO Patient Comments: TAKE 1 CAPSULE BY MOUTH every week Healthy Eyes SuperVision2 250-90-10-1 mg capsule 1 cap PO DAILY fluoxetine 20 MG capsule 20 mg PO DAILY lisinopril 5 mg Tablet 5 mg PO DAILY 30 Days Qty: 30 0RF Eliquis 5 mg tablet 5 mg PO BID Qty: 74 0RF Rx Instructions: Take 10 mg (2 tablets) twice daily x 7 days then transition to 5 mg (1 tablet) twice daily thereafter. Discontinued acetaminophen 500 MG tablet 1,000 mg PO Q6H PRN PRN (Reason: Pain Score 1-5) 0RF tramadol 50 mg tablet 50 mg PO BID PRN (Reason: pain) Patient Comments: TAKE 1 TABLET BY MOUTH TWICE DAILY Humulin R U-500 (Conc) Insulin 500 unit/mL solution 1.5 - 2 unit subcut TIDCM Patient Comments: Inject 1-3 units 3 times daily as neededn at 101 carb to insulin ratio Referrals / Follow Up: Diallo Dejesus DO [Primary Care Provider] - Within 2 Weeks Disposition Disposition (needs filled in before D/C Order can be placed): [facility] Charges/Coding Visit Charges Inpatient E&M: 43069 SNF Disch >30 Min
[2023-08-14 16:33] LABS: Bedside Glucose 223 mg/dL (74-106)
--- NOTE | 2023-08-14 16:49 | CASEMGMT ---
Discharge Planning Discharge orders, signed med list, covid results, and transport time sent to [facility] via [facility]. Physicians will transport patient by cot at 6:30p. Nursing, SW, patient, and her son (Ok) updated. Chary Barrtet DC Planning Asst.
[2023-08-14 16:59] LABS: Bedside Glucose 202 mg/dL (74-106)
[2023-08-14] MEDS: ADALIMUMAB 40 MG/0.4 ML SC (17:33)
== END 2023-08-14 20:00 | disposition skilled nursing facility (03) ==
LOC: ED 08-11 02:44 → MS3 08-11 03:13
PROVIDERS: Admitting Provider Internal Medicine; Emergency Provider Emergency Medicine; PCP Family Medicine; Visit Provider Internal Medicine
DX: R53.1 Weakness (principal); M06.9 Rheumatoid arthritis, unspecified; J44.9 Chronic obstructive pulmonary disease, unspecified; E66.2 Morbid (severe) obesity with alveolar hypoventilation; E11.65 Type 2 diabetes mellitus with hyperglycemia; Z79.4 Long term (current) use of insulin; E11.42 Type 2 diabetes mellitus with diabetic polyneuropathy; Z68.33 Body mass index [BMI] 33.0-33.9, adult; M19.90 Unspecified osteoarthritis, unspecified site; K21.9 Gastro-esophageal reflux disease without esophagitis; R26.2 Difficulty in walking, not elsewhere classified; M10.9 Gout, unspecified; W18.2XXA Fall in (into) shower or empty bathtub, initial encounter; K29.50 Unspecified chronic gastritis without bleeding; S09.90XA Unspecified injury of head, initial encounter; G47.00 Insomnia, unspecified; I10 Essential (primary) hypertension; R53.81 Other malaise; Z79.01 Long term (current) use of anticoagulants; M81.0 Age-related osteoporosis without current pathological fracture; S21.219A Laceration without foreign body of unspecified back wall of thorax without penetration into thoracic cavity, initial encounter; K58.0 Irritable bowel syndrome with diarrhea; G25.81 Restless legs syndrome; N32.81 Overactive bladder; Z79.899 Other long term (current) drug therapy; E03.9 Hypothyroidism, unspecified; Z96.651 Presence of right artificial knee joint; Y92.012 Bathroom of single-family (private) house as the place of occurrence of the external cause; Z86.711 Personal history of pulmonary embolism; G89.4 Chronic pain syndrome
CPT/HCPCS: 36415; 51702; 70450; 72100; 72125; 72170; 73562; 80048; 80053; 81001; 82962; 83036; 83735; 84100; 84443; 84484; 85025; 85027; 87811; 93005; 94640; 94668; 96365; 96366; 96372; 96375; 96376; 97162; 97166; 97530; 97535; 99221; 99285; J7030; A4216; G0378; J2405

== ENCOUNTER → 2023-09-13 | Outpatient (CLI) | payer MEDICARE, SELFPAY ==
--- NOTE | 2023-09-13 16:07 | CT_ITS ---
INDICATION: ABD PAIN EXAMINATION: CT ABDOMEN AND PELVIS WITH CONTRAST - CT Abdomen And Pelvis W/ Contrast Injection TECHNIQUE: Helically acquired images were obtained of the abdomen and pelvis following IV contrast. A radiation dose optimization technique was used for this scan. IV Contrast dosage and agent: 100 cc [id number] Oral contrast: Yes. COMPARISON: CT abdomen and pelvis 12/03/2017, CTA chest 12/10/2022 FINDINGS: LOWER CHEST: Bilateral dependent and/or fibrotic changes. No cardiomegaly or pericardial effusion. LIVER: Homogeneous. No focal mass. GALLBLADDER AND BILIARY TREE: Cholecystectomy. No intra- or extrahepatic biliary ductal dilation. PANCREAS: No focal cystic or solid mass. SPLEEN: Normal size without focal cystic or solid mass. ADRENAL GLANDS: No nodules. KIDNEYS AND URETERS: No hydronephrosis. PERITONEUM: No ascites or free air. BOWEL: No evidence of acute appendicitis. No stomach or bowel distension. No focal inflammatory change. Increased colonic fecal burden. LYMPH NODES: No enlarged mesenteric or retroperitoneal lymph nodes. VESSELS: Aorta is non-dilated. URINARY BLADDER: Unremarkable. REPRODUCTIVE ORGANS: Uterus absent. ABDOMINAL WALL: Subcutaneous fluid collections with calcifications in the lower ventral abdominal wall likely due to subcutaneous injections. BONES: Progressive degenerative changes without acute bony abnormality. CT/Abdomen/Pelvis WITH Contrast IMPRESSION: No acute findings in the abdomen or pelvis. Colonic fecal burden consistent with clinical constipation. Electronically Signed: Sunny Garrison MD at 21:51 EDT ,
== END | disposition home or self-care (01) ==
LOC: CT 13:17
PROVIDERS: PCP Family Medicine; Referring Provider Family Medicine; Visit Provider Family Medicine
DX: R10.9 Unspecified abdominal pain (principal)
CPT/HCPCS: 74177; Q9967

== ENCOUNTER 2024-07-05 18:29 | Observation (INO) | payer MEDICARE, SELFPAY ==
[2024-07-05 18:30] VITALS: BP 125/75; PULSE 106; RESP 18; TEMP 37.2; O2SAT 87; BMI 31.1
[2024-07-05 18:35] VITALS: O2SAT 96
--- NOTE | 2024-07-05 18:44 | EDS_ITS ---
HPI HPI - Fall History of Present Illness Chief Complaint: Fall Informant: patient Occured/Mechanism Occurred: Today Mechanism/Context: Yes same level fall and Yes trip Usually ambulates: Without assistance Pain/Injury Pain Location: upper extremity (Left shoulder pain.) Quality of Pain: Sharp Current Severity: Moderate Maximum Severity: Moderate Narrative Narrative: 78-year-old female lives at home. In a duplex. Son lives in the bottom part of the duplex. She was going from carpeted floor to a hard floor lost her balance fell injuring her left shoulder. Denies hitting her head. She used to be on blood thinners states she is no longer on blood thinners. But states she did not hit her head. No headache. No neck pain. She is complaining of pain in the left shoulder and a small skin tear on her left forearm. She is right-hand dominant. She has never had any surgery on the left shoulder. Prior similar symptoms: No Recent Illness/Hospitalization: No PFSH PFSH Medical History Current use of detention anticoagulation Hx of pulmonary embolus Neuropathic pain Hypertension Diabetes mellitus COPD (chronic obstructive pulmonary disease) Acute exacerbation of chronic obstructive pulmonary disease Hx of deep venous thrombosis Chronic gastritis LIS (obstructive sleep apnea) Rheumatoid arthritis Fibromyalgia Anemia IBS (irritable bowel syndrome) Acquired hypothyroidism Benign essential hypertension Depression Diabetes mellitus with diabetic polyneuropathy, with long-term current use of insulin Home Medications ?Medication ?Instructions ?Recorded ?Last Taken ?Type Cyanocobalamin (Vitamin B-12) 1,000 mcg subcut QMONTH supplement 11/20/14 12/18/19 08:00 History levothyroxine 100 mcg tablet 100 mcg PO DAILY thyroid 11/20/14 01/04/20 History omeprazole 10 mg capsule,delayed 20 mg PO BID PRN GERD 11/20/14 01/03/20 History release ketorolac 0.4 % eye drops 1 drp RIGHT EYE 4X/DAY macul ar 01/04/20 01/04/20 History degeneration melatonin 1 mg tablet 10 mg PO 2000 sleep 01/04/20 01/03/20 History ropinirole 2 mg tablet 0.5 mg PO .5x/day PRN restle ss legs 01/04/20 01/03/20 History zolpidem 12.5 mg tablet,extended 12.5 mg PO QHS sleep 01/04/20 01/03/20 History release,multiphase vitamin E (dl, acetate) 180 mg 400 units PO DAILY@1200 Supplement 01/06/20 Unknown History (400 unit) capsule fluticasone 500 mcg-salmeterol 50 1 inh inhalation BID asthma #60 ea 10/11/22 Unknown Rx mcg/dose blistr powdr for inhalation (Wixela Inhub) cholecalciferol (vitamin D3) 1,250 1,250 mcg PO MO sup plement 12/10/22 Unknown History mcg (50,000 unit) capsule diphenoxylate-atropine 2.5 2 tab PO Q12H PRN diarrhea 12/10/22 Unknown History mg-0.025 mg tablet fesoterodine 4 mg tablet,extended 4 mg PO DAILY overac tive bladder 12/10/22 Unknown History release 24 hr potassium chloride 20 mEq 20 meq PO DAILY supplement 0 12/10/22 Unknown History tablet,extended release fluoxetine 20 mg capsule 20 mg PO DAILY depression Unknown History vit C 250 mg-vit E 90 mg-zinc 10 1 cap PO DAILY supple ment 12/11/22 Unknown History mg-copper 1 [id number] capsule (Healthy Eyes SuperVision2) apixaban 5 mg tablet (Eliquis) 5 mg PO BID PE #74 tabs 12/13/22 Unknown Rx lisinopril 5 mg tablet 5 mg PO DAILY 30 days #30 ta bs 12/13/22 Unknown Rx acetaminophen 500 mg tablet 1,000 mg (2 x 500 mg) PO T ID #0 08/14/23 Unknown Rx tabs adalimumab 40 mg/0.4 mL 40 mg (0.4 mL) subcut Q14D # 0 ea 08/14/23 Unknown Rx subcutaneous pen kit (Humira(CF) Pen) carvedilol 6.25 mg tablet 6.25 mg PO BID #1 TAB Unknown Rx insulin regular hum U-500 conc 500 5 unit (0.01 mL) baig bcut TIDCM #6 mL 08/14/23 Unknown Rx unit/mL(3 mL) subcut pen (Humulin R U-500 (Conc) Insulin Kwikpen) metaxalone 800 mg tablet 400 mg (1/2 x 800 mg) PO TID PRN 08/14/23 Unknown Rx PRN Muscle Spasm #0 tabs phenazopyridine 95 mg tablet (Azo 190 mg (2 x 95 mg) P O TID PRN 08/14/23 Unknown Rx Urinary Pain Relief) dysuria #0 tabs tramadol 50 mg tablet 50 mg PO TID pain #30 tabs 0 08/25/23 Unknown Rx Allergy/AdvReac Type Severity Reaction Status Date / Time cyclobenzaprine Allergy Unknown Verified 07/05/24 18:34 doxepin Allergy Unknown Verified 07/05/24 18:34 hydromorphone HCl (From Allergy Unknown Verified 07/05/24 18:34 Dilaudid) prednisone Allergy Unknown Verified 07/05/24 18:34 pregabalin (From Lyrica) Allergy Unknown Verified 07/05/24 18:34 acetaminophen (From Percocet) AdvReac HALLUCINATI Verified 07/05/24 18:34 ON hydrocodone bitartrate (From AdvReac HALLUCINATI Verified 07/05/24 18:34 Vicodin) ONS oxycodone HCl (From Percocet) AdvReac HALLUCINATI Verified 07/05/24 18:34 ON Family History Brother Diabetes Grandmother Diabetes Father Colon cancer CVA (cerebral vascular accident) Mother Hypertension Surgical History Hx of cholecystectomy H/O shoulder surgery History of cystoscopy History of ankle surgery History of carpal tunnel surgery History of bilateral knee replacement History of total hysterectomy Social History household members: none housing: apartment Smoking Status: Never smoker alcohol intake: never what type of physical activity do you participate in: none do you feel safe at home: Yes ROS ROS ED ROS Narrative Denies recent illness. Constitutional Constitutional ED: Denies chills or fever(s) Eyes Eyes: Denies blurry vision ENT ENT ED: Denies ear pain Cardiovascular Cardiovascular: Denies chest pain Respiratory/Chest Respiratory/Chest: Denies cough or dyspnea Gastrointestinal Gastrointestinal: Denies abdominal pain, diarrhea, nausea or vomiting Genitourinary Genitourinary ED: Denies dysuria or hematuria Musculoskeletal Musculoskeletal: Denies arthralgias, back pain or neck pain Integumentary Denies abscess Neurologic Neurologic: Denies headache(s) Psychiatric Psychiatric: Denies anxiety or depression Endocrine Endocrinology: Denies polydipsia or polyphagia Hematologic/Lymphatic Hematologic/Lymphatic: Denies easy bleeding Allergic/Immunologic Allergic/Immunologic ED: Denies mouth swelling, tongue swelling or urticaria EXAM Physical Exam Narrative Exam Narrative: 78-year-old female sitting upright in bed. Supporting her left arm. Vital signs are stable afebrile. On room air pulse ox is 87% on 2 L is 96%. She said she wears oxygen at home as needed for his COPD. She does not look septic toxic or any distress just complaining of left shoulder discomfort. H EENT exam pupils are reactive light. Moist mucous membranes. Dentures in place. No facial trauma or tenderness. No bruising. Scalp nontender no h ematoma. No laceration. C-spine and neck nontender. Back nontender. Lungs coarse breath sounds. Few scattered wheezes. Heart regular rhythm no murmur. Chest wall and ribs nontender. Abdomen soft nontender. Pelvic girdle intact. Hips are not tender. They are not shortened or rotated. She is able to flex extension with her hip and knee she has had bilateral knee replacements in the past with well-healed surgical incisions. Dorsi and plantarflexion is intact. Neither lower extremity is tender. Right upper extremity is nontender. Normal range of motion. Left shoulder is tender to palpation. Does not want move the left shoulder due to pain. Distal humerus, left elbow, left forearm wrist and hand are nontender. She has a small dime to quarter size skin tear on the dorsum of her left forearm. There is no bony tenderness deformity. Wrist is nontender. She has normal radial pulse. 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 Neurologically she is awake alert. Answering questions following commands. GCS 15. Const Vital Signs: 07/05/24 18:30 07/05/24 18:35 Temperature 99 F Temperature Source Oral Pulse Rate 106 H Respiratory Rate 18 Respiratory Effort Normal Non-Labored Respiratory Depth Normal Respiratory Pattern Normal Blood Pressure 125/75 H Blood Pressure Mean 91 Pulse Ox 87 96 Oxygen Delivery Method Room Air Nasal Cannula Oxygen Flow Rate (L/min) 2 Positive well developed; Negative for cachectic, contractures or unkempt General Appearance ED: well developed and NAD; Negative for unkempt, cachectic or contractures Nutritional Appearance: Negative for cachectic HEENT Reports normocephalic atraumatic; Negative for trauma, contusion, hematoma or tenderness Eyes PERRL and EOMs intact bilaterally Neck full ROM, no lymphadenopathy and supple General: Negative for tenderness Chest Wall inspection of chest normal and palpation of chest normal Resp normal respiratory effort, no retractions and No clear to auscultation bilaterally Resp Narrative: Few scattered wheezes. History of COPD. Auscultation: wheezes Cardio regular rate, regular rhythm, S1 normal heart sound, S2 normal heart sound and no murmurs Rate: Negative for bradycardia or tachycardic Rhythm: Negative for abnormal rhythm Bruits: Negative for other GI non-tender, non-distended and no masses Inspection: Negative for abdominal distention Auscultation: normoactive bowel sounds Palpation: soft; Negative for guarding or rebound tenderness present Back/Spine no CVA tenderness General Back: Negative for CVA tenderness Cervical Spine: Negative for cervical spine tenderness Lumbar Spine / Lower Back: Negative for lumbar spinal tenderness Neuro oriented x3, CN's II-XII intact bilaterally, moves all extremities and no focal motor deficits [place] Coma Scale: document GCS findings Spontaneous Obeys Commands Oriented 15 Sensorium / Orientation: alert, oriented to person, oriented to place and oriented to time; Negative for orientation impaired, confused or lethargic Motor Exam: strength 5/5 throughout Psych mental status grossly normal and thought process normal Appearance: Negative for unkempt Attitude: No agitated Mood & Affect: Negative for depressed, anxious or tearful Skin Skin Narrative: Small skin tear midportion dorsum left forearm. Lesions: no lesions Rashes: no rashes MDM MDM MDM Narrative Medical decision making narrative: 78-year-old female was walking at home lost her balance fell landing on her left shoulder. X-ray of be obtained for possible fracture versus dislocation or other. No head injury. She is no longer on blood thinners. I do not think she needs a CAT scan of her head. I do not think she needs an other imaging or labs. States she felt fine prior to the fall. Currently she does not wear anything for pain. Repeat exam at 7:37 PM patient doing well. Exam unchanged. Discussed the x-ray results with the patient and her son in the room. Son said she does use a rollator at home. To ambulate she will be ambulate with the 1 arm in the sling. Wanted her admitted for physical therapy and then determination if she needs placement or if she will be able to go home. Patient is comfortable with that plan. I have the hospitalist on page. IV Hep-Lock will be placed. Tylenol initially for pain if she needs more we can give it to her. Screening labs being obtained due to the admission a CBC and a chemistry of be obtained. History & Record Review Discussion w/independent historian: Patient Additional record(s) reviewed:: Prior inpatient record, Prior outpatient record, Prior ED visit and Prior labs Lab Data Attestation: I reviewed the patient's lab results. Radiography Diagnostic Testing: Clinical Impression(s) from Imaging Studies Shoulder X-Ray 07/05/24 19:10 IMPRESSION: Impacted and comminuted fracture of the left humeral head. No dislocation. Severe narrowing of the glenohumeral joint. Reading [facility] Left shoulder x-ray, 4 views, interpreted by myself shows a left humeral head fracture. Minimally displaced. No dislocation. Otherwise chronic changes and arthritis. Procedures Upper Extremity Splints Upper Extremity Splint: Orthoglass, Thumb Spica, Ulnar gutter and - (Thumb spica or ulnar gutter splint left thumb.) Splint Fabrication: Fabricated Location: Left Discharge Plan Triage Chief Complaint: Fall ED Provider: Vu Anderson Dx/Rx/DC Orders Clinical Impression: Fall, Closed fracture of head of left humerus Instructions: ED Fracture, Shoulder Prescriptions: No Action fluticasone propion-salmeterol [Wixela Inhub] 500-50 mcg/dose blister with device 1 inh inhalation BID Qty: 60 3RF levothyroxine 100 MCG tablet 100 mcg PO DAILY Patient Comments: thyroid omeprazole 10 MG capsule 20 mg PO BID PRN (Reason: GERD) Patient Comments: acid reflux Cyanocobalamin (Vitamin B-12) 1,000 mcg subcut QMONTH Rx Instructions: first day of every month ropinirole 2 MG tablet 0.5 mg PO .5x/day PRN melatonin 1 MG tablet 10 mg PO 1999 Rx Instructions: 8 pm zolpidem 12.5 MG tablet,ext release multiphase 12.5 mg PO QHS ketorolac 1 DROP drops 1 drp RIGHT EYE 4X/DAY Rx Instructions: acular 5% eye drop vitamin E (dl, acetate) 400 UNITS capsule 400 units PO DAILY@1200 fesoterodine 4 mg tablet extended release 24 hr 4 mg PO DAILY Patient Comments: TAKE 1 TABLET BY MOUTH EVERY DAY diphenoxylate-atropine 2.5-0.025 mg tablet 2 tab PO Q12H PRN (Reason: diarrhea) Patient Comments: TAKE 2 TABLETS BY MOUTH EVERY 8 HOURS NEEDED potassium chloride 20 mEq tablet extended release 20 meq PO DAILY Patient Comments: Take one tablet by mouth daily. cholecalciferol (vitamin D3) 1,250 mcg (50,000 unit) capsule 1,250 mcg PO MO Patient Comments: TAKE 1 CAPSULE BY MOUTH every week Healthy Eyes SuperVision2 250-90-10-1 mg capsule 1 cap PO DAILY fluoxetine 20 MG capsule 20 mg PO DAILY lisinopril 5 mg Tablet 5 mg PO DAILY 30 Days Qty: 30 0RF Eliquis 5 mg tablet 5 mg PO BID Qty: 74 0RF Rx Instructions: Take 10 mg (2 tablets) twice daily x 7 days then transition to 5 mg (1 tablet) twice daily thereafter. acetaminophen 500 mg Tablet 1,000 mg PO TID Qty: 0 0RF carvedilol 6.25 mg Tablet 6.25 mg PO BID Qty: 1 0RF metaxalone 800 mg Tablet 400 mg PO TID PRN PRN (Reason: Muscle Spasm) Qty: 0 0RF Humulin R U-500 (Conc) Kwikpen 500 unit/mL (3 mL) Insulin Pen 5 unit subcut TIDCM Qty: 6 0RF Humira(CF) Pen 40 mg/0.4 mL Pen Injector Kit 40 mg subcut Q14D Qty: 0 0RF phenazopyridine [Azo Urinary Pain Relief] 95 mg Tablet 190 mg PO TID PRN (Reason: dysuria) Qty: 0 0RF tramadol 50 mg tablet 50 mg PO TID Qty: 30 0RF Primary Care Provider: Diallo Dejesus Referrals: Diallo Dejesus DO [Primary Care Provider] - Tito Valenzuela MD [Med Staff - Active Staff] - As soon as possible Activity Restrictions/Additional Instructions: Ice to your shoulder. Leave the splint on to decrease range of motion and to immobilize the shoulder. You may take it off to shower or to sleep if it feels better. Follow-up with the orthopedic surgeon Dr. Valenzuela for further evaluation. Typically these do not need surgery. They will heal just with the immobilization. Ice. Tylenol for pain. Print Language: Jamaican Disposition Disposition: Home, Self Care
--- NOTE | 2024-07-05 19:10 | RAD_ITS ---
PROCEDURE: SHOULDER MIN 2 VIEWS 07/05/2024 REASON FOR EXAM: FALL AND L-SHOULDER INJURY TECHNIQUE: 4 view(s) of the left shoulder COMPARISON: None FINDINGS: Bones: Impacted and comminuted fracture involving the left humeral head. Joints: Severe narrowing of the glenohumeral joint. Soft tissues: Soft tissues are unremarkable. Other: RAD/Shoulder min 2 Views IMPRESSION: Impacted and comminuted fracture of the left humeral head. No dislocation. Severe narrowing of the glenohumeral joint. Reading Location: [facility]
--- NOTE | 2024-07-05 19:56 | PCM.HP.STD ---
HPI - General General Date of Admission: 07/05/24 Date of Service: 07/05/24 Chief Complaint: Fall, L shoulder pain HPI Narrative The patient is an 78 y/o F w/ PMHx: CKD stage II per previous GFR trending, RLS, Hx VTE (DVT, PE), Obesity, HTN, HLD, Diabetes mellitus type II with chronic neuropathy, COPD/asthma, LIS, Anxiety and Depression, IBS, Hypothyroidism, GERD w/ Hx gastritis who presents to the [facility] ED on 07/05/24 with history of mechanical fall at the same level, tripping in her home going from carpeted floor to hardwood floor unfortunately losing her balance and falling onto her left shoulder with no head trauma not on any blood thinners with persistent left shoulder pain and a small skin tear to her left forearm prompting ED evaluation to be cautious given persistent ongoing pain which she notes is moderate in severity and sharp in nature. She currently notes her pain is 8/10 in severity with any movement of her LUE. She denies any paresthesias and can move her hand/fingers without issue. Workup in the ED included T99, heart rate 106, BP 125/75, respiratory rate 18, initially 87% on room air with repeat 96% on 2 L nasal cannula, chest x-ray with impacted and comminuted fracture of the left humeral head with no dislocation, severe narrowing of the glenohumeral joint. In the ED patient ministered Tylenol 1000 mg p.o. x 1. Patient does have significant hallucination reactions to narcotic therapy including oxycodone, hydrocodone per current list and also has some type of reaction to Dilaudid as well. In the ED patient was placed in a sling. Son reports that she uses a walker baseline and was worried that she would not do well at home following discharge this evening requesting she be admitted at least in the interim until she improves. [facility] Medical History Current use of fdc anticoagulation Hx of pulmonary embolus Neuropathic pain Hypertension Diabetes mellitus COPD (chronic obstructive pulmonary disease) Acute exacerbation of chronic obstructive pulmonary disease Hx of deep venous thrombosis Chronic gastritis LIS (obstructive sleep apnea) Rheumatoid arthritis Fibromyalgia Anemia IBS (irritable bowel syndrome) Acquired hypothyroidism Benign essential hypertension Depression Diabetes mellitus with diabetic polyneuropathy, with long-term current use of insulin Home Medications ?Medication ?Instructions ?Recorded ?Last Taken ?Type Cyanocobalamin (Vitamin B-12) 1,000 mcg subcut QMONTH supplement 11/20/14 12/18/19 08:00 History levothyroxine 100 mcg tablet 100 mcg PO DAILY thyroid 11/20/14 01/04/20 History omeprazole 10 mg capsule,delayed 20 mg PO BID PRN GERD 11/20/14 01/03/20 History release ketorolac 0.4 % eye drops 1 drp RIGHT EYE 4X/DAY macular 01/04/20 01/04/20 History degeneration melatonin 1 mg tablet 10 mg PO 2000 sleep 01/04/20 01/03/20 History ropinirole 2 mg tablet 0.5 mg PO .5x/day PRN restless legs 01/04/20 01/03/20 History zolpidem 12.5 mg tablet,extended 12.5 mg PO QHS sleep 01/04/20 01/03/20 History release,multiphase vitamin E (dl, acetate) 180 mg 400 units PO DAILY@1200 Supplement 01/06/20 Unknown History (400 unit) capsule fluticasone 500 mcg-salmeterol 50 1 inh inhalation BID asthma #60 ea 10/11/22 Unknown Rx mcg/dose blistr powdr for inhalation (Wixela Inhub) cholecalciferol (vitamin D3) 1,250 1,250 mcg PO MO supplement 12/10/22 Unknown History mcg (50,000 unit) capsule diphenoxylate-atropine 2.5 2 tab PO Q12H PRN diarrhea 12/10/22 Unknown History mg-0.025 mg tablet fesoterodine 4 mg tablet,extended 4 mg PO DAILY overactive bladder 12/10/22 Unknown History release 24 hr potassium chloride 20 mEq 20 meq PO DAILY supplement 12/10/22 Unknown History tablet,extended release fluoxetine 20 mg capsule 20 mg PO DAILY depression 12/11/22 Unknown History vit C 250 mg-vit E 90 mg-zinc 10 1 cap PO DAILY supplement 12/11/22 Unknown History mg-copper 1 [id number]-ebsckj capsule (Healthy Eyes SuperVision2) apixaban 5 mg tablet (Eliquis) 5 mg PO BID PE #74 tabs 12/13/22 Unknown Rx lisinopril 5 mg tablet 5 mg PO DAILY 30 days #30 tabs 12/13/22 Unknown Rx acetaminophen 500 mg tablet 1,000 mg (2 x 500 mg) PO TID #0 08/14/23 Unknown Rx tabs adalimumab 40 mg/0.4 mL 40 mg (0.4 mL) subcut Q14D #0 ea 08/14/23 Unknown Rx subcutaneous pen kit (Humira(CF) Pen) carvedilol 6.25 mg tablet 6.25 mg PO BID #1 TAB 08/14/23 Unknown Rx insulin regular hum U-500 conc 500 5 unit (0.01 mL) subcut TIDCM #6 mL 08/14/23 Unknown Rx unit/mL(3 mL) subcut pen (Humulin R U-500 (Conc) Insulin Kwikpen) metaxalone 800 mg tablet 400 mg (1/2 x 800 mg) PO TID PRN 08/14/23 Unknown Rx PRN Muscle Spasm #0 tabs phenazopyridine 95 mg tablet (Azo 190 mg (2 x 95 mg) PO TID PRN 08/14/23 Unknown Rx Urinary Pain Relief) dysuria #0 tabs tramadol 50 mg tablet 50 mg PO TID pain #30 tabs 08/25/23 Unknown Rx Allergy/AdvReac Type Severity Reaction Status Date / Time cyclobenzaprine Allergy Unknown Verified 07/05/24 18:34 doxepin Allergy Unknown Verified 07/05/24 18:34 hydromorphone HCl (From Allergy Unknown Verified 07/05/24 18:34 Dilaudid) prednisone Allergy Unknown Verified 07/05/24 18:34 pregabalin (From Lyrica) Allergy Unknown Verified 07/05/24 18:34 acetaminophen (From Percocet) AdvReac HALLUCINATI Verified 07/05/24 18:34 ON hydrocodone bitartrate (From AdvReac HALLUCINATI Verified 07/05/24 18:34 Vicodin) ONS oxycodone HCl (From Percocet) AdvReac HALLUCINATI Verified 07/05/24 18:34 ON Family History Brother Diabetes Grandmother Diabetes Father Colon cancer CVA (cerebral vascular accident) Mother Hypertension Surgical History Hx of cholecystectomy H/O shoulder surgery History of cystoscopy History of ankle surgery History of carpal tunnel surgery History of bilateral knee replacement History of total hysterectomy Social History household members: none housing: apartment Smoking Status: Never smoker alcohol intake: never what type of physical activity do you participate in: none do you feel safe at home: Yes ROS ROS Narrative Admission Review of Systems: CONSTITUTIONAL: No weight loss, fever, chills, weakness or fatigue. HEENT: Eyes: No visual loss, blurred vision, double vision or yellow sclerae. Ears, Nose, Throat: No hearing loss, sneezing, congestion, runny nose or sore throat. SKIN: No rash or itching, lesions, wounds. CARDIOVASCULAR: No chest pain, chest pressure or chest discomfort, palpitations, edema, orthopnea, syncopal events. RESPIRATORY: + Dyspnea occasionally with exertion, occasional wheezing with underlying COPD/asthma. No marked cough, productive sputum, hemoptysis. GASTROINTESTINAL: No anorexia, nausea, vomiting or diarrhea, abdominal pain, melena, BRBPR. GENITOURINARY: No dysuria, frequency, urgency or retention. NEUROLOGICAL: No headache, dizziness, syncope, paralysis, ataxia, numbness or tingling in the extremities, focal weakness, change in bowel or bladder control, seizure. MUSCULOSKELETAL: + muscle, back pain, joint pain or stiffness. HEMATOLOGIC: + Hx anemia, easy bleeding/bruising. LYMPHATICS: No enlarged nodes. No history of splenectomy. PSYCHIATRIC: No history of depression or anxiety. ENDOCRINOLOGIC: No reports of sweating, cold or heat intolerance. No polyuria or polydipsia. ALLERGIES: + History of asthma with allergic rhinitis. Vital Signs Vital Signs Vital Signs: 07/05/24 18:30 07/05/24 18:35 Temperature 99 F Temperature Source Oral Pulse Rate 106 H Respiratory Rate 18 Respiratory Effort Normal Non-Labored Respiratory Depth Normal Respiratory Pattern Normal Blood Pressure 125/75 H Blood Pressure Mean 91 Pulse Ox 87 96 Oxygen Delivery Method Room Air Nasal Cannula Oxygen Flow Rate (L/min) 2 Weight Weight: 193 lb 5.526 oz Body Mass Index (BMI) 31.1 Physical Exam Narrative Physical Examination: General: Awake, alert, oriented x 3 and cooperative, seated upright in ED bed in no apparent distress, with movement of left upper extremity notes pain out of 10 to the left shoulder/arm. Skin: Normal color, normal turgor, no icterus, no cyanosis occasional abrasion, staged ecchymoses. HEENT: AT/NC, EOMI, PERRLA, mildly dry MM, no carotid bruits or JVD noted. Lungs: Mild diminished, greater bases, appropriate effort, no rales, ronchi or wheezing. Heart: Regular rate and rhythm; no gallop, rub audible. Abdomen: Soft, obese, NTTP, ND, mildly hyperactive BS, no appreciated HSM. Extremities: No cyanosis, no clubbing, bilateral pedal 2+ pitting edema. Neurological: Patient awake, alert, oriented as noted, cognitive function intact; pupils equally reactive to light and accommodation, cranial nerves grossly normal, moving all 4 extremities, no focal deficits, strength moderately to severely globally decreased. Psychiatric: Affect appears fatigued otherwise normal, no acute evidence of depressive or anxiety feelings. Results Imaging Radiology Impression Shoulder X-Ray 07/05/24 19:10 IMPRESSION: Impacted and comminuted fracture of the left humeral head. No dislocation. Severe narrowing of the glenohumeral joint. Reading [facility] Assessment & Plan Assessment/Plan (1) Closed fracture of head of left humerus: (2) Fall: PLAN: Plan The patient is an 78 y/o F w/ PMHx: CKD stage II per previous GFR trending, RLS, Hx VTE (DVT, PE), Obesity, HTN, HLD, Diabetes mellitus type II with chronic neuropathy, COPD/asthma, LIS, Anxiety and Depression, IBS, Hypothyroidism, GERD w/ Hx gastritis who presents to the [facility] ED on 07/05/24 with history of mechanical fall at the same level, tripping in her home going from carpeted floor to hardwood floor unfortunately losing her balance and falling onto her left shoulder with no head trauma not on any blood thinners with persistent left shoulder pain and a small skin tear to her left forearm prompting ED evaluation to be cautious given persistent ongoing pain which she notes is moderate in severity and sharp in nature. #1. Mechanical fall with acutely impacted and comminuted fracture of the left humeral head with no dislocation, severe narrowing of the glenohumeral joint: Will admit to medical surgical floor, maintain fall precautions, maintain sling in place to the left upper extremity, nonweightbearing to the left upper extremity, will need to clarify further pain regimen able to utilize, pending CBC and BMP upon admission, PT/OT/case management consulted for discharge planning peer #2. Anxiety and depression/chronic insomnia: We will continue patient home fluoxetine regimen, given age and recent chemical fall very loath to continue zolpidem which is 12.5 mg currently however may need to resume once clinically appropriate to avoid withdrawal, will continue chronic melatonin regimen. #3. Chronic COPD/asthma with chronic allergic rhinitis: Will temporally hold home inhalers in the interim transition to ATC budesonide therapy, PRN albuterol, HOB, IS parameters. #4. CKD stage II per GFR trending: Pending admission BMP but per prior records GFR primarily has been consistent with stage II, baseline creatinine previously noted primarily 0.6-0.8. #5. Hypertension: Continue home regimen including Coreg, lisinopril with hold parameters as needed, PRN hydralazine. #6. Hyperlipidemia: Per current list does not appear to be on statin therapy or alternate regimen, defer to outpatient. #7. Diabetes mellitus type II with chronic neuropathy: Hold oral home regimen, continue home insulin regimen, ADA diet, accu checks w/ ISS, per allergy list has some type of reaction to pregabalin.. #8. Hypothyroidism: Will continue patient on levothyroxine regimen. #9. Restless leg syndrome: Will continue patient home Requip regimen. #10. GERD with history gastritis: Will continue patient on PPI. #11. History of VTE: Patient with history of previous DVT, PE, had previously been chronically anticoagulated with Eliquis, not currently on regimen #12. Obesity: Weight loss and lifestyle changes encouraged. #13. LIS: Denies using PAP therapy. #14. DVT prophylaxis: Lovenox. #15. CODE status: Patient KERRI is her son and living will is currently in place. Discussed CODE status at length including difference between FULL code, DNR-CCA and DNR-CC status. Following discussions about the differences in these status, requested Full Code status. Advanced Care Planning Face to Face Time: 16 minutes. Charges/Coding Visit Charges Inpatient E&M: 38084 Init Hosp L2 Procedures Hospitalists Procedures: 95811 Advncd Care Plan 30 Min
[2024-07-05 20:00] VITALS: BP 129/77; PULSE 104; RESP 16; TEMP 36.7; O2SAT 94
[2024-07-05] MEDS: Acetaminophen 500 MG Tablet 1000 MG PO (20:06)
[2024-07-05 20:37] LABS: Absolute Lymphocyte Count 1.51 X10^3/uL (0.83-4.51); Absolute Neutrophil Count 4.7 X10^3/uL (2.0-7.7); Basophil# 0.04 X10^3/uL; Basophil% 0.6 % (0-1); Eosinophil# 0.06 X10^3/uL; Eosinophils% 0.9 % (0-5); Hematocrit 33.2 % (37-47); Hemoglobin 10.3 g/dL (12.0-15.0); Lymphocyte # 1.51 X10^3/ul (0.83-4.51); Lymphocyte % 21.6 % (19-41); Mean Corpuscular Hgb 24.8 pg (27.0-32.0); Mean Platelet Vol. 9.9 fl (6.2-12.0); Monocyte# 0.63 X10^3/uL; NRBC Flagged by Analyzer 0 % (0-5); Neutrophil # 4.71 X10^3/uL (2.7-7.7); Neutrophil % 67.5 % (47-70); Platelet Count 230 K/mm3 (150-450); RBC Distribution Width CV 18.8 % (11.6-14.6); RBC Distribution Width SD 53.8 fl (35.1-43.9); Red Blood Count 4.15 M/mm3 (4.2-5.4)
[2024-07-05 20:54] LABS: Anion Gap 12 (5-15); BUN 22 mg/dL (4-19); BUN/Creat Ratio 28.3 RATIO (10-20); Calcium,Total 8.9 mg/dL (7.6-11.0); Carbon Dioxide 24.7 mmol/L (21.0-32.0); Chloride 102 mmol/L (98-108); Creatinine, Serum 0.79 mg/dL (0.70-1.20); EST Glomerular Filtration Rate 76 (>60); Estimated Creatinine Clearance 62.56 ml/min (50-250); Glucose 139 mg/dL (70-99); Potassium 4.2 mmol/L (3.3-5.1); Sodium Level 138 mmol/L (133-145)
[2024-07-05 21:14] VITALS: BMI 31.3
[2024-07-05 21:19] VITALS: O2SAT 95
[2024-07-05 21:29] VITALS: BP 132/79; PULSE 104; RESP 18; TEMP 36.5; O2SAT 97
[2024-07-05] MEDS: Ketorolac 15 MG/ML Vial IV (22:19)
[2024-07-05] MEDS: Pantoprazole Sodium 20 MG Tablet PO (22:19)
[2024-07-05] MEDS: MELATONIN 10 MG TABLET PO (22:19)
[2024-07-05] MEDS: 0.9% Normal Saline (1000mL) 1,000 ML 100 ML IV (22:27)
[2024-07-05] MEDS: Pramipexole Di-HCl 0.25 MG Tablet PO (22:31)
[2024-07-06] VITALS (8 sets, daily range): BP systolic 91–146; BP diastolic 52–92; PULSE 82–105; RESP 16–24; TEMP 36.6–36.9; O2SAT 92–100; BMI 30.7
[2024-07-06] MEDS: Ketorolac 15 MG/ML Vial IV ×3 (05:20→20:28)
[2024-07-06] MEDS: Acetaminophen 500 MG Tablet 1000 MG PO ×3 (05:20→20:28)
[2024-07-06] MEDS: Levothyroxine 100 MCG Tablet PO (05:21)
[2024-07-06 05:54] LABS: Absolute Lymphocyte Count 1.92 X10^3/uL (0.83-4.51); Absolute Neutrophil Count 4.5 X10^3/uL (2.0-7.7); Basophil# 0.04 X10^3/uL; Basophil% 0.5 % (0-1); Eosinophil# 0.08 X10^3/uL; Eosinophils% 1.1 % (0-5); Hematocrit 32.2 % (37-47); Hemoglobin 9.9 g/dL (12.0-15.0); Lymphocyte # 1.92 X10^3/ul (0.83-4.51); Lymphocyte % 26.2 % (19-41); Mean Corp Hgb Conc 30.7 g/dL (32-36); Mean Corpuscular Hgb 24.8 pg (27.0-32.0); Mean Corpuscular Volume 80.7 fL (81-99); Mean Platelet Vol. 9.7 fl (6.2-12.0); Monocyte# 0.75 X10^3/uL; Monocyte% 10.2 % (0-10); NRBC Flagged by Analyzer 0 % (0-5); Neutrophil % 61.6 % (47-70); Platelet Count 211 K/mm3 (150-450); RBC Distribution Width CV 18.6 % (11.6-14.6); RBC Distribution Width SD 54.9 fl (35.1-43.9); Red Blood Count 3.99 M/mm3 (4.2-5.4); White Blood Count 7.3 K/mm3 (4.4-11.0)
[2024-07-06 06:52] LABS: ALB/GLOB Ratio 0.7 RATIO (0.9-2.4); AST(SGOT) 32 U/L (<=31); Alanine Aminotransfer ALT/SGPT 17 U/L (<=34); Albumin, Serum 2.6 g/dL (3.4-4.8); Alkaline Phosphatase 414 U/L (35-104); Anion Gap 12 (5-15); BUN 24 mg/dL (4-19); BUN/Creat Ratio 30.2 RATIO (10-20); Calcium,Total 8.6 mg/dL (7.6-11.0); Carbon Dioxide 22.5 mmol/L (21.0-32.0); Chloride 103 mmol/L (98-108); Creatinine, Serum 0.79 mg/dL (0.70-1.20); EST Glomerular Filtration Rate 76 (>60); Estimated Creatinine Clearance 62.21 ml/min (50-250); Globulin 3.6 g/dL (2.2-4.2); Glucose 154 mg/dL (70-99); Potassium 4.2 mmol/L (3.3-5.1); Protein, Total 6.2 g/dL (5.9-8.4); Sodium Level 137 mmol/L (133-145); Total Bilirubin 0.37 mg/dL (0.00-1.30)
[2024-07-06 07:16] LABS: Bedside Glucose 158 mg/dL (74-106)
[2024-07-06] MEDS: Albuterol 2.5 MG/3 ML VIAL.NEB. INHALATION (07:33)
[2024-07-06] MEDS: Budesonide Respules 0.5 MG/2 ML AMPUL.NEB. INHALATION ×2 (07:33→19:40)
[2024-07-06] MEDS: Potassium Chloride Oral Tablet 20 MEQ PO (08:45)
[2024-07-06] MEDS: Enoxaparin 40 MG/0.4 ML Syringe SC (08:45)
[2024-07-06] MEDS: Carvedilol 6.25 MG Tablet PO (08:45)
[2024-07-06] MEDS: FLUoxetine 20 MG Capsule PO (08:45)
[2024-07-06] MEDS: Tolterodine Tartrate 2 MG CAP.SA PO (08:45)
[2024-07-06] MEDS: Pantoprazole Sodium 20 MG Tablet PO ×2 (08:46→20:28)
[2024-07-06] MEDS: Lisinopril 5 MG Tablet PO (08:46)
[2024-07-06] MEDS: Insulin Lispro 100 UNIT/ML INSULN.PEN SC ×3 (08:48→12:32)
--- NOTE | 2024-07-06 09:24 | PCM.PN.HOSP ---
Subjective Subjective Doing well, no issues overnight. Pain is better controlled in her left shoulder currently in a sling Objective Data Objective Data Vital Signs: Vital Signs Temp Pulse Resp BP Pulse Ox O2 Del Method O2 Flow Rate 97.8 F 105 H 18 135/81 H 94 Nasal Cannula 2 07/06/24 08:33 07/06/24 08:33 07/06/24 08:33 07/06/24 08:33 07/06/24 08:33 07/06/24 08:33 07/06/24 08:33 Oxygen Flow Rate (L/min) 2 Oxygen Delivery Method Nasal Cannula Weight: 191 lb 2.252 oz Body Mass Index (BMI) 30.7 Intake & Output: Intake and Output for Last 24 Hours 07/05/24 07/06/24 07/07/24 03:59 03:59 03:59 Intake Total 200 / 200 1200 / 1200 Output Total 450 / 450 Balance 200 / 200 750 / 750 Lab / Micro Data 07/06/24 05:15 07/06/24 05:15 Labs: Laboratory Results - last 24 hr 07/05/24 20:20: WBC 7.0, RBC 4.15 L, Hgb 10.3 L, Hct 33.2 L, MCV 80.0 L, MCH 24.8 L, MCHC 31.0 L, RDW Std Deviation 53.8 H, RDW Coeff of Susi 18.8 H, Plt Count 230, MPV 9.9, Immature Gran % (Auto) 0.400, Neut % (Auto) 67.5, Lymph % (Auto) 21.6, [place] % (Auto) 9.0, Eos % (Auto) 0.9, Baso % (Auto) 0.6, Absolute Neuts (auto) 4.7, Absolute Lymphs (auto) 1.51, Nucleated RBC % 0, Sodium 138, Potassium 4.2, Chloride 102, Carbon Dioxide 24.7, Anion Gap 12, BUN 22 H, Creatinine 0.79, Estim Creat Clear Calc 62.56, Est GFR (MDRD) Non-Af 76, BUN/Creatinine Ratio 28.3 H, Glucose 139 H, Calcium 8.9 07/06/24 05:15: WBC 7.3, RBC 3.99 L, Hgb 9.9 L, Hct 32.2 L, MCV 80.7 L, MCH 24.8 L, MCHC 30.7 L, RDW Std Deviation 54.9 H, RDW Coeff of Susi 18.6 H, Plt Count 211, MPV 9.7, Immature Gran % (Auto) 0.400, Neut % (Auto) 61.6, Lymph % (Auto) 26.2, [place] % (Auto) 10.2 H, Eos % (Auto) 1.1, Baso % (Auto) 0.5, Absolute Neuts (auto) 4.5, Absolute Lymphs (auto) 1.92, Nucleated RBC % 0, Sodium 137, Potassium 4.2, Chloride 103, Carbon Dioxide 22.5, Anion Gap 12, BUN 24 H, Creatinine 0.79, Estim Creat Clear Calc 62.21, Est GFR (MDRD) Non-Af 76, BUN/Creatinine Ratio 30.2 H, Glucose 154 H, Calcium 8.6, Total Bilirubin 0.37, AST 32, ALT 17, Alkaline Phosphatase 414 H, Total Protein 6.2, Albumin 2.6 L, Globulin 3.6, Albumin/Globulin Ratio 0.7 L 07/06/24 06:53: POC Glucose 158 H Radiography Diagnostic Testing: Radiology Impression Shoulder X-Ray 07/05/24 19:10 IMPRESSION: Impacted and comminuted fracture of the left humeral head. No dislocation. Severe narrowing of the glenohumeral joint. [facility] Physical Exam Narrative General: Alert, Oriented x3, Cooperative, No apparent distress HEENT: Atraumatic, PERRLA, EOMI, Normocephalic Oral: Moist Mucosa Neck: Supple, No JVD Lungs: Diminished, Normal air movement, No rhonchi, No wheeze, No rales Cardiovascular: Regular rate, Regular Rhythm, Normal S1, Normal S2, No murmurs Abdomen: Soft, Non Tender, Non-Distended, No Hepato-splenomegaly Extremities: Edema, Capillary Refill Less than 3 Seconds Skin: No rashes, No breakdown Musculoskeletal: Some tenderness in her left shoulder, currently in a sling Neurological: No focal neurological deficits, Motor Exam 5/5 strength throughout, Sensory exam intact to light touch and pain Psych/Mental Status: Normal Affect, Appropriate Assessment & Plan Assessment/Plan (1) Closed fracture of head of left humerus: (2) Fall: PLAN: Plan 1. Mechanical fall with an impacted and comminuted fracture of the left humeral head with no dislocation ? Continue with her sling ? Nonoperative ? PT/OT for possible placement ? She does have hallucinatory reactions to narcotics so we will try to control pain with Tylenol 2. Essential HTN/HLD ? Blood pressure stable ? Can resume her home blood pressure medications ? Monitor make adjustments as necessary 3. DM2 ? Continue with sliding scale insulin ? Accu-Cheks ACHS ? Will monitor make adjustments as necessary 4. Hypothyroidism ? Stable ? Continue with Synthroid 5. Chronic COPD ? Continue with inhalers ? Not in exacerbation 6. Anxiety/depression/insomnia ? Stabilized ? Continue with her home medications 7. GERD ? Stable ? Continue with PPI DVT: Lovenox Charges/Coding Visit Charges Inpatient E&M: 69612 Subs Hosp L2
[2024-07-06] MEDS: Diphenoxylate/Atrop 1 Tablet 2 TABLET PO (11:21)
[2024-07-06 11:36] LABS: Bedside Glucose 139 mg/dL (74-106)
[2024-07-06] MEDS: LORazepam 0.5 MG Tablet PO (14:48)
[2024-07-06 15:48] LABS: Bedside Glucose 85 mg/dL (74-106)
[2024-07-06] MEDS: MELATONIN 10 MG TABLET PO (20:28)
[2024-07-06 21:42] LABS: Bedside Glucose 112 mg/dL (74-106)
[2024-07-07] VITALS (10 sets, daily range): BP systolic 103–117; BP diastolic 57–79; PULSE 72–88; RESP 16–18; TEMP 36.5–36.8; O2SAT 95–100; BMI 30.2
[2024-07-07 05:19] LABS: Absolute Lymphocyte Count 1.97 X10^3/uL (0.83-4.51); Absolute Neutrophil Count 3.2 X10^3/uL (2.0-7.7); Basophil# 0.02 X10^3/uL; Basophil% 0.3 % (0-1); Eosinophil# 0.28 X10^3/uL; Eosinophils% 4.7 % (0-5); Hematocrit 33.3 % (37-47); Lymphocyte # 1.97 X10^3/ul (0.83-4.51); Lymphocyte % 32.7 % (19-41); Mean Corpuscular Hgb 25.1 pg (27.0-32.0); Mean Corpuscular Volume 83.7 fL (81-99); Mean Platelet Vol. 10.1 fl (6.2-12.0); Monocyte# 0.57 X10^3/uL; Monocyte% 9.5 % (0-10); NRBC Flagged by Analyzer 0 % (0-5); Neutrophil # 3.16 X10^3/uL (2.7-7.7); Neutrophil % 52.5 % (47-70); Platelet Count 212 K/mm3 (150-450); RBC Distribution Width CV 18.7 % (11.6-14.6); RBC Distribution Width SD 56.6 fl (35.1-43.9); Red Blood Count 3.98 M/mm3 (4.2-5.4)
[2024-07-07] MEDS: Ketorolac 15 MG/ML Vial IV (05:42)
[2024-07-07] MEDS: Acetaminophen 500 MG Tablet 1000 MG PO ×3 (05:43→20:54)
[2024-07-07] MEDS: Levothyroxine 100 MCG Tablet PO (05:43)
[2024-07-07 05:45] LABS: Anion Gap 10 (5-15); BUN 28 mg/dL (4-19); BUN/Creat Ratio 30.2 RATIO (10-20); Calcium,Total 8.3 mg/dL (7.6-11.0); Carbon Dioxide 23.7 mmol/L (21.0-32.0); Chloride 105 mmol/L (98-108); Creatinine, Serum 0.92 mg/dL (0.70-1.20); EST Glomerular Filtration Rate 63 (>60); Estimated Creatinine Clearance 53.69 ml/min (50-250); Glucose 83 mg/dL (70-99); Potassium 4.2 mmol/L (3.3-5.1); Sodium Level 139 mmol/L (133-145)
[2024-07-07] MEDS: Budesonide Respules 0.5 MG/2 ML AMPUL.NEB. INHALATION ×2 (06:53→19:35)
[2024-07-07 07:01] LABS: Bedside Glucose 99 mg/dL (74-106)
--- NOTE | 2024-07-07 07:25 | PN.HOSP_ITS ---
Reason for Visit Reason for Visit: Left humerus fracture Subjective Subjective Patient has no complaints other than pain in her left humerus. Asks for a fresh cup of coffee. I did discuss with her that we are awaiting acceptance from a nursing facility as she is not able to go home. She voiced understanding. Had previously been on hospice but revoked for admission. Objective Data Objective Data Vital Signs: Vital Signs Temp Pulse Resp BP Pulse Ox O2 Del Method O2 Flow Rate 97.7 F L 88 17 117/71 97 Nasal Cannula 2 07/07/24 02:40 07/07/24 02:40 07/07/24 02:40 07/07/24 02:40 07/07/24 02:40 07/07/24 02:40 07/07/24 02:40 Oxygen Flow Rate (L/min) 2 Oxygen Delivery Method Nasal Cannula Weight: 85.4 kg Body Mass Index (BMI) 30.2 Intake & Output: Intake and Output for Last 24 Hours 07/05/24 07/06/24 07/07/24 23:59 23:59 23:59 Intake Total 1900 / 1900 500 / 500 Output Total 950 / 950 Balance 950 / 950 500 / 500 Lab / Micro Data 07/07/24 03:43 07/07/24 03:43 Labs: Laboratory Results - last 24 hr 07/06/24 11:15: POC Glucose 139 H 07/06/24 15:30: POC Glucose 85 07/06/24 20:20: POC Glucose 112 H 07/07/24 03:43: WBC 6.0, RBC 3.98 L, Hgb 10.0 L, Hct 33.3 L, MCV 83.7, MCH 25.1 L, MCHC 30.0 L, RDW Std Deviation 56.6 H, RDW Coeff of Susi 18.7 H, Plt Count 212, MPV 10.1, Immature Gran % (Auto) 0.300, Neut % (Auto) 52.5, Lymph % (Auto) 32.7, [place] % (Auto) 9.5, Eos % (Auto) 4.7, Baso % (Auto) 0.3, Absolute Neuts (auto) 3.2, Absolute Lymphs (auto) 1.97, Nucleated RBC % 0, Sodium 139, Potassium 4.2, Chloride 105, Carbon Dioxide 23.7, Anion Gap 10, BUN 28 H, Creatinine 0.92, Estim Creat Clear Calc 53.69, Est GFR (MDRD) Non-Af 63, B UN/Creatinine Ratio 30.2 H, Glucose 83, Calcium 8.3 07/07/24 05:38: POC Glucose 99 Physical Exam Const alert, oriented x3 and no apparent distress Constitutional Narrative: Obese, elderly, white female, sitting up in a chair at the bedside, appears comfortable, nontoxic HEENT head/scalp atraumatic and moist oral mucous membranes Head and Scalp: normocephalic Extremity Extremity Narrative: Left upper extremity with sling in place, radial and pedal pulses are 2+ Psych affect normal Assessment & Plan Assessment/Plan (1) Closed fracture of head of left humerus: (2) Fall: PLAN: Plan Left upper extremity impacted and comminuted fracture of the left humeral head secondary to mechanical fall - Continue sling left upper extremity - Continue nonweightbearing left upper extremity - Continue pain regimen - Outpatient orthopedic follow-up after discharge - PT/OT following and patient will need placement -Patient with vitamin D level 2023 that was 67.2 - Case management/social work following and discussing with family - Indicates she was previously enrolled with hospice Chronic anemia - Hemoglobin appears to run between 9 and 11 -Currently 10.0 - Given stability no reason to monitor regularly RA - On Orencia injections weekly -Continue home steroid - Restart at discharge Vitamin D deficiency -Continue home vitamin D supplementation - Most recent vitamin D level was in therapeutic range History of overactive bladder - Continue home fesoterodine or therapeutic substitution DM-2 with polyneuropathy -oral agents on hold - Continue home insulin regimen - Continue SSI - Accu-Cheks as ordered - Continue diet as ordered RLS -continue requip Insomnia -Continue Ambian/melatonin GERD -cont PPI Essential HTN - Continue home carvedilol -continue home lisinopril - Restart home Lasix Depression/anxiety - Continue home Prozac Remote history of DVT Patient is no longer on anticoagulation - Prophylactic subcu enoxaparin for now Macular degeneration Can continue home eyedrops Obesity - BMI 30.4 If and complicates treatment, prognosis, outcomes DVT prophylaxis - Continue subcu enoxaparin CODE STATUS -Patient is full code as verified on admission unclear as patient was previously enrolled in hospice Charges/Coding Visit Charges Inpatient E&M: 27674 Subs Hosp L2
[2024-07-07] MEDS: Carvedilol 6.25 MG Tablet PO ×2 (08:45→16:30)
[2024-07-07] MEDS: Enoxaparin 40 MG/0.4 ML Syringe SC (08:45)
[2024-07-07] MEDS: Lisinopril 5 MG Tablet PO (08:45)
[2024-07-07] MEDS: Tolterodine Tartrate 2 MG CAP.SA PO (08:45)
[2024-07-07] MEDS: Pantoprazole Sodium 20 MG Tablet PO ×2 (08:45→20:54)
[2024-07-07] MEDS: Potassium Chloride Oral Tablet 20 MEQ PO (08:45)
[2024-07-07] MEDS: Insulin Lispro 100 UNIT/ML INSULN.PEN SC ×4 (08:46→16:30)
[2024-07-07] MEDS: FLUoxetine 20 MG Capsule PO (08:46)
--- NOTE | 2024-07-07 10:06 | CASEMGMT ---
Discharge Planning A list of?SNF providers including quality and resource use data and consistent with the patient's preferred geographic region, medical needs, and insurance network was created in [employer] Guide.? This list was provided to the pt. Chary Barrett, Discharge Planning Asst
[2024-07-07 11:55] LABS: Bedside Glucose 132 mg/dL (74-106)
--- NOTE | 2024-07-07 11:59 | CASEMGMT ---
Discharge Planning SNF list delivered to pt and also tried delivering HICKEY form. Pt was unaware that she requested a snf list and expressed not knowing what was going on, who her dr was (although able to describe her), and what her treatment plan was going to be. She reports that she receives hospice services and would rather return home again with resumption of hospice. HICKEY form not reviewed d/t pt confusion. The above was explained to SW who will reach out to pts son. Chary Barrett DC Planning Asst.
--- NOTE | 2024-07-07 14:01 | CASEMGMT ---
Addendum entered by Breanna Murray 07/07/24 15:42: SW spoke with pt son who reports that he will be in this evening to review the list with pt and leave choices. SW remains available to follow. CONCETTA Duong Original Note: Social Work- SW met with pt to discuss d/c planning. SW introduced self and role; pt remembered SW from prior visit and was relieved to have someone familiar to meet with. Pt reports that she has been increasingly confused at times and has been furniture walking at home prior to fall. Pt has hospice 4x/week at home. Pt is interested in SNF, but would like SW to call son to discuss facility options. SW called pt son and left a voicemail. SW remains available to follow. CONCETTA Duong
--- NOTE | 2024-07-07 14:20 | CASEMGMT ---
HICKEY Call placed to pts son (Ok) to review HICKEY. VM left. Copy placed in room. Chary Barrett DC Planning Asst.
[2024-07-07 16:36] LABS: Bedside Glucose 204 mg/dL (74-106)
[2024-07-07] MEDS: MELATONIN 10 MG TABLET PO (20:54)
[2024-07-07 22:33] LABS: Bedside Glucose 73 mg/dL (74-106)
[2024-07-08] VITALS (8 sets, daily range): BP systolic 108–123; BP diastolic 54–88; PULSE 78–97; RESP 16–24; TEMP 36.6–36.8; O2SAT 89–100; BMI 30.7
[2024-07-08] MEDS: Acetaminophen 500 MG Tablet 1000 MG PO ×3 (05:28→20:56)
[2024-07-08] MEDS: Levothyroxine 100 MCG Tablet PO (05:28)
[2024-07-08 07:38] LABS: Bedside Glucose 102 mg/dL (74-106)
[2024-07-08] MEDS: Budesonide Respules 0.5 MG/2 ML AMPUL.NEB. INHALATION (07:58)
[2024-07-08] MEDS: Carvedilol 6.25 MG Tablet PO ×2 (09:12→17:25)
[2024-07-08] MEDS: MethylPREDNISolone 4 MG Tablet PO (09:12)
[2024-07-08] MEDS: Tolterodine Tartrate 2 MG CAP.SA PO (09:13)
[2024-07-08] MEDS: Enoxaparin 40 MG/0.4 ML Syringe SC (09:13)
[2024-07-08] MEDS: Potassium Chloride Oral Tablet 20 MEQ PO (09:13)
[2024-07-08] MEDS: Furosemide 40 MG Tablet PO (09:13)
[2024-07-08] MEDS: FLUoxetine 20 MG Capsule PO (09:14)
[2024-07-08] MEDS: Lisinopril 5 MG Tablet PO (09:14)
[2024-07-08] MEDS: Pantoprazole Sodium 20 MG Tablet PO ×2 (09:14→20:55)
--- NOTE | 2024-07-08 11:30 | CASEMGMT ---
Social Work Presented to patient's room for SNF choices. Son left note for SW of interest in [facility], and then wanting to discuss [facility]. Noted [facility] was also marked as a 1 on the list. Spoke with patient who was tearful and anxious, stating that no one is talking to patient and patient does not understand what is happening. Reviewed the note from dana Euceda to SW, and discussed SNF choices. Patient reports would prefer to be close to family and friends as would like visitors, but also not sure about returning to [facility] where had been in the past. Patient expressing fear that everyone is forgetting about patient. Reoriented patient that son has been in to visit, and has been in discussion with patient about discharge plan. Much emotional support offered to patient. During call, the patient's brother Luis Armando called, so this ad copy writer helped patient answer the phone and talk with her brother. Called patient's son Ok to discuss. Son asked about [facility], which is not on the list. Educated the list provided is for patient's insurance network, so not an option if would like to seek insurance coverage. Son asked about another facility not on the list, but understood would be the same situation as [facility]. Ok confirmed [facility] is first choice, but is uncertain about choices for the other SNFs. This ad copy writer let Ok know that uncertain about bed situation at [facility], so it may be good to complete referrals to alternate choices, to see what is available. Ok plans to talk with support system to further decide about the alternate choices but agreed to allow for referrals to be made, to see what choices are an option for patient. Discussed that patient is ready to go as soon as able to find a bed at SNF and get insurance approval. Referral to [facility] in TCU. There are no current beds available on the TCU. Updated Discharge Piano Case Maker who will make referrals to [facility]. Plan: Referrals pending with [facility]. Will update son once hear back from community based SNFs. -TAMMI Panda
--- NOTE | 2024-07-08 11:40 | CASEMGMT ---
Addendum entered by Chary Barrett 07/08/24 14:10: [facility] accepted. SW updated. Chary Barrett DC Planning Asst. Original Note: Discharge Planning Referral sent to [facility]. Chary Barrett DC Planning Asst.
[2024-07-08 11:56] LABS: Bedside Glucose 108 mg/dL (74-106)
[2024-07-08] MEDS: Insulin Lispro 100 UNIT/ML INSULN.PEN SC ×2 (13:03→17:24)
[2024-07-08 16:30] LABS: Bedside Glucose 126 mg/dL (74-106)
--- NOTE | 2024-07-08 16:30 | PCM.PN.HOSP ---
Reason for Visit Reason for Visit: Left humeral fracture/debility Subjective Subjective Patient asks again why she is here. I again discussed with her that she fractured her shoulder and she needs to go somewhere for rehab. Her memory is such that she does not remember conversations well. She also indicated she has not seen her son 1 time and he was visiting last evening. We are currently waiting for him to pick which facility would like her to go. She is medically stable for discharge. Per discussion with nursing staff the Ativan does seem to make her more confused we will discontinue this and try some risperidone at night. Objective Data Objective Data Vital Signs: Vital Signs Temp Pulse Resp BP Pulse Ox O2 Del Method O2 Flow Rate 98.1 F 82 18 119/80 95 Room Air 2 07/08/24 14:00 07/08/24 14:00 07/08/24 14:00 07/08/24 14:00 07/08/24 14:00 07/08/24 14:00 07/08/24 03:12 Oxygen Flow Rate (L/min) 2 Oxygen Delivery Method Room Air Weight: 86.8 kg Body Mass Index (BMI) 30.7 Intake & Output: Intake and Output for Last 24 Hours 07/06/24 07/07/24 07/08/24 23:59 23:59 23:59 Intake Total 1900 / 1900 740 / 740 1125 / 1125 Output Total 950 / 950 Balance 950 / 950 740 / 740 1125 / 1125 Lab / Micro Data 07/07/24 03:43 07/07/24 03:43 Labs: Laboratory Results - last 24 hr 07/07/24 16:15: POC Glucose 204 H 07/07/24 20:41: POC Glucose 73 L 07/08/24 05:24: POC Glucose 102 07/08/24 11:37: POC Glucose 108 H Physical Exam Const alert, oriented x3, no apparent distress and well nourished; Negative for average body habitus Constitutional Narrative: Obese, elderly, white female, sitting up in bed appears comfortable, nontoxic HEENT head/scalp atraumatic and moist oral mucous membranes Head and Scalp: normocephalic Psych affect normal Psych Narrative: Patient is anxious and intermittently tearful and this seems to be related to her memory issues Mood & Affect: anxious Assessment & Plan Assessment/Plan (1) Closed fracture of head of left humerus: (2) Fall: PLAN: Plan Left upper extremity impacted and comminuted fracture of the left humeral head secondary to mechanical fall - Continue sling left upper extremity - Continue nonweightbearing left upper extremity - Continue pain regimen - Outpatient orthopedic follow-up after discharge - PT/OT following and patient will need placement -Patient with vitamin D level 07/2023 that was 67.2 - Case management/social work following and discussing with family - Indicates she was previously enrolled with hospice - Probable discharge tomorrow once family decides which facility they would like her to discharge to Chronic anemia - Hemoglobin appears to run between 9 and 11 -Currently 10.0 - Given stability no reason to monitor regularly RA - On Orencia injections weekly -Continue home steroid - Restart at discharge Vitamin D deficiency -Continue home vitamin D supplementation - Most recent vitamin D level was in therapeutic range History of overactive bladder - Continue home fesoterodine or therapeutic substitution DM-2 with polyneuropathy -oral agents on hold - Continue home insulin regimen -AM fasting sugar was 102 - Continue SSI - Accu-Cheks as ordered - Continue diet as ordered RLS -continue requip Insomnia -Continue Ambian/melatonin GERD -cont PPI Essential HTN - Continue home carvedilol -continue home lisinopril - Continue home Lasix Depression/anxiety - Continue home Prozac but decrease dose from 40 to 20 mg due to age Remote history of DVT - Prophylactic subcu enoxaparin for now - Patient is no longer on any full anticoagulation Macular degeneration -continue home eyedrops Obesity - BMI 30.9 -complicates treatment, prognosis, outcomes DVT prophylaxis - Continue subcu enoxaparin CODE STATUS -Patient is full code as verified on admission unclear as patient was previously enrolled in hospice Disposition: - Patient is medically stable and has been medically stable for discharge since 07/06/2024. Currently waiting for son to make a decision to which facility he would like her to be discharged. Will discharge once this decision is made. Charges/Coding Visit Charges Inpatient E&M: [address] [facility] L1
--- NOTE | 2024-07-08 17:00 | CASEMGMT ---
Social Work Received update that both [facility] and [facility] can accept patient. Called the son Ok to update - TCU has no beds and acceptance at other facilities. Ok reports unable to make the final decision until he speaks with the patient this evening after work. Asked Ok to call in and leave a message with choice so precert can be started. Spoke with Dr. Ayala and updated to conversation with the son. Met with patient in room, who was sitting up in chair. A visitor from hospice in the room with patient and assured patient would continue to visit patient wherever patient goes. Reviewed with patient that son will be coming in this evening, and will be discussing SNF choices. Reviewed options identified. Patient spontaneously noted that [facility] is in [place] and was able to express concern that family and friends won't visit as much. Asked patient what patient thought about [facility], but patient was uncertain. Encouraged patient to talk with son this evening. Plan: SNF pending decision on choice determination ([facility] vs [facility]) and insurance approval. -TAMMI Panda
[2024-07-08] MEDS: MELATONIN 10 MG TABLET PO (20:56)
[2024-07-08] MEDS: RisperiDONE 0.5 MG Tablet PO (20:56)
[2024-07-08 21:25] LABS: Bedside Glucose 129 mg/dL (74-106)
[2024-07-09 06:05] VITALS: BP 99/58; PULSE 90; RESP 18; TEMP 36.8; O2SAT 94
[2024-07-09 06:13] VITALS: BMI 30.9
[2024-07-09] MEDS: Levothyroxine 100 MCG Tablet PO (06:14)
[2024-07-09] MEDS: Acetaminophen 500 MG Tablet 1000 MG PO ×2 (06:14→15:25)
[2024-07-09] MEDS: Budesonide Respules 0.5 MG/2 ML AMPUL.NEB. INHALATION ×2 (07:07→19:15)
[2024-07-09 07:10] VITALS: PULSE 77; RESP 17
[2024-07-09 07:59] VITALS: BP 113/59; PULSE 85; RESP 18; TEMP 36.4; O2SAT 87; O2SAT 97
[2024-07-09] MEDS: Insulin Lispro 100 UNIT/ML INSULN.PEN SC ×3 (08:06→17:11)
[2024-07-09] MEDS: Potassium Chloride Oral Tablet 20 MEQ PO (08:07)
[2024-07-09] MEDS: Carvedilol 6.25 MG Tablet PO (08:07)
[2024-07-09] MEDS: Lisinopril 5 MG Tablet PO (08:07)
[2024-07-09] MEDS: Furosemide 40 MG Tablet PO (08:08)
[2024-07-09] MEDS: FLUoxetine 20 MG Capsule PO (08:08)
[2024-07-09] MEDS: Tolterodine Tartrate 2 MG CAP.SA PO (08:08)
[2024-07-09] MEDS: Enoxaparin 40 MG/0.4 ML Syringe SC (08:08)
[2024-07-09] MEDS: Pantoprazole Sodium 20 MG Tablet PO (08:08)
[2024-07-09] MEDS: MethylPREDNISolone 4 MG Tablet PO (08:08)
[2024-07-09] MEDS: traMADol 50 MG Tablet PO ×2 (08:10→17:11)
[2024-07-09 08:33] LABS: Bedside Glucose 166 mg/dL (74-106)
[2024-07-09 08:42] VITALS: O2SAT 95
[2024-07-09] MEDS: Pramipexole Di-HCl 0.25 MG Tablet PO ×2 (10:02→17:11)
[2024-07-09] MEDS: Methocarbamol 750 MG Tablet PO (10:02)
--- NOTE | 2024-07-09 10:43 | CASEMGMT ---
Discharge Planning [facility] notified that they are foc and that we will submit for precert today. Asked for confirmation that they have bed available. [facility] asked to cancel referral. Chary Barrett DC Planning Asst.
[2024-07-09 11:42] LABS: Bedside Glucose 117 mg/dL (74-106)
--- NOTE | 2024-07-09 12:10 | PCM.DC.SUM ---
Providers Date of Admission: 07/05/24 Primary Care Physician: Dr. Diallo Dejesus, DO Reason For Visit: FALL, L HUMERAL HEAD FX Diagnosis Discharge Diagnosis (1) Closed fracture of head of left humerus: Status: Acute Code(s): S42.292A - Other displaced fracture of upper end of left humerus, initial encounter for closed fracture (2) Fall: Status: Acute Code(s): W19.XXXA - Unspecified fall, initial encounter Medications at Discharge Home Medications levothyroxine 100 mcg tablet 100 mcg PO DAILY thyroid 11/20/14 omeprazole 10 mg capsule,delayed release 40 mg PO BID PRN GERD 11/20/14 ketorolac 0.4 % eye drops 1 drp RIGHT EYE 4X/DAY macular degeneration 01/04/20 melatonin 1 mg tablet 10 mg PO 1999 sleep 01/04/20 ropinirole 2 mg tablet 0.5 mg PO .5x/day PRN restless legs 01/04/20 cholecalciferol (vitamin D3) 1,250 mcg (50,000 unit) capsule 1,250 mcg PO MO supplement 12/10/22 diphenoxylate-atropine 2.5 mg-0.025 mg tablet 2 tab PO Q12H PRN diarrhea 12/10/22 fesoterodine 4 mg tablet,extended release 24 hr 4 mg PO DAILY overactive bladder 12/10/22 fluoxetine 20 mg capsule 20 mg PO DAILY depression 12/11/22 vit C 250 mg-vit E 90 mg-zinc 10 mg-copper 1 [id number] capsule (Healthy Eyes SuperVision2) 1 cap PO DAILY supplement 12/11/22 lisinopril 5 mg tablet 5 mg PO DAILY 30 days #30 tabs 12/13/22 abatacept 125 mg/mL subcutaneous syringe (Orencia) 125 mg subcut QWEEK 07/05/24 cyanocobalamin (vitamin B-12) 1,000 mcg/mL injection solution 1,000 mcg IM QMONTH 07/05/24 furosemide 40 mg tablet (Lasix) 40 mg PO DAILY 07/05/24 hyoscyamine sulfate 0.125 mg tablet 0.125 mg PO Q6H PRN PRN abdominal pain 07/05/24 ipratropium 0.5 mg-albuterol 3 mg (2.5 mg base)/3 mL nebulization soln 3 ml inhalation TID 07/05/24 metformin 750 mg tablet,extended release 24 hr 750 mg PO DAILY 07/05/24 methylprednisolone 4 mg tablet 4 mg PO DAILY 07/05/24 acetaminophen 500 mg tablet 1,000 mg (2 x 500 mg) PO TID #0 tabs 07/09/24 carvedilol 6.25 mg tablet 6.25 mg PO BIDCM #0 tabs 07/09/24 insulin lispro 100 unit/mL subcutaneous pen (Humalog KwikPen (U-100) Insulin) 5 unit (0.05 mL) subcut 0700,1100,1600 #15 mL 07/09/24 risperidone 0.5 mg tablet 0.5 mg PO QHS #0 tabs 07/09/24 sennosides 8.6 mg-docusate sodium 50 mg tablet (Stimulant Laxative Plus) 2 tab PO BID PRN PRN Constipation #0 tabs 07/09/24 tramadol 50 mg tablet 50 mg PO TID pain #6 tabs 07/09/24 Hospital Course Operations None Procedures - (Left shoulder x-ray) Summary of Care Provided Minutes Spent on Discharge: 25 Hospital Course: Patient is an 78-year-old female who presents emergency department [facility] on 07/05/2024 with a chief complaint of left shoulder pain after mechanical fall. She evidently lost her balance and fell onto a hardwood floor. She had no head trauma but had ongoing persistent pain in the left shoulder. She was able to move her distal lower extremity without issue. Vital signs on presentation showed temperature 99, heart rate 116, blood pressure 125/75 and respiratory was 18 with oxygen saturation initially of 87% on room air with a repeat of 96% on 2 L nasal cannula. Hypoxia resolved and she was on room air by the time of discharge. CBC showed a chronic stable anemia and her hemoglobin was stable throughout her hospital course. Chemistry panel was unremarkable other than some hyperglycemia with a blood sugar of 139. Plain films of the left shoulder showed severe narrowing of the glenohumeral joint as well as an impacted and comminuted fracture of the left humeral head. She was placed in a sling and initially plan was to discharge from the emergency department to home however family was unable to take care of her at home and she difficulty ambulating due to her reliance on a walker at baseline. Given that she was admitted to the hospital for assistance with placement. She had no other ongoing issues throughout her hospital stay. She does have pretty significant memory loss at baseline. It was reported that she had previously been enrolled in hospice however that has been revoked to be admitted for this. She was stable throughout her hospital course. Family elected to place her in a skilled facility and we received pre-CERT on 07/09/2024. Patient was discharged to skilled facility in stable condition. We have asked that she follow-up with Dr. Valenzuela from orthopedic surgery within the next week and her primary care physician within a week after discharge from skilled facility. Discharge diagnoses: Left humeral head impacted and comminuted fracture Chronic anemia Rheumatoid arthritis Vitamin D deficiency Overactive bladder DM-2 Diabetic polyneuropathy RLS Insomnia GERD Essential hypertension Depression anxiety Remote history of DVT Macular degeneration Dementia-type unknown Obesity Physical Exam Const alert, no apparent distress and well nourished; Negative for average body habitus Constitutional Narrative: Obese, elderly, white female, sitting up in a chair reclined at the bedside, watching television, appears comfortable, nontoxic states she has to go to the bathroom. General Appearance: cooperative, comfortable, well kempt and well developed Orientation / Consciousness: awake and oriented to person Nutritional Appearance: obese HEENT normocephalic, head/scalp atraumatic and moist oral mucous membranes; Negative for hearing grossly normal bilaterally HEENT Narrative: Mild hearing loss, Mallampati 2, no thrush Resp normal respiratory effort, no retractions, no use of accessory muscles and clear to auscultation bilaterally Auscultation: Negative for rales, rhonchi or wheezes Cardio regular rate, regular rhythm, S1 normal heart sound, S2 normal heart sound, no rub, no gallops and no clicks; Negative for no murmurs Cardio Narrative: 3 out of 6 systolic murmur GI normal to inspection, nondistended, normoactive bowel sounds, soft to palpation and non-tender Extremity Extremity Narrative: Left upper extremity with sling in place, radial and pedal pulses are 2+, bilateral lower extremity chronic edema that is pitting in nature 1+ Neuro Neuro Narrative: Significant memory impairment and only oriented to self, follows commands consistently, generalized weakness noted with no focal deficits, unable to the move left upper extremity due to pain Sensorium / Orientation: awake, alert and oriented to person; Negative for oriented to place or oriented to time Speech: speech normal Psych affect normal Psych Narrative: Patient is much more calm today Weight / BMI Weight Weight: 87.5 kg Body Mass Index (BMI) 30.9 ABG / Lab / Microbiology Data 07/07/24 03:43 07/07/24 03:43 Laboratory: Laboratory Results - last 24 hr 07/08/24 16:12: POC Glucose 126 H 07/08/24 20:50: POC Glucose 129 H 07/09/24 07:47: POC Glucose 166 H 07/09/24 11:16: POC Glucose 117 H D/C Instructions Discharge Diet: 1800 Calorie Control Diet Discharge Activity: Use Walker Weight Bearing Status: No weight bearing (Left upper extremity) DC O2, CPAP, BIPAP Needs Home O2 Discharge instructions: No Meaningful Use Info Meaningful Use Meaningful Use Diagnoses (Choose all that apply): None applicable Ischemic Stroke Statin Dosing Therapy Reference: STATIN DOSE THERAPY REFERENCE: * Patients > 75 years receive moderate or high dose statin therapy. * Patients 75 years or YOUNGER should receive HIGH intensity statin dose unless contraindicated. You will be required to document reason for non-treatment if statin daily dose does not meet guidelines. HIGH DOSE STATIN THERAPY DAILY Atorvastatin > than or = to 40 mg Rosuvastatin > than or = to 20 mg Amlodipine + Atorvastatin > than or = to 2.5/40 mg Ezetimibe + Simvastatin 10/80 mg Simvastatin 80mg Discharge Plan Admission Admit Date/Time: 07/05/24 19:56 Primary Reason for Your Visit: Left shoulder pain after fall Attending Provider: Tamiko Ayala Primary Care Provider: Diallo Dejesus Consulting Providers: Tereza Kenny; Noe Hill Discharge Orders/Prescriptions Prescriptions: New carvedilol 6.25 mg Tablet 6.25 mg PO BIDCM Qty: 0 0RF acetaminophen 500 mg Tablet 1,000 mg PO TID Qty: 0 0RF sennosides-docusate sodium [Stimulant Laxative Plus] 8.6-50 mg Tablet 2 tab PO BID PRN PRN (Reason: Constipation) Qty: 0 0RF risperidone 0.5 mg Tablet 0.5 mg PO QHS Qty: 0 0RF insulin lispro [Humalog KwikPen Insulin] 100 unit/mL Insulin Pen 5 unit subcut 0700,1100,1600 Qty: 15 0RF Continued levothyroxine 100 MCG tablet 100 mcg PO DAILY Patient Comments: thyroid omeprazole 10 MG capsule 40 mg PO BID PRN (Reason: GERD) Patient Comments: acid reflux ropinirole 2 MG tablet 0.5 mg PO .5x/day PRN melatonin 1 MG tablet 10 mg PO 1999 Rx Instructions: 8 pm ketorolac 1 DROP drops 1 drp RIGHT EYE 4X/DAY Rx Instructions: acular 5% eye drop fesoterodine 4 mg tablet extended release 24 hr 4 mg PO DAILY Patient Comments: TAKE 1 TABLET BY MOUTH EVERY DAY diphenoxylate-atropine 2.5-0.025 mg tablet 2 tab PO Q12H PRN (Reason: diarrhea) Patient Comments: TAKE 2 TABLETS BY MOUTH EVERY 8 HOURS NEEDED cholecalciferol (vitamin D3) 1,250 mcg (50,000 unit) capsule 1,250 mcg PO MO Patient Comments: TAKE 1 CAPSULE BY MOUTH every week Healthy Eyes SuperVision2 250-90-10-1 mg capsule 1 cap PO DAILY fluoxetine 20 MG capsule 20 mg PO DAILY lisinopril 5 mg Tablet 5 mg PO DAILY 30 Days Qty: 30 0RF ipratropium-albuterol 0.5 mg-3 mg(2.5 mg base)/3 mL solution for nebulization 3 ml inhalation TID Orencia 125 mg/mL syringe 125 mg subcut QWEEK metformin 750 mg tablet extended release 24 hr 750 mg PO DAILY cyanocobalamin (vitamin B-12) 1,000 mcg/mL solution 1,000 mcg IM QMONTH furosemide [Lasix] 40 mg tablet 40 mg PO DAILY methylprednisolone 4 mg tablet 4 mg PO DAILY hyoscyamine sulfate 0.125 mg tablet 0.125 mg PO Q6H PRN PRN (Reason: abdominal pain) tramadol 50 mg tablet 50 mg PO TID Qty: 6 0RF Discontinued zolpidem 12.5 MG tablet,ext release multiphase 12.5 mg PO QHS acetaminophen 500 mg Tablet 1,000 mg PO TID Qty: 0 0RF fluoxetine 40 mg capsule 40 mg PO DAILY Novolin R Regular U100 Insulin 100 unit/mL solution See Rx Instructions subcut TID Rx Instructions: inject up to 5 units TID subcutaneously three times a day; Referrals / Follow Up: Diallo Dejesus DO [Primary Care Provider] - Tito Valenzuela MD [Med Staff - Active Staff] - As soon as possible Disposition Disposition (needs filled in before D/C Order can be placed): Shelter Facility Charges/Coding Visit Charges Inpatient E&M: 26530 SNF Disch
--- NOTE | 2024-07-09 12:28 | PCM.TXEXTCAR ---
Diet Diet Order/Speech Therapy: 07/05/24 21:14 Diet: Consistent Carb - Calorie Controlled Food consistency:: Regular Liquid Consistency:: Regular/Thin Diet Comments: please open containers, have food cut up in pieces How many daily calories?: 1800 calorie Routine Orders/Code Status Suppository Frequency: Daily PRN Routine Lab Work: CBC (7 to 10 days) and BMP (7 to 10 days) Code Status: Full Code DC O2, CPAP, BIPAP needs Home O2 Discharge instructions: No Wound(s) left forearm: Wound Type: Skin Tear right lower leg: Wound Type: blisters Suggestions for Active Care Change Position every (hours): 2 Hours to sit in a chair: 2 Times a day to sit in chair: 3 Therapies Weight Bearing: Non weight bearing Extremity Affected:: Left Upper Physical Therapy: Eval and Treat Occupational Therapy: Eval and Treat Problem/Diagnosis (1) Closed fracture of head of left humerus: Status: Acute Code(s): S42.292A - Other displaced fracture of upper end of left humerus, initial encounter for closed fracture (2) Fall: Status: Acute Code(s): W19.XXXA - Unspecified fall, initial encounter Allergies/Procedures Done in Hospital Allergies cyclobenzaprine Allergy (Verified 07/05/24 18:34) Unknown doxepin Allergy (Verified 07/05/24 18:34) Unknown hydromorphone HCl (From Dilaudid) Allergy (Verified 07/05/24 18:34) Unknown prednisone Allergy (Verified 07/05/24 18:34) Unknown pregabalin (From Lyrica) Allergy (Verified 07/05/24 18:34) Unknown acetaminophen (From Percocet) Adverse Reaction (Verified 07/05/24 18:34) HALLUCINATION hydrocodone bitartrate (From Vicodin) Adverse Reaction (Verified 07/05/24 18:34) HALLUCINATIONS oxycodone HCl (From Percocet) Adverse Reaction (Verified 07/05/24 18:34) HALLUCINATION Procedures: - (Left shoulder x-rays) Type of Care/Length of Stay Estimated LOS: Convalescent Care Less Than 30 days Type of Care Needed: Skilled Rehab Potential: Fair Prognosis: Fair Additional Orders/Day of Discharge Day of Discharge: 07/09/24 Follow Up Care Please follow up with your Primary Care Physician in: 1 week after discharge from skilled facility Please Follow Up With: Tito Valenzuela MD When: Within 1 week Discharge Plan Admission Admit Date/Time: 07/05/24 19:56 Primary Reason for Your Visit: Left shoulder pain after fall Attending Provider: Tamiko Ayala Primary Care Provider: Diallo Dejesus Consulting Providers: Tereza Kenny; Noe Hill Discharge Orders/Prescriptions Prescriptions: New carvedilol 6.25 mg Tablet 6.25 mg PO BIDCM Qty: 0 0RF acetaminophen 500 mg Tablet 1,000 mg PO TID Qty: 0 0RF sennosides-docusate sodium [Stimulant Laxative Plus] 8.6-50 mg Tablet 2 tab PO BID PRN PRN (Reason: Constipation) Qty: 0 0RF risperidone 0.5 mg Tablet 0.5 mg PO QHS Qty: 0 0RF insulin lispro [Humalog KwikPen Insulin] 100 unit/mL Insulin Pen 5 unit subcut 0700,1100,1600 Qty: 15 0RF Continued levothyroxine 100 MCG tablet 100 mcg PO DAILY Patient Comments: thyroid omeprazole 10 MG capsule 40 mg PO BID PRN (Reason: GERD) Patient Comments: acid reflux ropinirole 2 MG tablet 0.5 mg PO .5x/day PRN melatonin 1 MG tablet 10 mg PO 1999 Rx Instructions: 8 pm ketorolac 1 DROP drops 1 drp RIGHT EYE 4X/DAY Rx Instructions: acular 5% eye drop fesoterodine 4 mg tablet extended release 24 hr 4 mg PO DAILY Patient Comments: TAKE 1 TABLET BY MOUTH EVERY DAY diphenoxylate-atropine 2.5-0.025 mg tablet 2 tab PO Q12H PRN (Reason: diarrhea) Patient Comments: TAKE 2 TABLETS BY MOUTH EVERY 8 HOURS NEEDED cholecalciferol (vitamin D3) 1,250 mcg (50,000 unit) capsule 1,250 mcg PO MO Patient Comments: TAKE 1 CAPSULE BY MOUTH every week Healthy Eyes SuperVision2 250-90-10-1 mg capsule 1 cap PO DAILY fluoxetine 20 MG capsule 20 mg PO DAILY lisinopril 5 mg Tablet 5 mg PO DAILY 30 Days Qty: 30 0RF ipratropium-albuterol 0.5 mg-3 mg(2.5 mg base)/3 mL solution for nebulization 3 ml inhalation TID Orencia 125 mg/mL syringe 125 mg subcut QWEEK metformin 750 mg tablet extended release 24 hr 750 mg PO DAILY cyanocobalamin (vitamin B-12) 1,000 mcg/mL solution 1,000 mcg IM QMONTH furosemide [Lasix] 40 mg tablet 40 mg PO DAILY methylprednisolone 4 mg tablet 4 mg PO DAILY hyoscyamine sulfate 0.125 mg tablet 0.125 mg PO Q6H PRN PRN (Reason: abdominal pain) tramadol 50 mg tablet 50 mg PO TID Qty: 6 0RF Discontinued zolpidem 12.5 MG tablet,ext release multiphase 12.5 mg PO QHS acetaminophen 500 mg Tablet 1,000 mg PO TID Qty: 0 0RF fluoxetine 40 mg capsule 40 mg PO DAILY Novolin R Regular U100 Insulin 100 unit/mL solution See Rx Instructions subcut TID Rx Instructions: inject up to 5 units TID subcutaneously three times a day; Referrals / Follow Up: Diallo Dejesus DO [Primary Care Provider] - Tito Valenzuela MD [Med Staff - Active Staff] - As soon as possible Disposition Disposition (needs filled in before D/C Order can be placed): Group Home Facility
--- NOTE | 2024-07-09 13:13 | CASEMGMT ---
Social Work- SW received a voicemail from pt son who reports that he would like [facility] as FOC. SW updated DCA and physician. SW submitted for precert through [facility]. SW called to followed up with a call. Darline at [facility] reports that since pt has been in observation greater than 72 hour, that [facility] will do a full medical review prior to approving for SNF. After medical review, Darline reports that she will review for SNF. Darline will call following review. Plan: [facility]; skilled level of care pending precert [facility]
[2024-07-09 15:23] VITALS: BP 108/56; PULSE 78; RESP 16; TEMP 36.6; O2SAT 97
--- NOTE | 2024-07-09 15:53 | CASEMGMT ---
Addendum entered by Breanna Murray 07/09/24 17:11: JEREMIAH caalled pt son and provided updates on transport time. JEREMIAH updated pt that son will meet pt at the hospital and follow her over to [place] and help her get settled for the evening. CONCETTA Duong Addendum entered by Breanna Murray 07/09/24 16:14: CONCETTA Duong Original Note: Social Work Precert has been obtained.? [facility] reference: [id number] jean paul 07/09-07/11. JEREMIAH spoke with Darline at [facility]. Physician updated and pt is ready for discharge today.? 7000 convalescent form completed in [facility]. DCA to complete final notifications to family and arrangements for discharge. Disposition:[facility], skilled level of care under convalescent stay.
--- NOTE | 2024-07-09 16:13 | CASEMGMT ---
Discharge Planning Discharge orders, signed med list, and transport time sent to [facility]. Physicians will transport pt by wheelchair at 7p. Nursing, SW, pt, and her son (Ok) updated. Chary Barrett DC Planning Asst.
[2024-07-09 17:32] LABS: Bedside Glucose 142 mg/dL (74-106)
[2024-07-09 19:15] VITALS: PULSE 82; RESP 18
[2024-07-09 20:13] LABS: Bedside Glucose 89 mg/dL (74-106)
--- NOTE | 2024-07-11 10:23 | CASEMGMT ---
Social Work- SW received a call from Ginger Sterling, to confirm pt discharge. JEREMIAH confirmed pt discharge date. Hallie appreciative of update, as she had not yet received admission documentation from SNF. CONCETTA Duong
== END 2024-07-09 20:10 ==
LOC: ED 19:59 → MS3 20:06
PROVIDERS: Family Medicine; Admitting Provider Family Medicine; Emergency Provider Emergency Medicine; PCP Family Medicine; Referring Provider Family Medicine; Visit Provider Internal Medicine
DX: S42.292A Other displaced fracture of upper end of left humerus, initial encounter for closed fracture (principal); M06.9 Rheumatoid arthritis, unspecified; F03.90 Unspecified dementia, unspecified severity, without behavioral disturbance, psychotic disturbance, mood disturbance, and anxiety; J44.9 Chronic obstructive pulmonary disease, unspecified; E11.22 Type 2 diabetes mellitus with diabetic chronic kidney disease; E11.65 Type 2 diabetes mellitus with hyperglycemia; Z79.4 Long term (current) use of insulin; E11.42 Type 2 diabetes mellitus with diabetic polyneuropathy; N18.2 Chronic kidney disease, stage 2 (mild); S51.812A Laceration without foreign body of left forearm, initial encounter; W18.09XA Striking against other object with subsequent fall, initial encounter; Y93.01 Activity, walking, marching and hiking; Y92.009 Unspecified place in unspecified non-institutional (private) residence as the place of occurrence of the external cause; N32.81 Overactive bladder; E55.9 Vitamin D deficiency, unspecified; E78.5 Hyperlipidemia, unspecified; E03.9 Hypothyroidism, unspecified; Z68.30 Body mass index [BMI] 30.0-30.9, adult; I12.9 Hypertensive chronic kidney disease with stage 1 through stage 4 chronic kidney disease, or unspecified chronic kidney disease; H35.30 Unspecified macular degeneration; G25.81 Restless legs syndrome; G47.33 Obstructive sleep apnea (adult) (pediatric); G47.00 Insomnia, unspecified; K21.9 Gastro-esophageal reflux disease without esophagitis; F41.9 Anxiety disorder, unspecified; E66.9 Obesity, unspecified; Z79.84 Long term (current) use of oral hypoglycemic drugs; Z79.890 Hormone replacement therapy; Z79.891 Long term (current) use of opiate analgesic; Z79.899 Other long term (current) drug therapy; Z86.718 Personal history of other venous thrombosis and embolism; Z86.711 Personal history of pulmonary embolism; Z96.653 Presence of artificial knee joint, bilateral
CPT/HCPCS: 29125; 36415; 73030; 80048; 80053; 82962; 85025; 94640; 94668; 96361; 96372; 96374; 96376; 97161; 97166; 97530; 97535; 99221; 99252; 99285; A4216; G0378; G0463

== ENCOUNTER → 2024-12-10 | Outpatient (CLI) | payer MEDICARE, SELFPAY ==
[2024-12-10 14:37] LABS: Mucous, Urine 0 SEEN /hpf (<or=2+); Red Blood Cells-Urine 0 SEEN /hpf (0-5)
[2024-12-10 14:52] LABS: Color, Urine Yellow (Yellow); Glucose, Dipstick Normal (Normal); Ketone-Dipstick Negative (Negative); Leukocyte Esterase-Dipstick Negative /ul (Negative); Nitrite-Dipstick Negative (Negative); Occult Blood-Urine Negative /ul (Negative); Protein-Dipstick 30 mg/dl (Negative); Specific Gravity, Urine 1.020 (1.002-1.030); Urine Bilirubin Dipstick Negative (Negative)
[2024-12-10 14:58] LABS: Squamous Epithelial Cells - UA 0-5 SEEN /hpf (5-10)
== END | disposition home or self-care (01) ==
LOC: LABSPEC 14:27
PROVIDERS: PCP Family Medicine; Referring Provider Emergency Medicine; Visit Provider Emergency Medicine
DX: R33.9 Retention of urine, unspecified (principal); R41.0 Disorientation, unspecified
CPT/HCPCS: 81001; 87086